=== PATIENT | female | born 1930 | race Caucasian/White ===

== ENCOUNTER → 2016-12-14 | Outpatient (CLI) | payer OTHER ==
[~2016-12-14] MED LIST: DMD20 PO; DONE1TAB11 PO; ESTCR PV; POTA-327 PO; SIMV20TA2 PO; TRIA37.5 PO
[2016-12-14 11:45] LABS: ALT/SGPT 16 U/L (12-78); BLOOD UREA NITROGEN 21 mg/dl (7-18); BUN/CREATININE RATIO 27.3 (10-20); CALCIUM 9.5 mg/dl (8.5-10.1); CARBON DIOXIDE 28 mmol/L (21-32); CHLORIDE 102 mmol/L (98-107); CHOLESTEROL 160 mg/dl (0-200); CREATININE 0.78 mg/dl (0.60-1.20); GLUCOSE 90 mg/dl (70-99); POTASSIUM 3.3 mmol/L (3.5-5.1); SODIUM 138 mmol/L (136-145); TRIGLYCERIDES 87 mg/dl (0-150); VERY LOW DENSITY LIPOPROT CALC 17 mg/dl
[2016-12-14 11:48] LABS: ALB/GLOB RATIO 0.8 (0.9-2); ALKALINE PHOSPHATASE 67 U/L (45-117); AST/SGOT 17 U/L (15-37); CHOLESTEROL/HDL RATIO 2.2; HDL CHOLESTEROL 74 mg/dl; LDL CHOLESTEROL CALCULATED 69 mg/dl
== END | disposition home or self-care (01) ==
LOC: C.LAB1850 09:04
PROVIDERS: ATTEND Nurse Practitioner Adult Health
DX: I10 Essential (primary) hypertension (principal); E78.00 Pure hypercholesterolemia, unspecified; R73.9 Hyperglycemia, unspecified

== ENCOUNTER 2021-02-05 19:32 | Inpatient (IN) ==
--- NOTE | 2021-02-05 20:53 | XRay Report ---
XR chest 1V portable CLINICAL HISTORY: ams TECHNIQUE: Single frontal radiograph of the chest was obtained. Comparison: Comparison is made to chest one view 01/14/2021 FINDINGS: No lines and tubes are seen. The aorta is tortuous. The remainder of the cardiomediastinal silhouette is unremarkable. The lungs are clear. No evidence of pleural effusion or pneumothorax. IMPRESSION: No acute chest disease. ACT 112: Negative or not required by law. Electronically signed by: Jourdan Germain M.D. 02/05/2021 8:52 PM
[2021-02-05 21:45] LABS: Alanine Aminotransferase 30 U/L (12-78); Albumin Level 3.4 gm/dl (3.4-5.0); Aspartate Aminotransferase 43 U/L (15-37); BUN Creatinine Ratio 28.4 (10-20); Blood Urea Nitrogen 46 mg/dl (7-18); Calcium 10.3 mg/dl (8.5-10.1); Carbon Dioxide 28 mmol/L (21-32); Chloride 106 mmol/L (98-107); Est GFR (African American) 32.3 ml/min; Est GFR (Non-African American) 27.9 ml/min; Glucose 115 mg/dl (70-99); Lipase 73 U/L (73-393); Magnesium 2.7 mg/dl (1.8-2.4); Potassium 4.4 mmol/L (3.5-5.1); Sodium 142 mmol/L (136-145)
[2021-02-05 21:56] LABS: Albumin Globulin Ratio 0.6 (0.9-2); Alkaline Phosphatase 107 U/L (45-117); Bilirubin,Total 0.5 mg/dl (0.2-1); Globulin 5.3 gm/dl (2.5-4.0); Thyroid Stimulating Hormone 0.647 uIu/ml (0.300-4.500); Total Protein 8.7 gm/dl (6.4-8.2)
[2021-02-05 22:26] LABS: Hematocrit (blood only) 32.2 % (37-47); Hemoglobin 9.2 g/dL (12.0-16.0); Mean Corpuscular Hemoglobin 19.3 pg (25-34); Mean Corpuscular Hgb Conc 28.6 g/dL (32-36); Mean Corpuscular Volume 67.6 fL (80-100); Mean Platelet Volume 8.4 fL (7.4-10.4); Platelet Count 327 K/uL (130-400); RDW Coefficient of Variation 20.8 % (11.5-14.5); RDW Standard Deviation 50.6 fL (36.4-46.3); Red Blood Count 4.76 M/uL (4.2-5.4); White Blood Count 9.91 K/uL (4.8-10.8)
[2021-02-05 22:28] LABS: Anisocytosis Present; Basophils # (auto) 0.01 K/uL (0-0.2); Basophils % (auto) 0.1 %; Eosinophils # (auto) 0.03 K/uL (0-0.5); Eosinophils % (auto) 0.3 %; Hypochromasia Present; Immature Granulocytes # (auto) 0.02 K/uL (0.00-0.02); Immature Granulocytes % (auto) 0.2 %; Lymphocytes # (auto) 1.78 K/uL (1.2-3.4); Microcytosis Present; Monocytes # (auto) 0.69 K/uL (0.11-0.59); Neutrophils # (auto) 7.38 K/uL (1.4-6.5); Neutrophils % (auto) 74.4 %; Polychromasia 1+
[2021-02-05] MEDS ORDERED: SODIUM CHLORIDE 0.9% 1000ML 1,000 ML IV SCH (22:45)
--- NOTE | 2021-02-05 22:55 | Emergency Department Note ---
History of Present Illness General Chief complaint: Illness Time Seen by Provider: 02/05/21 20:12 Source: family Mode of arrival: ambulatory Limitations: altered mental status History of Present Illness Provider complaint: confusion, aggressive behavior, hallucinations This is an 89-year-old female brought in by family due to concern for increased confusion, hallucinations, and aggressive behavior. They state patient does have a history of dementia and has worsened in recent months. Patient does live with family who cares for her full-time. Family states she has become more aggressive, pushing and shoving other family members and they are concerned for their safety. They deny any recent illness or change in her medications. Patient is not a wainwright [place] speaker, and communicates with family in her n ative language. She states she is refusing to drink the water because it is blue. Family also produces videos of her having conversations with people who are not present. They also have pictures of her attempting to turn over dining room chairs in order to use them as a toilet. Patient denies any current pain at this time. Patient is calm and cooperative during my evaluation. They are concerned that the patient may ultimately need senior living placement. Pt seen during a time of high acuity and national emergency pandemic while wearing PPE. Home Medications Medication Instructions Recorded Confirmed Type hydroxyzine HCl 10 mg tablet See Rx Instructions PO TID PRN 10/06/18 02/05/21 Rx #180 tab incontinence pad, liner, disp #60 ea 12/12/19 01/20/21 Rx (Underpad-Extra Large) diaper,brief,adult,disposable #160 ea 12/14/19 01/20/21 Rx (Briefs Medium) simvastatin 20 mg tablet 20 mg PO DAILY #90 tab 04/02/20 02/05/21 Rx donepezil 5 mg tablet 5 mg PO HS #30 tab 09/27/20 02/05/21 Rx potassium chloride 20 mEq 20 meq PO DAILY #30 tab 09/27/20 02/05/21 Rx tablet,extended release torsemide 10 mg tablet 10 mg PO DAILY #30 tab 09/27/20 02/05/21 Rx triamterene 37.5 1 cap PO DAILY #30 cap 09/27/20 02/05/21 Rx mg-hydrochlorothiazide 25 mg capsule trazodone 50 mg tablet 50 mg PO HS #30 tab 12/02/20 02/05/21 Rx estradiol 0.5 appful VAGINAL 2XWK #42.5 g 01/01/21 02/05/21 Rx Allergies Allergy/AdvReac Type Severity Reaction Status Date / Time No Known Allergies Allergy Verified 02/05/21 21:09 Past Med/Surg History Medical History Dementia Dyslipidemia H/O bone density study 01/31/2009 HTN (hypertension) Presence of pessary Skin cancer of face Venous stasis ulcer of left lower extremity Surgical History No pertinent past surgical history Family History Denies family history of Ovarian cancer Prostate cancer Myocardial infarction Breast cancer Colorectal cancer Social History Smoking Status: Unknown if ever smoked Preferred Language: Grenadian Communication Ability: Effective Communication Tools: IPad and Language Line Clarifier Operator Helper Visual Impairment: Partially Limited Hearing Ability: Normal Clarifier Operator Helper Required: Yes Beliefs That Will Affect Care: None marital status: / Current Living Situation: Family Current Living Situation Comment: unable to answer, language barrier, confusion current occupational status: retired How many Children do You have: 3 Feels Safe at Home: Declines to Answer Childhood Exposure to Second-Hand Smoke: No caffeine: Yes during the past year weight has: remained stable Dental Care, Regularly: No Physical Activity Frequency: Daily Seatbelt Use: always Sunscreen Use: No Assistive Devices: Walker Review of Systems A total of 10 systems reviewed and were otherwise negative All systems reviewed & are unremarkable except as noted in HPI & below Physical Exam Vital Signs Vital Signs - 24 hr 02/05/21 19:35 Temperature 36.5 C Temperature Source Oral Pulse Rate 73 Respiratory Rate 16 Respiratory Effort / Characteristics Non-Labored Respiratory Depth Normal Blood Pressure 126/73 Blood Pressure Mean 90 Blood Pressure Position Lying Pulse Oximetry 94 Sepsis Recent Fever Within 48 Hours No Sepsis New/Unexplained Change in Mental Status No Sepsis Action Taken by Nursing No Action Required GENERAL: alert, well appearing, well nourished, no distress, non-toxic EYE EXAM: normal conjunctiva, PERRL and EOM's grossly intact OROPHARYNX: no exudate, no erythema, lips, buccal mucosa, and tongue normal and mucous membranes are moist, poor dentition NECK: supple, no nuchal rigidity, no adenopathy, non-tender LUNGS: Clear to auscultation. Normal chest wall mechanics, no w/r/r HEART: no murmurs, S1 normal and S2 normal ABDOMEN: abdomen soft, non-tender, normo-active bowel sounds, no masses, no rebound or guarding. BACK: Back is symmetrical on inspection and there is no deformity, no midline tenderness, no CVA tenderness. SKIN: no rashes and no bruising UPPER EXTREMITIES: upper extremities are grossly normal. FROM, nml pulses b/l. Several areas of ecchymosis in various stages of healing noted along the left forearm. Granddaughter bedside states this is from her pinching herself. LOWER EXTREMITIES: No pitting edema. FROM, nml pulses b/l. NEURO EXAM: Normal sensorium, cranial nerves II-XII grossly intact, normal speech, no gross weakness of arms, no gross weakness of legs. Gross sensation intact. Course Course 2249: Discussed with Dr. Serrano. UA still pending. Patient cooperative here thus far. Administered Medications Donepezil HCl (Donepezil Hcl 5 Mg Tab) 5 mg PO HS ZOIE Stop: 03/08/21 20:59 Last Admin: 02/06/21 22:36 Dose: Not Given Documented by: [id number] Enoxaparin Sodium (Enoxaparin Inj 30 Mg/0.3 Ml Syr) 30 mg SQ Q24H ZOIE Stop: 03/08/21 05:59 Last Admin: 02/06/21 06:33 Dose: 30 mg Documented by: [id number] Ceftriaxone Sodium 1,000 mg/ (Dextrose) 60 mls @ 100 mls/hr IV DAILY ZOIE; Protocol Stop: 02/11/21 08:59 Last Infusion: 02/06/21 10:37 Dose: 0 mls/hr Documented by: [id number] Admin: 02/06/21 09:37 Dose: 100 mls/hr Documented by: [id number] Sodium Chloride (Nss 1000ml) 1,000 mls @ 80 mls/hr IV .[id number] ZOIE Stop: 03/08/21 08:29 Last Admin: 02/06/21 22:40 Dose: 80 mls/hr Documented by: [id number] Infusion: 02/06/21 20:28 Dose: 0 mls/hr Documented by: [id number] Admin: 02/06/21 09:37 Dose: 80 mls/hr Documented by: [id number] Potassium Chloride (Potassium Chloride Crtab 20 Meq Tabcr) 20 meq PO DAILY ZOIE Stop: 03/08/21 08:59 Last Admin: 02/06/21 08:44 Dose: 20 meq Documented by: [id number] Simvastatin (Simvastatin 20 Mg Tab) 20 mg PO DAILY ZOIE Stop: 03/08/21 08:59 Last Admin: 02/06/21 08:44 Dose: 20 mg Documented by: [id number] Torsemide (Torsemide 10 Mg Tab) 10 mg PO DAILY ZOIE Stop: 03/08/21 08:59 Last Admin: 02/06/21 08:44 Dose: 10 mg Documented by: [id number] Trazodone HCl (Trazodone Hcl 50 Mg Tab) 50 mg PO HS ZOIE Stop: 03/08/21 20:59 Last Admin: 02/06/21 22:36 Dose: Not Given Documented by: [id number] Triamterene/Hydrochlorothiazide (Triamterene/Hctz 37.5/25mg Cap) 1 cap PO DAILY ZOIE Stop: 03/08/21 08:59 Last Admin: 02/06/21 08:44 Dose: 1 cap Documented by: [id number] Discontinued Medications Sodium Chloride (Nss 1000ml) 1,000 mls @ 125 mls/hr IV .Q8H ZOIE Stop: 03/07/21 22:44 Last Infusion: 02/06/21 01:00 Dose: 0 mls/hr Documented by: [id number] Admin: 02/05/21 23:40 Dose: 125 mls/hr Documented by: [id number] Lactated Ringer's (Lr) 1,000 mls @ 100 mls/hr IV .Q10H ZOIE Stop: 02/06/21 11:29 Last Infusion: 02/06/21 08:49 Dose: 0 mls/hr Documented by: [id number] Admin: 02/06/21 01:42 Dose: 100 mls/hr Documented by: [id number] Iron Sucrose 300 mg/ Sodium (Chloride) 265 mls @ 176.667 mls/hr IV TODAY ONE Stop: 02/06/21 12:28 Last Infusion: 02/06/21 12:59 Dose: 0 mls/hr Documented by: [id number] Admin: 02/06/21 11:18 Dose: 176.7 mls/hr Documented by: [id number] Influenza Virus Vaccine (Influenza Vaccine High Dose Pf 65+ 0.7 Ml Syr) 0.7 ml IM .ONCE ONE Stop: 02/06/21 12:01 Last Admin: 02/06/21 15:55 Dose: 0.7 ml Documented by: [id number] Pneumococcal Polyvalent Vaccine (Pneumococcal Polysaccharides 25 Mcg/0.5 Ml Via l/Syr) 25 mcg IM .ONCE ONE Stop: 02/06/21 12:01 Last Admin: 02/06/21 15:56 Dose: 25 mcg Documented by: [id number] Medical Decision Making Differential Diagnosis Differential diagnoses includes but is not limited to toxic, metabolic, infectious, traumatic, cardiac, neurologic, hematologic, psychiatric and inflammatory etiologies. Medical Records Attestation: I reviewed the patient's medical records. Home Medications Current Medication List: was personally reviewed by me Laboratory Data Attestation: I reviewed the patient's lab results. Result diagrams: 02/06/21 08:26 02/06/21 08:26 Lab Results 02/05/21 02/05/21 02/05/21 Range/Units 21:03 21:03 21:10 WBC 9.91 (4.8-10.8) K/uL RBC 4.76 (4.2-5.4) M/uL Hgb 9.2 L (12.0-16.0) g/dL Hct 32.2 L (37-47) % MCV 67.6 L (80-100) fL MCH 19.3 L (25-34) pg MCHC 28.6 L (32-36) g/dL RDW Std Deviation 50.6 H (36.4-46.3) fL RDW Coeff of Tommie 20.8 H (11.5-14.5) % Plt Count 327 (130-400) K/uL MPV 8.4 (7.4-10.4) fL Immature Gran % (Auto) 0.2 % Neut % (Auto) 74.4 % Lymph % (Auto) 18.0 % [place] % (Auto) 7.0 % Eos % (Auto) 0.3 % Baso % (Auto) 0.1 % Neut # (Auto) 7.38 H (1.4-6.5) K/uL Lymph # (Auto) 1.78 (1.2-3.4) K/uL [place] # (Auto) 0.69 H (0.11-0.59) K/uL Eos # (Auto) 0.03 (0-0.5) K/uL Baso # (Auto) 0.01 (0-0.2) K/uL Immature Gran # (Auto) 0.02 (0.00-0.02) K/uL Polychromasia 1+ Hypochromasia Present Anisocytosis Present Microcytosis Present Sodium 142 (136-145) mmol/L Potassium 4.4 (3.5-5.1) mmol/L Chloride 106 (98-107) mmol/L Carbon Dioxide 28 (21-32) mmol/L Anion Gap 8.0 (3-11) BUN 46 H (7-18) mg/dl Creatinine 1.62 H (0.6-1.2) mg/dl Est Cr Clr Drug Dosing Not Reportable Est GFR ( Amer) 32.3 ml/min Est GFR (Non-Af Amer) 27.9 ml/min BUN/Creatinine Ratio 28.4 H (10-20) Glucose 115 H (70-99) mg/dl Calcium 10.3 H (8.5-10.1) mg/dl Magnesium 2.7 H (1.8-2.4) mg/dl Total Bilirubin 0.5 (0.2-1) mg/dl AST 43 H (15-37) U/L ALT 30 (12-78) U/L Alkaline Phosphatase 107 (45-117) U/L Troponin I 0.040 (0-0.045) ng/ml Total Protein 8.7 H (6.4-8.2) gm/dl Albumin 3.4 (3.4-5.0) gm/dl Globulin 5.3 H (2.5-4.0) gm/dl Albumin/Globulin Ratio 0.6 L (0.9-2) Lipase 73 (73-393) U/L TSH 0.647 (0.300-4.500) uIu/ml COVID-19 Eval Order Covid19 at [facility] SARS-CoV-2 (PCR) (Negative) 02/05/21 Range/Units 21:10 WBC (4.8-10.8) K/uL RBC (4.2-5.4) M/uL Hgb (12.0-16.0) g/dL Hct (37-47) % MCV (80-100) fL MCH (25-34) pg MCHC (32-36) g/dL RDW Std Deviation (36.4-46.3) fL RDW Coeff of Tommie (11.5-14.5) % Plt Count (130-400) K/uL MPV (7.4-10.4) fL Immature Gran % (Auto) % Neut % (Auto) % Lymph % (Auto) % [place] % (Auto) % Eos % (Auto) % Baso % (Auto) % Neut # (Auto) (1.4-6.5) K/uL Lymph # (Auto) (1.2-3.4) K/uL [place] # (Auto) (0.11-0.59) K/uL Eos # (Auto) (0-0.5) K/uL Baso # (Auto) (0-0.2) K/uL Immature Gran # (Auto) (0.00-0.02) K/uL Polychromasia Hypochromasia Anisocytosis Microcytosis Sodium (136-145) mmol/L Potassium (3.5-5.1) mmol/L Chloride (98-107) mmol/L Carbon Dioxide (21-32) mmol/L Anion Gap (3-11) BUN (7-18) mg/dl Creatinine (0.6-1.2) mg/dl Est Cr Clr Drug Dosing Est GFR ( Amer) ml/min Est GFR (Non-Af Amer) ml/min BUN/Creatinine Ratio (10-20) Glucose (70-99) mg/dl Calcium (8.5-10.1) mg/dl Magnesium (1.8-2.4) mg/dl Total Bilirubin (0.2-1) mg/dl AST (15-37) U/L ALT (12-78) U/L Alkaline Phosphatase (45-117) U/L Troponin I (0-0.045) ng/ml Total Protein (6.4-8.2) gm/dl Albumin (3.4-5.0) gm/dl Globulin (2.5-4.0) gm/dl Albumin/Globulin Ratio (0.9-2) Lipase (73-393) U/L TSH (0.300-4.500) uIu/ml COVID-19 Eval Order SARS-CoV-2 (PCR) NEGATIVE (Negative) Imaging Data Radiologist's Impression: Chest X-Ray 02/05/21 20:31 XR chest 1V portable CLINICAL HISTORY: ams TECHNIQUE: Single frontal radiograph of the chest was obtained. Comparison: Comparison is made to chest one view 01/14/2021 FINDINGS: No lines and tubes are seen. The aorta is tortuous. The remainder of the cardiomediastinal silhouette is unremarkable. The lungs are clear. No evidence of pleural effusion or pneumothorax. IMPRESSION: No acute chest disease. ACT 112: Negative or not required by law. Electronically signed by: Jourdan Germain M.D. 02/05/2021 8:52 PM ECG Data Attestation: I personally reviewed and interpreted this ECG as follows: Indication: + altered mental status Rate (beats per minute): 89 Rhythm: + normal sinus ECG Intervals/blocks: + Normal QRS and + Normal QT ECG [place]: + Left axis deviation ECG ST segments: + Nonspecific ST abnormalities Additional Comments: Significant baseline artifact aberrancy noted MDM Narrative This is an 89-year-old female with a history of dementia who lives with family who was becoming more confused, more agitated, and aggressive with family. Family is concerned for safety at this point time and feels she may ultimately need placement. No obvious recent trauma. Patient hemodynamically stable on arrival. Patient sent for CT imaging and labs sent in addition. These are reassuring. Discussed case with hospitalist additional evaluation and management and likely eventual placement with case management involvement. Patient's UA was pending at that time. Due to patient being single day of high volume and acuity, there was some delay in obtaining this as this required multiple staff members in order to obtain a cath specimen. A dose of Ativan was given in addition to help prevent patient becoming too combative or putting staff at risk of injury due to her recent aggressive behavior. Hospitalist was made aware of this. An order was placed for continuous cardiac monitoring. The monitor shows a rate of _70_ with _normal sinus_ rhythm. Impression & Plan Altered mental status, Aggressive behavior Discharge Plan Visit Data Chief Complaint: Illness ED Provider: Brie Galindo Discharge Problem: Altered mental status, Aggressive behavior Patient Disposition: Admitted As Inpatient Discharge Instructions Interventions: ED Discharge Assessment Last Done: 02/06/21 00:11 Discharge Problem: Altered mental status Qualifiers: Altered mental status type: unspecified Qualified Code(s): R41.82 - Altered mental status, unspecified
--- NOTE | 2021-02-05 23:27 | History & Physical Report ---
Date of Service February 05, 2021 Assessment & Plan (1) Agitation: Plan: 89yo female with history of dementia with progressive decline presenting with 2 weeks of worsening aggressive and agitated behavior in the home as well as possible hallucinations, failure to thrive. Patient presently lives with her daughter who is her primary body care manager. She has become more difficult to manage over the last two weeks. Patient has become more aggressive toward family members lately. She is afebrile, HD stable. Labs with mild hypercalcemia at 10.3, midly elevated BUN and Cr of 46 and 1.62, respectively. TSH WNL. No obvious source of infection although UA is pending. CT of the head is unremarkable. No new medications. Consideration of progressive dementia vs delirium. Possible UTI. Patient also seems dehydrated on labs as well as clinical appearance. -Admit to medical -1:1 observation as patient may try to climb from bed -Awaiting UA - patient with pessary in place, higher risk for infection -Delirium prevention strategies with frequent orientation, maintenance of sleep/wake cycles where able -Gentle IVF - LR at 100mL/hr x 1 liter -Check B12 and Folate -Continue Aricept 5mg po qHS -Continue Trazodone 50mg po qHS -Will hold Hydroxyzine for now as anticholinergic effects may worsen delirium (2) Hypercholesterolemia: Plan: Chronic. On Simvastatin -Continue Simvastatin 20mg po daily (3) Benign essential hypertension: Plan: Blood pressure well controlled. She is on three diuretics to include triamterene/HCTZ as well as torsemide -Continue home meds for now (4) Dementia: Plan: Chronic -Continue Aricept -PT/OT evaluation for placement needs Plan: F/E/N - Gentle IVF with LR, electrolytes WNL, repeat chemistry in AM, Regular diet as tolerated Ppx - Lovenox 30 Code - DNR/DNI Dispo - Admit to medical History of Present Illness Chief Complaint: Aggression Primary Care Provider: NO PCP Halley Soliz is an 89yo Iranian female with history of Dementia, HTN, HLP presenting with her granddaughter with report of aggression. Patient currently lives with her daughter who cares for her. At baseline she is incontinent, needs assistance with dressing and meals. She has also has difficulty with communication - she is Iranian speaking but has been having progressive inability to understand Iranian. Over the last 2 weeks patient has become increasingly aggressive at home. She has been hitting and pushing her daughter. She has also been defecating throughout the house. Also some question of hallucinations as she has been heard having conversations with people that aren't in the room. Patient's granddaughter visited today from [place]. Patient became very aggressive and was pushing her daughter, granddaughter and great-grandchildren around. She was also yelling and cursing. Granddaughter called EMS and patient was brought to the ER. Afebrile, HD stable while in the ER. Granddaughter states that patient has been looking around the room confused and having conversations with people that are n't here. Patient is Iranian speaking but is having difficulty understanding her granddaughter. She follows some commands. Of note, patient was seen in the ER on 01/14/21 after being found wandering around outside. She was ultimately discharged home to family. She was seen by her PCP on 01/20/21 for followup. Note mentions that patient has been more aggressive, not allowing for self-care. It was recommended that the family begin to consider placement options. ER Course: NSS x 1L Allergies Allergy/AdvReac Type Severity Reaction Status Date / Time No Known Allergies Allergy Verified 02/05/21 21:09 Home Medications Medication Instructions Recorded Confirmed Type hydroxyzine HCl 10 mg tablet See Rx Instructions PO TID PRN 10/06/18 02/05/21 Rx #180 tab incontinence pad, liner, disp #60 ea 12/12/19 01/20/21 Rx (Underpad-Extra Large) diaper,brief,adult,disposable #160 ea 12/14/19 01/20/21 Rx (Briefs Medium) simvastatin 20 mg tablet 20 mg PO DAILY #90 tab 04/02/20 02/05/21 Rx donepezil 5 mg tablet 5 mg PO HS #30 tab 09/27/20 02/05/21 Rx potassium chloride 20 mEq 20 meq PO DAILY #30 tab 09/27/20 02/05/21 Rx tablet,extended release torsemide 10 mg tablet 10 mg PO DAILY #30 tab 09/27/20 02/05/21 Rx triamterene 37.5 1 cap PO DAILY #30 cap 09/27/20 02/05/21 Rx mg-hydrochlorothiazide 25 mg capsule trazodone 50 mg tablet 50 mg PO HS #30 tab 12/02/20 02/05/21 Rx estradiol 0.5 appful VAGINAL 2XWK #42.5 g 01/01/21 02/05/21 Rx Past Med/Surg History Medical History Dementia Dyslipidemia H/O bone density study 01/31/2009 HTN (hypertension) Presence of pessary Skin cancer of face Venous stasis ulcer of left lower extremity Surgical History No pertinent past surgical history Family History Denies family history of Ovarian cancer Prostate cancer Myocardial infarction Breast cancer Colorectal cancer Social History Smoking Status: Unknown if ever smoked Second Hand Exposure: No; Hx Alcohol Use: No Hx Substance Use: No Preferred Language: Iranian Communication Tools: Other Visual Impairment: Partially Limited Hearing Ability: Normal 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 Beliefs That Will Affect Care: None marital status: / Current Living Situation: Alone current occupational status: retired How many Children do You have: 3 Feels Safe at Home: Yes Childhood Exposure to Second-Hand Smoke: No caffeine: Yes during the past year weight has: remained stable Dental Care, Regularly: No Physical Activity Frequency: Daily Seatbelt Use: always Sunscreen Use: No Assistive Devices: Cane, Denture - Upper, Denture - Lower, Glasses and Walker Review of Systems Review of Systems: Unobtainable due to cognitive status Physical Exam Physical Exam: General: frail, elderly female patient resting comfortably, NAD, does not answer questions, follows only some commands. Patient is Iranian speaking Skin: warm, dry, intact, scattered bruising on forearms, hands. Chronic venous stasis changes present on bilateral LE HEENT: NC/AT, PERRL, anicteric sclera, conjunctiva without injection, external ear normal to inspection and nontender, nares patent, dry mucus membranes, poor dentition, no oropharyngeal lesions, neck supple, trachea midline, no LAD, no thyromegaly, no JVD Heart: +S1/S2, regular with ectopy, no m/r/g Lungs: equal air entry bilaterally, no rales/rhonchi/wheezes Abd: +BS, soft, NT/ND, no masses/organomegaly/ascites Ext: warm, 2+ pulses in UE/LE bilaterally, no clubbing/cyanosis or edema Neuro: nonfocal, generalized weakness, patient moving all extremities with equal strength Results & Data Results & Data ([facility]) Vital Signs (Past 12 Hours) Vital Signs Temp Pulse Resp BP Pulse Ox 02/05/21 19:35 36.5 C 73 16 126/73 94 Laboratory Results Laboratory Results WBC 9.91 K/uL (4.8-10.8) 02/05/21 21:03 RBC 4.76 M/uL (4.2-5.4) 02/05/21 21:03 Hgb 9.2 g/dL (12.0-16.0) L 02/05/21 21:03 Hct 32.2 % (37-47) L 02/05/21 21:03 MCV 67.6 fL (80-100) L 02/05/21 21:03 MCH 19.3 pg (25-34) L 02/05/21 21:03 MCHC 28.6 g/dL (32-36) L 02/05/21 21:03 RDW Std Deviation 50.6 fL (36.4-46.3) H 02/05/21 21:03 RDW Coeff of Tommie 20.8 % (11.5-14.5) H 02/05/21 21:03 Plt Count 327 K/uL (130-400) 02/05/21 21:03 MPV 8.4 fL (7.4-10.4) 02/05/21 21:03 Immature Gran % (Auto) 0.2 % 02/05/21 21:03 Neut % (Auto) 74.4 % 02/05/21 21:03 Lymph % (Auto) 18.0 % 02/05/21 21:03 Posey % (Auto) 7.0 % 02/05/21 21:03 Eos % (Auto) 0.3 % 02/05/21 21:03 Baso % (Auto) 0.1 % 02/05/21 21:03 Neut # (Auto) 7.38 K/uL (1.4-6.5) H 02/05/21 21:03 Lymph # (Auto) 1.78 K/uL (1.2-3.4) 02/05/21 21:03 Posey # (Auto) 0.69 K/uL (0.11-0.59) H 02/05/21 21:03 Eos # (Auto) 0.03 K/uL (0-0.5) 02/05/21 21:03 Baso # (Auto) 0.01 K/uL (0-0.2) 02/05/21 21:03 Immature Gran # (Auto) 0.02 K/uL (0.00-0.02) 02/05/21 21:03 Polychromasia 1+ 02/05/21 21:03 Hypochromasia Present 02/05/21 21:03 Anisocytosis Present 02/05/21 21:03 Microcytosis Present 02/05/21 21:03 Sodium 142 mmol/L (136-145) 02/05/21 21:03 Potassium 4.4 mmol/L (3.5-5.1) 02/05/21 21:03 Chloride 106 mmol/L (98-107) 02/05/21 21:03 Carbon Dioxide 28 mmol/L (21-32) 02/05/21 21:03 Anion Gap 8.0 (3-11) 02/05/21 21:03 BUN 46 mg/dl (7-18) H 02/05/21 21:03 Creatinine 1.62 mg/dl (0.6-1.2) H 02/05/21 21:03 Est Cr Clr Drug Dosing Not Reportable 02/05/21 21:03 Est GFR ( Amer) 32.3 ml/min 02/05/21 21:03 Est GFR (Non-Af Amer) 27.9 ml/min 02/05/21 21:03 BUN/Creatinine Ratio 28.4 (10-20) H 02/05/21 21:03 Glucose 115 mg/dl (70-99) H 02/05/21 21:03 Calcium 10.3 mg/dl (8.5-10.1) H 02/05/21 21:03 Magnesium 2.7 mg/dl (1.8-2.4) H 02/05/21 21:03 Total Bilirubin 0.5 mg/dl (0.2-1) 02/05/21 21:03 AST 43 U/L (15-37) H 02/05/21 21:03 ALT 30 U/L (12-78) 02/05/21 21:03 Alkaline Phosphatase 107 U/L (45-117) 02/05/21 21:03 Troponin I 0.040 ng/ml (0-0.045) 02/05/21 21:03 Total Protein 8.7 gm/dl (6.4-8.2) H 02/05/21 21:03 Albumin 3.4 gm/dl (3.4-5.0) 02/05/21 21:03 Globulin 5.3 gm/dl (2.5-4.0) H 02/05/21 21:03 Albumin/Globulin Ratio 0.6 (0.9-2) L 02/05/21 21:03 Lipase 73 U/L (73-393) 02/05/21 21:03 TSH 0.647 uIu/ml (0.300-4.500) 02/05/21 21:03 COVID-19 Eval Order Covid19 at [facility] 02/05/21 21:10 SARS-CoV-2 (PCR) NEGATIVE (Negative) 02/05/21 21:10 Impressions Chest X-Ray 02/05/21 20:31 XR chest 1V portable CLINICAL HISTORY: ams TECHNIQUE: Single frontal radiograph of the chest was obtained. Comparison: Comparison is made to chest one view 01/14/2021 FINDINGS: No lines and tubes are seen. The aorta is tortuous. The remainder of the cardiomediastinal silhouette is unremarkable. The lungs are clear. No evidence of pleural effusion or pneumothorax. IMPRESSION: No acute chest disease. ACT 112: Negative or not required by law. Electronically signed by: Jourdan Germain M.D. 02/05/2021 8:[address] Head - Per STAT-rad: No ICH, mass effect or edema. No evidence of acute cortical stroke. Sinus retention cysts/polyps. ECG Additional Comments: EKG wtih SR at 89bpm, sinus arrhythmia with PACs, no acute ischemic changes Code Status & VTE Plan VTE Prophylaxis Plan VTE Prophylaxis will be ordered: Yes PG Care Time/CCT Total # of Minutes Spent Total Time Spent with Patient: Total time spent is greater than 50% in coordination of care (as documented) at patient's floor/unit and/or counseling patient: Coding Level of Care Code 96661 Initial Inpt Care Lvl 2 Diagnoses Hypercholesterolemia E78.00 Benign essential hypertension I10 Dementia F03.91 Dementia type: unspecified type Dementia behavioral disturbance: with behavioral disturbance Agitation R45.1 (1) Dementia Dementia type: unspecified type Dementia behavioral disturbance: with behavioral disturbance Qualified Code(s): F03.91 - Unspecified dementia with behavioral disturbance
[2021-02-05] MEDS ORDERED: LORazepam 0.5 MG/1 ML VIAL IV PRN (23:54)
[2021-02-06] MEDS ORDERED: ONDANSETRON INJ 2 MG/ML 2 ML VIAL IV PRN (00:58)
[2021-02-06] MEDS ORDERED: MAGNESIUM HYDROXIDE SUSP 30 ML UDC PO PRN (00:58)
[2021-02-06] MEDS ORDERED: LACTATED RINGER'S 1,000 ML IV SCH (01:30)
[2021-02-06 02:24] LABS: Appearance Urine Cloudy (Clear); Bacteria Urine Automated 2+ (Negative); Bilirubin Urine Negative (Negative); Blood Urine Trace (Negative); Color Urine Yellow; Glucose Urine UA Negative (Negative); Ketones Urine Negative (Negative); Leukocyte Esterase Urine 3+ (Negative); Nitrite Urine Positive (Negative); Protein Urine Negative (Negative); RBC Urine Automated 0-4 /hpf (0-4); Specific Gravity Urine 1.013 (1.000-1.030); Urobilinogen Urine Negative (Negative); WBC Urine Automated >30 /hpf (0-5)
[2021-02-06] MEDS: ENOXAPARIN INJ 30 MG/0.3 ML SYR SQ SCH (06:33)
--- NOTE | 2021-02-06 07:23 | CT Scan Report ---
HEAD CT NONCONTRAST CT DOSE: 614.27 mGy.cm HISTORY: Altered mental status. TECHNIQUE: Multiaxial CT images of the head were performed without the use of intravenous contrast. A utomated exposure control was utilized for this study. A dose lowering technique was utilized adheri ng to the principles of ALARA. Comparison: Head CT 01/14/2021. Findings: Small retention cyst within the maxillary sinuses. The mastoid air cells are clear. The shellie varium and skull base are intact. There is no mass, hematoma, midline shift, acute infarct. White mat ter hypodensity is nonspecific but suggestive of microvascular ischemic change. The ventricles and appiah lci demonstrate mild age-related involutional changes. Impression: No acute intracranial abnormality. ACT 112: Negative or not required by law. Electronically signed by: Iker Alcazar M.D. 02/06/2021 7:22 AM
--- NOTE | 2021-02-06 08:19 | Hospitalist Progress Note ---
Date of Service February 06, 2021 Assessment & Plan (1) Agitation: Plan: 89yo female with history of dementia with progressive decline presenting with 2 weeks of worsening aggressive and agitated behavior in the home as well as possible hallucinations, failure to thrive. Patient presently lives with her daughter who is her primary career resource technician and has become more difficult/aggressive with family to manage over the last two weeks. 1:1 placed -- has been much more calm since given dose of abx for possible UTI --> UA -- cloudy, +nitrite, 3+ leuk est, >30 WBC, 10-20 epi, 2+ bacteria (patient also w pessary) -- will start rocephin. Change IVF to NSS @ 80cc/hr to prevent interaction LR and Rocephin Hold torsemide, triameterene/hctz (did get dose this AM) while hydrating B12/folate/TSH wnl B1 pending Continue aricept 5mg, trazodone 50mg HS. Hold hydroxyzine (may need resumed for her "itching" "picking" but denied being itchy and would avoid w anticholinergic effects) MCV <80. Never had scope. No bleeding reported. Iron studies with iron deficiency anemia: Iron 34, TIBC 348, Transferrin 273, trans % sat 9, ferritin 12.9 PT/OT consulted -- CM following as family would like placement at d/c. Patient is unvaccinated but willing to receive per family Continue to monitor (2) UTI (urinary tract infection): Plan: UA appears infected Rocephin for now Monitor urine cx likely cause for worsening of #1 (3) Anemia: Plan: Prior labs w anemia, MCV <80 Iron studies : Iron 34, TIBC 348, Transferrin 273, trans % sat 9, ferritin 12.9 Venofer 300mg x1 on 02/06, will repeat in AM. B12/folate wnl CBC in AM (4) Hypercholesterolemia: Plan: Chronic. On Simvastatin Continue Simvastatin 20mg po daily (5) Benign essential hypertension: Plan: Blood pressure well controlled. She got her AM dose of torsemide, triamterene/HCTZ and was dehydrated on IVF Diuretics placed on hold Continue IVF BP 104/64 Continue to monitor (6) Dementia: Plan: Chronic Continue Aricept PT/OT evaluation for placement needs (7) Acute kidney injury superimposed on CKD: Plan: Cr 1.6 on admit (was 1.4 in ER on 01/14) but appears baseline closer to 1 in 2019. recent GFRs in 20s, indicating CKD IV Reported decreased PO intake/weakness -- see UTI as above renally dose medications when appropriate Cr improved to 1.35 On IVF, and will hold diuretics as above as she did get her dose this morning BMP in AM (8) Afib: Plan: afib vs ectopy ?if when dehydrated possibly went into afib rvr making confusion/weakness worse ? Will repeat EKG --> NSR however prior EKG December 2020 during ER visit indicated possible afib as well No prior hx of such HRs have been controlled No prior ECHO in system. No sob/lightheadedness/chest pain, but did report wea kness. TSH checked on admit and was wnl Will move to tele for continued monitoring/recurrence. not sure would be ideal candidate for ACT given severe dementia, however family did not report a history of falls (besides feeling weak recently from UTI/CHRISTINA/dehydration/anemia as above) Plan: Ppx - Lovenox 30 Code - DNR/DNI Continue Rocephin, monitor urine cx Additional Venofer for tomorrow Discussion with family at bedside -- will continue to monitor response to tx of UTI. CM following for possible placement. Patient is unvaccinated, but family willing to do so if needed. Discussed may not be able to occur on inpatient status but will look into this. Admission and Anticipated Discharge Date Admission Date: February 05, 2021 Supervising Physician Co-Signing Physician Notes PA Supervision Note: I did not personally see or examine the patient today, but I verified all dawkins points of JONA Gonzalez's assessment and plan with the following exceptions/additions: None Subjective patient evaluated this afternoon with daughter and granddaughter at bedside. brought metal patternmaker pad into room and granddaughter declined use but she will be traveling home and ok to use when just the daughter as limited vietnamese. they are looking into placement as grandmother has been too combative recently. they state patient had been complaining recently stating her legs were weak and wound give out on her and recently seeing/hitting things and with decreased oral intake and urine output. discussed possible uti and abx and patient is less agitated/aggressive this afternoon. still picking at things/her hair, but overall much more cooperative and calm. has been assisted to bathroom by CM and did well. discussed if improvement with tx of infection might be better to take patient home given her dementia and unfamiliar environment. they want to wait and see how she does. they endorse patient had been having she is not vaccinated but family wanting to know if she could start that while inpatient if possible for need for placement. CM in room to discuss options with patient. we also discussed low iron and supplementation. patient has never had c-scope but family and patient denied ever having dark/tarry stool or rosaura blood. too hard for daughter to get mother to appointments and given age they held off. no reported fever, chills, chest pain, shortness of breath, abdominal pain, nausea or vomiting. questions/concerns addressed at this time. Review of Systems Review of Systems: All systems reviewed & are unremarkable except as noted in HPI & below Physical Exam Physical Exam: General: frail, elderly female patient resting comfortably, NAD, does not answer questions, follows some commands. Patient is Sudanese speaking -- discussion with granddaughter at bedside for interpretation Skin: warm, dry, intact, scattered bruising on forearms, hands. Chronic venous stasis changes present on bilateral LE HEENT: NC/AT, PERRL, anicteric sclera, conjunctiva without injection, external ear normal to inspection and nontender, nares patent, dry mucus membranes, poor dentition, no oropharyngeal lesions, neck supple, trachea midline, no LAD, no thyromegaly, no JVD dentures slightly loose fitting Heart: irregularly irregular vs NSR with extra beat, +S1/S2, no m/r/g Lungs: equal air entry bilaterally, no rales/rhonchi/wheezes Abd: +BS, soft, NT/ND, no masses/organomegaly/ascites Ext: warm, 2+ pulses in UE/LE bilaterally, no clubbing/cyanosis or edema Neuro: nonfocal, generalized weakness, patient moving all extremities with equal strength Results & Data Results & Data ([facility]) Vital Signs (Past 12 Hours) Vital Signs Temp Pulse Resp BP BP Pulse Ox 02/06/21 07:14 36.7 C 77 20 104/65 91 02/06/21 01:00 37.1 C 16 108/67 92 Laboratory Results 02/06/21 02/05/21 02/05/21 Range/Units 02:00 21:10 21:10 WBC (4.8-10.8) K/uL RBC (4.2-5.4) M/uL Hgb (12.0-16.0) g/dL Hct (37-47) % MCV (80-100) fL MCH (25-34) pg MCHC (32-36) g/dL RDW Std Deviation (36.4-46.3) fL RDW Coeff of Tommie (11.5-14.5) % Plt Count (130-400) K/uL MPV (7.4-10.4) fL Immature Gran % (Auto) % Neut % (Auto) % Lymph % (Auto) % [place] % (Auto) % Eos % (Auto) % Baso % (Auto) % Neut # (Auto) (1.4-6.5) K/uL Lymph # (Auto) (1.2-3.4) K/uL [place] # (Auto) (0.11-0.59) K/uL Eos # (Auto) (0-0.5) K/uL Baso # (Auto) (0-0.2) K/uL Immature Gran # (Auto) (0.00-0.02) K/uL Polychromasia Hypochromasia Anisocytosis Microcytosis Sodium (136-145) mmol/L Potassium (3.5-5.1) mmol/L Chloride (98-107) mmol/L Carbon Dioxide (21-32) mmol/L Anion Gap (3-11) BUN (7-18) mg/dl Creatinine (0.6-1.2) mg/dl Est Cr Clr Drug Dosing Est GFR ( Amer) ml/min Est GFR (Non-Af Amer) ml/min BUN/Creatinine Ratio (10-20) Glucose (70-99) mg/dl Calcium (8.5-10.1) mg/dl Magnesium (1.8-2.4) mg/dl Total Bilirubin (0.2-1) mg/dl AST (15-37) U/L ALT (12-78) U/L Alkaline Phosphatase (45-117) U/L Troponin I (0-0.045) ng/ml Total Protein (6.4-8.2) gm/dl Albumin (3.4-5.0) gm/dl Globulin (2.5-4.0) gm/dl Albumin/Globulin Ratio (0.9-2) Lipase (73-393) U/L TSH (0.300-4.500) uIu/ml Urine Color Yellow Urine Appearance Cloudy A (Clear) Urine pH 5.0 (4.5-7.5) Ur Specific [place] 1.013 (1.000-1.030) Urine Protein Negative (Negative) Urine Glucose (UA) Negative (Negative) Urine Ketones Negative (Negative) Urine Blood Trace H (Negative) Urine Nitrite Positive A (Negative) Urine Bilirubin Negative (Negative) Urine Urobilinogen Negative (Negative) Ur Leukocyte Esterase 3+ H (Negative) Urine WBC (Auto) >30 H (0-5) /hpf Urine RBC (Auto) 0-4 (0-4) /hpf U Hyaline Cast (Auto) 1-5 (0-5) /lpf U Epithel Cells (Auto) 10-20 H (0-5) /lpf Urine Bacteria (Auto) 2+ H (Negative) COVID-19 Eval Order Covid19 at [facility] SARS-CoV-2 (PCR) NEGATIVE (Negative) 02/05/21 02/05/21 Range/Units 21:03 21:03 WBC 9.91 (4.8-10.8) K/uL RBC 4.76 (4.2-5.4) M/uL Hgb 9.2 L (12.0-16.0) g/dL Hct 32.2 L (37-47) % MCV 67.6 L (80-100) fL MCH 19.3 L (25-34) pg MCHC 28.6 L (32-36) g/dL RDW Std Deviation 50.6 H (36.4-46.3) fL RDW Coeff of Tommie 20.8 H (11.5-14.5) % Plt Count 327 (130-400) K/uL MPV 8.4 (7.4-10.4) fL Immature Gran % (Auto) 0.2 % Neut % (Auto) 74.4 % Lymph % (Auto) 18.0 % [place] % (Auto) 7.0 % Eos % (Auto) 0.3 % Baso % (Auto) 0.1 % Neut # (Auto) 7.38 H (1.4-6.5) K/uL Lymph # (Auto) 1.78 (1.2-3.4) K/uL [place] # (Auto) 0.69 H (0.11-0.59) K/uL Eos # (Auto) 0.03 (0-0.5) K/uL Baso # (Auto) 0.01 (0-0.2) K/uL Immature Gran # (Auto) 0.02 (0.00-0.02) K/uL Polychromasia 1+ Hypochromasia Present Anisocytosis Present Microcytosis Present Sodium 142 (136-145) mmol/L Potassium 4.4 (3.5-5.1) mmol/L Chloride 106 (98-107) mmol/L Carbon Dioxide 28 (21-32) mmol/L Anion Gap 8.0 (3-11) BUN 46 H (7-18) mg/dl Creatinine 1.62 H (0.6-1.2) mg/dl Est Cr Clr Drug Dosing Not Reportable Est GFR ( Amer) 32.3 ml/min Est GFR (Non-Af Amer) 27.9 ml/min BUN/Creatinine Ratio 28.4 H (10-20) Glucose 115 H (70-99) mg/dl Calcium 10.3 H (8.5-10.1) mg/dl Magnesium 2.7 H (1.8-2.4) mg/dl Total Bilirubin 0.5 (0.2-1) mg/dl AST 43 H (15-37) U/L ALT 30 (12-78) U/L Alkaline Phosphatase 107 (45-117) U/L Troponin I 0.040 (0-0.045) ng/ml Total Protein 8.7 H (6.4-8.2) gm/dl Albumin 3.4 (3.4-5.0) gm/dl Globulin 5.3 H (2.5-4.0) gm/dl Albumin/Globulin Ratio 0.6 L (0.9-2) Lipase 73 (73-393) U/L TSH 0.647 (0.300-4.500) uIu/ml Urine Color Urine Appearance (Clear) Urine pH (4.5-7.5) Ur Specific [place] (1.000-1.030) Urine Protein (Negative) Urine Glucose (UA) (Negative) Urine Ketones (Negative) Urine Blood (Negative) Urine Nitrite (Negative) Urine Bilirubin (Negative) Urine Urobilinogen (Negative) Ur Leukocyte Esterase (Negative) Urine WBC (Auto) (0-5) /hpf Urine RBC (Auto) (0-4) /hpf U Hyaline Cast (Auto) (0-5) /lpf U Epithel Cells (Auto) (0-5) /lpf Urine Bacteria (Auto) (Negative) COVID-19 Eval Order SARS-CoV-2 (PCR) (Negative) Diagnostic Findings Chest X-Ray 02/05/21 20:31 XR chest 1V portable CLINICAL HISTORY: ams TECHNIQUE: Single frontal radiograph of the chest was obtained. Comparison: Comparison is made to chest one view 01/14/2021 FINDINGS: No lines and tubes are seen. The aorta is tortuous. The remainder of the cardiomediastinal silhouette is unremarkable. The lungs are clear. No evidence of pleural effusion or pneumothorax. IMPRESSION: No acute chest disease. ACT 112: Negative or not required by law. Electronically signed by: Jourdan Germain M.D. 02/05/2021 8:[address] 02/05/21 20:[address] DOSE: 614.27 mGy.cm HISTORY: Altered mental status. TECHNIQUE: Multiaxial CT images of the head were performed without the use of intravenous contrast. Automated exposure control was utilized for this study. A dose lowering technique was utilized adhering to the principles of ALARA. Comparison: Head CT 01/14/2021. Findings: Small retention cyst within the maxillary sinuses. The mastoid air cells are clear. The calvarium and skull base are intact. There is no mass, hematoma, midline shift, acute infarct. White matter hypodensity is nonspecific but suggestive of microvascular ischemic change. The ventricles and sulci demonstrate mild age-related involutional changes. Impression: No acute intracranial abnormality. ACT 112: Negative or not required by law. Electronically signed by: Iker Alcazar M.D. 02/06/2021 7:22 AM PG Care Time/CCT Total # of Minutes Spent Total Time Spent with Patient: Total time spent is greater than 50% in coordination of care (as documented) at patient's floor/unit and/or counseling patient: Coding Level of Care Code 18193 Subseq Hosp Care Lvl 3 Diagnoses Agitation R45.1 Hypercholesterolemia E78.00 Benign essential hypertension I10 Dementia F03.91 Dementia behavioral disturbance: with behavioral disturbance Dementia type: unspecified type UTI (urinary tract infection) N39.0 Anemia D64.9 Acute kidney injury superimposed on CKD N17.9; N18.9 Afib I48.91 (1) Dementia Dementia behavioral disturbance: with behavioral disturbance Dementia type: unspecified type Qualified Code(s): F03.91 - Unspecified dementia with behavioral disturbance
[2021-02-06] MEDS: POTASSIUM CHLORIDE CRTAB 20 MEQ TABCR PO SCH (08:44)
[2021-02-06] MEDS: SIMVASTATIN 20 MG TAB PO SCH (08:44)
[2021-02-06] MEDS ORDERED: TORSEMIDE 10 MG TAB PO SCH (09:00)
[2021-02-06] MEDS ORDERED: TRIAMTERENE/HCTZ 37.5/25MG CAP PO SCH (09:00)
[2021-02-06 09:10] LABS: Basophils # (auto) 0.01 K/uL (0-0.2); Basophils % (auto) 0.1 %; Eosinophils # (auto) 0.11 K/uL (0-0.5); Eosinophils % (auto) 1.5 %; Hematocrit (blood only) 28.5 % (37-47); Hemoglobin 8.3 g/dL (12.0-16.0); Immature Granulocytes # (auto) 0.02 K/uL (0.00-0.02); Immature Granulocytes % (auto) 0.3 %; Lymphocytes # (auto) 2.16 K/uL (1.2-3.4); Lymphocytes % (auto) 28.6 %; Mean Corpuscular Hemoglobin 19.6 pg (25-34); Mean Corpuscular Hgb Conc 29.1 g/dL (32-36); Mean Corpuscular Volume 67.2 fL (80-100); Mean Platelet Volume 8.6 fL (7.4-10.4); Monocytes % (auto) 9.3 %; Neutrophils # (auto) 4.55 K/uL (1.4-6.5); Neutrophils % (auto) 60.2 %; Platelet Count 305 K/uL (130-400); RDW Coefficient of Variation 20.9 % (11.5-14.5); RDW Standard Deviation 50.4 fL (36.4-46.3); Red Blood Count 4.24 M/uL (4.2-5.4); White Blood Count 7.55 K/uL (4.8-10.8)
--- NOTE | 2021-02-06 09:24 | Electrocardiogram Report ---
Test Reason : Blood Pressure : / mmHG Vent. Rate : 089 BPM Atrial Rate : 089 BPM P-R Int : 168 ms QRS Dur : 092 ms QT Int : 366 ms P-R-T Axes : 000 -45 -07 degrees QTc Int : 445 ms Poor data quality, interpretation may be adversely affected Probable Atrial fibrillation Left anterior fascicular block Minimal voltage criteria for LVH, may be normal variant Abnormal ECG When compared with ECG of 14-JAN-2021 17:48, No significant change Confirmed by Yoav Lopez ([id number]) on 02/06/2021 9:23:44 AM Referred By: REFERRED SELF Confirmed By:Yoav Lopez
[2021-02-06 09:35] LABS: BUN Creatinine Ratio 29.3 (10-20); Calcium 9.5 mg/dl (8.5-10.1); Creatinine Clr Calc Pharmacy 21.6 ml/min; Est GFR (African American) 40.2 ml/min; Est GFR (Non-African American) 34.7 ml/min; Potassium 3.4 mmol/L (3.5-5.1)
[2021-02-06 09:37] LABS: Anisocytosis Present; Schistocytes 1+
[2021-02-06] MEDS: cefTRIAXone SODIUM 1,000 MG in DEXTROSE 5% 50 ML IV SCH (09:37)
[2021-02-06] MEDS: SODIUM CHLORIDE 0.9% 1000ML 1,000 ML IV SCH ×2 (09:37→22:40)
[2021-02-06 09:53] LABS: Ferritin 12.9 ng/ml (8-388)
[2021-02-06] MEDS ORDERED: IRON SUCROSE 300 MG in SODIUM CHLORIDE 0.9% 250 ML IV ONE (10:59)
[2021-02-06] MEDS ORDERED: PNEUMOCOCCAL POLYSACCHARIDES 25 MCG/0.5 ML VIAL/SYR IM ONE (12:00)
[2021-02-06] MEDS ORDERED: INFLUENZA VACCINE HIGH DOSE PF 65+ 0.7 ML SYR IM ONE (12:00)
[2021-02-06 12:30] LABS: Folate (Folic Acid) 18.2 ng/ml (>5.38)
[2021-02-06] MEDS: DONEPEZIL HCL 5 MG TAB PO SCH (22:36)
[2021-02-06] MEDS: traZODone HCL 50 MG TAB PO SCH (22:36)
[2021-02-07] MEDS: ENOXAPARIN INJ 30 MG/0.3 ML SYR SQ SCH (06:33)
--- NOTE | 2021-02-07 07:31 | Electrocardiogram Report ---
Test Reason : Blood Pressure : / mmHG Vent. Rate : 079 BPM Atrial Rate : 079 BPM P-R Int : 170 ms QRS Dur : 090 ms QT Int : 402 ms P-R-T Axes : 039 211 019 degrees QTc Int : 460 ms Sinus rhythm with Premature atrial complexes Right superior axis deviation Abnormal ECG When compared with ECG of 05-FEB-2021 21:01, No significant change (based on comparison with current p wave morphology, prior tracing probably sinus with PACs) Confirmed by Yoav Lopez ([id number]) on 02/07/2021 7:30:43 AM Referred By: REFERRED SELF Confirmed By:Yoav Lopez
[2021-02-07] MEDS ORDERED: IRON SUCROSE 300 MG in SODIUM CHLORIDE 0.9% 250 ML IV ONE (08:00)
--- NOTE | 2021-02-07 08:46 | Hospitalist Progress Note ---
Date of Service February 07, 2021 Assessment & Plan (1) Agitation: Plan: 89yo female with history of dementia with progressive decline presenting with 2 weeks of worsening aggressive and agitated behavior in the home as well as possible hallucinations, failure to thrive. Patient presently lives with her daughter who is her primary patient care and has become more difficult/aggressive with family to manage over the last two weeks. CT head negative suspect UTI in patient with dementia causing worsening agitation at home 1:1 placed -- has been much more calm since given dose of abx for possible UTI. Changed to Q15min checks Urine cx with gram negative bacilli --follow Remains on Rocephin for now IVF for now, decrease to 50cc/hr then d/c after current bag. Hold torsemide/traimeterene/hctz B12 562, TSH 0.647 B1 pending Continue Aricept 5mg, trazodone 50mg HS. Hold hydroxyzine (may need resumed for her "itching" "picking" but denied being itchy and would avoid w anticholinergic effects) PT/OT consulted -- CM following as family would like placement at d/c. Patient is unvaccinated but willing to receive per family if able to give while inpatient (2) UTI (urinary tract infection): Plan: UA appears infected Rocephin for now Monitor urine cx likely cause for worsening of #1 (3) Anemia: Plan: Prior labs w anemia, MCV <80. Never had scope. No bleeding reported. Iron studies with iron deficiency anemia: Iron studies : Iron 34, TIBC 348, Transferrin 273, trans % sat 9, ferritin 12.9 Venofer 300mg x1 on 02/06, 02/07 will repeat in AM for third dose B12/folate wnl CBC in AM (4) Hypercholesterolemia: Plan: Chronic. On Simvastatin Continue Simvastatin 20mg po daily (5) Benign essential hypertension: Plan: Blood pressure controlled, 120/53 Holding diuretics given UTI/dehydration (improving) while on IVF Continue to monitor Suspect doesn't need as much diuretic as oral intake has been slowly declining over past year (6) Dementia: Plan: Chronic Continue Aricept PT/OT evaluation for placement needs --> PT without need for acute PT indicated and recommended 24hr care of family or placement (7) Acute kidney injury superimposed on CKD: Plan: Cr 1.6 on admit (was 1.4 in ER on 01/14) but appears baseline closer to 1 in 2020. recent GFRs in 20s, indicating CKD IV Reported decreased PO intake/weakness -- see UTI as above renally dose medications when appropriate Cr improved to 1.09 On IVF, and will hold diuretics as above as she did get her dose morning 02/06 continue to monitor (8) Afib: Plan: afib vs ectopy ?if when dehydrated possibly went into afib rvr making confusion worse vs ectopy/extra beats Repeat EKG NSR howevr prior EKG 01/09 during ER visit with possible afib read at that time TSH wnl Moved to tele --> has been in sinus all along (9) Hypokalemia: Plan: K 2.8 -- ordered 40 extra meq in addition to usual 20meq diuretics were given 02/06 am and since held BMP in AM mag wnl Plan: Ppx - Lovenox 30 Code - DNR/DNI Continue Rocephin, monitor urine cx Additional Venofer for tomorrow for third dose Discussion with family at bedside -- will continue to monitor response to tx of UTI. CM following for possible placement Will need 24hr care vs placement-- DIL does not feel she is able to take home Patient is unvaccinated, but family willing to do so if needed. Discussed may not be able to occur on inpatient status but will look into this. Admission and Anticipated Discharge Date Admission Date: February 05, 2021 Supervising Physician Co-Signing Physician Notes PA Supervision Note: I did not personally see or examine the patient today, but I verified all dawkins points of JONA Gonzalez's assessment and plan with the following exceptions/additions: None Subjective patient evaluated this afternoon with head of design pad. three separate attempts were made without much success. third attempt with daughter in law in room. patient still not understanding and conversing much picking at things at times. did loose last tooth overnight. unsure if swallowed or lost. eating/drinking some and taking pills which she had refused to do overnight. apparently overnight an aide was able to get out of her that she was having lower abdominal discomfort and patient was straight cathed with improvement in discomfort documented afib per RN notes however telemetry does have p-waves and suspect frequent eat beats rather than afib. not able to provide much in the way of ROS however patient much more calm today. per DIL, does not feel she can take care of her any longer at home and would like to persue placement at this time regardless of whether she makes improvements back to how she was 1-2 months ago. EMELY follwoinsheyla. Review of Systems Review of Systems: Unobtainable due to mental health condition and Unobtainable due to cognitive status Physical Exam Physical Exam: General: frail, elderly female patient resting comfortably, NAD, does not answer questions, follows some commands. Patient is German speaking -- discussion with [id number] at bedside and use of Ipad airplane first officer Skin: warm, dry, intact, scattered bruising on forearms, hands. Chronic venous stasis changes present on bilateral LE HEENT: NC/AT, PERRL, anicteric sclera, poor dentition, edentulous, trachea midline with deviation CV: frequent ectopy, S1/S2, no m/r/g Resp: CTAB, no w/c, stable on room air GI: +BS, soft, non-tender : no jean baptiste Ext: warm, 2+ pulses, b/l venous stasis LE Neuro: no focal def, no facial droop, moving all extremities but does not follow commands due to dementia/confusion Results & Data Results & Data ([facility]) Vital Signs (Past 12 Hours) Vital Signs Temp Pulse Pulse Resp BP Pulse Ox 02/07/21 07:46 88 02/07/21 07:31 36.6 C 88 19 148/77 H 95 02/06/21 22:52 37.0 C 67 18 123/73 95 02/06/21 22:43 86 PG Care Time/CCT Total # of Minutes Spent Total Time Spent with Patient: Total time spent is greater than 50% in coordination of care (as documented) at patient's floor/unit and/or counseling patient: Prolonged Care Time Prolonged Care Time: Yes 45 minutes spent in addition to chart reviewing in attempts for Ipad for translation and again with DIL at bedside Coding Level of Care Code 24839 Subseq Hosp Care Lvl 2 (25 - SIGNIFICANT, SEPARATELY IDENTIFIABLE ) Diagnoses Agitation R45.1 UTI (urinary tract infection) N39.0 Anemia D64.9 Hypercholesterolemia E78.00 Benign essential hypertension I10 Dementia F03.91 Dementia behavioral disturbance: with behavioral disturbance Dementia type: unspecified type Acute kidney injury superimposed on CKD N17.9; N18.9 Afib I48.91 Hypokalemia E87.6 Additional Codes Prolonged Care Time - Prolonged Care Time: Yes ([id number]) (1) Dementia Dementia behavioral disturbance: with behavioral disturbance Dementia type: unspecified type Qualified Code(s): F03.91 - Unspecified dementia with behavioral disturbance
[2021-02-07] MEDS: cefTRIAXone SODIUM 1,000 MG in DEXTROSE 5% 50 ML IV SCH (09:22)
[2021-02-07 10:38] LABS: Hematocrit (blood only) 29.2 % (37-47); Hemoglobin 8.5 g/dL (12.0-16.0); Mean Corpuscular Hemoglobin 19.4 pg (25-34); Mean Corpuscular Hgb Conc 29.1 g/dL (32-36); Mean Corpuscular Volume 66.5 fL (80-100); Mean Platelet Volume 8.6 fL (7.4-10.4); Platelet Count 303 K/uL (130-400); RDW Coefficient of Variation 20.7 % (11.5-14.5); RDW Standard Deviation 49.4 fL (36.4-46.3); Red Blood Count 4.39 M/uL (4.2-5.4); White Blood Count 10.28 K/uL (4.8-10.8)
[2021-02-07] MEDS: POTASSIUM CHLORIDE CRTAB 20 MEQ TABCR PO SCH (10:47)
[2021-02-07] MEDS: SIMVASTATIN 20 MG TAB PO SCH (10:47)
[2021-02-07 11:19] LABS: BUN Creatinine Ratio 23.5 (10-20); Calcium 8.9 mg/dl (8.5-10.1); Creatinine Clr Calc Pharmacy 28.8 ml/min; Est GFR (African American) 52.1 ml/min; Potassium 2.8 mmol/L (3.5-5.1)
[2021-02-07] MEDS: SODIUM CHLORIDE 0.9% 1000ML 1,000 ML IV SCH (11:37)
[2021-02-07] MEDS ORDERED: POTASSIUM CHLORIDE CRTAB 20 MEQ TABCR PO STA (11:45)
--- NOTE | 2021-02-07 18:44 | Electrocardiogram Report ---
Test Reason : Blood Pressure : / mmHG Vent. Rate : 087 BPM Atrial Rate : 087 BPM P-R Int : 162 ms QRS Dur : 098 ms QT Int : 366 ms P-R-T Axes : 043 -52 083 degrees QTc Int : 440 ms Poor data quality, interpretation may be adversely affected Sinus rhythm with Premature atrial complexes Left ventricular hypertrophy with repolarization abnormality Abnormal ECG When compared with ECG of 06-FEB-2021 15:29, No significant change Confirmed by Yoav Lopez ([id number]) on 02/07/2021 6:43:39 PM Referred By: REFERRED SELF Confirmed By:Yoav Lopez
[2021-02-07] MEDS: ACETAMINOPHEN 325 MG TAB PO PRN (19:54)
[2021-02-07] MEDS: DONEPEZIL HCL 5 MG TAB PO SCH (19:54)
[2021-02-07] MEDS: traZODone HCL 50 MG TAB PO SCH (19:54)
[2021-02-08] MEDS: ENOXAPARIN INJ 30 MG/0.3 ML SYR SQ SCH (06:26)
[2021-02-08 06:38] LABS: Hemoglobin 7.9 g/dL (12.0-16.0); Mean Corpuscular Hemoglobin 19.8 pg (25-34); Mean Corpuscular Hgb Conc 29.3 g/dL (32-36); Mean Corpuscular Volume 67.5 fL (80-100); Mean Platelet Volume 8.4 fL (7.4-10.4); Platelet Count 284 K/uL (130-400); RDW Coefficient of Variation 21.2 % (11.5-14.5); RDW Standard Deviation 50.9 fL (36.4-46.3); White Blood Count 9.33 K/uL (4.8-10.8)
[2021-02-08 07:31] LABS: BUN Creatinine Ratio 21.1 (10-20); Calcium 9.8 mg/dl (8.5-10.1); Creatinine Clr Calc Pharmacy 32.6 ml/min; Est GFR (African American) 59.3 ml/min; Est GFR (Non-African American) 51.1 ml/min; Potassium 3.6 mmol/L (3.5-5.1)
--- NOTE | 2021-02-08 07:49 | Hospitalist Progress Note ---
Date of Service February 08, 2021 Assessment & Plan (1) Agitation: Plan: 89yo female with history of dementia with progressive decline presenting with 2 weeks of worsening aggressive and agitated behavior in the home as well as possible hallucinations, failure to thrive. Patient presently lives with her daughter who is her primary rehab care assistant and has become more difficult/aggressive with family to manage over the last two weeks. CT head negative suspect UTI in patient with dementia causing worsening agitation at home 1:1 placed -- has been much more calm since given dose of abx for possible UTI. Changed to Q15min checks Urine cx with gram negative bacilli--> ECOLI, pansensitive --> will de-escalate to keflex for tomorrow to complete course (got 3 days IV Rocephin) No further IVF --> hgb 7.9 however had remained on IVF through yesterday. Also getting IV venofer for iron deficiency. Continue to monitor CBC Q15m checks. PT/OT -- rec return home w 24hr care. Family not believing they are able to take home and would like to look into placement. CM following. --> However, if unable to find bed did discuss at length patient may be better suited at home Hold torsemide/triamterene/hctz as BP low and PO intake not great. Not overly dehydrated on exam and will hold off further IVF for now B12 562 TSH 0.647 B1 pending Continue Aricept 5mg, trazodone 50mg HS. Hold hydroxyzine (may need resumed for her "itching" "picking" but denied being itchy and would avoid w anticholinergic effects) PT/OT consulted -- CM following as family would like placement at d/c. Patient is unvaccinated but willing to receive per family if able to give while inpatient (2) UTI (urinary tract infection): Plan: UA appears infected -- cx w E.coli, likely worsening #1. Patient calm today but still with significant dementia Rocephin --> keflex as above (3) Anemia: Plan: Prior labs w anemia, MCV <80. Never had scope. No bleeding reported. Iron studies with iron deficiency anemia: Iron studies : Iron 34, TIBC 348, Transferrin 273, trans % sat 9, ferritin 12.9 Venofer 300mg x1 on 02/06, 02/07 will repeat in AM for third dose B12/folate wnl hgb 7.9 however had been on continuous IVF through last evening repeat CBC in AM to ensure stable no bleeding reported, no abd pain on exam or grimacing (4) Hypercholesterolemia: Plan: Chronic. On Simvastatin Continue Simvastatin 20mg po daily (5) Benign essential hypertension: Plan: Blood pressure controlled Holding diuretics -- has had poor PO intake today, likely based on dietary choices however hard w language barrier and dementia Suspect doesn't need as much diuretic as oral intake has been slowly declining over past year -- also started low dose BB for frequent ectopy BP 120/65 (6) Dementia: Plan: Chronic Continue Aricept PT/OT evaluation for placement needs --> PT without need for acute PT indicated and recommended 24hr care of family or placement (7) Acute kidney injury superimposed on CKD: Plan: Cr 1.6 on admit (was 1.4 in ER on 01/14) but appears baseline closer to 1 in 2019. recent GFRs in 20s, indicating CKD IV Reported decreased PO intake/weakness -- see UTI as above renally dose medications when appropriate Cr improved to 0.98 No further IVF BMP in AM (8) Afib: Plan: afib vs ectopy ?if when dehydrated possibly went into afib rvr making confusion worse vs ectopy/extra beats Repeat EKG NSR howevr prior EKG 01/09 during ER visit with possible afib read at that time TSH wnl Moved to tele --> has been in sinus all along. Initiated metoprolol 12.5mg daily --> decreased PACs and has continued to remain in sinus (9) Hypokalemia: Plan: K 2.8 -- ordered 40 extra meq in addition to usual 20meq diuretics were given 02/06 am and since held Repeat wnl and she did agree to take her usual 20meq mag wnl Plan: Ppx - Lovenox 30 Code - DNR/DNI Rocephin --> keflex for tomorrow for ecoli UTI PT/OT rec 24hr care or home w family. CM following. Looking for placement but if unable to find bed strongly encouraged family to take home with them. Has been ambulating halls with staff without issue. DIL paid caregiver does not think she is able to handle patient at home any longer Patient is unvaccinated, but family willing to do so if needed. Discussed may not be able to occur on inpatient status but will look into this. Admission and Anticipated Discharge Date Admission Date: February 05, 2021 Supervising Physician Co-Signing Physician Notes JONA Supervision Note: I did not personally see or examine the patient today, but I verified all dawkins points of JONA Gonzalez's assessment and plan with the following exceptions/additions: Okay to increase metoprolol tartrate to 12.5 mg p.o. twice daily Would not give IV Ativan but rather would trial low-dose Zyprexa 2.5 mg p.o. once daily as needed significant agitation Subjective eval this morning and stopped back this afternoon. patient taking medications without issues. ate yogurt but didn't want oatmeal or other items. drinking alright but still slightly dry mm. getting additional dose of venofer currently. not able to make sense or understand or converse in [place]. DIL not at bedside today but may be in later this afternoon. Per RN she was walking halls to see if could get out some of her energy. Did well. She made her own bed this morning. Currently laying in bed. Does keep trying to get out of bed -- discussed if nee ded ativan available but would try and hold off if possible. Remains on Q15min checks. Review of Systems Review of Systems: Unobtainable due to cognitive status and Other (unable to understand/communicate even with iPad interpretor) Physical Exam Physical Exam: General: frail, elderly female patient resting comfortably, NAD, does not answer questions, follows some commands at time but not particularly. Patient is [place] speaking. not able to communicate even with ipad Skin: warm, dry, intact, scattered bruising on forearms, hands. Chronic venous stasis changes present on bilateral LE HEENT: NC/AT, PERRL, anicteric sclera, poor dentition, edentulous, trachea midline with deviation CV: frequent ectopy, S1/S2, no m/r/g Resp: CTAB, no w/c, stable on room air GI: +BS, soft, non-tender : no jean baptiste Ext: warm, 2+ pulses, b/l venous stasis LE Neuro: no focal def, no facial droop, moving all extremities but does not follow commands due to dementia/confusion. walking the halls without much issues Results & Data Results & Data ([facility]) Vital Signs (Past 12 Hours) Vital Signs Temp Pulse Pulse Resp BP Pulse Ox 02/08/21 07:42 36.7 C 74 22 122/67 95 02/08/21 07:40 82 02/08/21 04:22 78 02/08/21 03:33 36.8 C 72 16 109/68 92 Laboratory Results 02/08/21 02/08/21 02/08/21 Range/Units 06:23 06:23 06:23 WBC 9.33 (4.8-10.8) K/uL RBC 4.00 L (4.2-5.4) M/uL Hgb 7.9 L (12.0-16.0) g/dL Hct 27.0 L (37-47) % MCV 67.5 L (80-100) fL MCH 19.8 L (25-34) pg MCHC 29.3 L (32-36) g/dL RDW Std Deviation 50.9 H (36.4-46.3) fL RDW Coeff of Tommie 21.2 H (11.5-14.5) % Plt Count 284 (130-400) K/uL MPV 8.4 (7.4-10.4) fL Sodium 143 (136-145) mmol/L Potassium 3.6 D (3.5-5.1) mmol/L Chloride 113 H (98-107) mmol/L Carbon Dioxide 25 (21-32) mmol/L Anion Gap 5.0 (3-11) BUN 21 H (7-18) mg/dl Creatinine 0.98 (0.6-1.2) mg/dl Est Cr Clr Drug Dosing 32.6 ml/min Est GFR ( Amer) 59.3 ml/min Est GFR (Non-Af Amer) 51.1 ml/min BUN/Creatinine Ratio 21.1 H (10-20) Glucose 109 H (70-99) mg/dl Calcium 9.8 (8.5-10.1) mg/dl Magnesium (1.8-2.4) mg/dl Cortisol AM Sample Pending 02/07/21 02/07/21 02/07/21 Range/Units 10:01 10:01 10:01 WBC 10.28 (4.8-10.8) K/uL RBC 4.39 (4.2-5.4) M/uL Hgb 8.5 L (12.0-16.0) g/dL Hct 29.2 L (37-47) % MCV 66.5 L (80-100) fL MCH 19.4 L (25-34) pg MCHC 29.1 L (32-36) g/dL RDW Std Deviation 49.4 H (36.4-46.3) fL RDW Coeff of Tommie 20.7 H (11.5-14.5) % Plt Count 303 (130-400) K/uL MPV 8.6 (7.4-10.4) fL Sodium 142 (136-145) mmol/L Potassium 2.8 L D (3.5-5.1) mmol/L Chloride 107 (98-107) mmol/L Carbon Dioxide 25 (21-32) mmol/L Anion Gap 10.0 (3-11) BUN 26 H (7-18) mg/dl Creatinine 1.09 (0.6-1.2) mg/dl Est Cr Clr Drug Dosing 28.8 ml/min Est GFR ( Amer) 52.1 ml/min Est GFR (Non-Af Amer) 45.0 ml/min BUN/Creatinine Ratio 23.5 H (10-20) Glucose 136 H (70-99) mg/dl Calcium 8.9 (8.5-10.1) mg/dl Magnesium 2.3 (1.8-2.4) mg/dl Cortisol AM Sample PG Care Time/CCT Total # of Minutes Spent Total Time Spent with Patient: Total time spent is greater than 50% in coordination of care (as documented) at patient's floor/unit and/or counseling patient: Coding Level of Care Code 13215 Subseq Hosp Care Lvl 2 Diagnoses Agitation R45.1 UTI (urinary tract infection) N39.0 Anemia D64.9 Hypercholesterolemia E78.00 Benign essential hypertension I10 Dementia F03.91 Dementia behavioral disturbance: with behavioral disturbance Dementia type: unspecified type Acute kidney injury superimposed on CKD N17.9; N18.9 Afib I48.91 Hypokalemia E87.6 (1) Dementia Dementia behavioral disturbance: with behavioral disturbance Dementia type: unspecified type Qualified Code(s): F03.91 - Unspecified dementia with behavioral disturbance
[2021-02-08] MEDS ORDERED: IRON SUCROSE 300 MG in SODIUM CHLORIDE 0.9% 250 ML IV ONE (08:00)
[2021-02-08] MEDS ORDERED: METOPROLOL TARTRATE 25 MG TAB PO SCH (09:00)
[2021-02-08] MEDS: SIMVASTATIN 20 MG TAB PO SCH (09:17)
[2021-02-08] MEDS: POTASSIUM CHLORIDE CRTAB 20 MEQ TABCR PO SCH (09:18)
[2021-02-08] MEDS: cefTRIAXone SODIUM 1,000 MG in DEXTROSE 5% 50 ML IV SCH (11:13)
[2021-02-08] MEDS: DOCUSATE SODIUM/SENNA 50/8.6MG TAB PO SCH (15:42)
[2021-02-08] MEDS ORDERED: cephALEXin 500 MG CAP PO SCH (17:00)
[2021-02-08] MEDS: METOPROLOL TARTRATE 25 MG TAB PO SCH (21:51)
[2021-02-08] MEDS: traZODone HCL 50 MG TAB PO SCH (21:51)
[2021-02-08] MEDS: DONEPEZIL HCL 5 MG TAB PO SCH (21:51)
[2021-02-09] MEDS: ENOXAPARIN INJ 30 MG/0.3 ML SYR SQ SCH (05:56)
--- NOTE | 2021-02-09 08:02 | Hospitalist Progress Note ---
Date of Service February 09, 2021 Assessment & Plan (1) Agitation: Plan: 89yo female with history of dementia with progressive decline presenting with 2 weeks of worsening aggressive and agitated behavior in the home as well as possible hallucinations, failure to thrive. Patient presently lives with her daughter who is her primary care program director and has become more difficult/aggressive with family to manage over the last two weeks. CT head negative suspect agitation/dementia worse in patient with underlying dementia Urine cx * --> ECOLI, pansensitive. * Got Rocephin x 2 days, switched to Keflex however patient refused meds this AM and switched back to IV (on day 3) No further IVF was ordered after last bag complete -- patient eating a little better this afternoon but wasn't taking much nights prior. --> will place on NS @ 50cc/hr to prevent worsening dehydration Would continue to hold diuretics to prevent dehydration as had CHRISTINA on admit as well (since resolved). BP stable 128/63 B12 562 TSH 0.647 B1 pending WBC elevated to 11k today, remains afebrile. Faint crackles in bases and suspect some atelectasis. Encouraged IS however difficult given language barrier. 1:1 placed -- > now on Q15 min checks Continue Aricept 5mg, trazodone 50mg HS --> REFUSED LAST NIGHT Add Seroquel 12.5mg HS prn tonight to see if helps with agitation overnight/ -- hold hydroxyzine (may need resumed for her "itching" "picking" but denied being itchy and would avoid w anticholinergic effects) R shoulder with pain with ROM today --> will check x-ray to ensure to fracture (CXR on admit did note degenerative changes of shoulders) PT/OT -- rec return home w 24hr care. Family not believing they are able to take home and would like to look into placement. CM following. Pt unvaccinated as well --> However, if unable to find bed did discuss at length patient may be better suited at home. DIL adamant unable to care for her (2) UTI (urinary tract infection): Plan: UA appears infected -- cx w E.coli, likely worsening #1. Patient calm today but still with significant dementia Rocephin --> keflex as above however had refused and will continue IV for now (3) Serum calcium elevated: Plan: on admit 10.5, felt 2nd to dehydration and diuretic use diuretics have been held since 02/06 IVF provided Ca 9.9 on am labs, corrected for albumin to 11 despite hydration and holding of diuretics (had been improving) IVF resumed, check Vit D/PTH in AM Would not resume diuretics in patient given poor PO intake. BB ordered for sinus w frequent PACs -- did take on 02/08, refused 02/09 likely also contributing to constipation -- mag citrate ordered. monitor for BM Monitor in AM (4) Anemia: Plan: Prior labs w anemia, MCV <80. Never had scope. No bleeding reported. Iron studies with iron deficiency anemia: Iron 34, TIBC 348, Transferrin 273, trans % sat 9, ferritin 12.9 Venofer 300mg x3 doses hgb stable at 8.7 despite being on continuous IVF for CHRISTINA on admit as above no bleeding reported, no abd pain on exam or grimacing B12/folate wnl Monitor CBC (5) Hypercholesterolemia: Plan: Chronic. On Simvastatin Continue Simvastatin 20mg po daily when agreeable to take --- refused day prior (6) Benign essential hypertension: Plan: Blood pressure controlled Holding diuretics -- intermittent appetite, improves in afternoon metoprolol 12.5mg BID added -- took last night but refused this morning Given CHRISTINA and BP stable at 128/63 will continue to hold diuretics (7) Dementia: Plan: Chronic Continue Aricept PT/OT evaluation for placement needs --> PT without need for acute PT indicated and recommended 24hr care of family or placement (8) Acute kidney injury superimposed on CKD: Plan: Cr 1.6 on admit (was 1.4 in ER on 01/14) but appears baseline closer to 1 in 2019. Cr 1.03 on AM labs IVF provided, since d/c HOld diuretics to prevent worsening dehydration/CHRISTINA BMP in AM renally dose meds when appropriate, avoid nephrotoxic agents Also iron replacement as above -- completed venofer x 3 doses (9) Afib: Plan: afib vs ectopy ?if when dehydrated possibly went into afib rvr making confusion worse vs ectopy/extra beats Repeat EKG NSR howevr prior EKG 01/09 during ER visit with possible afib read at that time TSH wnl Moved to tele --> has been in sinus all along. Initiated metoprolol 12.5mg daily (took dose 02/08, since refused) -- frequent PACs but still SR will d/c telemetry today (10) Hypokalemia: Plan: K 2.8 -- ordered 40 extra meq in addition to usual 20meq taking MASTER CHEF diuretics were given 02/06 am and since held -- has also refused supp today but K 3.4 continue PO as tolerate, may need IV mag wnl Plan: Ppx - Lovenox 30 Code - DNR/DNI Mag citrate given has not moved bowels since admit. dulcolax prn if needed. +BS on exam and has been walking in halls with staff Continue Rocephin for UTI as refusing PO (day 3) PT/OT rec 24hr care or home w family. CM following. Looking for placement but if unable to find bed strongly encouraged family to take home with them. Has been ambulating halls with staff without issue. DIL paid caregiver does not think she is able to handle patient at home any longer Patient is unvaccinated, but family willing to do so if needed. Discussed may not be able to occur on inpatient status but will look into this. Admission and Anticipated Discharge Date Admission Date: February 05, 2021 Supervising Physician Co-Signing Physician Notes PA Supervision Note: I did not personally see or examine the patient today, but I verified all dawkins points of JONA Gonzalez's assessment and plan with the following exceptions/additions: None Subjective patient refusing medications this morning combative and agitated overnight urinary incontinence still not making any sense she was like this yesterday morning and improved throughout the day will continue to monitor, and switch back ABX to IV for tx of UTI. Review of Systems Review of Systems: All systems reviewed & are unremarkable except as noted in HPI & below and Unobtainable due to cognitive status Physical Exam Physical Exam: General: frail, elderly female patient resting comfortably, NAD, does not answer questions, follows some commands at time but not particularly. [place] speaking, mumbling at times but incoherent. not able to communicate even with ipad Skin: warm, dry, intact, scattered bruising on forearms, hands. Chronic venous stasis changes present on bilateral LE HEENT: NC/AT, PERRL, anicteric sclera, poor dentition, edentulous, trachea midl ine with deviation CV: frequent ectopy, S1/S2, no m/r/g Resp: CTAB, no w/c, stable on room air GI: +BS, soft, non-tender : no jean baptiste Ext/MSK: warm, 2+ pulses, b/l venous stasis LE, pain with ROM R shoulder, no bony step off appreciated Neuro: no focal def, no facial droop, moving all extremities but does not follow commands due to dementia/confusion. walking the halls without much issues Results & Data Results & Data ([facility]) Vital Signs (Past 12 Hours) Vital Signs Temp Pulse Pulse Resp BP Pulse Ox 02/09/21 07:07 88 02/09/21 03:23 36.1 C L 59 L 18 111/61 94 02/09/21 02:19 85 02/08/21 22:40 36.7 C 74 18 119/64 94 Laboratory Results 02/09/21 02/09/21 Range/Units 10:02 10:02 WBC 11.08 H (4.8-10.8) K/uL RBC 4.37 (4.2-5.4) M/uL Hgb 8.7 L (12.0-16.0) g/dL Hct 30.3 L (37-47) % MCV 69.3 L (80-100) fL MCH 19.9 L (25-34) pg MCHC 28.7 L (32-36) g/dL RDW Std Deviation 52.9 H (36.4-46.3) fL RDW Coeff of Tommie 21.5 H (11.5-14.5) % Plt Count 330 (130-400) K/uL MPV 8.4 (7.4-10.4) fL Sodium 142 (136-145) mmol/L Potassium 3.5 (3.5-5.1) mmol/L Chloride 112 H (98-107) mmol/L Carbon Dioxide 24 (21-32) mmol/L Anion Gap 7.0 (3-11) BUN 21 H (7-18) mg/dl Creatinine 1.03 (0.6-1.2) mg/dl Est Cr Clr Drug Dosing 31.0 ml/min Est GFR ( Amer) 55.8 ml/min Est GFR (Non-Af Amer) 48.2 ml/min BUN/Creatinine Ratio 19.9 (10-20) Glucose 116 H (70-99) mg/dl Calcium 9.9 (8.5-10.1) mg/dl Total Bilirubin 0.3 (0.2-1) mg/dl AST 14 L (15-37) U/L ALT 19 (12-78) U/L Alkaline Phosphatase 83 (45-117) U/L Total Protein 7.5 (6.4-8.2) gm/dl Albumin 2.6 L (3.4-5.0) gm/dl Globulin 4.9 H (2.5-4.0) gm/dl Albumin/Globulin Ratio 0.5 L (0.9-2) PG Care Time/CCT Total # of Minutes Spent Total Time Spent with Patient: Total time spent is greater than 50% in coordination of care (as documented) at patient's floor/unit and/or counseling patient: Coding Level of Care Code 94449 Subseq Hosp Care Lvl 3 Diagnoses Agitation R45.1 UTI (urinary tract infection) N39.0 Anemia D64.9 Hypercholesterolemia E78.00 Benign essential hypertension I10 Dementia F03.91 Dementia behavioral disturbance: with behavioral disturbance Dementia type: unspecified type Acute kidney injury superimposed on CKD N17.9; N18.9 Afib I48.91 Hypokalemia E87.6 Serum calcium elevated E83.52 (1) Dementia Dementia behavioral disturbance: with behavioral disturbance Dementia type: unspecified type Qualified Code(s): F03.91 - Unspecified dementia with behavioral disturbance
[2021-02-09] MEDS ORDERED: MAGNESIUM CITRATE 296 ML/BTL PO ONE (08:30)
[2021-02-09] MEDS: ACETAMINOPHEN 325 MG TAB PO PRN (08:59)
[2021-02-09] MEDS: DOCUSATE SODIUM/SENNA 50/8.6MG TAB PO SCH ×2 (09:00→09:50)
[2021-02-09] MEDS: SIMVASTATIN 20 MG TAB PO SCH ×2 (09:00→09:51)
[2021-02-09] MEDS: METOPROLOL TARTRATE 25 MG TAB PO SCH ×4 (09:00→21:59)
[2021-02-09] MEDS: POLYETHYLENE (MIRALAX) 17 GM PACK PO SCH ×2 (09:01→09:50)
[2021-02-09] MEDS: POTASSIUM CHLORIDE CRTAB 20 MEQ TABCR PO SCH ×2 (09:02→09:51)
[2021-02-09 10:25] LABS: Hematocrit (blood only) 30.3 % (37-47); Hemoglobin 8.7 g/dL (12.0-16.0); Mean Corpuscular Hemoglobin 19.9 pg (25-34); Mean Corpuscular Hgb Conc 28.7 g/dL (32-36); Mean Corpuscular Volume 69.3 fL (80-100); Mean Platelet Volume 8.4 fL (7.4-10.4); Platelet Count 330 K/uL (130-400); RDW Coefficient of Variation 21.5 % (11.5-14.5); RDW Standard Deviation 52.9 fL (36.4-46.3); Red Blood Count 4.37 M/uL (4.2-5.4); White Blood Count 11.08 K/uL (4.8-10.8)
[2021-02-09 10:32] LABS: Albumin Level 2.6 gm/dl (3.4-5.0); BUN Creatinine Ratio 19.9 (10-20); Calcium 9.9 mg/dl (8.5-10.1); Est GFR (African American) 55.8 ml/min; Est GFR (Non-African American) 48.2 ml/min; Potassium 3.5 mmol/L (3.5-5.1)
[2021-02-09 10:35] LABS: Albumin Globulin Ratio 0.5 (0.9-2); Bilirubin,Total 0.3 mg/dl (0.2-1); Globulin 4.9 gm/dl (2.5-4.0); Total Protein 7.5 gm/dl (6.4-8.2)
[2021-02-09] MEDS: cefTRIAXone SODIUM 1,000 MG in DEXTROSE 5% 50 ML IV SCH (11:57)
[2021-02-09] MEDS ORDERED: bisacodyL 10 MG SUPP PR PRN (13:51)
[2021-02-09] MEDS ORDERED: bisacodyL 5 MG TABEC PO ONE (13:52)
[2021-02-09] MEDS ORDERED: SODIUM CHLORIDE 0.9% 500 ML IV SCH (14:00)
[2021-02-09 14:24] LABS: Basophils # (auto) 0.01 K/uL (0-0.2); Basophils % (auto) 0.1 %; Eosinophils # (auto) 0.05 K/uL (0-0.5); Eosinophils % (auto) 0.5 %; Immature Granulocytes # (auto) 0.04 K/uL (0.00-0.02); Immature Granulocytes % (auto) 0.4 %; Lymphocytes # (auto) 2.05 K/uL (1.2-3.4); Lymphocytes % (auto) 19.1 %; Monocytes # (auto) 0.79 K/uL (0.11-0.59); Monocytes % (auto) 7.4 %; Neutrophils # (auto) 7.79 K/uL (1.4-6.5); Neutrophils % (auto) 72.5 %
[2021-02-09 14:51] LABS: Anisocytosis Present; Microcytosis Present
--- NOTE | 2021-02-09 14:58 | XRay Report ---
XR shoulder RT min 2V routine HISTORY: 89 years-old Female pain with movement acute right shoulder pain COMPARISON: Chest radiograph 02/05/2021 TECHNIQUE: 3 views of the right shoulder FINDINGS: Moderate AC joint with severe glenohumeral osteoarthritis. No acute fracture, dislocation or opaque f oreign body. Demineralized appearance of the bones. The imaged lung sanon appear clear. Atherosclero sis of the aorta. IMPRESSION: Severe glenohumeral osteoarthritis without acute fracture or dislocation. ACT 112: Negative or not required by law. The above report was generated using voice recognition software. It may contain grammatical, syntax o r spelling errors. Electronically signed by: Jtet Jensen M.D. 02/09/2021 2:57 PM
[2021-02-09] MEDS: DONEPEZIL HCL 5 MG TAB PO SCH ×2 (21:45→22:00)
[2021-02-09] MEDS: traZODone HCL 50 MG TAB PO SCH (21:45)
[2021-02-10 06:14] LABS: Mean Corpuscular Hemoglobin 19.9 pg (25-34); Mean Corpuscular Hgb Conc 28.6 g/dL (32-36); Mean Corpuscular Volume 69.5 fL (80-100); Mean Platelet Volume 8.6 fL (7.4-10.4); Platelet Count 306 K/uL (130-400); RDW Coefficient of Variation 21.5 % (11.5-14.5); Red Blood Count 4.03 M/uL (4.2-5.4); White Blood Count 7.22 K/uL (4.8-10.8)
[2021-02-10 06:55] LABS: Albumin Level 2.4 gm/dl (3.4-5.0); BUN Creatinine Ratio 26.5 (10-20); Calcium 10.1 mg/dl (8.5-10.1); Creatinine Clr Calc Pharmacy 37.6 ml/min; Est GFR (African American) 70.4 ml/min; Est GFR (Non-African American) 60.7 ml/min; Potassium 4.1 mmol/L (3.5-5.1)
[2021-02-10] MEDS: ENOXAPARIN INJ 30 MG/0.3 ML SYR SQ SCH (07:01)
[2021-02-10 07:26] LABS: Anisocytosis Present; Basophils # (auto) 0.01 K/uL (0-0.2); Basophils % (auto) 0.1 %; Eosinophils # (auto) 0.07 K/uL (0-0.5); Hypochromasia Present; Immature Granulocytes # (auto) 0.02 K/uL (0.00-0.02); Immature Granulocytes % (auto) 0.3 %; Lymphocytes # (auto) 1.29 K/uL (1.2-3.4); Lymphocytes % (auto) 17.9 %; Microcytosis Present; Monocytes # (auto) 0.57 K/uL (0.11-0.59); Monocytes % (auto) 7.9 %; Neutrophils # (auto) 5.26 K/uL (1.4-6.5); Neutrophils % (auto) 72.8 %; Polychromasia 1+
[2021-02-10] MEDS: SIMVASTATIN 20 MG TAB PO SCH (10:09)
[2021-02-10] MEDS: DOCUSATE SODIUM/SENNA 50/8.6MG TAB PO SCH (10:09)
[2021-02-10] MEDS: POTASSIUM CHLORIDE CRTAB 20 MEQ TABCR PO SCH (10:09)
[2021-02-10] MEDS: METOPROLOL TARTRATE 25 MG TAB PO SCH ×2 (10:09→20:12)
[2021-02-10] MEDS: POLYETHYLENE (MIRALAX) 17 GM PACK PO SCH (10:09)
[2021-02-10] MEDS: cefTRIAXone SODIUM 1,000 MG in DEXTROSE 5% 50 ML IV SCH (11:44)
--- NOTE | 2021-02-10 18:30 | Hospitalist Progress Note ---
Date of Service February 10, 2021 Assessment & Plan (1) Agitation: Plan: 89yo female with history of dementia with progressive decline presenting with 2 weeks of worsening aggressive and agitated behavior in the home as well as possible hallucinations, failure to thrive. Patient presently lives with her daughter who is her primary sub acute care nurse and has become more difficult/aggressive with family to manage over the last two weeks. CT head negative Suspect 2/2 acute on chronic dementia with additional metabolic encephalopathy from urinary tract infection UC: Pansensitive E. coli Rocephin x48 hours, was narrowed to Keflex but patient refusing meds so continues on IV. Completed 5 days of antibiotics, total course 5-7 days Continued on NSS 50 cc/h for poor p.o. intake, BP normotensive B12 562, TSH 0.647, folate 02/10: no leukocytosis -Continue Aricept 5mg, trazodone 50mg HS --> REFUSED LAST NIGHT - Seroquel 12.5mg HS prn tonight to see if helps with agitation overnight/ -- hold hydroxyzine (may need resumed for her "itching" "picking" but denied being itchy and would avoid w anticholinergic effects) Patient with right shoulder pain. XR: Severe glenohumeral osteoarthritis without acute fracture or dislocation. PT/OT -- rec return home w 24hr care. Family not believing they are able to take home and would like to look into placement. CM following. Pt unvaccinated as well. (2) UTI (urinary tract infection): Plan: See above, patient treated with Rocephin (3) Serum calcium elevated: Plan: on admit 10.5, felt 2nd to dehydration and diuretic use diuretics have been held since 02/06 IVF provided Ca 9.9 on am labs, corrected for albumin to 11 despite hydration and holding of diuretics (had been improving) Vitamin D 34 (low normal), PTH within normal limits Diuretics deferred due to poor oral intake, patient continued on low NSS IVF M Continue beta-jagruti for PACs (4) Anemia: Plan: Prior labs w anemia, MCV <80. Never had scope. No bleeding reported. Iron studies with iron deficiency anemia: Iron 34, TIBC 348, Transferrin 273, trans % sat 9, ferritin 12.9 Venofer 300mg x3 doses hgb stable no bleeding reported, no abd pain on exam or grimacing B12/folate wnl Monitor CBC (5) Hypercholesterolemia: Plan: Chronic. On Simvastatin Continue Simvastatin 20mg po daily when agreeable to take --- refused day prior (6) Benign essential hypertension: Plan: Blood pressure controlled Holding diuretics -- intermittent appetite, improves in afternoon metoprolol 12.5mg BID added -- took last night but refused this morning Given CHRISTINA and BP stable at 128/63 will continue to hold diuretics (7) Dementia: Plan: Chronic Continue Aricept PT/OT evaluation for placement needs --> PT without need for acute PT indicated and recommended 24hr care of family or placement (8) Acute kidney injury superimposed on CKD: Plan: Cr 1.6 on admit (was 1.4 in ER on 01/14) but appears baseline closer to 1 in 2019. Creatinine down trended, normalized (9) Afib: Plan: afib vs ectopy ?if when dehydrated possibly went into afib rvr making confusion worse vs ectopy/extra beats Repeat EKG NSR howevr prior EKG 01/09 during ER visit with possible afib read at that time TSH wnl Moved to tele --> has remained in sinus rhythm Initiated metoprolol 12.5mg daily (took dose 02/08, since refused) -- frequent PACs but still SR Telemetry discontinued 02/09 (10) Hypokalemia: Plan: K 2.8 -- ordered 40 extra meq in addition to usual 20meq taking [employer]E [employer]IC diuretics were given 02/06 am and since held -- has also refused supp today but K 3.4 continue PO as tolerate Recheck 02/10 within normal limits and stable Plan: Ppx - Lovenox 30 Code - DNR/DNI Mag citrate given has not moved bowels since admit. dulcolax prn if needed. +BS on exam and has been walking in halls with staff Continue Rocephin for UTI as refusing PO (day 3) PT/OT rec 24hr care or home w family. CM following. Has been ambulating halls with staff without issue. DIL paid caregiver does not think she is able to handle patient at home any longer Patient is unvaccinated, but family willing to do so if needed. Discussed may not be able to occur on inpatient status but will look into this. Admission and Anticipated Discharge Date Admission Date: February 05, 2021 Subjective Subjective unable to be obtained due to severe dementia Review of Systems Review of Systems: Unobtainable due to cognitive status Physical Exam Physical Exam: General: Frail-appearing, follows some commands with encouragement but does not offer spontaneous speech. Nigerian-speaking, mumbles. No coherent speech either with iPad communication or with family facilitating. HEENT: Atraumatic, normocephalic. Visual acuity grossly intact. Pulm: CTAB A&P. -wheezes, -rales, -rhonchi. Symmetrical chest rise. No increase work of breathing. No respiratory distress. Cardiac: RRR, -mrg. Radial pulses intact and symmetrical. Abdominal: Nontender, nondistended, soft. BS present. Results & Data Results & Data ([facility]) Vital Signs (Past 12 Hours) Vital Signs Temp Pulse Pulse Resp BP Pulse Ox 02/10/21 15:22 74 02/10/21 11:05 36.5 C 74 18 125/65 96 02/10/21 07:58 36.3 C L 77 18 124/62 93 02/10/21 07:21 76 PG Care Time/CCT Total # of Minutes Spent Total Time Spent with Patient: Total time spent is greater than 50% in coordination of care (as documented) at patient's floor/unit and/or counseling patient: Coding Level of Care Code 08608 Subseq Hosp Care Lvl 2 Diagnoses Agitation R45.1 UTI (urinary tract infection) N39.0 Serum calcium elevated E83.52 Anemia D64.9 Hypercholesterolemia E78.00 Benign essential hypertension I10 Dementia F03.91 Dementia type: unspecified type Dementia behavioral disturbance: with behavioral disturbance Acute kidney injury superimposed on CKD N17.9; N18.9 Afib I48.91 Hypokalemia E87.6 (1) Dementia Dementia type: unspecified type Dementia behavioral disturbance: with behavioral disturbance Qualified Code(s): F03.91 - Unspecified dementia with behavioral disturbance
[2021-02-10] MEDS: DONEPEZIL HCL 5 MG TAB PO SCH (20:12)
[2021-02-10] MEDS: traZODone HCL 50 MG TAB PO SCH (20:12)
[2021-02-11] MEDS: ENOXAPARIN INJ 30 MG/0.3 ML SYR SQ SCH (05:45)
[2021-02-11 09:39] LABS: BUN Creatinine Ratio 21.9 (10-20); Calcium 9.9 mg/dl (8.5-10.1); Creatinine Clr Calc Pharmacy 40.5 ml/min; Est GFR (African American) 80.6 ml/min; Est GFR (Non-African American) 69.5 ml/min
[2021-02-11] MEDS: POLYETHYLENE (MIRALAX) 17 GM PACK PO SCH (10:24)
[2021-02-11] MEDS: SIMVASTATIN 20 MG TAB PO SCH (10:25)
[2021-02-11] MEDS: DOCUSATE SODIUM/SENNA 50/8.6MG TAB PO SCH (10:25)
[2021-02-11] MEDS: METOPROLOL TARTRATE 25 MG TAB PO SCH ×2 (10:25→20:17)
[2021-02-11] MEDS: POTASSIUM CHLORIDE CRTAB 20 MEQ TABCR PO SCH (10:26)
[2021-02-11 10:27] LABS: Hematocrit (blood only) 30.2 % (37-47); Hemoglobin 8.5 g/dL (12.0-16.0); Mean Corpuscular Hgb Conc 28.1 g/dL (32-36); Mean Corpuscular Volume 71.2 fL (80-100); Mean Platelet Volume 8.9 fL (7.4-10.4); Platelet Count 334 K/uL (130-400); RDW Coefficient of Variation 22.9 % (11.5-14.5); RDW Standard Deviation 53.6 fL (36.4-46.3); Red Blood Count 4.24 M/uL (4.2-5.4); White Blood Count 7.32 K/uL (4.8-10.8)
[2021-02-11 10:29] LABS: Anisocytosis Present; Basophils # (auto) 0.01 K/uL (0-0.2); Basophils % (auto) 0.1 %; Eosinophils # (auto) 0.05 K/uL (0-0.5); Eosinophils % (auto) 0.7 %; Hypochromasia Present; Immature Granulocytes # (auto) 0.02 K/uL (0.00-0.02); Immature Granulocytes % (auto) 0.3 %; Lymphocytes # (auto) 1.44 K/uL (1.2-3.4); Lymphocytes % (auto) 19.7 %; Monocytes % (auto) 6.8 %; Neutrophils % (auto) 72.4 %
[2021-02-11] MEDS ORDERED: SODIUM CHLORIDE 0.9% 1000ML 250 ML IV ONE (11:21)
[2021-02-11] MEDS: cefTRIAXone SODIUM 1,000 MG in DEXTROSE 5% 50 ML IV SCH (11:25)
--- NOTE | 2021-02-11 12:30 | Hospitalist Progress Note ---
Date of Service February 11, 2021 Assessment & Plan (1) Agitation: Plan: 89yo female with history of dementia with progressive decline presenting with 2 weeks of worsening aggressive and agitated behavior in the home as well as possible hallucinations, failure to thrive. Patient presently lives with her daughter who is her primary daytime caregiver and has become more difficult/aggressive with family to manage over the last two weeks. CT head negative Suspect 2/2 acute on chronic dementia with additional metabolic encephalopathy from urinary tract infection UC: Pansensitive E. coli Rocephin x48 hours, was narrowed to Keflex but patient refusing meds so continues on IV. Continued on NSS 50 cc/h for poor p.o. intake, BP normotensive B12 562, TSH 0.647, folate 02/10: no leukocytosis -Continue Aricept 5mg, trazodone 50mg nightly, patient intermittently refuses - Seroquel 12.5mg HS prn with improvement in agitation overnight/ -Held hydroxyzine (may need resumed for her "itching" "picking" but denied being itchy and would avoid w anticholinergic effects) Patient with right shoulder pain. XR: Severe glenohumeral osteoarthritis without acute fracture or dislocation. PT/OT -- rec return home w 24hr care. Family do not believe they are able to take home and would like to look into placement. CM following. Pt unvaccinated as well. Discussed with daughter, she reports that 24-hour care is not available at home, family number is a paid caregiver but is only able to be there for 10 hours at most and even those 10 hours have been more difficult with the patient's worsening dementia and her daughter and granddaughter do not believe they can continue to care for her safely at home even in the hours that the patient's daughter is present. Discussed with case management, his home environment is not safe/with 24-hour care patient will require SNF level of care/dementia care. (2) UTI (urinary tract infection): Plan: See above, patient treated with Rocephin (3) Serum calcium elevated: Plan: on admit 10.5, felt 2nd to dehydration and diuretic use diuretics have been held since 02/06 IVF provided Ca 9.9 on am labs, corrected for albumin to 11 despite hydration and holding of diuretics (had been improving) Vitamin D 34 (low normal), PTH within normal limits Diuretics deferred due to poor oral intake, patient continued on low NSS IVF M Continue beta-jagruti for PACs (4) Anemia: Plan: Prior labs w anemia, MCV <80. Never had scope. No bleeding reported. Iron studies with iron deficiency anemia: Iron 34, TIBC 348, Transferrin 273, trans % sat 9, ferritin 12.9 Venofer 300mg x3 doses hgb stable no bleeding reported, no abd pain on exam or grimacing B12/folate wnl Monitor CBC (5) Hypercholesterolemia: Plan: Chronic. On Simvastatin Continue Simvastatin 20mg po daily when agreeable to take --- refused day prior (6) Benign essential hypertension: Plan: Blood pressure controlled Holding diuretics -- intermittent appetite, improves in afternoon metoprolol 12.5mg BID added -- took last night but refused this morning Given CHRISTINA and BP stable and normotensive will continue to hold diuretics (7) Dementia: Plan: Chronic Continue Aricept PT/OT: See above (8) Acute kidney injury superimposed on CKD: Plan: Cr 1.6 on admit (was 1.4 in ER on 01/14) but appears baseline closer to 1 in 2019. 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 Cypriot-speaking, mumbles. No coherent speech either with iPad communication. HEENT: Atraumatic, normocephalic. Visual acuity grossly intact. Hearing grossly intact. Pulm: CTAB A&P. -wheezes, -rales, -rhonchi. Symmetrical chest rise. No increase work of breathing. No respiratory distress. Cardiac: RRR, -mrg. Radial pulses intact and symmetrical. Abdominal: Nontender, nondistended, soft. BS present. Results & Data Results & Data ([facility]) Vital Signs (Past 12 Hours) Vital Signs Temp Pulse Pulse Resp BP BP Pulse Ox 02/11/21 11:44 36.9 C 90 20 137/79 98 02/11/21 09:38 97/67 L 02/11/21 08:26 36.7 C 79 18 141/74 H 91 02/11/21 07:00 70 02/11/21 04:00 36.7 C 63 18 120/85 95 PG Care Time/CCT Total # of Minutes Spent Total Time Spent with Patient: Total time spent is greater than 50% in coordination of care (as documented) at patient's floor/unit and/or counseling patient: Coding Level of Care Code 02758 Subseq Hosp Care Lvl 2 Diagnoses Agitation R45.1 UTI (urinary tract infection) N39.0 Serum calcium elevated E83.52 Anemia D64.9 Hypercholesterolemia E78.00 Benign essential hypertension I10 Dementia F03.91 Dementia behavioral disturbance: with behavioral disturbance Dementia type: unspecified type Acute kidney injury superimposed on CKD N17.9; N18.9 Afib I48.91 Hypokalemia E87.6 (1) Dementia Dementia behavioral disturbance: with behavioral disturbance Dementia type: unspecified type Qualified Code(s): F03.91 - Unspecified dementia with behavioral disturbance
[2021-02-11] MEDS: traZODone HCL 50 MG TAB PO SCH (20:18)
[2021-02-11] MEDS: DONEPEZIL HCL 5 MG TAB PO SCH (20:18)
[2021-02-11] MEDS: QUEtiapine FUMARATE 25 MG TABLET PO PRN (22:44)
[2021-02-12] MEDS: ENOXAPARIN INJ 30 MG/0.3 ML SYR SQ SCH (05:07)
[2021-02-12 09:31] LABS: BUN Creatinine Ratio 23.4 (10-20); Calcium 9.6 mg/dl (8.5-10.1); Creatinine Clr Calc Pharmacy 42.8 ml/min; Est GFR (African American) 86.1 ml/min; Est GFR (Non-African American) 74.3 ml/min; Potassium 4.2 mmol/L (3.5-5.1)
[2021-02-12] MEDS: POLYETHYLENE (MIRALAX) 17 GM PACK PO SCH (09:41)
[2021-02-12] MEDS: DOCUSATE SODIUM/SENNA 50/8.6MG TAB PO SCH (09:41)
[2021-02-12] MEDS: SIMVASTATIN 20 MG TAB PO SCH (09:42)
[2021-02-12] MEDS: METOPROLOL TARTRATE 25 MG TAB PO SCH ×2 (09:42→19:43)
[2021-02-12] MEDS: POTASSIUM CHLORIDE CRTAB 20 MEQ TABCR PO SCH (09:43)
[2021-02-12] MEDS: cefTRIAXone SODIUM 1,000 MG in DEXTROSE 5% 50 ML IV SCH (11:45)
--- NOTE | 2021-02-12 12:50 | Hospitalist Progress Note ---
Date of Service February 12, 2021 Assessment & Plan (1) Agitation: Plan: 89yo female with history of dementia with progressive decline presenting with 2 weeks of worsening aggressive and agitated behavior in the home as well as possible hallucinations, failure to thrive. Patient presently lives with her daughter who is her primary nanny caregiver and has become more difficult/aggressive with family to manage over the last two weeks. CT head negative Suspect 2/2 acute on chronic dementia with additional metabolic encephalopathy from urinary tract infection UC: Pansensitive E. coli Rocephin x48 hours, was narrowed to Keflex but patient refusing meds so continues on IV. Hypernatremia with clinical volume depletion, elevated BUN ratio normal kidney function. Suspect hypovolemic hypernatremia, added half-normal saline 80 cc/h for supplementing. B12 562, TSH 0.647, folate 02/10: no leukocytosis -Continue Aricept 5mg, trazodone 50mg nightly, patient intermittently refuses - Seroquel 12.5mg HS prn with improvement in agitation overnight/ -Held hydroxyzine (may need resumed for her "itching" "picking" but denied being itchy and would avoid w anticholinergic effects) Patient with right shoulder pain. XR: Severe glenohumeral osteoarthritis without acute fracture or dislocation. PT/OT --initially rec return home w 24hr care. Family do not believe they are able to take home and would like to look into placement. CM following. Pt unvaccinated as well. Discussed with daughter, she reports that 24-hour care is not available at home, family number is a paid caregiver but is only able to be there for 10 hours at most and even those 10 hours have been more difficult with the patient's worsening dementia and her daughter and granddaughter do not believe they can continue to care for her safely at home even in the hours that the patient's daughter is present. Discussed with case management, if home environment is not safe/with 24-hour care patient will require SNF level of care/dementia care. Currently pending placement. See continuous pillowcase cutter notes for additional. Referral sent to [facility]. (2) UTI (urinary tract infection): Plan: See above, patient treated with Rocephin (3) Serum calcium elevated: Plan: on admit 10.5, felt 2nd to dehydration and diuretic use diuretics have been held since 02/06 IVF provided Ca 9.9 on am labs, corrected for albumin to 11 despite hydration and holding of diuretics (had been improving) Vitamin D 34 (low normal), PTH within normal limits Diuretics deferred due to poor oral intake, patient continued on low NSS IVF M Continue beta-jagruti for PACs (4) Anemia: Plan: Prior labs w anemia, MCV <80. Never had scope. No bleeding reported. Iron studies with iron deficiency anemia: Iron 34, TIBC 348, Transferrin 273, trans % sat 9, ferritin 12.9 Venofer 300mg x3 doses hgb stable no bleeding reported, no abd pain on exam or grimacing B12/folate wnl Monitor CBC (5) Hypercholesterolemia: Plan: Chronic. On Simvastatin Continue Simvastatin 20mg po daily when agreeable to take --- refused day prior (6) Benign essential hypertension: Plan: Blood pressure controlled Holding diuretics -- intermittent appetite, improves in afternoon metoprolol 12.5mg BID added -- took last night but refused this morning Given CHRISTINA and BP stable and normotensive will continue to hold diuretics (7) Dementia: Plan: Chronic Continue Aricept PT/OT: See above (8) Acute kidney injury superimposed on CKD: Plan: Cr 1.6 on admit (was 1.4 in ER on 01/14) but appears baseline closer to 1 in 2019. 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 Sleeping at time of assessment today, awakens easily and falls back asleep during exam. HEENT: Atraumatic, normocephalic. Visual acuity grossly intact. Hearing grossly intact. Pulm: CTAB A&P. -wheezes, -rales, -rhonchi. Symmetrical chest rise. No increase work of breathing. No respiratory distress. Cardiac: RRR, -mrg. Radial pulses intact and symmetrical. Abdominal: Nontender, nondistended, soft. BS present. Results & Data Results & Data ([facility]) Vital Signs (Past 12 Hours) Vital Signs Temp Pulse Pulse Resp BP Pulse Ox 02/12/21 11:46 36.7 C 87 16 135/67 90 02/12/21 07:36 36.8 C 83 18 101/66 93 02/12/21 07:00 71 02/12/21 04:00 37.0 C 75 18 131/72 93 PG Care Time/CCT Total # of Minutes Spent Total Time Spent with Patient: Total time spent is greater than 50% in coordination of care (as documented) at patient's floor/unit and/or counseling patient: Coding Level of Care Code 18841 Subseq Hosp Care Lvl 2 Diagnoses Agitation R45.1 UTI (urinary tract infection) N39.0 Serum calcium elevated E83.52 Anemia D64.9 Hypercholesterolemia E78.00 Benign essential hypertension I10 Dementia F03.91 Dementia type: unspecified type Dementia behavioral disturbance: with behavioral disturbance Acute kidney injury superimposed on CKD N17.9; N18.9 Afib I48.91 Hypokalemia E87.6 (1) Dementia Dementia type: unspecified type Dementia behavioral disturbance: with behavioral disturbance Qualified Code(s): F03.91 - Unspecified dementia with behavioral disturbance
[2021-02-12] MEDS: SODIUM CHLORIDE 0.45 % 1,000 ML IV SCH ×2 (13:14→22:21)
[2021-02-12] MEDS: traZODone HCL 50 MG TAB PO SCH (19:42)
[2021-02-12] MEDS: DONEPEZIL HCL 5 MG TAB PO SCH (19:43)
[2021-02-13] MEDS: ENOXAPARIN INJ 30 MG/0.3 ML SYR SQ SCH (05:35)
[2021-02-13] MEDS: POLYETHYLENE (MIRALAX) 17 GM PACK PO SCH (07:28)
[2021-02-13] MEDS: SIMVASTATIN 20 MG TAB PO SCH (07:28)
[2021-02-13] MEDS: DOCUSATE SODIUM/SENNA 50/8.6MG TAB PO SCH (07:28)
[2021-02-13] MEDS: METOPROLOL TARTRATE 25 MG TAB PO SCH ×2 (07:28→21:24)
[2021-02-13] MEDS: POTASSIUM CHLORIDE CRTAB 20 MEQ TABCR PO SCH (07:31)
[2021-02-13 07:46] LABS: BUN Creatinine Ratio 21.3 (10-20); Calcium 9.4 mg/dl (8.5-10.1); Creatinine Clr Calc Pharmacy 41.2 ml/min; Est GFR (African American) 78.1 ml/min; Est GFR (Non-African American) 67.4 ml/min; Potassium 3.6 mmol/L (3.5-5.1)
--- NOTE | 2021-02-13 12:48 | Hospitalist Progress Note ---
Date of Service February 13, 2021 Assessment & Plan (1) Agitation: Plan: 89yo female with history of dementia with progressive decline presenting with 2 weeks of worsening aggressive and agitated behavior in the home as well as possible hallucinations, failure to thrive. Patient presently lives with her daughter who is her primary manager wound care and has become more difficult/aggressive with family to manage over the last two weeks. CT head negative Suspect 2/2 acute on chronic dementia with additional metabolic encephalopathy from urinary tract infection UC: Pansensitive E. coli Rocephin x48 hours, was narrowed to Keflex but patient refusing meds so continues on IV. 7 days antibiotic course completed Hypernatremia with clinical volume depletion, elevated BUN ratio normal kidney function. Suspect hypovolemic hypernatremia, added half-normal saline 80 cc/h for supplementing. Completed after 2 L. B12 562, TSH 0.647, folate -Continue Aricept 5mg, trazodone 50mg nightly, patient intermittently refuses - Seroquel 12.5mg HS prn with improvement in agitation overnight/ -Held hydroxyzine (may need resumed for her "itching" "picking" but denied being itchy and would avoid w anticholinergic effects) Patient with right shoulder pain. XR: Severe glenohumeral osteoarthritis without acute fracture or dislocation. PT/OT --initially rec return home w 24hr care. Family do not believe they are able to take home and would like to look into placement. CM following. Pt unvaccinated as well. Discussed with daughter, she reports that 24-hour care is not available at home, family number is a paid caregiver but is only able to be there for 10 hours at most and even those 10 hours have been more difficult with the patient's worsening dementia and her daughter and granddaughter do not believe they can continue to care for her safely at home even in the hours that the patient's daughter is present. Discussed with case management, if home environment is not safe/with 24-hour care patient will require SNF level of care/dementia care. Currently pending placement. See case resource manager notes for additional. Referral sent, still pending placement options and availability (2) UTI (urinary tract infection): Plan: See above, patient treated with Rocephin (3) Serum calcium elevated: Plan: on admit 10.5, felt 2nd to dehydration and diuretic use diuretics have been held since 02/06 IVF provided Ca 9.9 on am labs, corrected for albumin to 11 despite hydration and holding of diuretics (had been improving) Vitamin D 34 (low normal), PTH within normal limits Diuretics deferred due to poor oral intake, patient continued on low NSS IVF M Continue beta-jagruti for PACs (4) Anemia: Plan: Prior labs w anemia, MCV <80. Never had scope. No bleeding reported. Iron studies with iron deficiency anemia: Iron 34, TIBC 348, Transferrin 273, trans % sat 9, ferritin 12.9 Venofer 300mg x3 doses hgb stable no bleeding reported, no abd pain on exam or grimacing B12/folate wnl Monitor CBC (5) Hypercholesterolemia: Plan: Chronic. On Simvastatin Continue Simvastatin 20mg po daily when agreeable to take --- refused day prior (6) Benign essential hypertension: Plan: Blood pressure controlled Holding diuretics -- intermittent appetite, improves in afternoon metoprolol 12.5mg BID added -- took last night but refused this morning Given CHRISTINA and BP stable and normotensive will continue to hold diuretics (7) Dementia: Plan: Chronic Continue Aricept PT/OT: See above (8) Acute kidney injury superimposed on CKD: Plan: Cr 1.6 on admit (was 1.4 in ER on 01/14) but appears baseline closer to 1 in 2019. Creatinine down trended, normalized (9) Afib: Plan: afib vs ectopy ?if when dehydrated possibly went into afib rvr making confusion worse vs ectopy/extra beats Repeat EKG NSR howevr prior EKG 01/09 during ER visit with possible afib read at that time TSH wnl Moved to tele --> has remained in sinus rhythm Initiated metoprolol 12.5mg daily (took dose 02/08, since refused) -- frequent PACs but still SR Remained with normal rate him, without arrhythmia to admission and electrolytes normalized while pending disposition. Downgraded from telemetry. 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 Sleeping at time of assessment today, awakens easily and falls back asleep during exam. HEENT: Atraumatic, normocephalic. Visual acuity grossly intact. Hearing grossly intact. Pulm: CTAB A&P. -wheezes, -rales, -rhonchi. Symmetrical chest rise. No increase work of breathing. No respiratory distress. Cardiac: RRR, -mrg. Radial pulses intact and symmetrical. Abdominal: Nontender, nondistended, soft. BS present. Results & Data Results & Data ([facility]) Vital Signs (Past 12 Hours) Vital Signs Temp Pulse Pulse Resp BP Pulse Ox 02/13/21 07:54 36.8 C 87 18 126/52 L 90 02/13/21 02:57 36.5 C 101 H 18 115/60 90 02/13/21 01:31 71 PG Care Time/CCT Total # of Minutes Spent Total Time Spent with Patient: Total time spent is greater than 50% in coordination of care (as documented) at patient's floor/unit and/or counseling patient: Coding Level of Care Code 16866 Subseq Hosp Care Lvl 2 Diagnoses Agitation R45.1 UTI (urinary tract infection) N39.0 Serum calcium elevated E83.52 Anemia D64.9 Hypercholesterolemia E78.00 Benign essential hypertension I10 Dementia F03.91 Dementia type: unspecified type Dementia behavioral disturbance: with behavioral disturbance Acute kidney injury superimposed on CKD N17.9; N18.9 Afib I48.91 Hypokalemia E87.6 (1) Dementia Dementia type: unspecified type Dementia behavioral disturbance: with behavioral disturbance Qualified Code(s): F03.91 - Unspecified dementia with behavioral disturbance
[2021-02-13] MEDS: cefTRIAXone SODIUM 1,000 MG in DEXTROSE 5% 50 ML IV SCH (13:21)
[2021-02-13] MEDS: DONEPEZIL HCL 5 MG TAB PO SCH (21:24)
[2021-02-13] MEDS: traZODone HCL 50 MG TAB PO SCH (21:26)
[2021-02-14] MEDS: ENOXAPARIN INJ 30 MG/0.3 ML SYR SQ SCH (06:04)
[2021-02-14 07:44] LABS: BUN Creatinine Ratio 19.5 (10-20); Calcium 9.1 mg/dl (8.5-10.1); Est GFR (African American) 84.6 ml/min; Potassium 4.3 mmol/L (3.5-5.1)
[2021-02-14] MEDS: POTASSIUM CHLORIDE CRTAB 20 MEQ TABCR PO SCH (12:32)
[2021-02-14] MEDS: METOPROLOL TARTRATE 25 MG TAB PO SCH ×2 (12:32→20:57)
[2021-02-14] MEDS: SIMVASTATIN 20 MG TAB PO SCH (12:32)
[2021-02-14] MEDS: POLYETHYLENE (MIRALAX) 17 GM PACK PO SCH (12:33)
[2021-02-14] MEDS: DOCUSATE SODIUM/SENNA 50/8.6MG TAB PO SCH (12:33)
--- NOTE | 2021-02-14 12:40 | Hospitalist Progress Note ---
Date of Service February 14, 2021 Assessment & Plan (1) Agitation: Plan: 89yo female with history of dementia with progressive decline presenting with 2 weeks of worsening aggressive and agitated behavior in the home as well as possible hallucinations, failure to thrive. Patient presently lives with her daughter who is her primary manager urgent care and has become more difficult/aggressive with family to manage over the last two weeks. CT head negative Suspect 2/2 acute on chronic dementia with additional metabolic encephalopathy from urinary tract infection UC: Pansensitive E. coli Rocephin x48 hours, was narrowed to Keflex but patient refusing meds so continues on IV. 7 days antibiotic course completed Hypernatremia with clinical volume depletion, elevated BUN ratio normal kidney function. Suspect hypovolemic hypernatremia, added half-normal saline 80 cc/h for supplementing. Completed after 2 L. Returned 02/14, 500 cc at 80 cc/hour x1. B12 562, TSH 0.647, folate -Continue Aricept 5mg, trazodone 50mg nightly, patient intermittently refuses - Seroquel 12.5mg HS prn with improvement in agitation overnight/ -Held hydroxyzine (may need resumed for her "itching" "picking" but denied being itchy and would avoid w anticholinergic effects) Patient with right shoulder pain. XR: Severe glenohumeral osteoarthritis without acute fracture or dislocation. PT/OT --initially rec return home w 24hr care. Family do not believe they are able to take home and would like to look into placement. CM following. Pt unvaccinated as well. Discussed with daughter, she reports that 24-hour care is not available at home, family number is a paid caregiver but is only able to be there for 10 hours at most and even those 10 hours have been more difficult with the patient's worsening dementia and her daughter and granddaughter do not believe they can continue to care for her safely at home even in the hours that the patient's daughter is present. Discussed with case management, if home environment is not safe/with 24-hour care patient will require SNF level of care/dementia care. Currently pending placement. See upper caser notes for additional. Referral sent, still pending placement options and availability (2) UTI (urinary tract infection): Plan: See above, patient treated with Rocephin (3) Serum calcium elevated: Plan: on admit 10.5, felt 2nd to dehydration and diuretic use diuretics have been held since 02/06 IVF provided Ca 9.9 on am labs, corrected for albumin to 11 despite hydration and holding of diuretics (had been improving) Vitamin D 34 (low normal), PTH within normal limits Diuretics deferred due to poor oral intake, patient continued on intermittent half-normal saline IVF M as needed. Oral intake waxes and wanes. Continue beta-jagruti for PACs (4) Anemia: Plan: Prior labs w anemia, MCV <80. Never had scope. No bleeding reported. Iron studies with iron deficiency anemia: Iron 34, TIBC 348, Transferrin 273, trans % sat 9, ferritin 12.9 Venofer 300mg x3 doses hgb stable no bleeding reported, no abd pain on exam or grimacing B12/folate wnl Monitor CBC (5) Hypercholesterolemia: Plan: Chronic. On Simvastatin Continue Simvastatin 20mg po daily (6) Benign essential hypertension: Plan: Blood pressure controlled Holding diuretics -- intermittent appetite, improves in afternoon metoprolol 12.5mg BID added -- took last night but refused this morning Given CHRISTINA and BP stable and normotensive will continue to hold diuretics (7) Dementia: Plan: Chronic Continue Aricept PT/OT: See above (8) Acute kidney injury superimposed on CKD: Plan: Cr 1.6 on admit (was 1.4 in ER on 01/14) but appears baseline closer to 1 in 2019. Creatinine down trended, normalized (9) Afib: Plan: afib vs ectopy ?if when dehydrated possibly went into afib rvr making confusion worse vs ectopy/extra beats Repeat EKG NSR howevr prior EKG 01/09 during ER visit with possible afib read at that time TSH wnl Moved to tele --> has remained in sinus rhythm Initiated metoprolol 12.5mg daily (took dose 02/08, since refused) -- frequent PACs but still SR Remained with normal rate him, without arrhythmia to admission and electrolytes normalized while pending disposition. Downgraded from telemetry. 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 Sleeping at time of assessment today, awakens easily and falls back asleep during exam. HEENT: Atraumatic, normocephalic. Visual acuity grossly intact. Hearing grossly intact. Pulm: CTAB A&P. -wheezes, -rales, -rhonchi. Symmetrical chest rise. No increase work of breathing. No respiratory distress. Cardiac: RRR, -mrg. Radial pulses intact and symmetrical. Abdominal: Nontender, nondistended, soft. BS present. Extremities: Thin, frail Results & Data Results & Data ([facility]) Vital Signs (Past 12 Hours) Vital Signs Pulse BP 02/14/21 12:32 91 H 116/66 PG Care Time/CCT Total # of Minutes Spent Total Time Spent with Patient: Total time spent is greater than 50% in coordination of care (as documented) at patient's floor/unit and/or counseling patient: Coding Level of Care Code 32671 Subseq Hosp Care Lvl 1 Diagnoses Agitation R45.1 UTI (urinary tract infection) N39.0 Serum calcium elevated E83.52 Anemia D64.9 Hypercholesterolemia E78.00 Benign essential hypertension I10 Dementia F03.91 Dementia type: unspecified type Dementia behavioral disturbance: with behavioral disturbance Acute kidney injury superimposed on CKD N17.9; N18.9 Afib I48.91 Hypokalemia E87.6 (1) Dementia Dementia type: unspecified type Dementia behavioral disturbance: with behavioral disturbance Qualified Code(s): F03.91 - Unspecified dementia with behavioral disturbance
[2021-02-14] MEDS ORDERED: SODIUM CHLORIDE 0.45 % 500 ML IV SCH (12:45)
[2021-02-14] MEDS: DONEPEZIL HCL 5 MG TAB PO SCH (20:57)
[2021-02-14] MEDS: traZODone HCL 50 MG TAB PO SCH (21:00)
[2021-02-15] MEDS: ENOXAPARIN INJ 30 MG/0.3 ML SYR SQ SCH (05:14)
[2021-02-15 07:16] LABS: BUN Creatinine Ratio 23.4 (10-20); Calcium 9.8 mg/dl (8.5-10.1); Creatinine Clr Calc Pharmacy 40.7 ml/min; Est GFR (African American) 76.9 ml/min; Est GFR (Non-African American) 66.4 ml/min; Potassium 3.9 mmol/L (3.5-5.1)
[2021-02-15] MEDS: SIMVASTATIN 20 MG TAB PO SCH (08:14)
[2021-02-15] MEDS: DOCUSATE SODIUM/SENNA 50/8.6MG TAB PO SCH (08:14)
[2021-02-15] MEDS: METOPROLOL TARTRATE 25 MG TAB PO SCH ×2 (08:14→20:58)
[2021-02-15] MEDS: POLYETHYLENE (MIRALAX) 17 GM PACK PO SCH (08:14)
[2021-02-15] MEDS: POTASSIUM CHLORIDE CRTAB 20 MEQ TABCR PO SCH (08:16)
[2021-02-15] MEDS: THIAMINE HCL 200 MG in SODIUM CHLORIDE 0.9% 50 ML IV SCH ×2 (10:41→22:12)
--- NOTE | 2021-02-15 19:38 | Hospitalist Progress Note ---
Date of Service February 15, 2021 Assessment & Plan (1) Dementia with behavioral disturbance: Plan: improved cont trazodone cont seroquel cont aricept (2) Thiamine deficiency: Plan: undetectable level could make #1 worse start thiamine 200mg IV BID treat for 30 days IV/PO recent b12 level wnl (3) Agitation: Plan: improved cont seroquel 2nd to #1 (4) UTI (urinary tract infection): Plan: completed full course of IV antibiotics (7 days) e.coli was pathogen (5) Serum calcium elevated: Plan: likely due to HCTZ use this has been stopped calcium normal today on BMP (6) Anemia: Plan: 2nd to Fe deficiency. Iron 34, TIBC 348, Transferrin 273, trans % sat 9, ferritin 12.9. Venofer 300mg x3 doses while here. B12/folate wnl Monitor CBC periodically for stability poor candidate for endoscopic eval given advanced age and advanced dementia would not pursue (7) Hypercholesterolemia: Plan: continue Simvastatin 20mg po daily (8) Benign essential hypertension: Plan: BPs low or low normal -- hold metoprolol. hold HCTZ. hold torsemide. (9) Acute kidney injury superimposed on CKD: Plan: Cr 1.6 on admit Cr now 0.79 CHRISTINA resolved (10) Afib: Plan: was caught on 1 EKG no a.fib on tele since then BPs too low for small dose of metoprolol poor candidate for anticoagulation - thus defer cont to monitor keep lytes stable (11) Hypokalemia: Plan: replaced/resolved Plan: needs 24-hour care - thus SNF post-discharge. placement pending. will update family tomorrow. routine labs am. DVT proph - lovenox. Admission and Anticipated Discharge Date Admission Date: February 05, 2021 Subjective during visit patient was holding a baby doll I showed her a board that had pictures of people with symptoms (sad, happy, angry, etc) she did not point to any of the pictures staff report that via [place] chick sexer her speech is nonsensical thus, no history or ROS could be obtained Review of Systems Review of Systems: Unobtainable due to cognitive status Physical Exam Physical Exam: gen - thin, NAD chest - barrel chest in appearance mouth - MMM neck - no JVD heart - heart tones distant, s1 s2, no obvious murmur lungs - CTA b/l abd - soft NT ext - no edema Results & Data Results & Data ([facility]) Vital Signs (Past 12 Hours) Vital Signs Temp Pulse Resp BP Pulse Ox 02/14/21 23:15 36.4 C L 62 16 121/88 96 Intake and Output 02/15/21 02/15/21 02/15/21 06:59 14:59 22:59 Intake Total 120 / 620 52 / 52 Output Total 400 / 600 Balance -280 / 20 52 52 Intake: IV 52 Thiamine HCl 200 mg In Sodium 52 52 Chloride 0.9% 50 ml @ 208 mls/ hr IV BID ZOIE Rx#:[id number] Oral 120 / 120 0 / 0 Output: Urine Amount (Catheter) 400 / 600 Funez/Indwelling 400 / 600 Other: # Unmeasured Voids 2 Laboratory Results Laboratory Results - last 24 hr 02/15/21 06:41 Sodium 142 Potassium 3.9 Chloride 113 H Carbon Dioxide 22 Anion Gap 7.0 BUN 19 H Creatinine 0.79 Est Cr Clr Drug Dosing 40.7 Est GFR ( Amer) 76.9 Est GFR (Non-Af Amer) 66.4 BUN/Creatinine Ratio 23.4 H Glucose 70 Calcium 9.8 PG Care Time/CCT Total # of Minutes Spent Total Time Spent with Patient: Total time spent is greater than 50% in coordination of care (as documented) at patient's floor/unit and/or counseling patient: Coding Level of Care Code 02803 Subseq Hosp Care Lvl 2 Diagnoses Agitation R45.1 UTI (urinary tract infection) N39.0 Serum calcium elevated E83.52 Anemia D64.9 Hypercholesterolemia E78.00 Benign essential hypertension I10 Acute kidney injury superimposed on CKD N17.9; N18.9 Afib I48.91 Hypokalemia E87.6 Thiamine deficiency E51.9 Dementia with behavioral disturbance F03.91
[2021-02-15] MEDS: traZODone HCL 50 MG TAB PO SCH (20:57)
[2021-02-15] MEDS: DONEPEZIL HCL 5 MG TAB PO SCH (21:00)
[2021-02-15] MEDS: QUEtiapine FUMARATE 25 MG TABLET PO PRN (21:05)
[2021-02-16] MEDS: ENOXAPARIN INJ 30 MG/0.3 ML SYR SQ SCH (05:23)
[2021-02-16] MEDS: SIMVASTATIN 20 MG TAB PO SCH (08:12)
[2021-02-16] MEDS: DOCUSATE SODIUM/SENNA 50/8.6MG TAB PO SCH (08:12)
[2021-02-16] MEDS: POLYETHYLENE (MIRALAX) 17 GM PACK PO SCH (08:12)
[2021-02-16] MEDS: THIAMINE HCL 200 MG in SODIUM CHLORIDE 0.9% 50 ML IV SCH ×2 (08:13→21:47)
[2021-02-16] MEDS: METOPROLOL TARTRATE 25 MG TAB PO SCH (08:13)
[2021-02-16] MEDS: POTASSIUM CHLORIDE CRTAB 20 MEQ TABCR PO SCH (08:15)
[2021-02-16 10:10] LABS: Hematocrit (blood only) 29.5 % (37-47); Hemoglobin 8.6 g/dL (12.0-16.0); Mean Corpuscular Hemoglobin 21.3 pg (25-34); Mean Corpuscular Hgb Conc 29.2 g/dL (32-36); Mean Corpuscular Volume 73.2 fL (80-100); Mean Platelet Volume 9.3 fL (7.4-10.4); Platelet Count 265 K/uL (130-400); RDW Coefficient of Variation 27.6 % (11.5-14.5); RDW Standard Deviation 56.2 fL (36.4-46.3); Red Blood Count 4.03 M/uL (4.2-5.4); White Blood Count 7.21 K/uL (4.8-10.8)
[2021-02-16 14:53] LABS: Base Excess VBG 0.9 mEq/L; HCO3 VBG 26 mmol/L; Oxygen Saturation VBG < 60.0 %; PCO2 VBG 41 mmHg (38-50); PO2 VBG 25 mmHg; pH VBG 7.41 (7.36-7.41)
[2021-02-16 15:15] LABS: BUN Creatinine Ratio 16.7 (10-20); Calcium 9.1 mg/dl (8.5-10.1); Creatinine Clr Calc Pharmacy 44.7 ml/min; Est GFR (African American) 87.5 ml/min; Est GFR (Non-African American) 75.5 ml/min; Magnesium 2.2 mg/dl (1.8-2.4); Potassium 4.6 mmol/L (3.5-5.1)
[2021-02-16] MEDS: D5W AND 1/2NSS 1,000 ML IV SCH (18:01)
[2021-02-16] MEDS ORDERED: risperiDONE ODT 0.5 MG SOLTAB PO PRN (20:06)
[2021-02-16] MEDS: traZODone HCL 50 MG TAB PO SCH (20:29)
[2021-02-16] MEDS: DONEPEZIL HCL 5 MG TAB PO SCH (20:29)
--- NOTE | 2021-02-16 23:49 | Hospitalist Progress Note ---
Date of Service February 16, 2021 Assessment & Plan (1) Dementia with behavioral disturbance: Plan: very sedated today did receive seroquel overnight STOP the seroquel - too sedating cont trazodone cont aricept if she needs any antipsychotic change to tiny dose of risperdal 0.25mg and use PRN only (rather than scheduled) (2) Thiamine deficiency: Plan: undetectable level could make #1 worse thiamine 200mg IV BID treat for 30 days IV/PO recent b12 level wnl (3) Agitation: Plan: improved - but now too sedated as above in #1 (4) UTI (urinary tract infection): Plan: completed full course of IV antibiotics (7 days) e.coli was pathogen (5) Serum calcium elevated: Plan: likely due to HCTZ use this has been stopped calcium normal today on BMP (6) Anemia: Plan: 2nd to Fe deficiency. Iron 34, TIBC 348, Transferrin 273, trans % sat 9, ferritin 12.9. Venofer 300mg x3 doses while here. B12/folate wnl despite recent venofer her H/H have not trended up poor candidate for endoscopic eval given advanced age and advanced dementia would not pursue (7) Hypercholesterolemia: Plan: continue Simvastatin 20mg po daily (8) Benign essential hypertension: Plan: BPs low or low normal -- hold metoprolol. hold HCTZ. hold torsemide. (9) Acute kidney injury superimposed on CKD: Plan: Cr 1.6 on admit Cr now 0.79 CHRISTINA resolved (10) Afib: Plan: was caught on 1 EKG no a.fib on tele since then BPs too low for small dose of metoprolol poor candidate for anticoagulation - thus defer cont to monitor keep lytes stable (11) Hypokalemia: Plan: replaced/resolved Plan: needs 24-hour care - thus SNF post-discharge. placement pending. updated pt's grand daughter by phone today DVT proph - lovenox. pt with limited eating/drinking today, and Na level starting to trend up resume fluids - D51/2NS at 60cc/hr repeat BMP am Admission and Anticipated Discharge Date Admission Date: February 05, 2021 Subjective patient very sleepy today I had the [place] doctor of dental medicine via doctor of dental medicine iPad during my visit the doctor of dental medicine called her name in [place] numerous times and she did not respond only briefly opened her eyes I spoke with pt's grand daughter by phone and she reported that during her last visit with Ms Soliz she was "not making any sense" Review of Systems Review of Systems: Unobtainable due to cognitive status Physical Exam Physical Exam: gen - thin, NAD, lethargic/sleepy chest - barrel chest in appearance mouth - MM dry neck - no JVD heart - heart tones distant, s1 s2, no obvious murmur lungs - CTA b/l abd - soft NT ext - no edema skin - turgor decreased Results & Data Results & Data ([facility]) Vital Signs (Past 12 Hours) Vital Signs Temp Pulse Resp BP Pulse Ox 02/16/21 22:57 37.1 C 69 18 140/72 94 02/16/21 19:15 37.1 C 72 18 113/69 94 02/16/21 15:31 36.7 C 71 16 132/65 97 Laboratory Results Laboratory Results - last 24 hr 02/16/21 02/16/21 02/16/21 09:29 14:25 14:33 WBC 7.21 RBC 4.03 L Hgb 8.6 L Hct 29.5 L MCV 73.2 L MCH 21.3 L MCHC 29.2 L RDW Std Deviation 56.2 H RDW Coeff of Tommie 27.6 H Plt Count 265 MPV 9.3 VBG pH VBG pCO2 VBG pO2 VBG HCO3 VBG O2 Saturation VBG Base Excess Barometric Pressure Sodium 145 Potassium 4.6 D Chloride 114 H Carbon Dioxide 22 Anion Gap 8.0 BUN 12 Creatinine 0.71 Est Cr Clr Drug Dosing 44.7 Est GFR ( Amer) 87.5 Est GFR (Non-Af Amer) 75.5 BUN/Creatinine Ratio 16.7 Glucose 76 POC Glucose 75 Calcium 9.1 Magnesium 2.2 C-Reactive Protein 4.00 H Folate 02/16/21 02/16/21 14:33 14:34 WBC RBC Hgb Hct MCV MCH MCHC RDW Std Deviation RDW Coeff of Tommie Plt Count MPV VBG pH 7.41 VBG pCO2 41 VBG pO2 25 VBG HCO3 26 VBG O2 Saturation < 60.0 VBG Base Excess 0.9 Barometric Pressure 726.1 Sodium Potassium Chloride Carbon Dioxide Anion Gap BUN Creatinine Est Cr Clr Drug Dosing Est GFR ( Amer) Est GFR (Non-Af Amer) BUN/Creatinine Ratio Glucose POC Glucose Calcium Magnesium C-Reactive Protein Folate 15.00 PG Care Time/CCT Total # of Minutes Spent Total Time Spent with Patient: Total time spent is greater than 50% in coordination of care (as documented) at patient's floor/unit and/or counseling patient: Coding Level of Care Code 83835 Subseq Hosp Care Lvl 2 Diagnoses Dementia with behavioral disturbance F03.91 Thiamine deficiency E51.9 Agitation R45.1 UTI (urinary tract infection) N39.0 Serum calcium elevated E83.52 Anemia D64.9 Hypercholesterolemia E78.00 Benign essential hypertension I10 Acute kidney injury superimposed on CKD N17.9; N18.9 Afib I48.91 Hypokalemia E87.6
[2021-02-17] MEDS: ENOXAPARIN INJ 30 MG/0.3 ML SYR SQ SCH (06:01)
[2021-02-17 09:11] LABS: BUN Creatinine Ratio 11.6 (10-20); Calcium 8.6 mg/dl (8.5-10.1); Creatinine Clr Calc Pharmacy 45.3 ml/min; Est GFR (Non-African American) 76.8 ml/min; Potassium 4.3 mmol/L (3.5-5.1)
[2021-02-17] MEDS: POLYETHYLENE (MIRALAX) 17 GM PACK PO SCH (09:26)
[2021-02-17] MEDS: DOCUSATE SODIUM/SENNA 50/8.6MG TAB PO SCH (09:26)
[2021-02-17] MEDS: POTASSIUM CHLORIDE CRTAB 20 MEQ TABCR PO SCH (09:27)
[2021-02-17] MEDS: SIMVASTATIN 20 MG TAB PO SCH (09:27)
[2021-02-17] MEDS: D5W AND 1/2NSS 1,000 ML IV SCH (09:34)
[2021-02-17] MEDS: THIAMINE HCL 200 MG in SODIUM CHLORIDE 0.9% 50 ML IV SCH ×2 (09:34→20:10)
--- NOTE | 2021-02-17 14:04 | Hospitalist Progress Note ---
Date of Service February 17, 2021 Assessment & Plan (1) Dementia with behavioral disturbance: Plan: no issues overnight rispderal PRN only cont trazodone cont aricept (2) Thiamine deficiency: Plan: undetectable level could make #1 worse thiamine 200mg IV BID treat for 30 days IV/PO recent b12 level wnl (3) Agitation: Plan: improved (4) UTI (urinary tract infection): Plan: completed full course of IV antibiotics (7 days) e.coli was pathogen (5) Serum calcium elevated: Plan: likely due to HCTZ use this has been stopped calcium normal today on BMP (6) Anemia: Plan: 2nd to Fe deficiency. Iron 34, TIBC 348, Transferrin 273, trans % sat 9, ferritin 12.9. Venofer 300mg x3 doses while here. B12/folate wnl despite recent venofer her H/H have not trended up poor candidate for endoscopic eval given advanced age and advanced dementia would not pursue repeat a ferritin level in 2 days - give additional venofer if needed (7) Hypercholesterolemia: Plan: continue Simvastatin 20mg po daily (8) Benign essential hypertension: Plan: BPs low or low normal -- hold metoprolol. hold HCTZ. hold torsemide. (9) Acute kidney injury superimposed on CKD: Plan: Cr 1.6 on admit Cr now 0.79 CHRISTINA resolved (10) Afib: Plan: was caught on 1 EKG no a.fib on tele since then BPs too low for small dose of metoprolol poor candidate for anticoagulation - thus defer cont to monitor keep lytes stable (11) Hypokalemia: Plan: replaced/resolved (12) Osteoarthritis of hand, right: Plan: no erosive changes on hand x-ray severe OA Plan: needs 24-hour care - thus SNF post-discharge. placement pending. updated pt's grand daughter by phone yesterday DVT proph - lovenox. pt with ongoing limited eating/drinking - Na 146 cont fluids - D51/2NS at 60cc/hr Admission and Anticipated Discharge Date Admission Date: February 05, 2021 Subjective patient awake/alert but does not follow commands cooperative during my visit Review of Systems Review of Systems: Unobtainable due to cognitive status Physical Exam 2 Physical Exam: gen - thin, NAD, more awake today mouth - MM dry neck - no JVD heart - heart tones distant, s1 s2, no obvious murmur lungs - CTA b/l abd - soft NT ext - no edema skin - turgor decreased psych - a/o x 0 musculo - multiple PIPs right hand with mild swelling; right shoulder with swelling Results & Data Results & Data ([facility]) Vital Signs (Past 12 Hours) Vital Signs Temp Pulse Resp BP Pulse Ox 02/17/21 07:00 36.6 C 64 16 126/68 97 Laboratory Results Laboratory Results - last 24 hr 02/16/21 02/16/21 02/16/21 14:25 14:33 14:33 VBG pH VBG pCO2 VBG pO2 VBG HCO3 VBG O2 Saturation VBG Base Excess Barometric Pressure Sodium 145 Potassium 4.6 D Chloride 114 H Carbon Dioxide 22 Anion Gap 8.0 BUN 12 Creatinine 0.71 Est Cr Clr Drug Dosing 44.7 Est GFR ( Amer) 87.5 Est GFR (Non-Af Amer) 75.5 BUN/Creatinine Ratio 16.7 Glucose 76 POC Glucose 75 Calcium 9.1 Magnesium 2.2 C-Reactive Protein 4.00 H Folate 15.00 02/16/21 02/17/21 14:34 08:23 VBG pH 7.41 VBG pCO2 41 VBG pO2 25 VBG HCO3 26 VBG O2 Saturation < 60.0 VBG Base Excess 0.9 Barometric Pressure 726.1 Sodium 146 H Potassium 4.3 Chloride 115 H Carbon Dioxide 24 Anion Gap 7.0 BUN 8 Creatinine 0.70 Est Cr Clr Drug Dosing 45.3 Est GFR ( Amer) 89.0 Est GFR (Non-Af Amer) 76.8 BUN/Creatinine Ratio 11.6 Glucose 95 POC Glucose Calcium 8.6 Magnesium C-Reactive Protein Folate PG Care Time/CCT Total # of Minutes Spent Total Time Spent with Patient: Total time spent is greater than 50% in coordination of care (as documented) at patient's floor/unit and/or counseling patient: Coding Level of Care Code 40096 Subseq Hosp Care Lvl 2 Diagnoses Dementia with behavioral disturbance F03.91 Thiamine deficiency E51.9 Agitation R45.1 UTI (urinary tract infection) N39.0 Serum calcium elevated E83.52 Anemia D64.9 Hypercholesterolemia E78.00 Benign essential hypertension I10 Acute kidney injury superimposed on CKD N17.9; N18.9 Afib I48.91 Hypokalemia E87.6 Osteoarthritis of hand, right M19.041
--- NOTE | 2021-02-17 15:04 | XRay Report ---
XR hand RT min 3V routine CLINICAL HISTORY: multiple PIPs with swelling; eval erosions, etc COMPARISON: None FINDINGS: Ulnar positive variance is noted. There is erosion of the ulnar styloid and adjacent dista l radioulnar joint. However, this has sclerotic margins and is therefore not acute. No acute fracture within the right hand is noted. Sclerosis of the right first metacarpal suggests old fracture. Note is made of moderate joint space narrowing and osteophytosis within multiple interphalangeal joints of the right hand. No additional erosive changes are identified. IMPRESSION: 1. No acute fracture or dislocation within the right hand. 2. 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 This finding is chronic and cou ld be due to ulnar positive variance. An inflammatory process such as rheumatoid arthritis cannot be completely excluded although is considered less likely. 3. Moderate osteophytosis within multiple interphalangeal joints of the right hand. ACT 112: Negative or not required by law. Electronically signed by: Nestor Mello M.D. 02/17/2021 3:02 PM
[2021-02-17] MEDS: traZODone HCL 50 MG TAB PO SCH (20:12)
[2021-02-17] MEDS: DONEPEZIL HCL 5 MG TAB PO SCH (20:12)
[2021-02-18] MEDS: D5W AND 1/2NSS 1,000 ML IV SCH ×2 (01:47→18:47)
[2021-02-18] MEDS: ENOXAPARIN INJ 30 MG/0.3 ML SYR SQ SCH (05:52)
[2021-02-18 07:09] LABS: Creatinine Clr Calc Pharmacy 39.7 ml/min; Est GFR (African American) 75.8 ml/min; Est GFR (Non-African American) 65.4 ml/min
[2021-02-18] MEDS: DOCUSATE SODIUM/SENNA 50/8.6MG TAB PO SCH (07:42)
[2021-02-18] MEDS: POLYETHYLENE (MIRALAX) 17 GM PACK PO SCH (07:42)
[2021-02-18] MEDS: SIMVASTATIN 20 MG TAB PO SCH (08:17)
[2021-02-18] MEDS: POTASSIUM CHLORIDE CRTAB 20 MEQ TABCR PO SCH (08:17)
[2021-02-18] MEDS: THIAMINE HCL 200 MG in SODIUM CHLORIDE 0.9% 50 ML IV SCH ×2 (08:17→21:44)
[2021-02-18] MEDS: traZODone HCL 50 MG TAB PO SCH (20:50)
[2021-02-18] MEDS: DONEPEZIL HCL 5 MG TAB PO SCH (20:50)
--- NOTE | 2021-02-19 00:25 | Hospitalist Progress Note ---
Date of Service February 18, 2021 Assessment & Plan (1) Dementia with behavioral disturbance: Plan: again no issues overnight rispderal PRN only cont trazodone cont aricept (2) Thiamine deficiency: Plan: undetectable level could make #1 worse cont thiamine 200mg IV BID treat for 30 days IV/PO recent b12 level wnl (3) Agitation: Plan: improved /resolved (4) UTI (urinary tract infection): Plan: completed full course of IV antibiotics (7 days) e.coli was pathogen (5) Serum calcium elevated: Plan: likely due to HCTZ use this has been stopped calcium normal (6) Anemia: Plan: 2nd to Fe deficiency. Iron 34, TIBC 348, Transferrin 273, trans % sat 9, ferritin 12.9. Venofer 300mg x3 doses while here. B12/folate wnl despite recent venofer her H/H have not trended up poor candidate for endoscopic eval given advanced age and advanced dementia would not pursue repeat a ferritin level in am (7) Hypercholesterolemia: Plan: continue Simvastatin 20mg po daily (8) Benign essential hypertension: Plan: BPs low or low normal -- hold metoprolol. hold HCTZ. hold torsemide. (9) Acute kidney injury superimposed on CKD: Plan: Cr 1.6 on admit Cr now 0.79 CHRISTINA resolved (10) Afib: Plan: was caught on 1 EKG no a.fib on tele since then BPs too low for small dose of metoprolol poor candidate for anticoagulation - thus defer cont to monitor keep lytes stable (11) Hypokalemia: Plan: replaced/resolved (12) Osteoarthritis of hand, right: Plan: no erosive changes on hand x-ray severe OA Plan: needs 24-hour care - thus SNF post-discharge. placement pending. updated pt's grand daughter by phone earlier this week DVT proph - lovenox. since PO intake is better will stop IV fluids Admission and Anticipated Discharge Date Admission Date: February 05, 2021 Subjective no events overnight eating better today - 25% of meals (yesterday was very little) confused, but calm with no behavioral issues as usual - unable to communicate with patient due to advanced dementia Review of Systems Review of Systems: Unobtainable due to cognitive status Physical Exam Physical Exam: gen - thin, NAD, much more awake in comparison to the weekend mouth - MM now more moist neck - no JVD heart - heart tones distant, s1 s2, no obvious murmur lungs - CTA b/l; barrel chest abd - soft NT ND BS+ ext - no edema skin - turgor improved psych - a/o x 0 Results & Data Results & Data ([facility]) Vital Signs (Past 12 Hours) Vital Signs Temp Pulse Resp BP BP Pulse Ox 02/18/21 22:48 37.1 C 88 18 119/74 91 02/18/21 15:04 37.2 C 81 18 126/66 95 PG Care Time/CCT Total # of Minutes Spent Total Time Spent with Patient: Total time spent is greater than 50% in coordination of care (as documented) at patient's floor/unit and/or counseling patient: Coding Level of Care Code 23305 Subseq Hosp Care Lvl 1 Diagnoses Dementia with behavioral disturbance F03.91 Thiamine deficiency E51.9 Agitation R45.1 UTI (urinary tract infection) N39.0 Serum calcium elevated E83.52 Anemia D64.9 Hypercholesterolemia E78.00 Benign essential hypertension I10 Acute kidney injury superimposed on CKD N17.9; N18.9 Afib I48.91 Hypokalemia E87.6 Osteoarthritis of hand, right M19.041
[2021-02-19] MEDS: ENOXAPARIN INJ 30 MG/0.3 ML SYR SQ SCH (05:58)
[2021-02-19 07:05] LABS: BUN Creatinine Ratio 10.7 (10-20); Calcium 9.3 mg/dl (8.5-10.1); Creatinine Clr Calc Pharmacy 44.7 ml/min; Est GFR (African American) 87.5 ml/min; Est GFR (Non-African American) 75.5 ml/min; Potassium 3.8 mmol/L (3.5-5.1)
[2021-02-19 07:06] LABS: Ferritin 323.8 ng/ml (8-388)
[2021-02-19] MEDS: POLYETHYLENE (MIRALAX) 17 GM PACK PO SCH (08:19)
[2021-02-19] MEDS: DOCUSATE SODIUM/SENNA 50/8.6MG TAB PO SCH (08:19)
[2021-02-19] MEDS: POTASSIUM CHLORIDE CRTAB 20 MEQ TABCR PO SCH (08:19)
[2021-02-19] MEDS: SIMVASTATIN 20 MG TAB PO SCH (08:19)
[2021-02-19] MEDS: THIAMINE HCL 200 MG in SODIUM CHLORIDE 0.9% 50 ML IV SCH ×2 (08:20→20:43)
[2021-02-19] MEDS: traZODone HCL 50 MG TAB PO SCH (20:43)
[2021-02-19] MEDS: DONEPEZIL HCL 5 MG TAB PO SCH (20:43)
--- NOTE | 2021-02-19 22:37 | Hospitalist Progress Note ---
Date of Service February 19, 2021 Assessment & Plan (1) Dementia with behavioral disturbance: Plan: again no issues overnight rispderal PRN only - has not required any cont trazodone cont aricept (2) Thiamine deficiency: Plan: undetectable level could make #1 worse cont thiamine 200mg IV BID - can likely go to PO tomorrow treat for 30 days IV/PO recent b12 level wnl (3) Agitation: Plan: resolved (4) UTI (urinary tract infection): Plan: completed full course of IV antibiotics (7 days) (5) Serum calcium elevated: Plan: likely due to HCTZ use this has been stopped calcium normal BPs have been normal w/o the HCTZ (6) Anemia: Plan: 2nd to Fe deficiency. Iron 34, TIBC 348, Transferrin 273, trans % sat 9, ferritin 12.9. Venofer 300mg x3 doses while here. B12/folate wnl despite recent venofer her H/H have not trended up poor candidate for endoscopic eval given advanced age and advanced dementia would not pursue repeat ferritin level 323 (had been 12) no further venofer for now (7) Hypercholesterolemia: Plan: continue Simvastatin 20mg po daily (8) Benign essential hypertension: Plan: BPs low or low normal -- hold metoprolol. hold HCTZ. hold torsemide. (9) Acute kidney injury superimposed on CKD: Plan: Cr 1.6 on admit Cr now 0.79 CHRISTINA resolved (10) Afib: Plan: was caught on 1 EKG no a.fib on tele since then BPs too low for small dose of metoprolol poor candidate for anticoagulation - thus defer cont to monitor keep lytes stable (11) Hypokalemia: Plan: replaced/resolved (12) Osteoarthritis of hand, right: Plan: no erosive changes on hand x-ray severe OA Plan: needs 24-hour care - thus SNF post-discharge. placement pending. updated pt's grand daughter by phone earlier this week DVT proph - lovenox. Admission and Anticipated Discharge Date Admission Date: February 05, 2021 Subjective no events overnight patient resting comfortably during the visit she was calm and cooperative did not appear to be in any pain unable to elicit history due to [place] tongue ([place]ian) and confusion attempts at using the [place]ian educational sign language interpreter on past occasions were not fruitful Review of Systems Review of Systems: Unobtainable due to cognitive status Physical Exam Physical Exam: gen - thin, NAD, awake/alert, calm/cooperative mouth - MMM neck - no JVD heart - heart tones distant, s1 s2, no obvious murmur lungs - CTA b/l; barrel chest abd - soft NT ND BS+ ext - no edema skin - no rash psych - alert, oriented to person (does look up when her name TAMI is called) Results & Data Results & Data ([facility]) Vital Signs (Past 12 Hours) Vital Signs Temp Pulse Resp BP Pulse Ox 02/19/21 16:29 37.1 C 74 18 116/65 90 Laboratory Results Laboratory Results - last 24 hr 02/19/21 05:22 Sodium 140 Potassium 3.8 Chloride 112 H Carbon Dioxide 25 Anion Gap 3.0 BUN 8 Creatinine 0.71 Est Cr Clr Drug Dosing 44.7 Est GFR ( Amer) 87.5 Est GFR (Non-Af Amer) 75.5 BUN/Creatinine Ratio 10.7 Glucose 87 Calcium 9.3 Ferritin 323.8 PG Care Time/CCT Total # of Minutes Spent Total Time Spent with Patient: Total time spent is greater than 50% in coordination of care (as documented) at patient's floor/unit and/or counseling patient: Coding Level of Care Code 25454 Subseq Hosp Care Lvl 1 Diagnoses Dementia with behavioral disturbance F03.91 Thiamine deficiency E51.9 Agitation R45.1 UTI (urinary tract infection) N39.0 Serum calcium elevated E83.52 Anemia D64.9 Hypercholesterolemia E78.00 Benign essential hypertension I10 Acute kidney injury superimposed on CKD N17.9; N18.9 Afib I48.91 Hypokalemia E87.6 Osteoarthritis of hand, right M19.041
[2021-02-20] MEDS: ENOXAPARIN INJ 30 MG/0.3 ML SYR SQ SCH (05:04)
[2021-02-20] MEDS: THIAMINE HCL 200 MG in SODIUM CHLORIDE 0.9% 50 ML IV SCH ×2 (08:46→20:33)
[2021-02-20] MEDS: DOCUSATE SODIUM/SENNA 50/8.6MG TAB PO SCH (09:32)
[2021-02-20] MEDS: SIMVASTATIN 20 MG TAB PO SCH (09:33)
[2021-02-20] MEDS: POLYETHYLENE (MIRALAX) 17 GM PACK PO SCH (09:33)
[2021-02-20] MEDS: POTASSIUM CHLORIDE CRTAB 20 MEQ TABCR PO SCH (09:33)
[2021-02-20] MEDS ORDERED: THIAMINE HCL 100 MG TAB PO STA (19:35)
[2021-02-20] MEDS: traZODone HCL 50 MG TAB PO SCH (20:49)
[2021-02-20] MEDS: DONEPEZIL HCL 5 MG TAB PO SCH (20:50)
--- NOTE | 2021-02-20 20:55 | Hospitalist Progress Note ---
Date of Service February 20, 2021 Assessment & Plan (1) Dementia with behavioral disturbance: Plan: rispderal PRN only - has not required any this week cont trazodone cont aricept (2) Thiamine deficiency: Plan: undetectable level could make #1 worse cont thiamine 200mg IV BID - can likely go to PO tomorrow treat for 30 days IV/PO recent b12 level wnl (3) Agitation: Plan: resolved (4) UTI (urinary tract infection): Plan: completed full course of IV antibiotics (7 days) (5) Serum calcium elevated: Plan: likely due to HCTZ use HCTZ discontinued calcium normal BPs have been normal w/o the HCTZ (6) Anemia: Plan: 2nd to Fe deficiency. Iron 34, TIBC 348, Transferrin 273, trans % sat 9, ferritin 12.9. Venofer 300mg x3 doses while here. B12/folate wnl despite recent venofer her H/H have not trended up poor candidate for endoscopic eval given advanced age and advanced dementia would not pursue repeat ferritin level 323 (had been 12) no further venofer for now repeat CBC am (7) Hypercholesterolemia: Plan: continue Simvastatin 20mg po daily (8) Benign essential hypertension: Plan: BPs low or low normal hold metoprolol. hold HCTZ. hold torsemide. (9) Acute kidney injury superimposed on CKD: Plan: Cr 1.6 on admit Cr now 0.7 CHRISTINA resolved (10) Afib: Plan: was caught on 1 EKG no a.fib on tele since then BPs too low for small dose of metoprolol thus holding very poor candidate for anticoagulation - thus defer (11) Hypokalemia: Plan: replaced/resolved BMP am (12) Osteoarthritis of hand, right: Plan: no erosive changes on hand x-ray severe OA Plan: needs 24-hour care - thus SNF post-discharge. placement pending. updated pt's grand daughter by phone earlier this week DVT proph - lovenox. Admission and Anticipated Discharge Date Admission Date: February 05, 2021 Subjective no events overnight during the visit the patient was holding a plastic baby doll she was singing to the baby doll and had a smile on her face she was speaking in Micronesian the entire time I was unable to examine the patient today due to the above Review of Systems 2 Review of Systems: Unobtainable due to cognitive status Physical Exam Physical Exam: gen - thin, NAD, awake/alert, calm/cooperative, happy today skin - turgor fair neuro - moves all 4 limbs; no facial droop Results & Data Results & Data ([facility]) Vital Signs (Past 12 Hours) Vital Signs Temp Pulse Resp BP BP Pulse Ox 02/20/21 15:45 36.8 C 84 20 136/65 90 02/20/21 09:32 81 20 119/72 92 PG Care Time/CCT Total # of Minutes Spent Total Time Spent with Patient: Total time spent is greater than 50% in coordination of care (as documented) at patient's floor/unit and/or counseling patient: Coding Level of Care Code 72349 Subseq Hosp Care Lvl 1 Diagnoses Dementia with behavioral disturbance F03.91 Thiamine deficiency E51.9 Agitation R45.1 UTI (urinary tract infection) N39.0 Serum calcium elevated E83.52 Anemia D64.9 Hypercholesterolemia E78.00 Benign essential hypertension I10 Acute kidney injury superimposed on CKD N17.9; N18.9 Afib I48.91 Hypokalemia E87.6 Osteoarthritis of hand, right M19.041
[2021-02-21] MEDS: ENOXAPARIN INJ 30 MG/0.3 ML SYR SQ SCH (05:35)
[2021-02-21 06:09] LABS: Hematocrit (blood only) 32.6 % (37-47); Hemoglobin 9.5 g/dL (12.0-16.0); Mean Corpuscular Hemoglobin 22.4 pg (25-34); Mean Corpuscular Hgb Conc 29.1 g/dL (32-36); Mean Corpuscular Volume 76.7 fL (80-100); Mean Platelet Volume 8.9 fL (7.4-10.4); Platelet Count 340 K/uL (130-400); RDW Coefficient of Variation 31.2 % (11.5-14.5); RDW Standard Deviation 84.2 fL (36.4-46.3); Red Blood Count 4.25 M/uL (4.2-5.4); White Blood Count 8.67 K/uL (4.8-10.8)
[2021-02-21 06:35] LABS: BUN Creatinine Ratio 13.8 (10-20); Calcium 9.5 mg/dl (8.5-10.1); Creatinine Clr Calc Pharmacy 43.1 ml/min; Est GFR (African American) 84.6 ml/min; Potassium 3.4 mmol/L (3.5-5.1)
[2021-02-21] MEDS: SIMVASTATIN 20 MG TAB PO SCH (08:22)
[2021-02-21] MEDS: POTASSIUM CHLORIDE CRTAB 20 MEQ TABCR PO SCH (08:22)
[2021-02-21] MEDS: POLYETHYLENE (MIRALAX) 17 GM PACK PO SCH (08:32)
[2021-02-21] MEDS: DOCUSATE SODIUM/SENNA 50/8.6MG TAB PO SCH (08:32)
[2021-02-21] MEDS: THIAMINE HCL 200 MG in SODIUM CHLORIDE 0.9% 50 ML IV SCH ×2 (09:36→21:39)
[2021-02-21] MEDS: traZODone HCL 50 MG TAB PO SCH (21:39)
[2021-02-21] MEDS: DONEPEZIL HCL 5 MG TAB PO SCH (21:39)
--- NOTE | 2021-02-21 23:44 | Hospitalist Progress Note ---
Date of Service February 21, 2021 Assessment & Plan (1) Dementia with behavioral disturbance: Plan: rispderal PRN only - has not required any this week cont trazodone cont aricept (2) Thiamine deficiency: Plan: undetectable level could make #1 worse cont thiamine -- IV access no longer available change to 200mg PO BID x 30 days then stop recent b12 level wnl (3) Agitation: Plan: intermittent agitation but largely controlled (4) UTI (urinary tract infection): Plan: completed full course of IV antibiotics (7 days) (5) Serum calcium elevated: Plan: likely due to HCTZ use HCTZ discontinued calcium normal BPs have been normal w/o the HCTZ (6) Anemia: Plan: 2nd to Fe deficiency. Iron 34, TIBC 348, Transferrin 273, trans % sat 9, ferritin 12.9. Venofer 300mg x3 doses while here. B12/folate wnl despite recent venofer her H/H have not trended up poor candidate for endoscopic eval given advanced age and advanced dementia would not pursue repeat ferritin level 323 (had been 12) no further venofer for now repeat CBC today with improving H/H (7) Hypercholesterolemia: Plan: continue Simvastatin 20mg po daily (8) Benign essential hypertension: Plan: BPs low or low normal THUS - hold metoprolol. hold HCTZ. hold torsemide. (9) Acute kidney injury superimposed on CKD: Plan: Cr 1.6 on admit Cr now 0.7 CHRISTINA resolved (10) Afib: Plan: was caught on 1 EKG no a.fib on tele since then BPs too low for small dose of metoprolol thus holding very poor candidate for anticoagulation - thus defer (11) Hypokalemia: Plan: K 3.4 cont replacement (if she will take her K supplement) BMP am (12) Osteoarthritis of hand, right: Plan: no erosive changes on hand x-ray severe OA (13) Bunion of great toe of left foot: Plan: bunion at minimum could be early podagra but wasn't seemingly tender on exam follow carefully (14) Iron deficiency anemia: Plan: see "anemia" above s/p venofer x 3 doses while here H/H stable and improved today (15) Chronic renal failure, stage 3b: Plan: baseline CrCl 30-40 CrCl today stable (16) DVT prophylaxis: Plan: lovenox 30mg daily Plan: needs 24-hour care - thus SNF post-discharge. placement pending. Social work has spoken to family and Ms Cynthia Gonzalez also spoke with family. updated pt's grand daughter by phone earlier this week patient needs covid vaccine to gain entry to most SNFs J and J vaccine now available will need to obtain consent from family for such Admission and Anticipated Discharge Date Admission Date: February 05, 2021 Subjective unable to communicate with Ms Soliz because of advanced dementia during the visit her meal tray was present I tried to offer her several spoonfuls of food - only took 1 offering, grimaced with the rest of the attempts pulled jean baptiste out and IV out since jean baptiste being self-removed she has not had any retention or blood clots or hematuria Review of Systems Review of Systems: Unobtainable due to cognitive status Physical Exam Physical Exam: gen - NAD, talking in Singaporean, refusing food via spoon mouth - MMM today heart - irregular (extra beats), regular rate, s1 s2 lungs - cta b/l abd - soft NT; I cannot palpate the bladder ext - no edema, pulses 2+ b/l musculo - b/l bunion deformities; there is erythema over the L first MTP joint but NONTENDER to palpation Results & Data Results & Data ([facility]) Vital Signs (Past 12 Hours) Vital Signs Temp Pulse Resp BP Pulse Ox 02/21/21 23:28 36.5 C 65 18 128/70 94 02/21/21 16:11 36.8 C 88 16 143/84 H Laboratory Results Laboratory Results - last 24 hr 02/21/21 02/21/21 05:40 05:40 WBC 8.67 RBC 4.25 Hgb 9.5 L Hct 32.6 L MCV 76.7 L MCH 22.4 L MCHC 29.1 L RDW Std Deviation 84.2 H RDW Coeff of Tommie 31.2 H Plt Count 340 MPV 8.9 Sodium 139 Potassium 3.4 L Chloride 109 H Carbon Dioxide 26 Anion Gap 4.0 BUN 10 Creatinine 0.73 Est Cr Clr Drug Dosing 43.1 Est GFR ( Amer) 84.6 Est GFR (Non-Af Amer) 73.0 BUN/Creatinine Ratio 13.8 Glucose 100 H Calcium 9.5 PG Care Time/CCT Total # of Minutes Spent Total Time Spent with Patient: Total time spent is greater than 50% in coordination of care (as documented) at patient's floor/unit and/or counseling patient: Coding Level of Care Code 00173 Subseq Hosp Care Lvl 2 Diagnoses Dementia with behavioral disturbance F03.91 Thiamine deficiency E51.9 Agitation R45.1 UTI (urinary tract infection) N39.0 Serum calcium elevated E83.52 Anemia D64.9 Hypercholesterolemia E78.00 Benign essential hypertension I10 Acute kidney injury superimposed on CKD N17.9; N18.9 Afib I48.91 Hypokalemia E87.6 Osteoarthritis of hand, right M19.041 Bunion of great toe of left foot M21.612 Iron deficiency anemia D50.9 DVT prophylaxis Z29.9 Chronic renal failure, stage 3b N18.32
[2021-02-22] MEDS: ENOXAPARIN INJ 30 MG/0.3 ML SYR SQ SCH (05:48)
[2021-02-22] MEDS: DOCUSATE SODIUM/SENNA 50/8.6MG TAB PO SCH (10:12)
[2021-02-22] MEDS: POLYETHYLENE (MIRALAX) 17 GM PACK PO SCH (10:12)
[2021-02-22] MEDS: SIMVASTATIN 20 MG TAB PO SCH (10:12)
[2021-02-22] MEDS: THIAMINE HCL 100 MG TAB PO SCH ×3 (10:12→23:10)
[2021-02-22] MEDS: POTASSIUM CHLORIDE CRTAB 20 MEQ TABCR PO SCH (10:12)
--- NOTE | 2021-02-22 14:55 | Hospitalist Progress Note ---
Date of Service February 22, 2021 Assessment & Plan (1) Dementia with behavioral disturbance: Plan: Continue trazodone Continue Aricept Risperdal as needed as needed (2) Thiamine deficiency: Plan: Thiamine previously undetectable Continue thiamine 200 mg p.o. twice daily x30 days B12 normal (3) Agitation: Plan: intermittent agitation but largely controlled (4) UTI (urinary tract infection): Plan: completed full course of IV antibiotics (7 days) (5) Serum calcium elevated: Plan: likely due to HCTZ use HCTZ discontinued calcium normal BPs have been normal w/o the HCTZ (6) Anemia: Plan: 2nd to Fe deficiency. Iron 34, TIBC 348, Transferrin 273, trans % sat 9, ferritin 12.9. Venofer 300mg x3 doses while here. B12/folate wnl despite recent venofer her H/H have not trended up poor candidate for endoscopic eval given advanced age and advanced dementia would not pursue repeat ferritin level 323 (had been 12) no further venofer for now repeat CBC improved H/H (7) Hypercholesterolemia: Plan: continue Simvastatin 20mg po daily (8) Benign essential hypertension: Plan: BPs low or low normal hold metoprolol. hold HCTZ. hold torsemide. (9) Acute kidney injury superimposed on CKD: Plan: Cr 1.6 on admit Cr now 0.7 CHRISTINA resolved (10) Afib: Plan: was caught on 1 EKG no a.fib on tele since then BPs too low for small dose of metoprolol thus holding very poor candidate for anticoagulation, defer (11) Hypokalemia: Plan: cont replacement (if she will take her K supplement) BMP am (12) Osteoarthritis of hand, right: Plan: no erosive changes on hand x-ray severe OA (13) Bunion of great toe of left foot: Plan: bunion at minimum could be early podagra Nontender on exam follow carefully (14) Iron deficiency anemia: Plan: see "anemia" above s/p venofer x 3 doses while here H/H stable and improved today (15) Chronic renal failure, stage 3b: Plan: baseline CrCl 30-40 CrCl stable during admission (16) DVT prophylaxis: Plan: lovenox 30mg daily Plan: needs 24-hour care - thus SNF post-discharge. placement pending. Social work has spoken to family and Ms Cynthia Gonzalez also spoke with family. updated pt's grand daughter by phone earlier this week patient needs covid vaccine to gain entry to most SNFs J and J vaccine now available will need to obtain consent from family for such 02/22: Attempted to call family x2, no answer and voicemail not set up. Will continue to reattempt as patient is unable to give consent for vaccination due to dementia. Admission and Anticipated Discharge Date Admission Date: February 05, 2021 Subjective Patient is unable to give meaningful history due to cognitive status. Discussed with prior provider. Patient's family is working on finding placement options. Will likely require covid vaccination. Patient is unable to consent with this. Attempted to call family x2, unreachable by phone with no voicemail set up. Review of Systems Review of Systems: All systems reviewed & are unremarkable except as noted in Subjective Physical Exam Physical Exam: General: Frail-appearing.awakens easily and falls back asleep during exam. HEENT: Atraumatic, normocephalic. Visual acuity grossly intact. Hearing grossly intact. Pulm: CTAB A&P. -wheezes, -rales, -rhonchi. Symmetrical chest rise. No increase work of breathing. No respiratory distress. Cardiac: RRR, -mrg. Radial pulses intact and symmetrical. Abdominal: Nontender, nondistended, soft. BS present. Extremities: Thin, frail Results & Data Results & Data ([facility]) Vital Signs (Past 12 Hours) Vital Signs Temp Pulse Resp BP Pulse Ox 02/22/21 07:34 36.8 C 77 18 108/53 L 93 PG Care Time/CCT Total # of Minutes Spent Total Time Spent with Patient: Total time spent is greater than 50% in coordination of care (as documented) at patient's floor/unit and/or counseling patient: Coding Level of Care Code 25525 Subseq Hosp Care Lvl 1 Diagnoses Dementia with behavioral disturbance F03.91 Thiamine deficiency E51.9 Agitation R45.1 UTI (urinary tract infection) N39.0 Serum calcium elevated E83.52 Anemia D64.9 Hypercholesterolemia E78.00 Benign essential hypertension I10 Acute kidney injury superimposed on CKD N17.9; N18.9 Afib I48.91 Hypokalemia E87.6 Osteoarthritis of hand, right M19.041 Bunion of great toe of left foot M21.612 Iron deficiency anemia D50.9 Chronic renal failure, stage 3b N18.32 DVT prophylaxis Z29.9
[2021-02-22] MEDS: DONEPEZIL HCL 5 MG TAB PO SCH ×2 (22:52→23:11)
[2021-02-22] MEDS: traZODone HCL 50 MG TAB PO SCH ×2 (22:56→23:11)
[2021-02-23] MEDS: ENOXAPARIN INJ 30 MG/0.3 ML SYR SQ SCH (05:52)
[2021-02-23] MEDS: THIAMINE HCL 100 MG TAB PO SCH ×2 (08:44→21:55)
[2021-02-23] MEDS: SIMVASTATIN 20 MG TAB PO SCH (08:45)
[2021-02-23] MEDS: POTASSIUM CHLORIDE CRTAB 20 MEQ TABCR PO SCH (08:45)
[2021-02-23] MEDS: POLYETHYLENE (MIRALAX) 17 GM PACK PO SCH (08:50)
[2021-02-23] MEDS: DOCUSATE SODIUM/SENNA 50/8.6MG TAB PO SCH (08:50)
--- NOTE | 2021-02-23 17:12 | Hospitalist Progress Note ---
Date of Service February 23, 2021 Assessment & Plan (1) Dementia with behavioral disturbance: Plan: Disposition: needs 24-hour care, thus SNF post-discharge. placement pending. Social work has spoken to family and Ms Cynthia Gonzalez also spoke with family. Patient needs covid vaccine to gain entry to most SNFs. J and J vaccine now available, will need to obtain consent from family 02/22: Attempted to call family x2, no answer and voicemail not set up. Will continue to reattempt as patient is unable to give consent for vaccination due to dementia. 02/23: Family call straight to VM/unavailable without box set up Dementia Continue trazodone Continue Aricept Risperdal as needed as needed (2) Thiamine deficiency: Plan: Thiamine previously undetectable Continue thiamine 200 mg p.o. twice daily x30 days B12 normal (3) Agitation: Plan: intermittent agitation but largely controlled (4) UTI (urinary tract infection): Plan: completed full course of IV antibiotics (7 days) (5) Serum calcium elevated: Plan: likely due to HCTZ use HCTZ discontinued calcium normal BPs have been normal w/o the HCTZ (6) Anemia: Plan: - 2nd to Fe deficiency. - Iron 34, TIBC 348, Transferrin 273, trans % sat 9, ferritin 12.9. - Venofer 300mg x3 doses while here. - B12/folate wnl -poor candidate for endoscopic eval given advanced age and advanced dementia - would not pursue - repeat ferritin level 323 (had been 12) - no further venofer for now -repeat CBC improved H/H. ?element of ACD (7) Hypercholesterolemia: Plan: continue Simvastatin 20mg po daily (8) Benign essential hypertension: Plan: BPs low or low normal hold metoprolol. hold HCTZ. hold torsemide. (9) Acute kidney injury superimposed on CKD: Plan: Cr 1.6 on admit Cr normalized, CHRISTINA resolved Period spot checks, clinically stable defer daily checks unless clinical change (10) Afib: Plan: -noted on 1 EKG - no a.fib on tele since then - BPs too low for small dose of metoprolol thus holding - very poor candidate for anticoagulation, defer (11) Hypokalemia: Plan: cont replacement (if she will take her K supplement) BMP am (12) Osteoarthritis of hand, right: Plan: no erosive changes on hand x-ray severe OA (13) Bunion of great toe of left foot: Plan: bunion at minimum could be early podagra Nontender on exam follow carefully (14) Iron deficiency anemia: Plan: see "anemia" above s/p venofer x 3 doses while here H/H stable and improved today (15) Chronic renal failure, stage 3b: Plan: baseline CrCl 30-40 CrCl stable during admission (16) DVT prophylaxis: Plan: lovenox 30mg daily Admission and Anticipated Discharge Date Admission Date: February 05, 2021 Subjective Sleeping comfortably, arouses easily. Subjective limited by dementia. Review of Systems Review of Systems: Unobtainable due to cognitive status Physical Exam Physical Exam: General: Frail-appearing. wakens easily and falls back asleep HEENT: Atraumatic, normocephalic. Pulm: Symmetrical chest rise. No increase work of breathing. No respiratory distress. Cardiac: Radial pulses intact and symmetrical. Abdominal: Nontender, nondistended, soft. BS present. Extremities: Thin, frail Results & Data Results & Data ([facility]) Vital Signs (Past 12 Hours) Vital Signs Temp Pulse Resp BP Pulse Ox 02/23/21 15:50 36.4 C L 63 20 136/81 92 02/23/21 07:51 36.8 C 75 16 129/67 92 PG Care Time/CCT Total # of Minutes Spent Total Time Spent with Patient: Total time spent is greater than 50% in coordination of care (as documented) at patient's floor/unit and/or counseling patient: Coding Level of Care Code 72912 Subseq Hosp Care Lvl 1 Diagnoses Dementia with behavioral disturbance F03.91 Thiamine deficiency E51.9 Agitation R45.1 UTI (urinary tract infection) N39.0 Serum calcium elevated E83.52 Anemia D64.9 Hypercholesterolemia E78.00 Benign essential hypertension I10 Acute kidney injury superimposed on CKD N17.9; N18.9 Afib I48.91 Hypokalemia E87.6 Osteoarthritis of hand, right M19.041 Bunion of great toe of left foot M21.612 Iron deficiency anemia D50.9 Chronic renal failure, stage 3b N18.32 DVT prophylaxis Z29.9
[2021-02-23] MEDS: DONEPEZIL HCL 5 MG TAB PO SCH (21:55)
[2021-02-23] MEDS: traZODone HCL 50 MG TAB PO SCH (21:55)
[2021-02-24] MEDS: ENOXAPARIN INJ 30 MG/0.3 ML SYR SQ SCH (06:25)
[2021-02-24 07:05] LABS: Hematocrit (blood only) 31.5 % (37-47); Hemoglobin 9.1 g/dL (12.0-16.0); Mean Corpuscular Hemoglobin 22.8 pg (25-34); Mean Corpuscular Hgb Conc 28.9 g/dL (32-36); Mean Corpuscular Volume 78.9 fL (80-100); Mean Platelet Volume 8.9 fL (7.4-10.4); Platelet Count 303 K/uL (130-400); Red Blood Count 3.99 M/uL (4.2-5.4); White Blood Count 5.47 K/uL (4.8-10.8)
[2021-02-24 07:27] LABS: BUN Creatinine Ratio 24.5 (10-20); Calcium 9.4 mg/dl (8.5-10.1); Creatinine Clr Calc Pharmacy 51.6 ml/min; Est GFR (African American) 93.2 ml/min; Est GFR (Non-African American) 80.4 ml/min; Potassium 3.8 mmol/L (3.5-5.1)
[2021-02-24 07:49] LABS: Anisocytosis Present; Basophils # (auto) 0.01 K/uL (0-0.2); Basophils % (auto) 0.2 %; Eosinophils # (auto) 0.05 K/uL (0-0.5); Eosinophils % (auto) 0.9 %; Lymphocytes # (auto) 1.38 K/uL (1.2-3.4); Lymphocytes % (auto) 25.2 %; Monocytes # (auto) 0.34 K/uL (0.11-0.59); Monocytes % (auto) 6.2 %; Neutrophils # (auto) 3.69 K/uL (1.4-6.5); Neutrophils % (auto) 67.5 %; Spherocytes 1+
[2021-02-24] MEDS: SIMVASTATIN 20 MG TAB PO SCH (09:41)
[2021-02-24] MEDS: POLYETHYLENE (MIRALAX) 17 GM PACK PO SCH (09:41)
[2021-02-24] MEDS: DOCUSATE SODIUM/SENNA 50/8.6MG TAB PO SCH (09:41)
[2021-02-24] MEDS: POTASSIUM CHLORIDE CRTAB 20 MEQ TABCR PO SCH (09:41)
[2021-02-24] MEDS: THIAMINE HCL 100 MG TAB PO SCH ×2 (09:42→20:03)
[2021-02-24] MEDS ORDERED: DEXTROSE 5% 500 ML IV SCH (17:15)
--- NOTE | 2021-02-24 17:16 | Hospitalist Progress Note ---
Date of Service February 24, 2021 Assessment & Plan (1) Dementia with behavioral disturbance: Plan: Disposition: needs 24-hour care, thus SNF post-discharge. placement pending. Social work has spoken to family and Ms Cynthia Gonzalez also spoke with family. Patient needs covid vaccine to gain entry to most SNFs. J and J vaccine now available, will need to obtain consent from family 02/22: Attempted to call family x2, no answer and voicemail not set up. Will continue to reattempt as patient is unable to give consent for vaccination due to dementia. 02/23: Family call straight to VM/unavailable without box set up 02/24: Again unable to reach by phone. Discussed with case management, placement needs and multiple referrals in place. Continuing to attempt to obtain consent for Covid vaccination, discussed with case management will also reach out by ph one and attempt to obtain consent for vaccination. Dementia Continue trazodone Continue Aricept Risperdal as needed as needed (2) Hypernatremia: Plan: Intermittent, resolves with improved oral intake. Suspect 2/2 volume contraction Encourage p.o. as tolerated, may use intermittent half-normal saline as needed BMP every other day, creatinine normal (3) Thiamine deficiency: Plan: Thiamine previously undetectable Continue thiamine 200 mg p.o. twice daily x30 days B12 normal (4) Agitation: Plan: intermittent agitation but largely controlled (5) UTI (urinary tract infection): Plan: completed full course of IV antibiotics (7 days) (6) Serum calcium elevated: Plan: likely due to HCTZ use HCTZ discontinued calcium normal BPs have been normal w/o the HCTZ (7) Anemia: Plan: - 2nd to Fe deficiency. - Iron 34, TIBC 348, Transferrin 273, trans % sat 9, ferritin 12.9. - Venofer 300mg x3 doses while here. - B12/folate wnl -poor candidate for endoscopic eval given advanced age and advanced dementia - would not pursue - repeat ferritin level 323 (had been 12) - no further venofer for now -repeat CBC improved H/H. ?element of ACD (8) Hypercholesterolemia: Plan: continue Simvastatin 20mg po daily (9) Benign essential hypertension: Plan: BPs low or low normal hold metoprolol. hold HCTZ. hold torsemide. (10) Acute kidney injury superimposed on CKD: Plan: Cr 1.6 on admit Cr normalized, CHRISTINA resolved Period spot checks, clinically stable defer daily checks unless clinical change (11) Afib: Plan: -noted on 1 EKG - no a.fib on tele since then - BPs too low for small dose of metoprolol thus holding - very poor candidate for anticoagulation, defer (12) Hypokalemia: Plan: cont replacement (if she will take her K supplement) BMP am (13) Osteoarthritis of hand, right: Plan: no erosive changes on hand x-ray severe OA (14) Bunion of great toe of left foot: Plan: bunion at minimum could be early podagra Nontender on exam follow carefully (15) Iron deficiency anemia: Plan: see "anemia" above s/p venofer x 3 doses while here H/H stable and improved today (16) Chronic renal failure, stage 3b: Plan: baseline CrCl 30-40 CrCl stable during admission (17) DVT prophylaxis: Plan: lovenox 30mg daily Admission and Anticipated Discharge Date Admission Date: February 05, 2021 Subjective Unavailable due to severe dementia Review of Systems Review of Systems: Unobtainable due to severe dementia Physical Exam Physical Exam: General: Frail-appearing. Sleeping comfortably HEENT: Atraumatic, normocephalic. Pulm: Symmetrical chest rise. No increase work of breathing. No respiratory distress. Cardiac: Radial pulses intact and symmetrical. Abdominal: Nontender, nondistended, soft. BS present. Extremities: Thin, frail Results & Data Results & Data ([facility]) Vital Signs (Past 12 Hours) Vital Signs Temp Pulse Resp BP BP Pulse Ox 02/24/21 15:38 36.8 C 95 H 20 139/82 93 02/24/21 07:07 36.9 C 70 20 157/81 H 98 PG Care Time/CCT Total # of Minutes Spent Total Time Spent with Patient: Total time spent is greater than 50% in coordination of care (as documented) at patient's floor/unit and/or counseling patient: Coding Level of Care Code 28330 Subseq Hosp Care Lvl 2 Diagnoses Dementia with behavioral disturbance F03.91 Thiamine deficiency E51.9 Agitation R45.1 UTI (urinary tract infection) N39.0 Serum calcium elevated E83.52 Anemia D64.9 Hypercholesterolemia E78.00 Benign essential hypertension I10 Acute kidney injury superimposed on CKD N17.9; N18.9 Afib I48.91 Hypokalemia E87.6 Osteoarthritis of hand, right M19.041 Bunion of great toe of left foot M21.612 Iron deficiency anemia D50.9 Chronic renal failure, stage 3b N18.32 DVT prophylaxis Z29.9 Hypernatremia E87.0
[2021-02-24] MEDS: DONEPEZIL HCL 5 MG TAB PO SCH (20:03)
[2021-02-24] MEDS: traZODone HCL 50 MG TAB PO SCH (20:05)
[2021-02-25] MEDS: ENOXAPARIN INJ 30 MG/0.3 ML SYR SQ SCH (05:33)
[2021-02-25] MEDS: POTASSIUM CHLORIDE CRTAB 20 MEQ TABCR PO SCH (09:22)
[2021-02-25] MEDS: SIMVASTATIN 20 MG TAB PO SCH (09:22)
[2021-02-25] MEDS: THIAMINE HCL 100 MG TAB PO SCH ×2 (09:23→21:37)
[2021-02-25] MEDS: DOCUSATE SODIUM/SENNA 50/8.6MG TAB PO SCH (09:23)
[2021-02-25] MEDS: POLYETHYLENE (MIRALAX) 17 GM PACK PO SCH (09:41)
--- NOTE | 2021-02-25 12:28 | Hospitalist Progress Note ---
Date of Service February 25, 2021 Assessment & Plan (1) Dementia with behavioral disturbance: Plan: Disposition: needs 24-hour care, thus SNF post-discharge. placement pending. Social work has spoken to family and Ms Cynthia Gonzalez also spoke with family. Patient needs covid vaccine to gain entry to most SNFs. J and J vaccine now available, will need to obtain consent from family 02/22: Attempted to call family x2, no answer and voicemail not set up. Will continue to reattempt as patient is unable to give consent for vaccination due to dementia. 02/23: Family call straight to VM/unavailable without box set up 02/24: Again unable to reach by phone. Discussed with case management, placement needs and multiple referrals in place. Continuing to attempt to obtain consent for Covid vaccination, discussed with case management will also reach out by ph one and attempt to obtain consent for vaccination. 02/25: Referral placed [facility], no clinical change. Continues to pend dispo. Reviewed with case management. Dementia Continue trazodone Continue Aricept Risperdal as needed as needed (2) Hypernatremia: Plan: Intermittent, resolves with improved oral intake. Suspect 2/2 volume contraction Encourage p.o. as tolerated, may use intermittent half-normal saline as needed BMP every other day, creatinine normal (3) Thiamine deficiency: Plan: Thiamine previously undetectable Continue thiamine 200 mg p.o. twice daily x30 days B12 normal (4) Agitation: Plan: intermittent agitation but largely controlled (5) UTI (urinary tract infection): Plan: completed full course of IV antibiotics (7 days) (6) Serum calcium elevated: Plan: likely due to HCTZ use HCTZ discontinued calcium normal BPs have been normal w/o the HCTZ (7) Anemia: Plan: - 2nd to Fe deficiency. - Iron 34, TIBC 348, Transferrin 273, trans % sat 9, ferritin 12.9. - Venofer 300mg x3 doses while here. - B12/folate wnl -poor candidate for endoscopic eval given advanced age and advanced dementia - would not pursue - repeat ferritin level 323 (had been 12) - no further venofer for now -repeat CBC improved H/H. ?element of ACD (8) Hypercholesterolemia: Plan: continue Simvastatin 20mg po daily (9) Benign essential hypertension: Plan: BPs low or low normal hold metoprolol. hold HCTZ. hold torsemide. Remains normotensive (10) Acute kidney injury superimposed on CKD: Plan: Cr 1.6 on admit Cr normalized, CHRISTINA resolved Period spot checks, clinically stable defer daily checks unless clinical change (11) Afib: Plan: -noted on 1 EKG - no a.fib on tele since then - BPs too low for small dose of metoprolol thus holding - very poor candidate for anticoagulation, defer (12) Hypokalemia: Plan: cont replacement (if she will take her K supplement) BMP am (13) Osteoarthritis of hand, right: Plan: no erosive changes on hand x-ray severe OA (14) Bunion of great toe of left foot: Plan: bunion at minimum could be early podagra Nontender on exam follow carefully (15) Iron deficiency anemia: Plan: see "anemia" above s/p venofer x 3 doses while here H/H stable and improved today (16) Chronic renal failure, stage 3b: Plan: baseline CrCl 30-40 CrCl stable during admission (17) DVT prophylaxis: Plan: lovenox 30mg daily Admission and Anticipated Discharge Date Admission Date: February 05, 2021 Subjective Unavailable due to severe dementia Review of Systems Review of Systems: Unobtainable due to severe dementia Physical Exam Physical Exam: General: Frail-appearing. Sleeping comfortably HEENT: Atraumatic, normocephalic. Pulm: Symmetrical chest rise. No increase work of breathing. No respiratory distress. Abdominal: Nontender, nondistended, soft. BS present. Extremities: Thin, frail Results & Data Results & Data ([facility]) Vital Signs (Past 12 Hours) Vital Signs Temp Pulse Resp BP Pulse Ox 02/25/21 07:13 37.0 C 84 17 131/65 98 PG Care Time/CCT Total # of Minutes Spent Total Time Spent with Patient: Total time spent is greater than 50% in coordination of care (as documented) at patient's floor/unit and/or counseling patient: Coding Level of Care Code 21532 Subseq Hosp Care Lvl 1 Diagnoses Dementia with behavioral disturbance F03.91 Hypernatremia E87.0 Thiamine deficiency E51.9 Agitation R45.1 UTI (urinary tract infection) N39.0 Serum calcium elevated E83.52 Anemia D64.9 Hypercholesterolemia E78.00 Benign essential hypertension I10 Acute kidney injury superimposed on CKD N17.9; N18.9 Afib I48.91 Hypokalemia E87.6 Osteoarthritis of hand, right M19.041 Bunion of great toe of left foot M21.612 Iron deficiency anemia D50.9 Chronic renal failure, stage 3b N18.32 DVT prophylaxis Z29.9
[2021-02-25] MEDS: DONEPEZIL HCL 5 MG TAB PO SCH (21:37)
[2021-02-25] MEDS: traZODone HCL 50 MG TAB PO SCH (21:37)
[2021-02-26] MEDS: ENOXAPARIN INJ 30 MG/0.3 ML SYR SQ SCH (05:51)
[2021-02-26] MEDS: POTASSIUM CHLORIDE CRTAB 20 MEQ TABCR PO SCH (08:58)
[2021-02-26] MEDS: SIMVASTATIN 20 MG TAB PO SCH (08:58)
[2021-02-26] MEDS: THIAMINE HCL 100 MG TAB PO SCH ×2 (08:58→22:21)
[2021-02-26] MEDS: DOCUSATE SODIUM/SENNA 50/8.6MG TAB PO SCH (09:02)
[2021-02-26] MEDS: POLYETHYLENE (MIRALAX) 17 GM PACK PO SCH (09:03)
--- NOTE | 2021-02-26 12:59 | Hospitalist Progress Note ---
Date of Service February 26, 2021 Assessment & Plan (1) Dementia with behavioral disturbance: Plan: Disposition: needs 24-hour care, thus SNF post-discharge. placement pending. Social work has spoken to family and Ms Cynthia Gonzalez also spoke with family. 02/22: Attempted to call family x2, no answer and voicemail not set up. Will continue to reattempt as patient is unable to give consent for vaccination due to dementia. 02/23: Family call straight to /unavailable without box set up 02/24: Again unable to reach by phone. Discussed with case management, placement needs and multiple referrals in place. Continuing to attempt to obtain consent for Covid vaccination, discussed with case management will also reach out by phone and attempt to obtain consent for vaccination. 02/25: Referral placed [facility], no clinical change. Continues to pend dispo. Reviewed with case management. 02/26: Discussed with case management. Referral to a [place] speaking facility [facility] has been placed. Consent obtained from family for Covid vaccination, as documented. Covid vaccination J&J ordered. Dementia Continue trazodone Continue Aricept Risperdal as needed as needed (2) Hypernatremia: Plan: Intermittent, resolves with improved oral intake. Suspect 2/2 volume contraction Encourage p.o. as tolerated, may use intermittent half-normal saline as needed BMP every other day, creatinine normal (3) Thiamine deficiency: Plan: Thiamine previously undetectable Continue thiamine 200 mg p.o. twice daily x30 days B12 normal (4) Agitation: Plan: intermittent agitation but largely controlled (5) UTI (urinary tract infection): Plan: completed full course of IV antibiotics (7 days) (6) Serum calcium elevated: Plan: likely due to HCTZ use HCTZ discontinued calcium normal BPs have been normal w/o the HCTZ (7) Anemia: Plan: - 2nd to Fe deficiency. - Iron 34, TIBC 348, Transferrin 273, trans % sat 9, ferritin 12.9. - Venofer 300mg x3 doses while here. - B12/folate wnl -poor candidate for endoscopic eval given advanced age and advanced dementia - would not pursue - repeat ferritin level 323 (had been 12) - no further venofer for now -repeat CBC improved H/H. ?element of ACD (8) Hypercholesterolemia: Plan: continue Simvastatin 20mg po daily (9) Benign essential hypertension: Plan: BPs normal-slightly elevated. Metoprolol resumed. hold HCTZ. hold torsemide. (10) Acute kidney injury superimposed on CKD: Plan: Cr 1.6 on admit Cr normalized, CHRISTINA resolved Period spot checks, clinically stable defer daily checks unless clinical change (11) Afib: Plan: -noted on 1 EKG - no a.fib on tele since then - MTP resumed as above - very poor candidate for anticoagulation, defer (12) Hypokalemia: Plan: cont replacement (if she will take her K supplement) BMP am (13) Osteoarthritis of hand, right: Plan: no erosive changes on hand x-ray severe OA (14) Bunion of great toe of left foot: Plan: bunion at minimum could be early podagra Nontender on exam follow carefully (15) Iron deficiency anemia: Plan: see "anemia" above s/p venofer x 3 doses while here H/H stable and improved today (16) Chronic renal failure, stage 3b: Plan: baseline CrCl 30-40 CrCl stable during admission (17) DVT prophylaxis: Plan: lovenox 30mg daily Admission and Anticipated Discharge Date Admission Date: February 05, 2021 Subjective Unavailable due to severe dementia Review of Systems Review of Systems: Unobtainable due to severe dementia Physical Exam Physical Exam: General: Frail-appearing. Sleeping comfortably HEENT: Atraumatic, normocephalic. Pulm: Symmetrical chest rise. No increase work of breathing. No respiratory distress. Abdominal: Nontender, nondistended, soft. BS present. Extremities: Thin, frail PG Care Time/CCT Total # of Minutes Spent Total Time Spent with Patient: Total time spent is greater than 50% in coordination of care (as documented) at patient's floor/unit and/or counseling patient: Coding Level of Care Code 45643 Subseq Hosp Care Lvl 1 Diagnoses Dementia with behavioral disturbance F03.91 Hypernatremia E87.0 Thiamine deficiency E51.9 Agitation R45.1 UTI (urinary tract infection) N39.0 Serum calcium elevated E83.52 Anemia D64.9 Hypercholesterolemia E78.00 Benign essential hypertension I10 Acute kidney injury superimposed on CKD N17.9; N18.9 Afib I48.91 Hypokalemia E87.6 Osteoarthritis of hand, right M19.041 Bunion of great toe of left foot M21.612 Iron deficiency anemia D50.9 Chronic renal failure, stage 3b N18.32 DVT prophylaxis Z29.9
[2021-02-26] MEDS ORDERED: COVID-19 VAC,AD26(JANSSEN)/PF 0.5 ML SYR IM ONE (14:00)
[2021-02-26] MEDS ORDERED: SODIUM CHLORIDE 0.45 % 1,000 ML IV SCH (15:45)
[2021-02-26] MEDS: DONEPEZIL HCL 5 MG TAB PO SCH (22:21)
[2021-02-26] MEDS: traZODone HCL 50 MG TAB PO SCH (22:21)
[2021-02-27] MEDS: ENOXAPARIN INJ 30 MG/0.3 ML SYR SQ SCH (06:49)
[2021-02-27] MEDS: POTASSIUM CHLORIDE CRTAB 20 MEQ TABCR PO SCH (07:49)
[2021-02-27] MEDS: DOCUSATE SODIUM/SENNA 50/8.6MG TAB PO SCH (07:50)
[2021-02-27] MEDS: POLYETHYLENE (MIRALAX) 17 GM PACK PO SCH (07:50)
[2021-02-27] MEDS: THIAMINE HCL 100 MG TAB PO SCH ×2 (07:50→20:25)
[2021-02-27] MEDS: SIMVASTATIN 20 MG TAB PO SCH (07:50)
[2021-02-27 08:21] LABS: BUN Creatinine Ratio 18.5 (10-20); Calcium 9.2 mg/dl (8.5-10.1); Est GFR (Non-African American) 76.8 ml/min; Potassium 3.6 mmol/L (3.5-5.1)
[2021-02-27] MEDS ORDERED: DEXTROSE 5% 250 ML IV SCH (11:15)
--- NOTE | 2021-02-27 18:49 | Hospitalist Progress Note ---
Date of Service February 27, 2021 Assessment & Plan (1) Dementia with behavioral disturbance: Plan: Disposition: needs 24-hour care, thus SNF post-discharge. placement pending. Social work has spoken to family and Ms Cynthia Gonzalez also spoke with family. 02/27: Discussed with case management. Referral to a [place] speaking facility [facility] has been placed. Consent obtained from family for Covid vaccination, as documented. Covid vaccination J&J given Dementia Continue trazodone Continue Aricept Risperdal as needed as needed (2) Hypernatremia: Plan: Intermittent, resolves with improved oral intake. Suspect 2/2 volume contraction Encourage p.o. as tolerated, may use intermittent IVF as needed. BMP every other day, creatinine normal (3) Thiamine deficiency: Plan: Thiamine previously undetectable Continue thiamine 200 mg p.o. twice daily x30 days B12 normal (4) Agitation: Plan: intermittent agitation but largely controlled (5) UTI (urinary tract infection): Plan: completed full course of IV antibiotics (7 days) (6) Serum calcium elevated: Plan: likely due to HCTZ use HCTZ discontinued calcium normal BPs have been normal w/o the HCTZ (7) Anemia: Plan: - 2nd to Fe deficiency. - Iron 34, TIBC 348, Transferrin 273, trans % sat 9, ferritin 12.9. - Venofer 300mg x3 doses while here. - B12/folate wnl -poor candidate for endoscopic eval given advanced age and advanced dementia - would not pursue - repeat ferritin level 323 (had been 12) - no further venofer for now -repeat CBC improved H/H. ?element of ACD (8) Hypercholesterolemia: Plan: continue Simvastatin 20mg po daily (9) Benign essential hypertension: Plan: BPs normal-slightly elevated. Metoprolol resumed. hold HCTZ. hold torsemide. (10) Acute kidney injury superimposed on CKD: Plan: Cr 1.6 on admit Cr normalized, CHRISTINA resolved Period spot checks, clinically stable defer daily checks unless clinical change (11) Afib: Plan: -noted on 1 EKG - no a.fib on tele since then - MTP resumed as above - very poor candidate for anticoagulation, defer (12) Hypokalemia: Plan: cont replacement (if she will take her K supplement) BMP am (13) Osteoarthritis of hand, right: Plan: no erosive changes on hand x-ray severe OA (14) Bunion of great toe of left foot: Plan: bunion at minimum could be early podagra Nontender on exam follow carefully (15) Iron deficiency anemia: Plan: see "anemia" above s/p venofer x 3 doses while here H/H stable and improved today (16) Chronic renal failure, stage 3b: Plan: baseline CrCl 30-40 CrCl stable during admission (17) DVT prophylaxis: Plan: lovenox 30mg daily Admission and Anticipated Discharge Date Admission Date: February 05, 2021 Subjective Unavailable due to severe dementia Review of Systems Review of Systems: Unobtainable due to severe dementia Physical Exam Physical Exam: General: Frail-appearing. Sleeping comfortably HEENT: Atraumatic, normocephalic. Pulm: Symmetrical chest rise. No increase work of breathing. No respiratory distress. Abdominal: Nontender, nondistended, soft. BS present. Extremities: Thin, frail Results & Data Results & Data ([facility]) Vital Signs (Past 12 Hours) Vital Signs Temp Pulse Resp BP Pulse Ox 02/27/21 15:10 37.1 C 75 18 138/78 95 02/27/21 06:55 36.9 C 72 20 139/78 93 PG Care Time/CCT Total # of Minutes Spent Total Time Spent with Patient: Total time spent is greater than 50% in coordination of care (as documented) at patient's floor/unit and/or counseling patient: Coding Level of Care Code 67936 Subseq Hosp Care Lvl 1 Diagnoses Dementia with behavioral disturbance F03.91 Hypernatremia E87.0 Thiamine deficiency E51.9 Agitation R45.1 UTI (urinary tract infection) N39.0 Serum calcium elevated E83.52 Anemia D64.9 Hypercholesterolemia E78.00 Benign essential hypertension I10 Acute kidney injury superimposed on CKD N17.9; N18.9 Afib I48.91 Hypokalemia E87.6 Osteoarthritis of hand, right M19.041 Bunion of great toe of left foot M21.612 Iron deficiency anemia D50.9 Chronic renal failure, stage 3b N18.32 DVT prophylaxis Z29.9
[2021-02-27] MEDS: traZODone HCL 50 MG TAB PO SCH (20:24)
[2021-02-27] MEDS: DONEPEZIL HCL 5 MG TAB PO SCH (20:24)
[2021-02-28] MEDS: ENOXAPARIN INJ 30 MG/0.3 ML SYR SQ SCH (05:38)
[2021-02-28] MEDS: POTASSIUM CHLORIDE CRTAB 20 MEQ TABCR PO SCH (08:15)
[2021-02-28] MEDS: THIAMINE HCL 100 MG TAB PO SCH ×2 (08:16→20:57)
[2021-02-28] MEDS: DOCUSATE SODIUM/SENNA 50/8.6MG TAB PO SCH (08:17)
[2021-02-28] MEDS: POLYETHYLENE (MIRALAX) 17 GM PACK PO SCH (08:17)
[2021-02-28] MEDS: SIMVASTATIN 20 MG TAB PO SCH (08:17)
[2021-02-28 09:12] LABS: BUN Creatinine Ratio 17.9 (10-20); Calcium 9.3 mg/dl (8.5-10.1); Creatinine Clr Calc Pharmacy 46.3 ml/min; Est GFR (African American) 89.9 ml/min; Est GFR (Non-African American) 77.6 ml/min
--- NOTE | 2021-02-28 17:28 | Hospitalist Progress Note ---
Date of Service February 28, 2021 Assessment & Plan (1) Dementia with behavioral disturbance: Plan: Disposition: needs 24-hour care, thus SNF post-discharge. placement pending. Social work has spoken to family and Cynthia Gonzalez also spoke with family. Consent obtained from family for Covid vaccination, as documented. Covid vaccination J&J given 02/28: Case being reviewed by [facility] and [facility]. Case has been discussed with office of aging by case management. Theresa with no beds on [place] speaking unit at this time; will continue to follow. Dementia Continue trazodone Continue Aricept Risperdal as needed as needed (2) Hypernatremia: Plan: Intermittent, resolves with improved oral intake. Suspect 2/2 volume contraction Encourage p.o. as tolerated, may use intermittent IVF as needed. BMP every other day, creatinine normal (3) Thiamine deficiency: Plan: Thiamine previously undetectable Continue thiamine 200 mg p.o. twice daily x30 days B12 normal (4) Agitation: Plan: intermittent agitation but largely controlled (5) UTI (urinary tract infection): Plan: completed full course of IV antibiotics (7 days) (6) Serum calcium elevated: Plan: likely due to HCTZ use HCTZ discontinued calcium normal BPs have been normal w/o the HCTZ (7) Anemia: Plan: - 2nd to Fe deficiency. - Iron 34, TIBC 348, Transferrin 273, trans % sat 9, ferritin 12.9. - Venofer 300mg x3 doses while here. - B12/folate wnl -poor candidate for endoscopic eval given advanced age and advanced dementia - would not pursue - repeat ferritin level 323 (had been 12) - no further venofer for now -repeat CBC improved H/H. ?element of ACD (8) Hypercholesterolemia: Plan: continue Simvastatin 20mg po daily (9) Benign essential hypertension: Plan: BPs normal-slightly elevated. Metoprolol resumed. hold HCTZ. hold torsemide. (10) Acute kidney injury superimposed on CKD: Plan: Cr 1.6 on admit Cr normalized, CHRISTINA resolved Period spot checks, clinically stable defer daily checks unless clinical change (11) Afib: Plan: -noted on 1 EKG - no a.fib on tele since then - MTP resumed as above - very poor candidate for anticoagulation, defer (12) Hypokalemia: Plan: cont replacement (if she will take her K supplement) BMP am (13) Osteoarthritis of hand, right: Plan: no erosive changes on hand x-ray severe OA (14) Bunion of great toe of left foot: Plan: bunion at minimum could be early podagra Nontender on exam follow carefully (15) Iron deficiency anemia: Plan: see "anemia" above s/p venofer x 3 doses while here H/H stable and improved today (16) Chronic renal failure, stage 3b: Plan: baseline CrCl 30-40 CrCl stable during admission (17) DVT prophylaxis: Plan: lovenox 30mg daily Admission and Anticipated Discharge Date Admission Date: February 05, 2021 Subjective Limited by dementia Review of Systems Review of Systems: Unobtainable due to cognitive status Physical Exam Physical Exam: General: Frail-appearing. Sleeping comfortably, arouses easily and falls back asleep after exam. HEENT: Atraumatic, normocephalic. Pulm: Symmetrical chest rise. No increase work of breathing. No respiratory distress. Abdominal: Nontender, nondistended, soft. BS present. Extremities: Thin, frail Results & Data Results & Data ([facility]) Vital Signs (Past 12 Hours) Vital Signs Temp Pulse Resp BP Pulse Ox 02/28/21 16:00 36.5 C 89 16 125/94 96 02/28/21 07:34 36.6 C 72 16 148/73 H 91 PG Care Time/CCT Total # of Minutes Spent Total Time Spent with Patient: Total time spent is greater than 50% in coordination of care (as documented) at patient's floor/unit and/or counseling patient: Coding Level of Care Code 45841 Subseq Hosp Care Lvl 1 Diagnoses Dementia with behavioral disturbance F03.91 Hypernatremia E87.0 Thiamine deficiency E51.9 Agitation R45.1 UTI (urinary tract infection) N39.0 Serum calcium elevated E83.52 Anemia D64.9 Hypercholesterolemia E78.00 Benign essential hypertension I10 Acute kidney injury superimposed on CKD N17.9; N18.9 Afib I48.91 Hypokalemia E87.6 Osteoarthritis of hand, right M19.041 Bunion of great toe of left foot M21.612 Iron deficiency anemia D50.9 Chronic renal failure, stage 3b N18.32 DVT prophylaxis Z29.9
[2021-02-28] MEDS: traZODone HCL 50 MG TAB PO SCH (20:57)
[2021-02-28] MEDS: DONEPEZIL HCL 5 MG TAB PO SCH (20:58)
[2021-03-01] MEDS: ENOXAPARIN INJ 30 MG/0.3 ML SYR SQ SCH (06:01)
[2021-03-01] MEDS: SIMVASTATIN 20 MG TAB PO SCH (09:09)
[2021-03-01] MEDS: POTASSIUM CHLORIDE CRTAB 20 MEQ TABCR PO SCH (09:09)
[2021-03-01] MEDS: THIAMINE HCL 100 MG TAB PO SCH ×2 (09:09→21:48)
--- NOTE | 2021-03-01 09:44 | Hospitalist Progress Note ---
Date of Service March 01, 2021 Assessment & Plan (1) Dementia with behavioral disturbance: Plan: Disposition: needs 24-hour care, thus SNF post-discharge. placement pending. Social work has spoken to family and Cynthia Gonzalez also spoke with family. Consent obtained from family for Covid vaccination, as documented. Covid vaccination J&J given 02/28: Case being reviewed by [facility]. Case has been discussed with office of aging by case management. Theresa with no beds on [place] speaking unit at this time; Patient seems stable no new changes in hospital care at this time Dementia Continue trazodone Continue Aricept Risperdal as needed as needed (2) Hypernatremia: Plan: Intermittent, resolves with improved oral intake. Suspect 2/2 volume contraction Encourage p.o. as tolerated, may use intermittent IVF as needed. BMP every other day, creatinine normal (3) Thiamine deficiency: Plan: Thiamine previously undetectable Continue thiamine 200 mg p.o. twice daily x30 days B12 normal (4) Agitation: Plan: intermittent agitation but largely controlled (5) UTI (urinary tract infection): Plan: completed full course of IV antibiotics (7 days) (6) Serum calcium elevated: Plan: likely due to HCTZ use HCTZ discontinued calcium normal BPs have been normal w/o the HCTZ (7) Anemia: Plan: - 2nd to Fe deficiency. - Iron 34, TIBC 348, Transferrin 273, trans % sat 9, ferritin 12.9. - Venofer 300mg x3 doses while here. - B12/folate wnl -poor candidate for endoscopic eval given advanced age and advanced dementia - would not pursue - repeat ferritin level 323 (had been 12) - no further venofer for now -repeat CBC improved H/H. ?element of ACD (8) Hypercholesterolemia: Plan: continue Simvastatin 20mg po daily (9) Benign essential hypertension: Plan: BPs normal-slightly elevated. Metoprolol resumed. hold HCTZ. hold torsemide. (10) Acute kidney injury superimposed on CKD: Plan: Cr 1.6 on admit Cr normalized, CHRISTINA resolved Period spot checks, clinically stable defer daily checks unless clinical change (11) Afib: Plan: -noted on 1 EKG - no a.fib on tele since then - MTP resumed as above - very poor candidate for anticoagulation, defer (12) Hypokalemia: Plan: cont replacement (if she will take her K supplement) BMP am (13) Osteoarthritis of hand, right: Plan: no erosive changes on hand x-ray severe OA (14) Bunion of great toe of left foot: Plan: bunion at minimum could be early podagra Nontender on exam follow carefully (15) Iron deficiency anemia: Plan: see "anemia" above s/p venofer x 3 doses while here H/H stable and improved today (16) Chronic renal failure, stage 3b: Plan: baseline CrCl 30-40 CrCl stable during admission (17) DVT prophylaxis: Plan: lovenox 30mg daily Admission and Anticipated Discharge Date Admission Date: February 05, 2021 Subjective Patient only offered mumbling interaction even with attempted wireless sales representative did not go well. Patient appeared to be in no significant distress Review of Systems Review of Systems: Unobtainable due to cognitive status Physical Exam Physical Exam: The patient appeared fatigued Vital signs as documented. Lungs are clear to auscultation and appear unlabored Cardiac exam, Rhythm is regular.. No murmurs, rubs or gallops. Abdominal exam reveals normal bowel sounds, soft non tender, no masses Extremities are nonedematous and both pedal pulses are normal. Neurologic exam is alert and attempts to respond to commands cannot assess orientation Skin is without bruises or rashes Psychologically is with concerns for dementia Results & Data Results & Data ([facility]) Vital Signs (Past 12 Hours) Vital Signs Temp Pulse Resp BP BP Pulse Ox 03/01/21 07:37 97.3 F L 59 L 16 132/73 92 02/28/21 23:27 98.2 F 82 16 155/78 H 91 PG Care Time/CCT Total # of Minutes Spent Total Time Spent with Patient: Total time spent is greater than 50% in coordination of care (as documented) at patient's floor/unit and/or counseling patient: Coding Level of Care Code 28390 Subseq Hosp Care Lvl 2 Diagnoses Dementia with behavioral disturbance F03.91 Hypernatremia E87.0 Thiamine deficiency E51.9 Agitation R45.1 UTI (urinary tract infection) N39.0 Serum calcium elevated E83.52 Anemia D64.9 Hypercholesterolemia E78.00 Benign essential hypertension I10 Acute kidney injury superimposed on CKD N17.9; N18.9 Afib I48.91 Hypokalemia E87.6 Osteoarthritis of hand, right M19.041 Bunion of great toe of left foot M21.612 Iron deficiency anemia D50.9 Chronic renal failure, stage 3b N18.32 DVT prophylaxis Z29.9
[2021-03-01] MEDS: POLYETHYLENE (MIRALAX) 17 GM PACK PO SCH (13:08)
[2021-03-01] MEDS: DOCUSATE SODIUM/SENNA 50/8.6MG TAB PO SCH (13:08)
[2021-03-01] MEDS ORDERED: SODIUM CHLORIDE 0.45 % 1,000 ML IV SCH (20:00)
[2021-03-01] MEDS: traZODone HCL 50 MG TAB PO SCH (21:46)
[2021-03-01] MEDS: DONEPEZIL HCL 5 MG TAB PO SCH (21:48)
[2021-03-02] MEDS: ENOXAPARIN INJ 30 MG/0.3 ML SYR SQ SCH (05:22)
[2021-03-02 07:48] LABS: Calcium 9.4 mg/dl (8.5-10.1); Creatinine Clr Calc Pharmacy 46.3 ml/min; Est GFR (African American) 89.9 ml/min; Est GFR (Non-African American) 77.6 ml/min; Potassium 3.3 mmol/L (3.5-5.1)
[2021-03-02] MEDS: POTASSIUM CHLORIDE CRTAB 20 MEQ TABCR PO SCH (13:58)
[2021-03-02] MEDS: SIMVASTATIN 20 MG TAB PO SCH (13:58)
[2021-03-02] MEDS: THIAMINE HCL 100 MG TAB PO SCH ×2 (13:58→20:46)
[2021-03-02] MEDS: POLYETHYLENE (MIRALAX) 17 GM PACK PO SCH (14:02)
[2021-03-02] MEDS: DOCUSATE SODIUM/SENNA 50/8.6MG TAB PO SCH (14:02)
--- NOTE | 2021-03-02 15:39 | Hospitalist Progress Note ---
Date of Service March 02, 2021 Assessment & Plan (1) Dementia with behavioral disturbance: Plan: Disposition: needs 24-hour care, thus SNF post-discharge. placement pending. Social work has spoken to family and Cynthia Gonzalez also spoke with family. Consent obtained from family for Covid vaccination, as documented. Covid vaccination J&J given 02/28: Case being reviewed by [facility] and [facility]. Case has been discussed with office of aging by case management. Theresa with no beds on [place] speaking unit at this time; due to slightly increasing lethargy will recheck a Urine culture. Did have Ecoli earlier in the stay Dementia Continue trazodone Continue Aricept Risperdal as needed as needed (2) Hypernatremia: Plan: Intermittent, resolves with improved oral intake. Suspect 2/2 volume contraction Encourage p.o. as tolerated, may use intermittent IVF as needed. slight hypokalemia 03/02/21 augmented po (3) Thiamine deficiency: Plan: Thiamine previously undetectable Continue thiamine 200 mg p.o. twice daily x30 days B12 normal (4) Agitation: Plan: intermittent agitation but largely controlled (5) UTI (urinary tract infection): Plan: completed full course of IV antibiotics (7 days) (6) Serum calcium elevated: Plan: likely due to HCTZ use HCTZ discontinued calcium normal BPs have been normal w/o the HCTZ (7) Anemia: Plan: - 2nd to Fe deficiency. - Iron 34, TIBC 348, Transferrin 273, trans % sat 9, ferritin 12.9. - Venofer 300mg x3 doses while here. - B12/folate wnl -poor candidate for endoscopic eval given advanced age and advanced dementia - would not pursue - repeat ferritin level 323 (had been 12) - no further venofer for now -repeat CBC improved H/H. ?element of ACD (8) Hypercholesterolemia: Plan: continue Simvastatin 20mg po daily (9) Benign essential hypertension: Plan: BPs normal-slightly elevated. Metoprolol resumed. hold HCTZ. hold torsemide. (10) Acute kidney injury superimposed on CKD: Plan: Cr 1.6 on admit Cr normalized, CHRISTINA resolved Period spot checks, clinically stable defer daily checks unless clinical change (11) Afib: Plan: -noted on 1 EKG - no a.fib on tele since then - MTP resumed as above - very poor candidate for anticoagulation, defer (12) Hypokalemia: Plan: cont replacement (if she will take her K supplement) BMP am (13) Osteoarthritis of hand, right: Plan: no erosive changes on hand x-ray severe OA (14) Bunion of great toe of left foot: Plan: bunion at minimum could be early podagra Nontender on exam follow carefully (15) Iron deficiency anemia: Plan: see "anemia" above s/p venofer x 3 doses while here H/H stable and improved today (16) Chronic renal failure, stage 3b: Plan: baseline CrCl 30-40 CrCl stable during admission (17) DVT prophylaxis: Plan: lovenox 30mg daily Admission and Anticipated Discharge Date Admission Date: February 05, 2021 Subjective Patient only offered mumbling interaction even with attempted vp ancillary did not go well again today. will recheck for uti, and augmenting potassium Review of Systems Review of Systems: Unobtainable due to severe dementia Physical Exam Physical Exam: The patient appeared fatigued Vital signs as documented. Lungs are clear to auscultation and appear unlabored Cardiac exam, Rhythm is regular.. No murmurs, rubs or gallops. Abdominal exam reveals normal bowel sounds, soft non tender, no masses Extremities are nonedematous and both pedal pulses are normal. Neurologic exam is alert and attempts to respond to commands cannot assess orientation Skin is without bruises or rashes Psychologically is with concerns for dementia Results & Data Results & Data ([facility]) Vital Signs (Past 12 Hours) Vital Signs Temp Pulse Resp BP BP Pulse Ox 03/02/21 14:57 98.1 F 82 16 110/69 92 03/02/21 07:41 97.3 F L 59 L 16 130/92 92 PG Care Time/CCT Total # of Minutes Spent Total Time Spent with Patient: Total time spent is greater than 50% in coordination of care (as documented) at patient's floor/unit and/or counseling patient: Coding Level of Care Code 23038 Subseq Hosp Care Lvl 2 Diagnoses Dementia with behavioral disturbance F03.91 Hypernatremia E87.0 Thiamine deficiency E51.9 Agitation R45.1 UTI (urinary tract infection) N39.0 Serum calcium elevated E83.52 Anemia D64.9 Hypercholesterolemia E78.00 Benign essential hypertension I10 Acute kidney injury superimposed on CKD N17.9; N18.9 Afib I48.91 Hypokalemia E87.6 Osteoarthritis of hand, right M19.041 Bunion of great toe of left foot M21.612 Iron deficiency anemia D50.9 Chronic renal failure, stage 3b N18.32 DVT prophylaxis Z29.9
[2021-03-02] MEDS ORDERED: MAGNESIUM SULFATE / D5W 1 GM/100 ML BAG IV ONE (16:00)
[2021-03-02] MEDS: POTASSIUM CHLORIDE CRTAB 20 MEQ TABCR PO STA ×2 (17:02→18:06)
[2021-03-02] MEDS: DONEPEZIL HCL 5 MG TAB PO SCH (20:45)
[2021-03-02] MEDS: traZODone HCL 50 MG TAB PO SCH (20:46)
[2021-03-03] MEDS: ENOXAPARIN INJ 30 MG/0.3 ML SYR SQ SCH (05:05)
[2021-03-03 08:36] LABS: BUN Creatinine Ratio 16.9 (10-20); Calcium 9.4 mg/dl (8.5-10.1); Est GFR (African American) 92.2 ml/min; Est GFR (Non-African American) 79.5 ml/min
[2021-03-03 08:38] LABS: Potassium 3.7 mmol/L (3.5-5.1)
[2021-03-03] MEDS: SIMVASTATIN 20 MG TAB PO SCH (08:48)
[2021-03-03] MEDS: POTASSIUM CHLORIDE CRTAB 20 MEQ TABCR PO SCH (08:48)
[2021-03-03] MEDS: THIAMINE HCL 100 MG TAB PO SCH ×2 (08:48→20:40)
[2021-03-03] MEDS: POLYETHYLENE (MIRALAX) 17 GM PACK PO SCH (08:51)
[2021-03-03] MEDS: DOCUSATE SODIUM/SENNA 50/8.6MG TAB PO SCH (08:51)
[2021-03-03] MEDS: DONEPEZIL HCL 5 MG TAB PO SCH (20:40)
[2021-03-03] MEDS: traZODone HCL 50 MG TAB PO SCH (20:40)
--- NOTE | 2021-03-03 21:07 | Hospitalist Progress Note ---
Date of Service March 03, 2021 Assessment & Plan (1) Dementia with behavioral disturbance: Plan: Disposition: needs 24-hour care, thus SNF post-discharge. placement pending. Social work has spoken to family and Cynthia Gonzalez also spoke with family. Consent obtained from family for Covid vaccination, as documented. Covid vaccination J&J given 02/28: Case being reviewed by [facility] and [facility]. Case has been discussed with office of aging by case management. Theresa with no beds on [place] speaking unit at this time; due to slightly increasing lethargy will recheck a Urine culture. Did have Ecoli earlier in the stay Dementia Continue trazodone Continue Aricept Risperdal as needed as needed (2) Hypernatremia: Plan: Intermittent, resolves with improved oral intake. Suspect 2/2 volume contraction Encourage p.o. as tolerated, may use intermittent IVF as needed. slight hypokalemia 03/02/21 augmented po (3) Thiamine deficiency: Plan: Thiamine previously undetectable Continue thiamine 200 mg p.o. twice daily x30 days B12 normal (4) Agitation: Plan: intermittent agitation but largely controlled (5) UTI (urinary tract infection): Plan: completed full course of IV antibiotics (7 days) Patient with decline in alertness concern for recurrent urinary infection started on Rocephin urine cultures pending likely metabolic encephalopathy. This is 03/03/2021 (6) Serum calcium elevated: Plan: likely due to HCTZ use HCTZ discontinued calcium normal BPs have been normal w/o the HCTZ (7) Anemia: Plan: - 2nd to Fe deficiency. - Iron 34, TIBC 348, Transferrin 273, trans % sat 9, ferritin 12.9. - Venofer 300mg x3 doses while here. - B12/folate wnl -poor candidate for endoscopic eval given advanced age and advanced dementia - would not pursue - repeat ferritin level 323 (had been 12) - no further venofer for now -repeat CBC improved H/H. ?element of ACD (8) Hypercholesterolemia: Plan: continue Simvastatin 20mg po daily (9) Benign essential hypertension: Plan: BPs normal-slightly elevated. Metoprolol resumed. hold HCTZ. hold torsemide. (10) Acute kidney injury superimposed on CKD: Plan: Cr 1.6 on admit Cr normalized, CHRISTINA resolved Period spot checks, clinically stable defer daily checks unless clinical change (11) Afib: Plan: -noted on 1 EKG - no a.fib on tele since then - MTP resumed as above - very poor candidate for anticoagulation, defer (12) Hypokalemia: Plan: cont replacement (if she will take her K supplement) BMP am (13) Osteoarthritis of hand, right: Plan: no erosive changes on hand x-ray severe OA (14) Bunion of great toe of left foot: Plan: bunion at minimum could be early podagra Nontender on exam follow carefully (15) Iron deficiency anemia: Plan: see "anemia" above s/p venofer x 3 doses while here H/H stable and improved today (16) Chronic renal failure, stage 3b: Plan: baseline CrCl 30-40 CrCl stable during admission (17) DVT prophylaxis: Plan: lovenox 30mg daily Admission and Anticipated Discharge Date Admission Date: February 05, 2021 Subjective Patient much more awake and alert on 03/03/2021. Urinary culture is pinpoint growth, incubating continue antibiotics as she seems to have clinical improvem ent likely from metabolic encephalopathy from urinary tract infection. Review of Systems Review of Systems: Unobtainable due to severe dementia Physical Exam Physical Exam: The patient appeared fatigued Vital signs as documented. Lungs are clear to auscultation and appear unlabored Cardiac exam, Rhythm is regular.. No murmurs, rubs or gallops. Abdominal exam reveals normal bowel sounds, soft non tender, no masses Extremities are nonedematous and both pedal pulses are normal. Neurologic exam is alert and attempts to respond to commands cannot assess orientation Skin is without bruises or rashes Psychologically is with concerns for dementia Results & Data Results & Data ([facility]) Vital Signs (Past 12 Hours) Vital Signs Temp Pulse Resp BP Pulse Ox 03/03/21 15:19 98.1 F 64 18 129/73 96 PG Care Time/CCT Total # of Minutes Spent Total Time Spent with Patient: Total time spent is greater than 50% in coordination of care (as documented) at patient's floor/unit and/or counseling patient: Coding Level of Care Code 79613 Subseq Hosp Care Lvl 1 Diagnoses Dementia with behavioral disturbance F03.91 Hypernatremia E87.0 Thiamine deficiency E51.9 Agitation R45.1 UTI (urinary tract infection) N39.0 Serum calcium elevated E83.52 Anemia D64.9 Hypercholesterolemia E78.00 Benign essential hypertension I10 Acute kidney injury superimposed on CKD N17.9; N18.9 Afib I48.91 Hypokalemia E87.6 Osteoarthritis of hand, right M19.041 Bunion of great toe of left foot M21.612 Iron deficiency anemia D50.9 Chronic renal failure, stage 3b N18.32 DVT prophylaxis Z29.9
[2021-03-04] MEDS: ENOXAPARIN INJ 30 MG/0.3 ML SYR SQ SCH (06:00)
[2021-03-04] MEDS: POTASSIUM CHLORIDE CRTAB 20 MEQ TABCR PO SCH (08:44)
[2021-03-04] MEDS: THIAMINE HCL 100 MG TAB PO SCH ×2 (08:44→22:24)
[2021-03-04] MEDS: SIMVASTATIN 20 MG TAB PO SCH (08:44)
[2021-03-04] MEDS: DOCUSATE SODIUM/SENNA 50/8.6MG TAB PO SCH (08:59)
[2021-03-04 09:23] LABS: BUN Creatinine Ratio 15.4 (10-20); Calcium 9.1 mg/dl (8.5-10.1); Est GFR (Non-African American) 76.8 ml/min; Potassium 3.7 mmol/L (3.5-5.1)
[2021-03-04] MEDS: POLYETHYLENE (MIRALAX) 17 GM PACK PO SCH (10:08)
--- NOTE | 2021-03-04 19:35 | Hospitalist Progress Note ---
Date of Service March 04, 2021 Assessment & Plan (1) Dementia with behavioral disturbance: Plan: Disposition: needs 24-hour care, thus SNF post-discharge. placement pending. Social work has spoken to family and Cynthia Gonzalez also spoke with family. Consent obtained from family for Covid vaccination, as documented. Covid vaccination J&J given 02/28: Case being reviewed by [facility] and [facility]. Case has been discussed with office of aging by case management. [place] with no beds on [place] speaking unit at this time; due to slightly increasing lethargy will recheck a Urine culture. seems to be a contaminated specimen, will complete 5 day course. Did have Ecoli earlier in the stay Dementia Continue trazodone Continue Aricept Risperdal as needed as needed (2) Hypernatremia: Plan: Intermittent, resolves with improved oral intake. Suspect 2/2 volume contraction Encourage p.o. as tolerated, may use intermittent IVF as needed. slight hypokalemia 03/02/21 augmented po (3) Thiamine deficiency: Plan: Thiamine previously undetectable Continue thiamine 200 mg p.o. twice daily x30 days B12 normal (4) Agitation: Plan: intermittent agitation but largely controlled (5) UTI (urinary tract infection): Plan: completed full course of IV antibiotics (7 days) Patient with decline in alertness concern for recurrent urinary infection started on Rocephin urine cultures pending likely metabolic encephalopathy. This is 03/03/2021 (6) Serum calcium elevated: Plan: likely due to HCTZ use HCTZ discontinued calcium normal BPs have been normal w/o the HCTZ (7) Anemia: Plan: - 2nd to Fe deficiency. - Iron 34, TIBC 348, Transferrin 273, trans % sat 9, ferritin 12.9. - Venofer 300mg x3 doses while here. - B12/folate wnl -poor candidate for endoscopic eval given advanced age and advanced dementia - would not pursue - repeat ferritin level 323 (had been 12) - no further venofer for now -repeat CBC improved H/H. ?element of ACD (8) Hypercholesterolemia: Plan: continue Simvastatin 20mg po daily (9) Benign essential hypertension: Plan: BPs normal-slightly elevated. Metoprolol resumed. hold HCTZ. hold torsemide. (10) Acute kidney injury superimposed on CKD: Plan: Cr 1.6 on admit Cr normalized, CHRISTINA resolved Period spot checks, clinically stable defer daily checks unless clinical change (11) Afib: Plan: -noted on 1 EKG - no a.fib on tele since then - MTP resumed as above - very poor candidate for anticoagulation, defer (12) Hypokalemia: Plan: cont replacement (if she will take her K supplement) BMP am (13) Osteoarthritis of hand, right: Plan: no erosive changes on hand x-ray severe OA (14) Bunion of great toe of left foot: Plan: bunion at minimum could be early podagra Nontender on exam follow carefully (15) Iron deficiency anemia: Plan: see "anemia" above s/p venofer x 3 doses while here H/H stable and improved today (16) Chronic renal failure, stage 3b: Plan: baseline CrCl 30-40 CrCl stable during admission (17) DVT prophylaxis: Plan: lovenox 30mg daily Admission and Anticipated Discharge Date Admission Date: February 05, 2021 Subjective Patient much more awake and alert on 03/04/2021. Urinary culture is pinpoint growth, incubating continue antibiotics as she seems to have clinical improvement likely from metabolic encephalopathy from urinary tract infection. Review of Systems Review of Systems: Unobtainable due to severe dementia Physical Exam Physical Exam: The patient appeared fatigued Vital signs as documented. Lungs are clear to auscultation and appear unlabored Cardiac exam, Rhythm is regular.. No murmurs, rubs or gallops. Abdominal exam reveals normal bowel sounds, soft non tender, no masses Extremities are nonedematous and both pedal pulses are normal. Neurologic exam is alert and attempts to respond to commands cannot assess orientation Skin is without bruises or rashes Psychologically is with concerns for dementia Results & Data Results & [facility] ([facility]) Vital Signs (Past 12 Hours) Vital Signs Temp Pulse Resp BP Pulse Ox 03/04/21 15:12 98.8 F 82 18 118/66 93 PG Care Time/CCT Total # of Minutes Spent Total Time Spent with Patient: Total time spent is greater than 50% in coordination of care (as documented) at patient's floor/unit and/or counseling patient: Coding Level of Care Code 31494 Subseq Hosp Care Lvl 2 Diagnoses Dementia with behavioral disturbance F03.91 Hypernatremia E87.0 Thiamine deficiency E51.9 Agitation R45.1 UTI (urinary tract infection) N39.0 Serum calcium elevated E83.52 Anemia D64.9 Hypercholesterolemia E78.00 Benign essential hypertension I10 Acute kidney injury superimposed on CKD N17.9; N18.9 Afib I48.91 Hypokalemia E87.6 Osteoarthritis of hand, right M19.041 Bunion of great toe of left foot M21.612 Iron deficiency anemia D50.9 Chronic renal failure, stage 3b N18.32 DVT prophylaxis Z29.9
[2021-03-04] MEDS: traZODone HCL 50 MG TAB PO SCH (22:24)
[2021-03-04] MEDS: DONEPEZIL HCL 5 MG TAB PO SCH (22:25)
[2021-03-05] MEDS: ENOXAPARIN INJ 30 MG/0.3 ML SYR SQ SCH (06:03)
[2021-03-05] MEDS: POTASSIUM CHLORIDE CRTAB 20 MEQ TABCR PO SCH (08:05)
[2021-03-05] MEDS: THIAMINE HCL 100 MG TAB PO SCH ×2 (08:05→20:46)
[2021-03-05] MEDS: SIMVASTATIN 20 MG TAB PO SCH (08:05)
[2021-03-05] MEDS: DOCUSATE SODIUM/SENNA 50/8.6MG TAB PO SCH (08:18)
[2021-03-05] MEDS: POLYETHYLENE (MIRALAX) 17 GM PACK PO SCH (08:18)
--- NOTE | 2021-03-05 19:43 | Hospitalist Progress Note ---
Date of Service March 05, 2021 Assessment & Plan (1) Dementia with behavioral disturbance: Plan: Disposition: needs 24-hour care, thus SNF post-discharge. placement pending. Social work has spoken to family and Cynthia Gonzalez also spoke with family. Consent obtained from family for Covid vaccination, as documented. Covid vaccination J&J given 02/28: Case being reviewed by [facility] and [facility]. Case has been discussed with office of aging by case management. [place] with no beds on [place] speaking unit at this time; due to slightly increasing lethargy did recheck a Urine culture. seems to be a contaminated specimen, complete 5 day course. Did have Ecoli earlier in the stay Dementia Continue trazodone Continue Aricept Risperdal as needed as needed (2) Hypernatremia: Plan: Intermittent, resolves with improved oral intake. Suspect 2/2 volume contraction Encourage p.o. as tolerated, may use intermittent IVF as needed. slight hypokalemia 03/02/21 augmented po (3) Thiamine deficiency: Plan: Thiamine previously undetectable Continue thiamine 200 mg p.o. twice daily x30 days B12 normal (4) Agitation: Plan: intermittent agitation but largely controlled (5) UTI (urinary tract infection): Plan: completed antibiotics (6) Serum calcium elevated: Plan: likely due to HCTZ use HCTZ discontinued calcium normal BPs have been normal w/o the HCTZ (7) Anemia: Plan: - 2nd to Fe deficiency. - Iron 34, TIBC 348, Transferrin 273, trans % sat 9, ferritin 12.9. - Venofer 300mg x3 doses while here. - B12/folate wnl -poor candidate for endoscopic eval given advanced age and advanced dementia - would not pursue - repeat ferritin level 323 (had been 12) - no further venofer for now -repeat CBC improved H/H. ?element of ACD (8) Hypercholesterolemia: Plan: continue Simvastatin 20mg po daily (9) Benign essential hypertension: Plan: BPs normal-slightly elevated. Metoprolol resumed. hold HCTZ. hold torsemide. (10) Acute kidney injury superimposed on CKD: Plan: Cr 1.6 on admit Cr normalized, CHRISTINA resolved Period spot checks, clinically stable defer daily checks unless clinical change (11) Afib: Plan: -noted on 1 EKG - no a.fib on tele since then - Metoprolol resumed - very poor candidate for anticoagulation, defer (12) Hypokalemia: Plan: replete (13) Osteoarthritis of hand, right: Plan: no erosive changes on hand x-ray severe OA (14) Bunion of great toe of left foot: Plan: bunion at minimum could be early podagra Nontender on exam follow carefully (15) Iron deficiency anemia: Plan: see "anemia" above s/p venofer x 3 doses while here H/H stable (16) Chronic renal failure, stage 3b: Plan: baseline CrCl 30-40 CrCl stable during admission (17) DVT prophylaxis: Plan: lovenox 30mg daily Admission and Anticipated Discharge Date Admission Date: February 05, 2021 Subjective Patient much more awake and alert on 03/04/2021. Urinary culture is pinpoint growth, incubating continue antibiotics as she seems to have clinical improvement likely from metabolic encephalopathy from urinary tract infection. will stop antibiotics 03/05/21 Review of Systems Review of Systems: Unobtainable due to severe dementia Physical Exam Physical Exam: The patient appeared fatigued Vital signs as documented. Lungs are clear to auscultation and appear unlabored Cardiac exam, Rhythm is regular.. No murmurs, rubs or gallops. Abdominal exam reveals normal bowel sounds, soft non tender, no masses Extremities are nonedematous and both pedal pulses are normal. Neurologic exam is alert and attempts to respond to commands cannot assess orientation Skin is without bruises or rashes Psychologically is with concerns for dementia Results & Data Results & Data ([facility]) Vital Signs (Past 12 Hours) Vital Signs Temp Pulse Resp BP BP Pulse Ox 03/05/21 15:24 97.7 F 77 16 122/59 L 92 03/05/21 07:52 97.2 F L 68 16 124/74 94 PG Care Time/CCT Total # of Minutes Spent Total Time Spent with Patient: Total time spent is greater than 50% in coordination of care (as documented) at patient's floor/unit and/or counseling patient: Coding Level of Care Code 44941 Subseq Hosp Care Lvl 1 Diagnoses Dementia with behavioral disturbance F03.91 Hypernatremia E87.0 Thiamine deficiency E51.9 Agitation R45.1 UTI (urinary tract infection) N39.0 Serum calcium elevated E83.52 Anemia D64.9 Hypercholesterolemia E78.00 Benign essential hypertension I10 Acute kidney injury superimposed on CKD N17.9; N18.9 Afib I48.91 Hypokalemia E87.6 Osteoarthritis of hand, right M19.041 Bunion of great toe of left foot M21.612 Iron deficiency anemia D50.9 Chronic renal failure, stage 3b N18.32 DVT prophylaxis Z29.9
[2021-03-05] MEDS: traZODone HCL 50 MG TAB PO SCH (20:46)
[2021-03-05] MEDS: DONEPEZIL HCL 5 MG TAB PO SCH (20:46)
[2021-03-06] MEDS: ENOXAPARIN INJ 30 MG/0.3 ML SYR SQ SCH (05:38)
[2021-03-06 06:55] LABS: Creatinine Clr Calc Pharmacy 45.6 ml/min; Est GFR (African American) 89.5 ml/min; Est GFR (Non-African American) 77.2 ml/min; Potassium 3.8 mmol/L (3.5-5.1)
[2021-03-06] MEDS: POTASSIUM CHLORIDE CRTAB 20 MEQ TABCR PO SCH (08:12)
[2021-03-06] MEDS: SIMVASTATIN 20 MG TAB PO SCH (08:12)
[2021-03-06] MEDS: POLYETHYLENE (MIRALAX) 17 GM PACK PO SCH (08:21)
[2021-03-06] MEDS: DOCUSATE SODIUM/SENNA 50/8.6MG TAB PO SCH (09:36)
[2021-03-06] MEDS: THIAMINE HCL 100 MG TAB PO SCH ×2 (09:36→21:24)
--- NOTE | 2021-03-06 17:59 | Hospitalist Progress Note ---
Date of Service March 06, 2021 Assessment & Plan (1) Dementia with behavioral disturbance: Plan: Disposition: needs 24-hour care, thus SNF post-discharge. placement pending. Social work has spoken to family and Cynthia Gonzalez also spoke with family. Consent obtained from family for Covid vaccination, as documented. Covid vaccination J&J given 02/28: Case being reviewed by [facility] and [facility]. Case has been discussed with office of aging by case management. [place] with no beds on [place] speaking unit at this time; due to slightly increasing lethargy did recheck a Urine culture. seems to be a contaminated specimen, complete 5 day course. Did have Ecoli earlier in the stay Dementia Continue trazodone Continue Aricept Risperdal as needed as needed (2) Hypernatremia: Plan: Intermittent, resolves with improved oral intake. Suspect 2/2 volume contraction Encourage p.o. as tolerated, may use intermittent IVF as needed. slight hypokalemia 03/02/21 augmented po (3) Thiamine deficiency: Plan: Thiamine previously undetectable Continue thiamine 200 mg p.o. twice daily x30 days B12 normal (4) Agitation: Plan: intermittent agitation but largely controlled (5) UTI (urinary tract infection): Plan: completed antibiotics (6) Serum calcium elevated: Plan: likely due to HCTZ use HCTZ discontinued calcium normal BPs have been normal w/o the HCTZ (7) Anemia: Plan: - 2nd to Fe deficiency. - Iron 34, TIBC 348, Transferrin 273, trans % sat 9, ferritin 12.9. - Venofer 300mg x3 doses while here. - B12/folate wnl -poor candidate for endoscopic eval given advanced age and advanced dementia - would not pursue - repeat ferritin level 323 (had been 12) - no further venofer for now -repeat CBC improved H/H. ?element of ACD (8) Hypercholesterolemia: Plan: continue Simvastatin 20mg po daily (9) Benign essential hypertension: Plan: BPs normal-slightly elevated. Metoprolol resumed. hold HCTZ. hold torsemide. (10) Acute kidney injury superimposed on CKD: Plan: Cr 1.6 on admit Cr normalized, CHRISTINA resolved Period spot checks, clinically stable defer daily checks unless clinical change (11) Afib: Plan: -noted on 1 EKG - no a.fib on tele since then - Metoprolol resumed - very poor candidate for anticoagulation, defer (12) Hypokalemia: Plan: replete (13) Osteoarthritis of hand, right: Plan: no erosive changes on hand x-ray severe OA (14) Bunion of great toe of left foot: Plan: bunion at minimum could be early podagra Nontender on exam follow carefully (15) Iron deficiency anemia: Plan: see "anemia" above s/p venofer x 3 doses while here H/H stable (16) Chronic renal failure, stage 3b: Plan: baseline CrCl 30-40 CrCl stable during admission (17) DVT prophylaxis: Plan: lovenox 30mg daily Admission and Anticipated Discharge Date Admission Date: February 05, 2021 Subjective Patient much more awake and alert on 03/04/2021. Urinary culture is pinpoint growth, incubating continue antibiotics as she seems to have clinical improvement likely from metabolic encephalopathy from urinary tract infection. will stop antibiotics 03/05/21 Review of Systems Review of Systems: Unobtainable due to severe dementia Physical Exam Physical Exam: The patient appeared fatigued Vital signs as documented. Lungs are clear to auscultation and appear unlabored Cardiac exam, Rhythm is regular.. No murmurs, rubs or gallops. Abdominal exam reveals normal bowel sounds, soft non tender, no masses Extremities are nonedematous and both pedal pulses are normal. Neurologic exam is alert and attempts to respond to commands cannot assess orientation Skin is without bruises or rashes Psychologically is with concerns for dementia Results & Data Results & Data ([facility]) Vital Signs (Past 12 Hours) Vital Signs Temp Pulse Resp BP Pulse Ox 03/06/21 15:37 98.2 F 72 18 115/76 94 03/06/21 07:18 97.7 F 68 18 99/59 L 91 03/06/21 06:14 97.3 F L 59 L 14 99/45 L 96 PG Care Time/CCT Total # of Minutes Spent Total Time Spent with Patient: Total time spent is greater than 50% in coordination of care (as documented) at patient's floor/unit and/or counseling patient: Coding Level of Care Code 45834 Subseq Hosp Care Lvl 1 Diagnoses Dementia with behavioral disturbance F03.91 Hypernatremia E87.0 Thiamine deficiency E51.9 Agitation R45.1 UTI (urinary tract infection) N39.0 Serum calcium elevated E83.52 Anemia D64.9 Hypercholesterolemia E78.00 Benign essential hypertension I10 Acute kidney injury superimposed on CKD N17.9; N18.9 Afib I48.91 Hypokalemia E87.6 Osteoarthritis of hand, right M19.041 Bunion of great toe of left foot M21.612 Iron deficiency anemia D50.9 Chronic renal failure, stage 3b N18.32 DVT prophylaxis Z29.9
[2021-03-06] MEDS: DONEPEZIL HCL 5 MG TAB PO SCH (21:24)
[2021-03-06] MEDS: traZODone HCL 50 MG TAB PO SCH (21:24)
[2021-03-07] MEDS: ENOXAPARIN INJ 30 MG/0.3 ML SYR SQ SCH (06:26)
[2021-03-07] MEDS: THIAMINE HCL 100 MG TAB PO SCH ×2 (08:30→21:38)
[2021-03-07] MEDS: POTASSIUM CHLORIDE CRTAB 20 MEQ TABCR PO SCH ×2 (08:31→09:15)
[2021-03-07] MEDS: SIMVASTATIN 20 MG TAB PO SCH ×2 (08:31→09:15)
[2021-03-07] MEDS: POLYETHYLENE (MIRALAX) 17 GM PACK PO SCH ×2 (08:38→09:15)
[2021-03-07] MEDS: DOCUSATE SODIUM/SENNA 50/8.6MG TAB PO SCH (08:41)
--- NOTE | 2021-03-07 13:47 | Hospitalist Progress Note ---
Date of Service March 07, 2021 Assessment & Plan (1) Dementia with behavioral disturbance: Plan: Disposition: needs 24-hour care, thus SNF post-discharge. placement pending. Social work has spoken to family and Cynthia Gonzalez also spoke with family. Consent obtained from family for Covid vaccination, as documented. Covid vaccination J&J given 02/28: Case being reviewed by [facility] and [facility]. Case has been discussed with office of aging by case management. [place] with no beds on [place] speaking unit at this time; Dementia Continue trazodone Continue Aricept Risperdal as needed as needed (2) Hypernatremia: Plan: Intermittent, resolves with improved oral intake. Suspect 2/2 volume contraction Encourage p.o. as tolerated, may use intermittent IVF as needed. slight hypokalemia 03/02/21 augmented po (3) Thiamine deficiency: Plan: Thiamine previously undetectable Continue thiamine 200 mg p.o. twice daily x30 days B12 normal (4) Agitation: Plan: intermittent agitation but largely controlled (5) UTI (urinary tract infection): Plan: completed antibiotics (6) Serum calcium elevated: Plan: likely due to HCTZ use HCTZ discontinued calcium normal BPs have been normal w/o the HCTZ (7) Anemia: Plan: - 2nd to Fe deficiency. - Iron 34, TIBC 348, Transferrin 273, trans % sat 9, ferritin 12.9. - Venofer 300mg x3 doses while here. - B12/folate wnl -poor candidate for endoscopic eval given advanced age and advanced dementia - would not pursue - repeat ferritin level 323 (had been 12) - no further venofer for now -repeat CBC improved H/H. ?element of ACD (8) Hypercholesterolemia: Plan: continue Simvastatin 20mg po daily (9) Benign essential hypertension: Plan: BPs normal-slightly elevated. Metoprolol resumed. hold HCTZ. hold torsemide. (10) Acute kidney injury superimposed on CKD: Plan: Cr 1.6 on admit Cr normalized, CHRISTINA resolved Period spot checks, clinically stable defer daily checks unless clinical change (11) Afib: Plan: -noted on 1 EKG - no a.fib on tele since then - Metoprolol resumed - very poor candidate for anticoagulation, defer (12) Hypokalemia: Plan: replete (13) Osteoarthritis of hand, right: Plan: no erosive changes on hand x-ray severe OA (14) Bunion of great toe of left foot: Plan: bunion at minimum could be early podagra Nontender on exam follow carefully (15) Iron deficiency anemia: Plan: see "anemia" above s/p venofer x 3 doses while here H/H stable (16) Chronic renal failure, stage 3b: Plan: baseline CrCl 30-40 CrCl stable during admission (17) DVT prophylaxis: Plan: lovenox 30mg daily Admission and Anticipated Discharge Date Admission Date: February 05, 2021 Subjective Patient much more awake and alert maybe a bit agitated 03/07/21. Urinary culture contaminated but gotten from [facility], antibiotics as she seems to have clinical improvement likely from metabolic encephalopathy from urinary tract infection. did l stop antibiotics 03/05/21 Review of Systems Review of Systems: Unobtainable due to severe dementia Physical Exam Physical Exam: The patient appeared fatigued Vital signs as documented. Lungs are clear to auscultation and appear unlabored Cardiac exam, Rhythm is regular.. No murmurs, rubs or gallops. Abdominal exam reveals normal bowel sounds, soft non tender, no masses Extremities are nonedematous and both pedal pulses are normal. Neurologic exam is alert and attempts to respond to commands cannot assess orientation Skin is without bruises or rashes Psychologically is with concerns for dementia Results & Data [facility] Vital Signs (Past 12 Hours) Vital Signs Temp Pulse Resp BP Pulse Ox 03/07/21 07:00 97.9 F 66 12 106/73 92 PG Care Time/CCT Total # of Minutes Spent Total Time Spent with Patient: Total time spent is greater than 50% in coordination of care (as documented) at patient's floor/unit and/or counseling patient: Coding Level of Care Code 34855 Subseq Hosp Care Lvl 1 Diagnoses Dementia with behavioral disturbance F03.91 Hypernatremia E87.0 Thiamine deficiency E51.9 Agitation R45.1 UTI (urinary tract infection) N39.0 Serum calcium elevated E83.52 Anemia D64.9 Hypercholesterolemia E78.00 Benign essential hypertension I10 Acute kidney injury superimposed on CKD N17.9; N18.9 Afib I48.91 Hypokalemia E87.6 Osteoarthritis of hand, right M19.041 Bunion of great toe of left foot M21.612 Iron deficiency anemia D50.9 Chronic renal failure, stage 3b N18.32 DVT prophylaxis Z29.9
[2021-03-07] MEDS: traZODone HCL 50 MG TAB PO SCH (21:38)
[2021-03-07] MEDS: DONEPEZIL HCL 5 MG TAB PO SCH (21:38)
[2021-03-08 06:29] LABS: Hematocrit (blood only) 32.9 % (37-47); Hemoglobin 9.9 g/dL (12.0-16.0); Mean Corpuscular Hemoglobin 24.6 pg (25-34); Mean Corpuscular Hgb Conc 30.1 g/dL (32-36); Mean Corpuscular Volume 81.6 fL (80-100); Mean Platelet Volume 9.4 fL (7.4-10.4); Platelet Count 221 K/uL (130-400); Red Blood Count 4.03 M/uL (4.2-5.4); White Blood Count 5.19 K/uL (4.8-10.8)
[2021-03-08 07:07] LABS: BUN Creatinine Ratio 14.4 (10-20); Calcium 9.5 mg/dl (8.5-10.1); Creatinine Clr Calc Pharmacy 44.4 ml/min; Est GFR (African American) 87.5 ml/min; Est GFR (Non-African American) 75.5 ml/min; Potassium 3.6 mmol/L (3.5-5.1)
[2021-03-08] MEDS: THIAMINE HCL 100 MG TAB PO SCH ×2 (10:16→20:21)
[2021-03-08] MEDS: POLYETHYLENE (MIRALAX) 17 GM PACK PO SCH (10:20)
[2021-03-08] MEDS: DOCUSATE SODIUM/SENNA 50/8.6MG TAB PO SCH (10:20)
--- NOTE | 2021-03-08 14:20 | Hospitalist Progress Note ---
Date of Service March 08, 2021 Assessment & Plan (1) Dementia with behavioral disturbance: Plan: Disposition: needs 24-hour care, thus SNF post-discharge. placement pending. Social work has spoken to family and Cynthia Gonzalez also spoke with family. Consent obtained from family for Covid vaccination, as documented. Covid vaccination J&J given 02/28: Case being reviewed by [facility] and [facility]. Case has been discussed with office of aging by case management. [place] with no beds on [place] speaking unit at this time; Dementia Continue trazodone Continue Aricept Risperdal as needed as needed (2) Hypernatremia: Plan: Intermittent, resolves with improved oral intake. Suspect 2/2 volume contraction Encourage p.o. as tolerated, may use intermittent IVF as needed. slight hypokalemia 03/02/21 augmented po (3) Thiamine deficiency: Plan: Thiamine previously undetectable Continue thiamine 200 mg p.o. twice daily x30 days B12 normal (4) Agitation: Plan: intermittent agitation but largely controlled (5) UTI (urinary tract infection): Plan: completed antibiotics (6) Serum calcium elevated: Plan: likely due to HCTZ use HCTZ discontinued calcium normal BPs have been normal w/o the HCTZ (7) Anemia: Plan: - 2nd to Fe deficiency. - Iron 34, TIBC 348, Transferrin 273, trans % sat 9, ferritin 12.9. - Venofer 300mg x3 doses while here. - B12/folate wnl -poor candidate for endoscopic eval given advanced age and advanced dementia - would not pursue - repeat ferritin level 323 (had been 12) - no further venofer for now -repeat CBC improved H/H. ?element of ACD (8) Hypercholesterolemia: Plan: continue Simvastatin 20mg po daily (9) Benign essential hypertension: Plan: BPs normal-slightly elevated. Metoprolol resumed. hold HCTZ. hold torsemide. (10) Acute kidney injury superimposed on CKD: Plan: Cr 1.6 on admit Cr normalized, CHRISTINA resolved Period spot checks, clinically stable defer daily checks unless clinical change (11) Afib: Plan: -noted on 1 EKG - no a.fib on tele since then - Metoprolol resumed - very poor candidate for anticoagulation, defer (12) Hypokalemia: Plan: replete (13) Osteoarthritis of hand, right: Plan: no erosive changes on hand x-ray severe OA (14) Bunion of great toe of left foot: Plan: bunion at minimum could be early podagra Nontender on exam follow carefully (15) Iron deficiency anemia: Plan: see "anemia" above s/p venofer x 3 doses while here H/H stable (16) Chronic renal failure, stage 3b: Plan: baseline CrCl 30-40 CrCl stable during admission (17) DVT prophylaxis: Plan: lovenox 30mg daily Admission and Anticipated Discharge Date Admission Date: February 05, 2021 Subjective Patient is calm and had her medications today. Sheis a poor historian and does not communicate well. Review of Systems Review of Systems: Unobtainable due to cognitive status Physical Exam Physical Exam: The patient appears comfortable. Vital signs as documented. Lungs are clear to auscultation and appear unlabored Cardiac exam, Rhythm is regular.. No murmurs, rubs or gallops. Abdominal exam reveals normal bowel sounds, soft non tender, no masses Extremities are nonedematous and both pedal pulses are normal. Neurologic exam is alert and attempts to respond to commands cannot assess orientation Skin is without bruises or rashes Psychologically is with concerns for dementia Results & Data Results & Data ([facility]) Vital Signs (Past 12 Hours) Vital Signs Temp Pulse Resp BP Pulse Ox 03/08/21 07:48 36.9 C 77 16 135/77 93 PG Care Time/CCT Total # of Minutes Spent Total Time Spent with Patient: Total time spent is greater than 50% in coordination of care (as documented) at patient's floor/unit and/or counseling patient: Coding Level of Care Code 31849 Subseq Hosp Care Lvl 1 Diagnoses Dementia with behavioral disturbance F03.91 Hypernatremia E87.0 Thiamine deficiency E51.9 Agitation R45.1 UTI (urinary tract infection) N39.0 Serum calcium elevated E83.52 Anemia D64.9 Hypercholesterolemia E78.00 Benign essential hypertension I10 Acute kidney injury superimposed on CKD N17.9; N18.9 Afib I48.91 Hypokalemia E87.6 Osteoarthritis of hand, right M19.041 Bunion of great toe of left foot M21.612 Iron deficiency anemia D50.9 Chronic renal failure, stage 3b N18.32 DVT prophylaxis Z29.9
[2021-03-09] MEDS: DOCUSATE SODIUM/SENNA 50/8.6MG TAB PO SCH (10:36)
[2021-03-09] MEDS: THIAMINE HCL 100 MG TAB PO SCH ×2 (10:36→22:09)
[2021-03-09] MEDS: POLYETHYLENE (MIRALAX) 17 GM PACK PO SCH (10:36)
--- NOTE | 2021-03-09 13:15 | Hospitalist Progress Note ---
Date of Service March 09, 2021 Assessment & Plan (1) Dementia with behavioral disturbance: Plan: Disposition: needs 24-hour care, thus SNF post-discharge. placement pending. Social work has spoken to family and Cynthia Gonzalez also spoke with family. Consent obtained from family for Covid vaccination, as documented. Covid vaccination J&J given 03/09: assessment coordinator and CM working on placement. Referral to [facility] sent. No accepting facilities at this time, pending SNF placement Dementia Continue trazodone Continue Aricept Risperdal as needed as needed (2) Hypernatremia: Plan: Intermittent, resolves with improved oral intake. Suspect 2/2 volume contraction Encourage p.o. as tolerated, may use intermittent IVF as needed. slight hypokalemia 03/02/21 augmented po (3) Thiamine deficiency: Plan: Thiamine previously undetectable Continue thiamine 200 mg p.o. twice daily x30 days B12 normal (4) Agitation: Plan: intermittent agitation but largely controlled (5) UTI (urinary tract infection): Plan: completed antibiotics (6) Serum calcium elevated: Plan: likely due to HCTZ use HCTZ discontinued calcium normal BPs have been normal w/o the HCTZ (7) Anemia: Plan: - 2nd to Fe deficiency. - Iron 34, TIBC 348, Transferrin 273, trans % sat 9, ferritin 12.9. - Venofer 300mg x3 doses while here. - B12/folate wnl -poor candidate for endoscopic eval given advanced age and advanced dementia - would not pursue - repeat ferritin level 323 (had been 12) - no further venofer for now -repeat CBC improved H/H. ?element of ACD (8) Hypercholesterolemia: Plan: continue Simvastatin 20mg po daily (9) Benign essential hypertension: Plan: BPs adequate. Metoprolol resumed. hold HCTZ. hold torsemide. (10) Acute kidney injury superimposed on CKD: Plan: Cr 1.6 on admit Cr normalized, CHRISTINA resolved Period spot checks, clinically stable defer daily checks unless clinical change (11) Afib: Plan: -noted on 1 EKG - no a.fib on tele since then - Metoprolol resumed - very poor candidate for anticoagulation, defer (12) Hypokalemia: Plan: replete (13) Osteoarthritis of hand, right: Plan: no erosive changes on hand x-ray severe OA (14) Bunion of great toe of left foot: Plan: bunion at minimum could be early podagra Nontender on exam follow carefully (15) Iron deficiency anemia: Plan: see "anemia" above s/p venofer x 3 doses while here H/H stable (16) Chronic renal failure, stage 3b: Plan: baseline CrCl 30-40 CrCl stable during admission (17) DVT prophylaxis: Plan: lovenox 30mg daily Admission and Anticipated Discharge Date Admission Date: February 05, 2021 Subjective Unavailable due to cognitive status Review of Systems Review of Systems: Unavailable due to cognitive status Physical Exam Physical Exam: General: Frail-appearing. Sleeping comfortably, arouses easily and falls back asleep HEENT: Atraumatic, normocephalic. Pulm: Symmetrical chest rise. No increase work of breathing. No respiratory distress. Abdominal: Nontender, nondistended, soft. BS present. Extremities: Thin, frail Results & Data Results & Data ([facility]) Vital Signs (Past 12 Hours) Vital Signs Temp Pulse Resp BP Pulse Ox 03/09/21 07:36 36.6 C 67 16 137/58 L 94 PG Care Time/CCT Total # of Minutes Spent Total Time Spent with Patient: Total time spent is greater than 50% in coordination of care (as documented) at patient's floor/unit and/or counseling patient: Coding Level of Care Code 70539 Subseq Hosp Care Lvl 1 Diagnoses Dementia with behavioral disturbance F03.91 Hypernatremia E87.0 Thiamine deficiency E51.9 Agitation R45.1 UTI (urinary tract infection) N39.0 Serum calcium elevated E83.52 Anemia D64.9 Hypercholesterolemia E78.00 Benign essential hypertension I10 Acute kidney injury superimposed on CKD N17.9; N18.9 Afib I48.91 Hypokalemia E87.6 Osteoarthritis of hand, right M19.041 Bunion of great toe of left foot M21.612 Iron deficiency anemia D50.9 Chronic renal failure, stage 3b N18.32 DVT prophylaxis Z29.9
[2021-03-10] MEDS: THIAMINE HCL 100 MG TAB PO SCH ×2 (09:19→20:39)
[2021-03-10] MEDS: DOCUSATE SODIUM/SENNA 50/8.6MG TAB PO SCH (10:48)
[2021-03-10] MEDS: POLYETHYLENE (MIRALAX) 17 GM PACK PO SCH (10:48)
--- NOTE | 2021-03-10 13:28 | Hospitalist Progress Note ---
Date of Service March 10, 2021 Assessment & Plan (1) Dementia with behavioral disturbance: Plan: Disposition: needs 24-hour care, thus SNF post-discharge. placement pending. Social work has spoken to family and Cynthia Gonzalez also spoke with family. Consent obtained from family for Covid vaccination, as documented. Covid vaccination J&J given 03/09: recruiter coordinator and CM working on placement. Referral to [facility] sent. No accepting facilities at this time, pending SNF placement (looking into [place] speaking facility) Dementia Continue trazodone Continue Aricept Risperdal as needed as needed Was having increased behaviors prior to this hospitalization but no increased behaviors noted per staff (2) Hypernatremia: Plan: Intermittent, resolves with improved oral intake. Suspect 2/2 volume contraction Encourage p.o. as tolerated Add boost supplement (3) Thiamine deficiency: Plan: Thiamine previously undetectable Continue thiamine 200 mg p.o. twice daily x30 days (started 02/22) B12 normal (4) Agitation: Plan: intermittent agitation but largely controlled (5) UTI (urinary tract infection): Plan: completed antibiotics for uncomplicated/pansensitive (e.coli) UTI. Likely not playing a role (6) Serum calcium elevated: Plan: likely due to HCTZ use HCTZ discontinued calcium normal BPs have been normal w/o the HCTZ (7) Anemia: Plan: - 2nd to Fe deficiency. - Iron 34, TIBC 348, Transferrin 273, trans % sat 9, ferritin 12.9. - Venofer 300mg x3 doses while here. - B12/folate wnl -poor candidate for endoscopic eval given advanced age and advanced dementia - would not pursue - repeat ferritin level 323 (had been 12) - no further venofer for now -repeat CBC improved H/H. ?element of ACD (8) Hypercholesterolemia: Plan: continue Simvastatin 20mg po daily (9) Benign essential hypertension: Plan: BPs adequate. Metoprolol resumed. holding HCTZ and torsemide--> BP 107/75 (10) Acute kidney injury superimposed on CKD: Plan: Cr 1.6 on admit Cr normalized with IVF -- CHRISTINA resolved (likely to reoccur with decreased oral intake on account of advanced dementia) start nutritional supplement Period spot checks, clinically stable defer daily checks unless clinical change (11) Afib: Plan: -noted on 1 EKG - no a.fib on tele since then - Metoprolol resumed - very poor candidate for anticoagulation (given fall and bleeding risk) (12) Hypokalemia: Plan: replaced and resolved (13) DVT prophylaxis: Plan: lovenox 30mg daily Admission and Anticipated Discharge Date Admission Date: February 05, 2021 Subjective Patient seem on daily rounds today. Mumbles only in Lithuanian. Staff vocalizes no c/c. Review of Systems Review of Systems: unobtainable Physical Exam Physical Exam: limited exam Genl: sleeping when initially seen. Upon Arousal, patient awakens and mumbles in Lithuanian. Baby doll laying beside her. She picks this up and starts rocking it. Heart:RRR Lungs: CTA without W/R/R abd: normoative x4, soft and NT Neuro: awake. Does not appear oriented (as mumbling but only in Lithuanian) Ext: no c/c/e Results & Data Results & Data ([facility]) Vital Signs (Past 12 Hours) Vital Signs Temp Pulse Resp BP Pulse Ox 03/10/21 07:33 36.6 C 66 16 102/75 95 Laboratory Results 03/08/21 06:13 03/08/21 06:13 PG Care Time/CCT Total # of Minutes Spent Total Time Spent with Patient: Total time spent is greater than 50% in coordination of care (as documented) at patient's floor/unit and/or counseling patient: Coding Level of Care Code 83556 Subseq Hosp Care Lvl 1 Diagnoses Dementia with behavioral disturbance F03.91 Hypernatremia E87.0 Thiamine deficiency E51.9 Agitation R45.1 UTI (urinary tract infection) N39.0 Serum calcium elevated E83.52 Anemia D64.9 Hypercholesterolemia E78.00 Benign essential hypertension I10 Acute kidney injury superimposed on CKD N17.9; N18.9 Afib I48.91 Hypokalemia E87.6 DVT prophylaxis Z29.9
[2021-03-11] MEDS: THIAMINE HCL 100 MG TAB PO SCH ×2 (08:01→21:41)
--- NOTE | 2021-03-11 15:04 | Hospitalist Progress Note ---
Date of Service March 11, 2021 Assessment & Plan (1) Dementia with behavioral disturbance: Plan: Disposition: needs 24-hour care, thus SNF post-discharge. placement pending. Social work has spoken to family and Cynthia Gonzalez also spoke with family. Consent obtained from family for Covid vaccination, as documented. Covid vaccination J&J given 03/09: quality improvement coordinator (rn) and CM working on placement.Was looking into [place] facility near [place]; however, however not needed as speech can not be deciphered even by harness tier (must be nonsensical in foreign language) Dementia Continue trazodone Continue Aricept Risperdal as needed as needed Was having increased behaviors prior to this hospitalization but no increased behaviors noted per staff --jean baptiste catheter noted to be inserted (was placed in the ED). Will D/C this. Staff encouraged to watch for issues with retention (2) Hypernatremia: Plan: Intermittent, resolves with improved oral intake. Suspect 2/2 volume contraction Encourage p.o. as tolerated Add boost supplement - will trend labs weekly while in house (3) Thiamine deficiency: Plan: Thiamine previously undetectable Continue thiamine 200 mg p.o. twice daily x30 days (started 02/22) B12 normal (4) Agitation: Plan: intermittent agitation but largely controlled (5) UTI (urinary tract infection): Plan: completed antibiotics for uncomplicated/pansensitive (e.coli) UTI. Likely not playing a role (6) Serum calcium elevated: Plan: likely due to HCTZ use HCTZ discontinued calcium normal BPs have been normal w/o the HCTZ (7) Anemia: Plan: - 2nd to Fe deficiency. - Iron 34, TIBC 348, Transferrin 273, trans % sat 9, ferritin 12.9. - Venofer 300mg x3 doses while here. - B12/folate wnl -poor candidate for endoscopic eval given advanced age and advanced dementia - would not pursue - repeat ferritin level 323 (had been 12) - no further venofer for now -repeat CBC improved H/H. ?element of ACD (8) Hypercholesterolemia: Plan: continue Simvastatin 20mg po daily (9) Benign essential hypertension: Plan: BPs adequate. Metoprolol resumed. holding HCTZ and torsemide--> BP 107/75 (10) Acute kidney injury superimposed on CKD: Plan: Cr 1.6 on admit Cr normalized with IVF -- CHRISTINA resolved (likely to reoccur with decreased oral intake on account of advanced dementia) start nutritional supplement Period spot checks, clinically stable defer daily checks unless clinical change (11) Afib: Plan: -noted on 1 EKG - no a.fib on tele since then - Metoprolol resumed - very poor candidate for anticoagulation (given fall and bleeding risk) (12) Hypokalemia: Plan: replaced and resolved (13) DVT prophylaxis: Plan: lovenox 30mg daily Plan: - awaiting placement. CM working on this. Medically stable x days Admission and Anticipated Discharge Date Admission Date: February 05, 2021 Subjective Patient seen on daily rounds today. Nursing voices no complaints or concerns. Patient has not had any agitation or combative behavior Review of Systems Review of Systems: Unobtainable Physical Exam Physical Exam: Limited exam General: Resting comfortably in her hospital bed. Does not appear ill or toxic. In no acute distress HEENT: Head is AT/NC buccal mucosa is moist and pink Neck: No JVD. Negative hepatojugular reflex Cardiac: RRR with 1/6 to 2/6 LINDA Lungs: CTA without W/R/R Abdomen: Normoactive X4. Soft and nontender in all quadrants. Extremities: No peripheral clubbing cyanosis or edema Neuro:mumbling in foreign language. Skin: No obvious skin lesions or rashes Psych:limited cooperation Results & Data Results & [facility] ([facility]) Vital Signs (Past 12 Hours) Vital Signs Temp Pulse Resp BP BP Pulse Ox 03/11/21 14:52 36.5 C 73 16 108/67 95 03/11/21 07:17 36.6 C 66 16 138/63 94 PG Care Time/CCT Total # of Minutes Spent Total Time Spent with Patient: Total time spent is greater than 50% in coordination of care (as documented) at patient's floor/unit and/or counseling patient: Coding Level of Care Code 18049 Subseq Hosp Care Lvl 1 Diagnoses Dementia with behavioral disturbance F03.91 Hypernatremia E87.0 Thiamine deficiency E51.9 Agitation R45.1 UTI (urinary tract infection) N39.0 Serum calcium elevated E83.52 Anemia D64.9 Hypercholesterolemia E78.00 Benign essential hypertension I10 Acute kidney injury superimposed on CKD N17.9; N18.9 Afib I48.91 Hypokalemia E87.6 DVT prophylaxis Z29.9
[2021-03-12] MEDS: THIAMINE HCL 100 MG TAB PO SCH ×2 (09:03→20:42)
--- NOTE | 2021-03-12 16:31 | Hospitalist Progress Note ---
Date of Service March 12, 2021 Assessment & Plan (1) Dementia with behavioral disturbance: Plan: Disposition: needs 24-hour care, thus SNF post-discharge. placement pending. Social work has spoken to family and Cynthia Gonzalez also spoke with family. Consent obtained from family for Covid vaccination, as documented. Covid vaccination J&J given 03/09: business services coordinator and CM working on placement.Was looking into [place] [facility] facility near [place]; however, however not needed as speech can not be deciphered even by patient access representative (must be nonsensical in foreign language) Dementia Continue trazodone Continue Aricept Risperdal as needed as needed Was having increased behaviors prior to this hospitalization but no increased behaviors noted per staff (2) Hypernatremia: Plan: Intermittent, resolves with improved oral intake. Suspect 2/2 volume contraction Encourage p.o. as tolerated Add boost supplement - will trend labs weekly while in house (3) Thiamine deficiency: Plan: Thiamine previously undetectable Continue thiamine 200 mg p.o. twice daily x30 days (started 02/22) B12 normal (4) Agitation: Plan: intermittent agitation but largely controlled (5) UTI (urinary tract infection): Plan: completed antibiotics for uncomplicated/pansensitive (e.coli) UTI. Likely not playing a role (6) Serum calcium elevated: Plan: likely due to HCTZ use HCTZ discontinued calcium normal BPs have been normal w/o the HCTZ (7) Anemia: Plan: - 2nd to Fe deficiency. - Iron 34, TIBC 348, Transferrin 273, trans % sat 9, ferritin 12.9. - Venofer 300mg x3 doses while here. - B12/folate wnl - poor candidate for endoscopic eval given advanced age and advanced dementia - would not pursue - repeat ferritin level 323 (had been 12) - no further venofer for now -repeat CBC improved H/H. ?element of ACD (8) Hypercholesterolemia: Plan: continue Simvastatin 20mg po daily (9) Benign essential hypertension: Plan: BPs adequate. Metoprolol resumed. holding HCTZ and torsemide--> BP 107/75 (10) Acute kidney injury superimposed on CKD: Plan: Cr 1.6 on admit Cr normalized with IVF -- CHRISTINA resolved (likely to reoccur with decreased oral intake on account of advanced dementia) start nutritional supplement Period spot checks, clinically stable defer daily checks unless clinical change (11) Afib: Plan: -noted on 1 EKG - no a.fib on tele since then - Metoprolol resumed - very poor candidate for anticoagulation (given fall and bleeding risk) (12) Hypokalemia: Plan: replaced and resolved (13) DVT prophylaxis: Plan: lovenox 30mg daily Plan: - awaiting placement. CM working on this. Medically stable x days Admission and Anticipated Discharge Date Admission Date: February 05, 2021 Subjective Patient seen on daily rounds today. Nursing voices no complaints or concerns. Patient has not had any agitation or combative behavior Physical Exam Physical Exam: Limited exam General: Resting comfortably in her hospital bed. Does not appear ill or toxic. In no acute distress HEENT: Head is AT/NC buccal mucosa is moist and pink Neck: No JVD. Negative hepatojugular reflex Cardiac: RRR with 1/6 to 2/6 LINDA Lungs: CTA without W/R/R Abdomen: Normoactive X4. Soft and nontender in all quadrants. Extremities: No peripheral clubbing cyanosis or edema Neuro:mumbling in foreign language. Skin: No obvious skin lesions or rashes Psych:limited cooperation Results & Data Results & Data ([facility]) Vital Signs (Past 12 Hours) Vital Signs Temp Pulse Resp BP BP Pulse Ox 03/12/21 15:34 36.6 C 78 20 114/72 94 03/12/21 08:05 36.4 C L 60 18 130/85 94 Diagnostic Findings No lab data PG Care Time/CCT Total # of Minutes Spent Total Time Spent with Patient: Total time spent is greater than 50% in coordination of care (as documented) at patient's floor/unit and/or counseling patient: Coding Level of Care Code 02288 Subseq Hosp Care Lvl 1 Diagnoses Dementia with behavioral disturbance F03.91 Hypernatremia E87.0 Thiamine deficiency E51.9 Agitation R45.1 UTI (urinary tract infection) N39.0 Serum calcium elevated E83.52 Anemia D64.9 Hypercholesterolemia E78.00 Benign essential hypertension I10 Acute kidney injury superimposed on CKD N17.9; N18.9 Afib I48.91 Hypokalemia E87.6 DVT prophylaxis Z29.9
[2021-03-12] MEDS ORDERED: SODIUM CHLORIDE 0.9% 1000ML 500 ML IV ONE (22:32)
[2021-03-13] MEDS: THIAMINE HCL 100 MG TAB PO SCH ×2 (08:33→21:20)
--- NOTE | 2021-03-13 18:49 | Hospitalist Progress Note ---
Date of Service March 13, 2021 Assessment & Plan (1) Failure to thrive: Plan: Patient has remained in house X 36 days awaiting placement Her oral intake has been slowly declining Since removal of Funez catheter, her urinary output is also decreasing We will hold off on IV fluids as well pretty much just put a Band-Aid on a problem that we cannot fix meaning we can correct her dehydration with IV fluids; however, once IV hydration stopped she will just become more dehydrated given the lack of oral intake We will start boost supplementation Patient would be appropriate for hospice for end-stage dementia. Her failure to thrive is likely a result of her end-stage and progressive dementia I did attempt to call her daughter Keisha to discuss potential hospice referral but she did not answer (2) Dementia with behavioral disturbance: Plan: Disposition: needs 24-hour care, thus SNF post-discharge. placement pending. Social work has spoken to family and Cynthia Gonzalez also spoke with family. Consent obtained from family for Covid vaccination, as documented. Covid vaccination J&J given 03/09: asset coordinator and CM working on placement.Was looking into [place] [facility] facility near [place]; however, however not needed as speech can not be deciphered even by data assistant (must be nonsensical in foreign language) Dementia Continue trazodone Continue Aricept Risperdal as needed as needed Was having increased behaviors prior to this hospitalization but no increased behaviors noted per staff (3) Hypernatremia: Plan: Intermittent, resolves with improved oral intake. Suspect 2/2 volume contraction Encourage p.o. as tolerated Added boost supplement - will trend labs weekly while in house (4) Thiamine deficiency: Plan: Thiamine previously undetectable Continue thiamine 200 mg p.o. twice daily x30 days (started 02/22) B12 normal (5) Agitation: Plan: intermittent agitation but largely controlled (6) UTI (urinary tract infection): Plan: completed antibiotics for uncomplicated/pansensitive (e.coli) UTI. Likely not playing a role (7) Serum calcium elevated: Plan: likely due to HCTZ use HCTZ discontinued calcium normal BPs have been normal w/o the HCTZ would avoid given lack of oral intake and risk for further dehydration (8) Anemia: Plan: - 2nd to Fe deficiency. - Iron 34, TIBC 348, Transferrin 273, trans % sat 9, ferritin 12.9. - Venofer 300mg x3 doses while here. - B12/folate wnl - poor candidate for endoscopic eval given advanced age and advanced dementia - would not pursue - repeat ferritin level 323 (had been 12) - no further venofer for now - fu CBC improved H/H. ?element of ACD (9) Hypercholesterolemia: Plan: continued upfront but with progressing dementia and associated failure to thrive along with advanced age-- unlikely to provide any benefit--> will stop this (10) Benign essential hypertension: Plan: BPs adequate. Metoprolol resumed. holding HCTZ and torsemide--> BP 107/75 (11) Acute kidney injury superimposed on CKD: Plan: Cr 1.6 on admit Cr normalized with IVF -- CHRISTINA resolved (likely to reoccur with decreased oral intake on account of advanced dementia) started on nutritional supplement ? spot checks but again, progressive decline while in house. Would be appropriate for hospice. Attempted to call the daughter to have this discussion but she did not answer. (12) Afib: Plan: -noted on 1 EKG - no a.fib on tele since then - Metoprolol resumed - very poor candidate for anticoagulation (given fall and bleeding risk) (13) Hypokalemia: Plan: replaced and resolved. No need for chronic supplementation given di scontinuation of HCTZ/triamterene and triamterene (14) DVT prophylaxis: Plan: lovenox 30mg daily Plan: - awaiting placement. CM working on this. Medically stable x days -03/13: Meds fell off EMAR given length of stay. Called pharmacy who will addre ss Admission and Anticipated Discharge Date Admission Date: February 05, 2021 Subjective Patient seen on daily rounds today. Mostly nonverbal. Does occasionally speak in foreign language but apparently nonsensical per data assistant. Nurse concerned because patient has not had any incontinence or urinary output. Her oral intake is minimal at best. Bladder scan was done showing 150 cc residual. Review of Systems Review of Systems: unobtainable Physical Exam Physical Exam: limited General: Resting comfortably in her hospital bed. Does not appear ill or toxic. In no acute distress. sleeping when occasionally opens eyes HEENT: Head is AT/NC buccal mucosa dry Neck: No JVD. Negative hepatojugular reflex Cardiac: RRR with 1/6 to 2/6 LINDA Lungs: CTA without W/R/R Abdomen: Normoactive X4. Soft and nontender in all quadrants. Extremities: No peripheral clubbing cyanosis or edema Neuro:mumbling in foreign language. Skin: No obvious skin lesions or rashes Psych:limited cooperation Results & Data Results & Data ([facility]) Vital Signs (Past 12 Hours) Vital Signs Temp Pulse Resp BP Pulse Ox 03/13/21 16:23 36.7 C 70 16 116/75 95 03/13/21 07:34 36.3 C L 69 16 123/64 93 Laboratory Results 03/08/21 06:13 03/08/21 06:13 PG Care Time/CCT Total # of Minutes Spent Total Time Spent with Patient: Total time spent is greater than 50% in coordination of care (as documented) at patient's floor/unit and/or counseling patient: Coding Level of Care Code 69788 Subseq Hosp Care Lvl 1 Diagnoses Dementia with behavioral disturbance F03.91 Hypernatremia E87.0 Thiamine deficiency E51.9 Agitation R45.1 UTI (urinary tract infection) N39.0 Serum calcium elevated E83.52 Anemia D64.9 Hypercholesterolemia E78.00 Benign essential hypertension I10 Acute kidney injury superimposed on CKD N17.9; N18.9 Afib I48.91 Hypokalemia E87.6 DVT prophylaxis Z29.9 Failure to thrive
[2021-03-13] MEDS: DOCUSATE SODIUM/SENNA 50/8.6MG TAB PO SCH ×2 (19:24→19:28)
[2021-03-13] MEDS: ENOXAPARIN INJ 30 MG/0.3 ML SYR SQ SCH ×4 (19:24→19:31)
[2021-03-13] MEDS: DONEPEZIL HCL 5 MG TAB PO SCH ×5 (19:24→21:20)
[2021-03-13] MEDS: POLYETHYLENE (MIRALAX) 17 GM PACK PO SCH ×2 (19:25→19:28)
[2021-03-13] MEDS: traZODone HCL 50 MG TAB PO SCH ×5 (19:25→21:20)
[2021-03-13] MEDS: METOPROLOL TARTRATE 25 MG TAB PO SCH (21:20)
[2021-03-14] MEDS: POLYETHYLENE (MIRALAX) 17 GM PACK PO SCH (10:01)
[2021-03-14] MEDS: METOPROLOL TARTRATE 25 MG TAB PO SCH ×2 (10:01→20:34)
[2021-03-14] MEDS: DOCUSATE SODIUM/SENNA 50/8.6MG TAB PO SCH (10:01)
[2021-03-14] MEDS: THIAMINE HCL 100 MG TAB PO SCH ×2 (10:02→20:34)
[2021-03-14] MEDS: ENOXAPARIN INJ 30 MG/0.3 ML SYR SQ SCH (10:02)
--- NOTE | 2021-03-14 11:07 | Hospitalist Progress Note ---
Date of Service March 14, 2021 Assessment & Plan (1) Failure to thrive: Plan: Patient has remained in house X 36 days awaiting placement Her oral intake has been slowly declining Since removal of Funez catheter, her urinary output is also decreasing We will hold off on IV fluids at this time as this would only be a temporary fix We will start boost supplementation Patient would be appropriate for hospice for end-stage dementia. Her failure to thrive is likely a result of her end-stage and progressive dementia I did attempt to call her daughter Keisha to discuss potential hospice referral but she did not answer; contacted granddaughter, Patricia, she will communicate with her parents concerning her grandmother's decline (2) Dementia with behavioral disturbance: Plan: Disposition: needs 24-hour care, thus SNF post-discharge. placement pending. Social work has spoken to family and Cynthia Gonzalez also spoke with family. Consent obtained from family for Covid vaccination, as documented. Covid vaccination J&J given 03/09: distribution coordinator and CM working on placement.Was looking into [place] [facility] facility near [place]; however, however not needed as speech can not be deciphered even by food beverage attendant (must be nonsensical in foreign language) Dementia Continue trazodone Continue Aricept Risperdal as needed as needed Was having increased behaviors prior to this hospitalization but no increased behaviors noted per staff (3) Hypernatremia: Plan: Intermittent, resolves with improved oral intake. Suspect 2/2 volume contraction Encourage p.o. as tolerated Added boost supplement - will trend labs weekly while in house (4) Thiamine deficiency: Plan: Thiamine previously undetectable Continue thiamine 200 mg p.o. twice daily x30 days (started 02/22) B12 normal (5) Agitation: Plan: -intermittent agitation but largely controlled (6) UTI (urinary tract infection): Plan: -completed antibiotics for uncomplicated/pansensitive (e.coli) UTI. Likely not playing a role (7) Serum calcium elevated: Plan: -likely due to HCTZ use -HCTZ discontinued -calcium normal -BPs have been normal w/o the HCTZ -would avoid given lack of oral intake and risk for further dehydration (8) Anemia: Plan: - 2nd to Fe deficiency. - Iron 34, TIBC 348, Transferrin 273, trans % sat 9, ferritin 12.9. - Venofer 300mg x3 doses while here. - B12/folate wnl - poor candidate for endoscopic eval given advanced age and advanced dementia - would not pursue - repeat ferritin level 323 (had been 12) - no further venofer for now - fu CBC improved H/H. ?element of ACD (9) Hypercholesterolemia: Plan: -continued upfront but with progressing dementia and associated failure to thrive along with advanced age-- unlikely to provide any benefit--> will stop this (10) Benign essential hypertension: Plan: -BPs adequate. Metoprolol resumed. -holding HCTZ and torsemide--> BP 107/75 (11) Acute kidney injury superimposed on CKD: Plan: Cr 1.6 on admit Cr normalized with IVF -- CHRISTINA resolved (likely to reoccur with decreased oral intake on account of advanced dementia) started on nutritional supplement ? spot checks but again, progressive decline while in house. Would be appropriate for hospice. Attempted to call the daughter to have this discussion but she did not answer. (12) Afib: Plan: -noted on 1 EKG - no a.fib on tele since then - Metoprolol resumed - very poor candidate for anticoagulation (given fall and bleeding risk) (13) Hypokalemia: Plan: replaced and resolved. No need for chronic supplementation given discontinuation of HCTZ/triamterene and triamterene (14) DVT prophylaxis: Plan: lovenox 30mg daily Plan: - awaiting placement. CM working on this. Medically stable x days. Contacted family to discuss possible home with hospice. will await return phone call. -03/13: Meds fell off EMAR given length of stay. Called pharmacy who will address Admission and Anticipated Discharge Date Admission Date: February 05, 2021 Subjective Patient seen on daily rounds today. Completely nonverbal/sleeping during my visit. Does appear that she took her medications this morning for nursing staff. Per provider documentation from 03/13: Nurse concerned because patient has not had any incontinence or urinary output. Her oral intake is minimal at best. Bladder scan was done showing 150 cc residual. Review of Systems Review of Systems: unobtainable Physical Exam Physical Exam: GENERAL: 89 elderly frail WF, NAD. LUNGS: Clear to auscultation bilaterally. No accessory muscle use. No W/R/R. CARDIOVASCULAR: Regular rate and rhythm. No M/G/R. No JVD. ABDOMEN: Soft, non-tender and non-distended. No palpable masses. Bowel sounds normoactive x 4 quad. EXTREMITIES: No edema. Non-tender. Peripheral pulses +2/4. NEUROLOGIC: sleeping, did not awaken or open eyes during my visit. SKIN: No rashes or lesions. Results & Data Results & Data ([facility]) Vital Signs (Past 12 Hours) Vital Signs Temp Pulse Resp BP Pulse Ox 03/14/21 07:33 36.6 C 62 16 118/73 93 PG Care Time/CCT Total # of Minutes Spent Total Time Spent with Patient: Total time spent is greater than 50% in coordination of care (as documented) at patient's floor/unit and/or counseling patient: Coding Level of Care Code 11664 Subseq Hosp Care Lvl 2 Diagnoses Failure to thrive Dementia with behavioral disturbance F03.91 Hypernatremia E87.0 Thiamine deficiency E51.9 Agitation R45.1 UTI (urinary tract infection) N39.0 Serum calcium elevated E83.52 Anemia D64.9 Hypercholesterolemia E78.00 Benign essential hypertension I10 Acute kidney injury superimposed on CKD N17.9; N18.9 Afib I48.91 Hypokalemia E87.6 DVT prophylaxis Z29.9
--- NOTE | 2021-03-14 14:26 | Communication Note ---
Date of Service: March 14, 2021 Per RN, pt still has not voided yet today. Requested that she be bladder scanned, RN informed pt had 742 mL present in bladder. I ordered for a jean baptiste to be placed, ordered UA with culture if UA + as well as AM labs. Will change billing for today's visit from a 1 to level 2 subsequent visit.
[2021-03-14 15:23] LABS: Appearance Urine Turbid (Clear); Bacteria Urine Automated 4+ (Negative); Bilirubin Urine Negative (Negative); Blood Urine 2+ (Negative); Color Urine Dark Yellow; Epithelial Cell Urine Auto >30 /lpf (0-5); Glucose Urine UA Negative (Negative); Ketones Urine Negative (Negative); Leukocyte Esterase Urine 3+ (Negative); Nitrite Urine Positive (Negative); Protein Urine 1+ (Negative); Specific Gravity Urine 1.016 (1.000-1.030); Urobilinogen Urine Negative (Negative); WBC Urine Automated >30 /hpf (0-5); pH Urine 5.5 (4.5-7.5)
[2021-03-14 15:47] LABS: Cast Urine Automated 0 /lpf (0-5)
[2021-03-14] MEDS: cefTRIAXone SODIUM 1,000 MG in DEXTROSE 5% 50 ML IV SCH (18:11)
[2021-03-14] MEDS: DONEPEZIL HCL 5 MG TAB PO SCH (20:34)
[2021-03-14] MEDS: traZODone HCL 50 MG TAB PO SCH (20:34)
[2021-03-15 05:57] LABS: Basophils # (auto) 0.01 K/uL (0-0.2); Basophils % (auto) 0.2 %; Eosinophils # (auto) 0.08 K/uL (0-0.5); Eosinophils % (auto) 1.4 %; Hematocrit (blood only) 36.8 % (37-47); Immature Granulocytes # (auto) 0.01 K/uL (0.00-0.02); Immature Granulocytes % (auto) 0.2 %; Lymphocytes % (auto) 38.9 %; Mean Corpuscular Hemoglobin 24.8 pg (25-34); Mean Corpuscular Hgb Conc 29.9 g/dL (32-36); Mean Corpuscular Volume 82.9 fL (80-100); Mean Platelet Volume 9.2 fL (7.4-10.4); Monocytes # (auto) 0.58 K/uL (0.11-0.59); Monocytes % (auto) 9.8 %; Neutrophils # (auto) 2.94 K/uL (1.4-6.5); Neutrophils % (auto) 49.5 %; Platelet Count 223 K/uL (130-400); Red Blood Count 4.44 M/uL (4.2-5.4); White Blood Count 5.92 K/uL (4.8-10.8)
[2021-03-15 06:15] LABS: BUN Creatinine Ratio 20.3 (10-20); Creatinine Clr Calc Pharmacy 44.4 ml/min; Est GFR (African American) 87.5 ml/min; Est GFR (Non-African American) 75.5 ml/min; Potassium 4.2 mmol/L (3.5-5.1)
[2021-03-15 06:32] LABS: Echinocytes 1+
[2021-03-15] MEDS: METOPROLOL TARTRATE 25 MG TAB PO SCH ×2 (09:17→20:26)
[2021-03-15] MEDS: cefTRIAXone SODIUM 1,000 MG in DEXTROSE 5% 50 ML IV SCH (09:17)
[2021-03-15] MEDS: THIAMINE HCL 100 MG TAB PO SCH ×2 (09:18→20:26)
[2021-03-15] MEDS: DOCUSATE SODIUM/SENNA 50/8.6MG TAB PO SCH (09:18)
[2021-03-15] MEDS: ENOXAPARIN INJ 30 MG/0.3 ML SYR SQ SCH (09:18)
[2021-03-15] MEDS: POLYETHYLENE (MIRALAX) 17 GM PACK PO SCH (10:52)
--- NOTE | 2021-03-15 17:47 | Hospitalist Progress Note ---
Date of Service March 15, 2021 Assessment & Plan (1) Failure to thrive: Plan: Patient has remained in house X 38 days and is awaiting placement Her oral intake has been slowly declining Since removal of Funez catheter, her urinary output is also decreasing We will hold off on IV fluids at this time as this would only be a temporary fix We will start boost supplementation Patient would be appropriate for hospice for end-stage dementia. Her failure to thrive is likely a result of her end-stage and progressive dementia JONA Calderon attempt to call her daughter Keisha to discuss potential hospice referral but she did not answer; contacted granddaughter, Patricia, she will communicate with her parents concerning her grandmother's decline (2) Dementia with behavioral disturbance: Plan: Disposition: needs 24-hour care, thus SNF post-discharge. placement pending. Social work has spoken to family and Cynthia Gonzalez also spoke with family. Consent obtained from family for Covid vaccination, as documented. Covid vaccination J&J given 03/09: record center coordinator and CM working on placement.Was looking into [place] [facility] facility near [place]; however, however not needed as speech can not be deciphered even by asl interpreter (must be nonsensical in foreign language) Dementia Continue trazodone Continue Aricept Risperdal as needed as needed Was having increased behaviors prior to this hospitalization but no increased behaviors noted per staff (3) Hypernatremia: Plan: Intermittent, resolves with improved oral intake. Suspect 2/2 volume contraction Encourage p.o. as tolerated Added boost supplement - will trend labs weekly while in house (4) Thiamine deficiency: Plan: Thiamine previously undetectable Continue thiamine 200 mg p.o. twice daily x30 days (started 02/22) B12 normal (5) Agitation: Plan: -intermittent agitation but largely controlled No evidence of agitation today. (6) UTI (urinary tract infection): Plan: -completed antibiotics for uncomplicated/pansensitive (e.coli) UTI. Likely not playing a role (7) Serum calcium elevated: Plan: -likely due to HCTZ use -HCTZ discontinued -calcium normal -BPs have been normal w/o the HCTZ -would avoid given lack of oral intake and risk for further dehydration (8) Anemia: Plan: - 2nd to Fe deficiency. - Iron 34, TIBC 348, Transferrin 273, trans % sat 9, ferritin 12.9. - Venofer 300mg x3 doses while here. - B12/folate wnl - poor candidate for endoscopic eval given advanced age and advanced dementia - would not pursue - repeat ferritin level 323 (had been 12) - no further venofer for now - fu CBC improved H/H. ?element of ACD (9) Hypercholesterolemia: Plan: -continued upfront but with progressing dementia and associated failure to thrive along with advanced age-- unlikely to provide any benefit--> will stop this (10) Benign essential hypertension: Plan: -BPs adequate. Metoprolol resumed. -holding HCTZ and torsemide--> BP 107/75 (11) Acute kidney injury superimposed on CKD: Plan: Cr 1.6 on admit Cr normalized with IVF -- CHRISTINA resolved (likely to reoccur with decreased oral intake on account of advanced dementia) started on nutritional supplement ? spot checks but again, progressive decline while in house. Would be appropriate for hospice. Attempted to call the daughter to have this discussion but she did not answer. (12) Afib: Plan: -noted on 1 EKG - no a.fib on tele since then - Metoprolol resumed - very poor candidate for anticoagulation (given fall and bleeding risk) (13) Hypokalemia: Plan: replaced and resolved. No need for chronic supplementation given discontinuation of HCTZ/triamterene and triamterene (14) DVT prophylaxis: Plan: lovenox 30mg daily Plan: - awaiting placement. CM working on this. Medically stable x days. Contacted azul aramis to discuss possible home with hospice. will await return phone call. -03/13: Meds fell off EMAR given length of stay. Called pharmacy who will address Admission and Anticipated Discharge Date Admission Date: February 05, 2021 Subjective Attending: Dr. Banuelos Patient seen and examined in room 387. She is nonverbal. She does speak Green[place]ic as her primary language is sounds like. She was not responding but would make eye contact. She tracks with her eyes. Review of chart shows that this is similar to previous presentations. Last CT scan of the head was 02/05/2021 for similar symptoms with no acute intracranial abnormality. She is moving all 4 limbs. She has no facial droop. She has no asymmetry of her pupils. I do not think that this is a stroke or other acute etiology. On the contrary, I think that this is probably her baseline per review of other notes. Electrolytes are balanced. Other labs are stable. Review of Systems Review of Systems: Unobtainable due to cognitive status Physical Exam Physical Exam: GENERAL : No acute distress. Patient nonresponsive. EYES: No icterus, gaze conjugate. Pupils equal round and reactive to light. Patient tracks with pupils. NOSE: No evidence of epistaxis MOUTH: No lesions or candidiasis. No facial droop NECK: Supple LUNGS: CTA B/L, no wheezes, rales or rhonchi HEART: Regular, rate controlled ABDOMEN: Soft, NT, ND, BS Present EXTREMITIES: No LE edema, pedal pulses intact. Patient moves all 4 extremities. NEURO: Awake and alert. Nonverbal. Moves all 4 limbs. Does not follow commands. Does respond to verbal stimuli as well as painful stimuli. Results & Data Results & Data ([facility]) Vital Signs (Past 12 Hours) Vital Signs Temp Pulse Resp BP Pulse Ox 03/15/21 15:43 36.4 C L 63 18 99/46 L 95 Laboratory Results 03/15/21 05:36 03/15/21 05:36 PG Care Time/CCT Total # of Minutes Spent Total Time Spent with Patient: Total time spent is greater than 50% in coordination of care (as documented) at patient's floor/unit and/or counseling patient: 15 minutes Coding Level of Care Code 39397 Subseq Hosp Care Lvl 1 Diagnoses Failure to thrive Dementia with behavioral disturbance F03.91 Hypernatremia E87.0 Thiamine deficiency E51.9 Agitation R45.1 UTI (urinary tract infection) N39.0 Serum calcium elevated E83.52 Anemia D64.9 Hypercholesterolemia E78.00 Benign essential hypertension I10 Acute kidney injury superimposed on CKD N17.9; N18.9 Afib I48.91 Hypokalemia E87.6 DVT prophylaxis Z29.9 Time Spent (min) 15
[2021-03-15] MEDS: DONEPEZIL HCL 5 MG TAB PO SCH (20:25)
[2021-03-15] MEDS: traZODone HCL 50 MG TAB PO SCH (20:26)
[2021-03-16] MEDS: cefTRIAXone SODIUM 1,000 MG in DEXTROSE 5% 50 ML IV SCH (09:24)
[2021-03-16] MEDS: POLYETHYLENE (MIRALAX) 17 GM PACK PO SCH (09:25)
[2021-03-16] MEDS: DOCUSATE SODIUM/SENNA 50/8.6MG TAB PO SCH (09:25)
[2021-03-16] MEDS: THIAMINE HCL 100 MG TAB PO SCH ×2 (09:25→20:08)
[2021-03-16] MEDS: ENOXAPARIN INJ 30 MG/0.3 ML SYR SQ SCH ×2 (09:26→09:42)
[2021-03-16] MEDS: METOPROLOL TARTRATE 25 MG TAB PO SCH ×2 (09:57→20:14)
--- NOTE | 2021-03-16 11:36 | Hospitalist Progress Note ---
Date of Service March 16, 2021 Assessment & Plan (1) UTI (urinary tract infection): Plan: UA grossly positive for infection on 03/14 Empirically started on Rocephin 1g IV daily Urine cx as above, continue treating with Rocephin for minimum of 7 days (complicated) (2) Urinary retention: Plan: Jean Baptiste re-inserted on 03/14 Add Flomax (3) Failure to thrive: Plan: Patient has remained in house >30 days and is awaiting placement Her oral intake has been slowly declining Since removal of Jean Baptiste catheter, her urinary output is also decreasing We will hold off on IV fluids at this time as this would only be a temporary fix We will start boost supplementation Patient would be appropriate for hospice for end-stage dementia. Her failure to thrive is likely a result of her end-stage and progressive dementia I contacted granddaughter, Patricia on 03/14 re: pt's decline, she is to communicate with her parents ?home w/ hospice v SNF (4) Dementia with behavioral disturbance: Plan: Disposition: needs 24-hour care, thus SNF post-discharge. placement pending. Social work has spoken to family and Cynthia Gonzalez also spoke with family. Consent obtained from family for Covid vaccination, as documented. Covid vaccination J&J given 03/09: career development coordinator/teacher and CM working on placement.Was looking into [facility] facility near [place]; however, however not needed as speech can not be deciphered even by brake adjuster (must be nonsensical in foreign language) Dementia Continue trazodone Continue Aricept Risperdal as needed as needed Was having increased behaviors prior to this hospitalization but no increased b ehaviors noted per staff (5) Hypernatremia: Plan: Intermittent, resolves with improved oral intake. Suspect 2/2 volume contraction Encourage p.o. as tolerated Added boost supplement Labs on 03/15 reviewed, Na WNL (6) Thiamine deficiency: Plan: Thiamine previously undetectable Continue thiamine 200 mg p.o. twice daily x30 days (started 02/22) B12 normal (7) Agitation: Plan: intermittent agitation but largely controlled (8) Serum calcium elevated: Plan: likely due to HCTZ use HCTZ discontinued calcium normal BPs have been normal w/o the HCTZ would avoid given lack of oral intake and risk for further dehydration (9) Anemia: Plan: 2nd to Fe deficiency. Iron 34, TIBC 348, Transferrin 273, trans % sat 9, ferritin 12.9. Venofer 300mg x3 doses while here. B12/folate wnl poor candidate for endoscopic eval given advanced age and advanced dementia would not pursue repeat ferritin level 323 (had been 12) no further venofer for now fu CBC improved H/H. ?element of ACD (10) Hypercholesterolemia: Plan: continued upfront but with progressing dementia and associated failure to thrive along with advanced age-- unlikely to provide any benefit--> subsequently discontinued (11) Benign essential hypertension: Plan: BPs adequate. Metoprolol resumed. Stopped HCTZ and torsemide (12) Acute kidney injury superimposed on CKD: Plan: Cr 1.6 on admit Cr normalized with IVF -- CHRISTINA resolved (likely to reoccur with decreased oral intake on account of advanced dementia) started on nutritional supplement spot checks but again, progressive decline while in house. Would be appropriate for hospice. Attempted to call the daughter to have this discussion but she did not answer. (13) Afib: Plan: noted on 1 EKG no a.fib on tele since then Metoprolol resumed very poor candidate for anticoagulation (given fall and bleeding risk) (14) Hypokalemia: Plan: replaced and resolved. No need for chronic supplementation given discontinuation of HCTZ/triamterene and triamterene (15) DVT prophylaxis: Plan: lovenox 30mg daily Plan: - awaiting placement. CM working on this. Medically stable x days. Contacted family to discuss possible home with hospice. will await return phone call. -03/13: Meds fell off EMAR given length of stay. Called pharmacy who will address Admission and Anticipated Discharge Date Admission Date: February 05, 2021 Subjective Pt seen on rounds this morning. She's awake and mumbling nonsensically. Given her advanced dementia effective communication is not feasible and is further limited by her language barrier. Pt seen on 03/14, had not voided in several hours, bladder scanned for >700 cc of residual in bladder, jean baptiste placed and urine sent for testing. UA grossly infected, pt started on Rocephin 1g daily. Review of Systems 2 Review of Systems: unobtainable due to cognitive impairment Physical Exam Physical Exam: GENERAL: 89 elderly frail WF, NAD. LUNGS: Clear to auscultation bilaterally. No accessory muscle use. No W/R/R. CARDIOVASCULAR: Regular rate and rhythm. No M/G/R. No JVD. ABDOMEN: Soft, non-tender and non-distended. No palpable masses. Bowel sounds normoactive x 4 quad. EXTREMITIES: No edema. Non-tender. Peripheral pulses +2/4. NEUROLOGIC: Opens eyes but nonsensical speech and does not follow commands. SKIN: No rashes or lesions. Results & Data Results & Data ([facility]) Vital Signs (Past 12 Hours) Vital Signs Temp Pulse Resp BP Pulse Ox 03/16/21 09:57 58 L 99/59 L 93 03/16/21 07:21 36.7 C 93 H 16 106/58 L 91 Laboratory Results Spec: [id number] Collected: 03/14/21 Received: 03/14/[address]: Sandra Calderon, PASophiaC Copy To: Nguyen Serrano D.OAmandeep Source: Urine,Straight Cath OV Order: Ordered: Urine Culture Procedure Result Verified Site Urine Culture Final 03/16/21 Organism 1 Proteus mirabilis [place] Count >100,000 CFU/ml Sens Sensitivities to Follow +Mix Urine Plus Low Counts of Other Mixed Marta P mirabili RX M.I.C. --- --------- Amox/Clav S <=8/4 Ampicillin R >16 Amp/Sul I 16/8 Cefazolin S 16 Cefepime S <=2 Ceftriaxone S <=1 Ciprofloxacin S <=0.25 Ertapenem S <=0.5 Gentamicin R >8 Levofloxacin S <=0.5 Meropenem S <=1 Tobramycin I 8 Trimeth/Sulfa R >2/38 Pip/Tazo S <=16 S = SENSITIVE I = INTERMEDIATE R = RESISTANT PG Care Time/CCT Total # of Minutes Spent Total Time Spent with Patient: Total time spent is greater than 50% in coordination of care (as documented) at patient's floor/unit and/or counseling patient: Coding Level of Care Code 27555 Subseq Hosp Care Lvl 2 Diagnoses Failure to thrive Dementia with behavioral disturbance F03.91 Hypernatremia E87.0 Thiamine deficiency E51.9 Agitation R45.1 UTI (urinary tract infection) N39.0 Serum calcium elevated E83.52 Anemia D64.9 Hypercholesterolemia E78.00 Benign essential hypertension I10 Acute kidney injury superimposed on CKD N17.9; N18.9 Afib I48.91 Hypokalemia E87.6 DVT prophylaxis Z29.9 Urinary retention R33.9
[2021-03-16] MEDS: DONEPEZIL HCL 5 MG TAB PO SCH (20:08)
[2021-03-16] MEDS: traZODone HCL 50 MG TAB PO SCH (20:08)
[2021-03-17] MEDS ORDERED: MELATONIN 3 MG TAB PO ONE (00:18)
[2021-03-17] MEDS: MELATONIN 3 MG TAB PO PRN (00:21)
--- NOTE | 2021-03-17 08:19 | Hospitalist Progress Note ---
Date of Service March 17, 2021 Assessment & Plan (1) UTI (urinary tract infection): Plan: UA grossly positive for infection on 03/14 Empirically started on Rocephin 1g IV daily Urine cx as above, continue treating with Rocephin for minimum of 7 days (complicated) (2) Urinary retention: Plan: Funez re-inserted on 03/14 Add Flomax (3) Failure to thrive: Plan: Patient has remained in house >30 days and is awaiting placement Her oral intake has been slowly declining Decreased urine output We will hold off on IV fluids at this time as this would only be a temporary fix We will start boost supplementation Patient would be appropriate for hospice for end-stage dementia. Her failure to thrive is likely a result of her end-stage and progressive dementia I contacted granddaughter, Patricia on 03/14 re: pt's decline, she is to communicate with her parents ?home w/ hospice v SNF Called Patricia again 03/17 AM 2x w/ no answer. CM got ahold of her and she stated she was working and it would be better to contact after 3pm. (4) Dementia with behavioral disturbance: Plan: Disposition: needs 24-hour care, thus SNF post-discharge. placement pending. Social work has spoken to family and Cynthia Hahn also spoke with family. Consent obtained from family for Covid vaccination, as documented. Covid vaccination J&J given 03/09: study abroad coordinator and CM working on placement.Was looking into [place] [facility] facility near [place]; however, however not needed as speech can not be deciphered even by cigarette vendor (must be nonsensical in foreign language) Dementia Continue trazodone Continue Aricept Risperdal as needed as needed Was having increased behaviors prior to this hospitalization but no increased behaviors noted per staff (5) Hypernatremia: Plan: Intermittent, resolves with improved oral intake. Suspect 2/2 volume contraction Encourage p.o. as tolerated Added boost supplement Labs on 03/15 reviewed, Na WNL (6) Thiamine deficiency: Plan: Thiamine previously undetectable Continue thiamine 200 mg p.o. twice daily x30 days (started 02/22) B12 normal (7) Agitation: Plan: intermittent agitation but largely controlled (8) Serum calcium elevated: Plan: likely due to HCTZ use HCTZ discontinued calcium normal BPs have been normal w/o the HCTZ would avoid given lack of oral intake and risk for further dehydration (9) Anemia: Plan: 2nd to Fe deficiency. Iron 34, TIBC 348, Transferrin 273, trans % sat 9, ferritin 12.9. Venofer 300mg x3 doses while here. B12/folate wnl poor candidate for endoscopic eval given advanced age and advanced dementia would not pursue repeat ferritin level 323 (had been 12) no further venofer for now fu CBC improved H/H. ?element of ACD (10) Hypercholesterolemia: Plan: continued upfront but with progressing dementia and associated failure to thrive along with advanced age-- unlikely to provide any benefit--> subsequently discontinued (11) Benign essential hypertension: Plan: BPs adequate. Metoprolol resumed. Stopped HCTZ and torsemide (12) Acute kidney injury superimposed on CKD: Plan: Cr 1.6 on admit Cr normalized with IVF -- CHRISTINA resolved (likely to reoccur with decreased oral intake on account of advanced dementia) started on nutritional supplement spot checks but again, progressive decline while in house. Would be appropriate for hospice. Attempted to call the daughter to have this discussion but she did not answer. (13) Afib: Plan: noted on 1 EKG no a.fib on tele since then Metoprolol resumed very poor candidate for anticoagulation (given fall and bleeding risk) (14) Hypokalemia: Plan: replaced and resolved. No need for chronic supplementation given discontinuation of HCTZ/triamterene and triamterene (15) DVT prophylaxis: Plan: lovenox 30mg daily Plan: awaiting placement. CM working on this. Medically stable x several days. Contacted family to discuss possible home with hospice. will call back this afternoon to discuss again about de-escalating care v home w/ hospice. Admission and Anticipated Discharge Date Admission Date: February 05, 2021 Subjective Pt seen on rounds this morning. She's awake and mumbling nonsensically. Given her advanced dementia effective communication is not feasible and is further limited by her language barrier. She is currently being treated with Rocephin for an acute UTI. Review of Systems Review of Systems: unobtainable due to cognitive impairment Physical Exam Physical Exam: GENERAL: 89 elderly frail WF, NAD. LUNGS: Clear to auscultation bilaterally. No accessory muscle use. No W/R/R. CARDIOVASCULAR: Regular rate and rhythm. No M/G/R. No JVD. ABDOMEN: Soft, non-tender and non-distended. No palpable masses. BS normal x 4 quad. EXTREMITIES: No edema. Non-tender. Peripheral pulses +2/4. NEUROLOGIC: Opens eyes but nonsensical speech and does not follow commands. SKIN: No rashes or lesions. Results & Data Results & Data ([facility]) Vital Signs (Past 12 Hours) Vital Signs Temp Pulse Resp BP BP Pulse Ox 03/17/21 07:10 36.7 C 62 15 108/59 L 92 03/16/21 22:42 36.8 C 70 17 117/61 94 PG Care Time/CCT Total # of Minutes Spent Total Time Spent with Patient: Total time spent is greater than 50% in coordination of care (as documented) at patient's floor/unit and/or counseling patient: Coding Level of Care Code 15442 Subseq Hosp Care Lvl 1 Diagnoses UTI (urinary tract infection) N39.0 Urinary retention R33.9 Failure to thrive Dementia with behavioral disturbance F03.91 Hypernatremia E87.0 Thiamine deficiency E51.9 Agitation R45.1 Serum calcium elevated E83.52 Anemia D64.9 Hypercholesterolemia E78.00 Benign essential hypertension I10 Acute kidney injury superimposed on CKD N17.9; N18.9 Afib I48.91 Hypokalemia E87.6 DVT prophylaxis Z29.9
[2021-03-17] MEDS: METOPROLOL TARTRATE 25 MG TAB PO SCH ×2 (08:55→21:27)
[2021-03-17] MEDS: ENOXAPARIN INJ 30 MG/0.3 ML SYR SQ SCH (08:55)
[2021-03-17] MEDS: DOCUSATE SODIUM/SENNA 50/8.6MG TAB PO SCH (08:55)
[2021-03-17] MEDS: THIAMINE HCL 100 MG TAB PO SCH ×2 (08:57→21:26)
[2021-03-17] MEDS: POLYETHYLENE (MIRALAX) 17 GM PACK PO SCH (08:57)
[2021-03-17] MEDS: cefTRIAXone SODIUM 1,000 MG in DEXTROSE 5% 50 ML IV SCH (09:30)
[2021-03-17] MEDS: TAMSULOSIN HCL 0.4 MG CAP PO SCH (21:26)
[2021-03-17] MEDS: DONEPEZIL HCL 5 MG TAB PO SCH (21:26)
[2021-03-17] MEDS: traZODone HCL 50 MG TAB PO SCH (21:27)
[2021-03-18] MEDS: cefTRIAXone SODIUM 1,000 MG in DEXTROSE 5% 50 ML IV SCH (07:46)
[2021-03-18] MEDS: ENOXAPARIN INJ 30 MG/0.3 ML SYR SQ SCH (07:46)
[2021-03-18] MEDS: DOCUSATE SODIUM/SENNA 50/8.6MG TAB PO SCH (07:47)
[2021-03-18] MEDS: POLYETHYLENE (MIRALAX) 17 GM PACK PO SCH (07:47)
[2021-03-18] MEDS: METOPROLOL TARTRATE 25 MG TAB PO SCH ×2 (07:47→20:40)
[2021-03-18] MEDS: THIAMINE HCL 100 MG TAB PO SCH ×2 (07:48→20:39)
--- NOTE | 2021-03-18 12:43 | Hospitalist Progress Note ---
Date of Service March 18, 2021 Assessment & Plan (1) UTI (urinary tract infection): Plan: UA grossly positive for infection on 03/14 Empirically started on Rocephin 1g IV daily and will treat for total of 7 days (2) Urinary retention: Plan: Funez re-inserted on 03/14 Added Flomax (3) Failure to thrive: Plan: Patient has remained in house >30 days and is awaiting placement Her oral intake has been slowly declining Decreased urine output We will hold off on IV fluids at this time as this would only be a temporary fi x We will start boost supplementation Patient would be appropriate for hospice for end-stage dementia. Her failure to thrive is likely a result of her end-stage and progressive dementia I contacted granddaughter, Patricia on 03/14 re: pt's decline, she is to communicate with her parents ?home w/ hospice v SNF Called Patricia again 12 AM 2x w/ no answer. CM got ahold of her and she stated she was working and it would be better to contact after 3pm. (4) Dementia with behavioral disturbance: Plan: Disposition: needs 24-hour care, thus SNF post-discharge. placement pending. Social work has spoken to family and Cynthia Gonzalez also spoke with family. Consent obtained from family for Covid vaccination, as documented. Covid vaccination J&J given 03/09: asset management coordinator and CM working on placement.Was looking into [place] [facility] facility near [place]; however, however not needed as speech can not be deciphered even by autocad operator (must be nonsensical in foreign language) Dementia Continue trazodone Continue Aricept Risperdal as needed as needed Was having increased behaviors prior to this hospitalization but no increased behaviors noted per staff (5) Hypernatremia: Plan: Intermittent, resolves with improved oral intake. Suspect 2/2 volume contraction Encourage p.o. as tolerated Added boost supplement Labs on 03/15 reviewed, Na WNL (6) Thiamine deficiency: Plan: Thiamine previously undetectable Continue thiamine 200 mg p.o. twice daily x30 days (started 02/22) B12 normal (7) Agitation: Plan: intermittent agitation but largely controlled (8) Serum calcium elevated: Plan: likely due to HCTZ use HCTZ discontinued calcium normal BPs have been normal w/o the HCTZ would avoid given lack of oral intake and risk for further dehydration (9) Anemia: Plan: 2nd to Fe deficiency. Iron 34, TIBC 348, Transferrin 273, trans % sat 9, ferritin 12.9. Venofer 300mg x3 doses while here. B12/folate wnl poor candidate for endoscopic eval given advanced age and advanced dementia would not pursue repeat ferritin level 323 (had been 12) no further venofer for now fu CBC improved H/H. ?element of ACD (10) Hypercholesterolemia: Plan: continued upfront but with progressing dementia and associated failure to thrive along with advanced age-- unlikely to provide any benefit--> subsequently discontinued (11) Benign essential hypertension: Plan: BPs adequate. Metoprolol resumed. Stopped HCTZ and torsemide (12) Acute kidney injury superimposed on CKD: Plan: Cr 1.6 on admit Cr normalized with IVF -- CHRISTINA resolved (likely to reoccur with decreased oral intake on account of advanced dementia) started on nutritional supplement spot checks but again, progressive decline while in house. Would be appropria te for hospice. (13) Afib: Plan: noted on 1 EKG no a.fib on tele since then Metoprolol resumed very poor candidate for anticoagulation (given fall and bleeding risk) (14) Hypokalemia: Plan: replaced and resolved. No need for chronic supplementation given discontinuation of HCTZ/triamterene and triamterene (15) DVT prophylaxis: Plan: lovenox 30mg daily Plan: awaiting placement. CM working on this. Medically stable x several days. Contacted family to discuss possible home with hospice, spoke with granddaughter Patricia. She is going to communicate with her parents. I will follow back up with her this afternoon to discuss plan moving forward to de-escalate care. She claims that her parents cannot take her home with hospice as her mother is going to be having surgery and her father travels frequently for work. Admission and Anticipated Discharge Date Admission Date: February 05, 2021 Subjective Pt seen on rounds this morning. She's awake and mumbling nonsensically. Given her advanced dementia effective communication is not feasible and is further limited by her language barrier. She is currently being treated with Rocephin for an acute UTI. No issues communicated by RN. Review of Systems Review of Systems: unobtainable due to cognitive impairment Physical Exam Physical Exam: GENERAL: 89 elderly frail WF, NAD. LUNGS: Clear to auscultation bilaterally. No accessory muscle use. No W/R/R. CARDIOVASCULAR: Regular rate and rhythm. No M/G/R. No JVD. ABDOMEN: Soft, non-tender and non-distended. No palpable masses. BS normal x 4 quad. EXTREMITIES: No edema. Non-tender. Peripheral pulses +2/4. NEUROLOGIC: Opens eyes but nonsensical speech and does not follow commands. SKIN: No rashes or lesions. Results & Data Results & Data ([facility]) Vital Signs (Past 12 Hours) Vital Signs Temp Pulse Resp BP Pulse Ox 03/18/21 07:18 36.5 C 59 L 15 106/63 92 PG Care Time/CCT Total # of Minutes Spent Total Time Spent with Patient: Total time spent is greater than 50% in coordination of care (as documented) at patient's floor/unit and/or counseling patient: Coding Level of Care Code 77506 Subseq Hosp Care Lvl 1 Diagnoses UTI (urinary tract infection) N39.0 Urinary retention R33.9 Failure to thrive Dementia with behavioral disturbance F03.91 Hypernatremia E87.0 Thiamine deficiency E51.9 Agitation R45.1 Serum calcium elevated E83.52 Anemia D64.9 Hypercholesterolemia E78.00 Benign essential hypertension I10 Acute kidney injury superimposed on CKD N17.9; N18.9 Afib I48.91 Hypokalemia E87.6 DVT prophylaxis Z29.9
[2021-03-18] MEDS: traZODone HCL 50 MG TAB PO SCH (20:39)
[2021-03-18] MEDS: MELATONIN 3 MG TAB PO PRN (20:39)
[2021-03-18] MEDS: TAMSULOSIN HCL 0.4 MG CAP PO SCH (20:40)
[2021-03-18] MEDS: DONEPEZIL HCL 5 MG TAB PO SCH (20:40)
[2021-03-19] MEDS: DOCUSATE SODIUM/SENNA 50/8.6MG TAB PO SCH (08:35)
[2021-03-19] MEDS: cefTRIAXone SODIUM 1,000 MG in DEXTROSE 5% 50 ML IV SCH (08:35)
[2021-03-19] MEDS: THIAMINE HCL 100 MG TAB PO SCH ×2 (08:36→20:25)
[2021-03-19] MEDS: METOPROLOL TARTRATE 25 MG TAB PO SCH ×2 (08:37→20:25)
[2021-03-19] MEDS: ENOXAPARIN INJ 30 MG/0.3 ML SYR SQ SCH (08:37)
[2021-03-19] MEDS: POLYETHYLENE (MIRALAX) 17 GM PACK PO SCH (08:38)
--- NOTE | 2021-03-19 10:57 | Hospitalist Progress Note ---
Date of Service March 19, 2021 Assessment & Plan (1) UTI (urinary tract infection): Plan: UA grossly positive for infection on 03/14 Empirically started on Rocephin 1g IV daily and will treat for total of 7 days (will complete therapy on 03/20) (2) Urinary retention: Plan: Jean Baptiste re-inserted on 03/14 Added Flomax (3) Failure to thrive: Plan: Patient has remained in house >30 days and is awaiting placement Her oral intake has been slowly declining Decreased urine output We will hold off on IV fluids at this time as this would only be a temporary fix We will start boost supplementation Patient would be appropriate for hospice for end-stage dementia. Her failure to thrive is likely a result of her end-stage and progressive dementia I contacted granddaughter, Patricia on 03/14 re: pt's decline, she is to communicate with her parents ?home w/ hospice v SNF Called Patricia again 03/17 AM 2x w/ no answer. CM got ahold of her and she stated she was working and it would be better to contact after 3pm. (4) Dementia with behavioral disturbance: Plan: Disposition: needs 24-hour care, thus SNF post-discharge. placement pending. Social work has spoken to family and Cynthia Gonzalez also spoke with family. Consent obtained from family for Covid vaccination, as documented. Covid vaccination J&J given 03/09: sales marketing coordinator and CM working on placement.Was looking into [place] Speaking facility near [place]; however, however not needed as speech can not be deciphered even by bond trader (must be nonsensical in foreign language) Dementia Continue trazodone Continue Aricept Risperdal as needed as needed Was having increased behaviors prior to this hospitalization but no increased behaviors noted per staff (5) Hypernatremia: Plan: Intermittent, resolves with improved oral intake. Suspect 2/2 volume contraction Encourage p.o. as tolerated Added boost supplement Labs on 03/15 reviewed, Na WNL (6) Thiamine deficiency: Plan: Thiamine previously undetectable Continue thiamine 200 mg p.o. twice daily x30 days (started 02/22) B12 normal (7) Agitation: Plan: intermittent agitation but largely controlled (8) Serum calcium elevated: Plan: likely due to HCTZ use HCTZ discontinued calcium normal BPs have been normal w/o the HCTZ would avoid given lack of oral intake and risk for further dehydration (9) Anemia: Plan: 2nd to Fe deficiency. Iron 34, TIBC 348, Transferrin 273, trans % sat 9, ferritin 12.9. Venofer 300mg x3 doses while here. B12/folate wnl poor candidate for endoscopic eval given advanced age and advanced dementia would not pursue repeat ferritin level 323 (had been 12) no further venofer for now fu CBC improved H/H. ?element of ACD (10) Hypercholesterolemia: Plan: continued upfront but with progressing dementia and associated failure to thrive along with advanced age-- unlikely to provide any benefit--> subsequently discontinued (11) Benign essential hypertension: Plan: BPs adequate. Metoprolol resumed. Stopped HCTZ and torsemide (12) Acute kidney injury superimposed on CKD: Plan: Cr 1.6 on admit Cr normalized with IVF -- CHRISTINA resolved (likely to reoccur with decreased oral intake on account of advanced dementia) started on nutritional supplement spot checks but again, progressive decline while in house. Would be appropriate for hospice. (13) Afib: Plan: noted on 1 EKG no a.fib on tele since then Metoprolol resumed very poor candidate for anticoagulation (given fall and bleeding risk) (14) Hypokalemia: Plan: replaced and resolved. No need for chronic supplementation given discontinuation of HCTZ/triamterene and triamterene (15) DVT prophylaxis: Plan: lovenox 30mg daily Plan: awaiting placement. CM working on this. Medically stable x several days. Contacted family to discuss possible home with hospice, spoke with granddaughter Patricia. She is going to communicate with her parents. I will follow back up with her this afternoon to discuss plan moving forward to de-escalate care. She claims that her parents cannot take her home with hospice as her mother is going to be having surgery and her father travels frequently for work. 03/19: I attempted to call Patricia after 3pm on 03/18 as she requested and she did not answer. Will attempt to call again today. Admission and Anticipated Discharge Date Admission Date: February 05, 2021 Subjective Pt seen on rounds this morning. She's awake and mumbling nonsensically. Given her advanced dementia effective communication is not feasible and is further limited by her language barrier. She is currently being treated with Rocephin for an acute UTI. No issues communicated by RN. Review of Systems Review of Systems: unobtainable due to cognitive impairment Physical Exam Physical Exam: GENERAL: 89 elderly frail WF, NAD. LUNGS: Clear to auscultation bilaterally. No accessory muscle use. No W/R/R. CARDIOVASCULAR: Regular rate and rhythm. No M/G/R. No JVD. ABDOMEN: Soft, non-tender and non-distended. No palpable masses. BS normal x 4 quad. : jean baptiste EXTREMITIES: No edema. Non-tender. Peripheral pulses +2/4. NEUROLOGIC: awake, pleasantly confused. SKIN: No rashes or lesions. Results & Data Results & Data ([facility]) Vital Signs (Past 12 Hours) Vital Signs Temp Pulse Resp BP Pulse Ox 03/19/21 07:25 36.1 C L 57 L 15 122/71 95 PG Care Time/CCT Total # of Minutes Spent Total Time Spent with Patient: Total time spent is greater than 50% in coordination of care (as documented) at patient's floor/unit and/or counseling patient: Coding Level of Care Code 68140 Subseq Hosp Care Lvl 1 Diagnoses UTI (urinary tract infection) N39.0 Urinary retention R33.9 Failure to thrive Dementia with behavioral disturbance F03.91 Hypernatremia E87.0 Thiamine deficiency E51.9 Agitation R45.1 Serum calcium elevated E83.52 Anemia D64.9 Hypercholesterolemia E78.00 Benign essential hypertension I10 Acute kidney injury superimposed on CKD N17.9; N18.9 Afib I48.91 Hypokalemia E87.6 DVT prophylaxis Z29.9
[2021-03-19] MEDS: MELATONIN 3 MG TAB PO PRN (20:24)
[2021-03-19] MEDS: DONEPEZIL HCL 5 MG TAB PO SCH (20:24)
[2021-03-19] MEDS: TAMSULOSIN HCL 0.4 MG CAP PO SCH (20:24)
[2021-03-19] MEDS: traZODone HCL 50 MG TAB PO SCH (20:27)
[2021-03-20] MEDS: ENOXAPARIN INJ 30 MG/0.3 ML SYR SQ SCH (07:48)
[2021-03-20] MEDS: cefTRIAXone SODIUM 1,000 MG in DEXTROSE 5% 50 ML IV SCH (07:48)
[2021-03-20] MEDS: DOCUSATE SODIUM/SENNA 50/8.6MG TAB PO SCH (07:49)
[2021-03-20] MEDS: THIAMINE HCL 100 MG TAB PO SCH ×2 (07:49→20:31)
[2021-03-20] MEDS: POLYETHYLENE (MIRALAX) 17 GM PACK PO SCH (07:49)
[2021-03-20] MEDS: METOPROLOL TARTRATE 25 MG TAB PO SCH ×2 (07:49→20:31)
--- NOTE | 2021-03-20 11:12 | Hospitalist Progress Note ---
Date of Service March 20, 2021 Assessment & Plan (1) UTI (urinary tract infection): Plan: UA grossly positive for infection on 03/14 On Rocephin 1g IV daily for proteus UTI (pansensitive) x 7 days Completes therapy today (03/20/21) (2) Urinary retention: Plan: Jean Baptiste re-inserted on 03/14 Added Flomax (3) Failure to thrive: Plan: Patient has remained in house >30 days and is awaiting placement Her oral intake has been slowly declining Decreased urine output We will hold off on IV fluids at this time as this would only be a temporary fix We will start boost supplementation Patient would be appropriate for hospice for end-stage dementia. Her failure to thrive is likely a result of her end-stage and progressive dementia I contacted granddaughter, Patricia on 03/14 re: pt's decline, she is to communicate with her parents ?home w/ hospice v SNF I have been calling Patricia for the past 3 days w/o answer. (4) Dementia with behavioral disturbance: Plan: Disposition: needs 24-hour care, thus SNF post-discharge. placement pending. Social work has spoken to family and Cynthia Gonzalez also spoke with family. Consent obtained from family for Covid vaccination, as documented. Covid vaccination J&J given 03/09: material coordinator and CM working on placement.Was looking into [place] [facility] facility near [place]; however, however not needed as speech can not be deciphered even by staff interpreter (must be nonsensical in foreign language) Dementia Continue trazodone Continue Aricept Risperdal as needed as needed Was having increased behaviors prior to this hospitalization but no increased behaviors noted per staff (5) Hypernatremia: Plan: Intermittent, resolves with improved oral intake. Suspect 2/2 volume contraction Encourage p.o. as tolerated Added boost supplement Labs on 03/15 reviewed, Na WNL (6) Thiamine deficiency: Plan: Thiamine previously undetectable Continue thiamine 200 mg p.o. twice daily x30 days (started 02/22) B12 normal (7) Agitation: Plan: intermittent agitation but largely controlled (8) Serum calcium elevated: Plan: likely due to HCTZ use HCTZ discontinued calcium normal BPs have been normal w/o the HCTZ would avoid given lack of oral intake and risk for further dehydration (9) Anemia: Plan: 2nd to Fe deficiency. Iron 34, TIBC 348, Transferrin 273, trans % sat 9, ferritin 12.9. Venofer 300mg x3 doses while here. B12/folate wnl poor candidate for endoscopic eval given advanced age and advanced dementia would not pursue repeat ferritin level 323 (had been 12) no further venofer for now fu CBC improved H/H. ?element of ACD (10) Hypercholesterolemia: Plan: continued upfront but with progressing dementia and associated failure to thrive along with advanced age-- unlikely to provide any benefit--> subsequently discontinued (11) Benign essential hypertension: Plan: BPs adequate. Metoprolol resumed. Stopped HCTZ and torsemide (12) Acute kidney injury superimposed on CKD: Plan: Cr 1.6 on admit Cr normalized with IVF -- CHRISTINA resolved (likely to reoccur with decreased oral intake on account of advanced dementia) started on nutritional supplement spot checks but again, progressive decline while in house. Would be appropriate for hospice. (13) Afib: Plan: noted on 1 EKG no a.fib on tele since then Metoprolol resumed very poor candidate for anticoagulation (given fall and bleeding risk) (14) Hypokalemia: Plan: replaced and resolved. No need for chronic supplementation given discontinuation of HCTZ/triamterene (15) DVT prophylaxis: Plan: lovenox 30mg daily Plan: awaiting placement. CM working on this. Medically stable x several days. Contacted family to discuss possible home with hospice, spoke with granddaughter Patricia. She is going to communicate with her parents. I will follow back up with her this afternoon to discuss plan moving forward to de-escalate care. She claims that her parents cannot take her home with hospice as her mother is going to be having surgery and her father travels frequently for work. 03/19: I attempted to call Patricia after 3pm on 03/18 as she requested and she did not answer. Also attempted to contact 03/19, no answer. Will try again today. Admission and Anticipated Discharge Date Admission Date: February 05, 2021 Subjective Pt seen on rounds this morning. She's currently asleep. Per RN, ate breakfast and then went back to sleep. No issues verbalized. Remains on rx for UTI with Rocephin, today is last dose. Review of Systems Review of Systems: unobtainable due to cognitive impairment Physical Exam Physical Exam: GENERAL: 89 elderly frail WF, NAD. LUNGS: Clear to auscultation bilaterally. No accessory muscle use. No W/R/R. CARDIOVASCULAR: Regular rate and rhythm. No M/G/R. No JVD. ABDOMEN: Soft, non-tender and non-distended. No palpable masses. BS normal x 4 quad. : jean baptiste EXTREMITIES: No edema. Non-tender. Peripheral pulses +2/4. NEUROLOGIC: awake, pleasantly confused. SKIN: No rashes or lesions. Results & Data Results & Data ([facility]) Vital Signs (Past 12 Hours) Vital Signs Temp Pulse Resp BP Pulse Ox 03/20/21 07:00 36.4 C L 71 16 104/63 94 PG Care Time/CCT Total # of Minutes Spent Total Time Spent with Patient: Total time spent is greater than 50% in coordination of care (as documented) at patient's floor/unit and/or counseling patient: Coding Level of Care Code 93349 Subseq Hosp Care Lvl 1 Diagnoses UTI (urinary tract infection) N39.0 Urinary retention R33.9 Failure to thrive Dementia with behavioral disturbance F03.91 Hypernatremia E87.0 Thiamine deficiency E51.9 Agitation R45.1 Serum calcium elevated E83.52 Anemia D64.9 Hypercholesterolemia E78.00 Benign essential hypertension I10 Acute kidney injury superimposed on CKD N17.9; N18.9 Afib I48.91 Hypokalemia E87.6 DVT prophylaxis Z29.9
[2021-03-20] MEDS: DONEPEZIL HCL 5 MG TAB PO SCH (20:31)
[2021-03-20] MEDS: traZODone HCL 50 MG TAB PO SCH (20:31)
[2021-03-20] MEDS: TAMSULOSIN HCL 0.4 MG CAP PO SCH (20:31)
[2021-03-21] MEDS: THIAMINE HCL 100 MG TAB PO SCH ×2 (08:46→21:34)
[2021-03-21] MEDS: METOPROLOL TARTRATE 25 MG TAB PO SCH ×3 (08:46→21:34)
[2021-03-21] MEDS: ENOXAPARIN INJ 30 MG/0.3 ML SYR SQ SCH (08:47)
[2021-03-21] MEDS: POLYETHYLENE (MIRALAX) 17 GM PACK PO SCH (08:47)
[2021-03-21] MEDS: DOCUSATE SODIUM/SENNA 50/8.6MG TAB PO SCH (08:47)
--- NOTE | 2021-03-21 17:41 | Hospitalist Progress Note ---
Date of Service March 21, 2021 Assessment & Plan (1) UTI (urinary tract infection): Plan: UA grossly positive for infection on 03/14 On Rocephin 1g IV daily for proteus UTI (pansensitive) x 7 days and completed on 03/20 (2) Urinary retention: Plan: Funez re-inserted on 03/14 - can consider TOV now that infection is completed but will make sure adequately moving bowels as constipation could contribute to retention Added Flomax (3) Failure to thrive: Plan: Patient has remained in house >30 days and is awaiting placement Her oral intake has been slowly declining; decreased urine output - suspect some could be related to dementia and unfamiliar people/environment We will hold off on IV fluids at this time as this would only be a temporary fix and assist with feeds Can continue boost supplementation Patient would be appropriate for hospice for end-stage dementia. Her failure to thrive is likely a result of her end-stage and progressive dementia Previous provider contacted granddaughter, Patricia on 03/14 re: pt's decline, she is to communicate with her parents about consideration for hospice but has not been able to reach her in past couple days and daughter of patient is Micronesian speaking with minimal Belgian -- However, patient was noted to wander and even on hospice this would not provide around the clock care so inpatient setting may still be warranted (4) Dementia with behavioral disturbance: Plan: Continue trazodone Continue Aricept Was having increased behaviors prior to this hospitalization but no increased behaviors noted per staff -- Did trial Seroquel but caused heavy sedation; had Risperdal PRN but wasn't needed could consider low dose should behavior worsen (5) Hypernatremia: Plan: Intermittent, resolves with improved oral intake. Suspect 2/2 volume contraction Encourage p.o. as tolerated Added boost supplement Labs on 03/15 reviewed, Na WNL - can check labs periodically (6) Thiamine deficiency: Plan: Thiamine previously undetectable Continue thiamine 200 mg p.o. twice daily x30 days (started 02/22) B12 normal (7) Serum calcium elevated: Plan: likely due to HCTZ use HCTZ discontinued calcium normal BPs have been normal w/o the HCTZ would avoid given lack of oral intake and risk for further dehydration (8) Anemia: Plan: 2nd to Fe deficiency. Iron 34, TIBC 348, Transferrin 273, trans % sat 9, ferritin 12.9. Venofer 300mg x3 doses while here. B12/folate wnl poor candidate for endoscopic eval given advanced age and advanced dementia; would not pursue repeat ferritin level 323 (had been 12) no further venofer for now fu CBC improved H/H. ?element of ACD (9) Hypercholesterolemia: Plan: continued upfront but with progressing dementia and associated failure to thrive along with advanced age-- unlikely to provide any benefit--> subsequently discontinued (10) Benign essential hypertension: Plan: BPs adequate. Metoprolol resumed. Stopped HCTZ and torsemide (11) Acute kidney injury superimposed on CKD: Plan: Cr 1.6 on admit Cr normalized with IVF -- CHRISTINA resolved (likely to reoccur with decreased oral intake on account of advanced dementia) started on nutritional supplement spot checks but again, progressive decline while in house. Would be appropriate for hospice. (12) Afib: Plan: noted on 1 EKG no a.fib on tele since then Metoprolol resumed very poor candidate for anticoagulation (given fall and bleeding risk) (13) Hypokalemia: Plan: replaced and resolved. No need for chronic supplementation given discontinuation of HCTZ/triamterene (14) DVT prophylaxis: Plan: lovenox 30mg daily Plan: needs 24-hour care, thus SNF post-discharge. placement pending. Social work has spoken to family and Cynthia Gonzalez also spoke with family. Consent obtained from family for Covid vaccination, as documented. Covid vaccination J&J given 03/09: rehabilitation program coordinator and CM working on placement.Was looking into [place] facility near [place]; however, not needed as speech can not be deciphered even by recovery rn (must be nonsensical in foreign language) Previous provider contacted family to discuss possible home with hospice, spoke with granddaughter Patricia. She is going to communicate with her parents.She claims that her parents cannot take her home with hospice as her mother is going to be having surgery and her father travels frequently for work. As well, patient is noted to wander and was evaluated in ED previously due to this and without 24/7 monitoring she could likely do that again Admission and Anticipated Discharge Date Admission Date: February 05, 2021 Subjective Patient mostly sleeping when stopping in room. Unable to communicate with her as her Micronesian has become incoherent and recovery rn services unable to translate. She looks comfortable in bed. No agitation when I was present Review of Systems Review of Systems: Unobtainable due to cognitive status Physical Exam Physical Exam: PHYSICAL EXAM General Appearance: WDWN in NAD who is mostly sleeping Results & Data Results & Data ([facility]) Vital Signs (Past 12 Hours) Vital Signs Temp Pulse Resp BP Pulse Ox 03/21/21 15:28 36.6 C 80 24 101/52 L 93 03/21/21 07:08 36.8 C 75 24 119/73 95 PG Care Time/CCT Total # of Minutes Spent Total Time Spent with Patient: Total time spent is greater than 50% in coordination of care (as documented) at patient's floor/unit and/or counseling patient: Coding Level of Care Code 80987 Subseq Hosp Care Lvl 1 Diagnoses UTI (urinary tract infection) N39.0 Urinary retention R33.9 Failure to thrive Dementia with behavioral disturbance F03.91 Hypernatremia E87.0 Thiamine deficiency E51.9 Serum calcium elevated E83.52 Anemia D64.9 Hypercholesterolemia E78.00 Benign essential hypertension I10 Acute kidney injury superimposed on CKD N17.9; N18.9 Afib I48.91 Hypokalemia E87.6 DVT prophylaxis Z29.9
[2021-03-21] MEDS: traZODone HCL 50 MG TAB PO SCH (21:34)
[2021-03-21] MEDS: DONEPEZIL HCL 5 MG TAB PO SCH (21:34)
[2021-03-21] MEDS: TAMSULOSIN HCL 0.4 MG CAP PO SCH (21:34)
[2021-03-22] MEDS: DOCUSATE SODIUM/SENNA 50/8.6MG TAB PO SCH (08:20)
[2021-03-22] MEDS: THIAMINE HCL 100 MG TAB PO SCH ×2 (08:20→20:45)
[2021-03-22] MEDS: POLYETHYLENE (MIRALAX) 17 GM PACK PO SCH (08:20)
[2021-03-22] MEDS: METOPROLOL TARTRATE 25 MG TAB PO SCH ×3 (08:20→21:56)
[2021-03-22] MEDS: ENOXAPARIN INJ 30 MG/0.3 ML SYR SQ SCH (08:20)
--- NOTE | 2021-03-22 11:04 | Hospitalist Progress Note ---
Date of Service March 22, 2021 Assessment & Plan (1) UTI (urinary tract infection): Plan: UA grossly positive for infection on 03/14 On Rocephin 1g IV daily for proteus UTI (pansensitive) x 7 days and completed on 03/20 (2) Urinary retention: Plan: Jean Baptiste re-inserted on 03/14 however she self removed on 03/21 with balloon intact - she has since urinated however overall minimal urine output likely due to poor oral intake - Can leave jean baptiste out for now and monitor - no acute abdomen or distress to suggest any perforation with self-removal of cath; Can consider bag of fluid to make sure full urine output however may be at risk for pulling IV as well Added Flomax (3) Failure to thrive: Plan: Patient has remained in house >30 days and is awaiting placement Her oral intake has been slowly declining; decreased urine output - suspect some could be related to dementia and unfamiliar people/environment We will hold off on IV fluids at this time as this would only be a temporary fix and assist with feeds Can continue boost supplementation Patient would be appropriate for hospice for end-stage dementia. Her failure to thrive is likely a result of her end-stage and progressive dementia Previous provider contacted granddaughter, Patricia on 03/14 re: pt's decline, she is to communicate with her parents about consideration for hospice but has not been able to reach her in past couple days and daughter of patient is Romanian speaking with minimal Somali -- However, patient was noted to wander and even on hospice this would not provide around the clock care so inpatient setting may still be warranted (4) Dementia with behavioral disturbance: Plan: Continue trazodone Continue Aricept Was having increased behaviors prior to this hospitalization but no increased behaviors noted per staff -- Did trial Seroquel earlier on but caused heavy sedation; had Risperdal PRN but wasn't needed could consider low dose should behavior worsen (5) Hypernatremia: Plan: Intermittent, resolves with improved oral intake. Suspect 2/2 volume contraction Encourage p.o. as tolerated Added boost supplement Labs on 03/15 reviewed, Amalia WNL - can check labs periodically (6) Thiamine deficiency: Plan: Thiamine previously undetectable Continue thiamine 200 mg p.o. twice daily x30 days (started 02/22) B12 normal (7) Serum calcium elevated: Plan: likely due to HCTZ use HCTZ discontinued calcium normal BPs have been normal w/o the HCTZ would avoid given lack of oral intake and risk for further dehydration (8) Anemia: Plan: 2nd to Fe deficiency. Iron 34, TIBC 348, Transferrin 273, trans % sat 9, ferritin 12.9. Venofer 300mg x3 doses while here. B12/folate wnl poor candidate for endoscopic eval given advanced age and advanced dementia; would not pursue repeat ferritin level 323 (had been 12) no further venofer for now fu CBC improved H/H. ?element of ACD (9) Hypercholesterolemia: Plan: continued upfront but with progressing dementia and associated failure to thrive along with advanced age-- unlikely to provide any benefit--> subsequently discontinued (10) Benign essential hypertension: Plan: BPs adequate. Metoprolol resumed. Stopped HCTZ and torsemide (11) Acute kidney injury superimposed on CKD: Plan: Cr 1.6 on admit Cr normalized with IVF -- CHRISTINA resolved (likely to reoccur with decreased oral intake on account of advanced dementia) started on nutritional supplement spot checks but again, progressive decline while in house. Would be appropriate for hospice. (12) Afib: Plan: noted on 1 EKG no a.fib on tele since then Metoprolol resumed very poor candidate for anticoagulation (given fall and bleeding risk) (13) Hypokalemia: Plan: replaced and resolved. No need for chronic supplementation given discontinuation of HCTZ/triamterene (14) DVT prophylaxis: Plan: lovenox 30mg daily Plan: needs 24-hour care, thus SNF post-discharge. placement pending. Social work has spoken to family and Cynthia Gonzalez also spoke with family. Consent obtained from family for Covid vaccination, as documented. Covid vaccination J&J given 03/09: fieldwork coordinator and CM working on placement.Was looking into [place] Speaking facility near [place]; however, not needed as speech can not be deciphered even by paraprofessional interpreter (must be nonsensical in foreign language) Previous provider contacted family to discuss possible home with hospice, spoke with granddaughter Patricia. She is going to communicate with her parents.She claims that her parents cannot take her home with hospice as her mother is going to be having surgery and her father travels frequently for work. As well, patient is noted to wander and was evaluated in ED previously due to this and without 24/7 monitoring she could likely do that again Will try to discuss with granddaughter Admission and Anticipated Discharge Date Admission Date: February 05, 2021 Subjective Overnight patient removed Jean Baptiste with balloon intact. She has voided since however has had reduced urine output due to poor oral intake. She will intermittently eat/drink for staff. She is singing and kissing her doll baby during my visit. She mumbles words but as previously documented unable to interpret with ipad. Does not appear in distress. No pain when palpating her abdomen. Review of Systems Review of Systems: Unobtainable due to cognitive status Physical Exam Physical Exam: PHYSICAL EXAM General Appearance: frail thin elderly female in NAD who is alert and unable to determine orientation HEENT: Head is normocephalic/atraumatic; Mucous membranes dry Neck: Supple; Trachea midline; Neg JVD Heart: unable to assess as she pushed the stethoscope away Lungs: unable to assess as she pushed the stethoscope away Abdomen: soft; no grimacing or discomfort with palp Neurological: Speech mumbled and uninterpretable; singing to her baby doll Psychiatric: Calm Skin: Normal Color; Warm/Dry Results & Data Results & [facility] ([facility]) Vital Signs (Past 12 Hours) Vital Signs Temp Pulse Resp BP Pulse Ox 03/22/21 07:27 36.7 C 86 16 144/85 H 93 PG Care Time/CCT Total # of Minutes Spent Total Time Spent with Patient: Total time spent is greater than 50% in coordination of care (as documented) at patient's floor/unit and/or counseling patient: Coding Level of Care Code 71061 Subseq Hosp Care Lvl 2 Diagnoses UTI (urinary tract infection) N39.0 Urinary retention R33.9 Failure to thrive Dementia with behavioral disturbance F03.91 Hypernatremia E87.0 Thiamine deficiency E51.9 Serum calcium elevated E83.52 Anemia D64.9 Hypercholesterolemia E78.00 Benign essential hypertension I10 Acute kidney injury superimposed on CKD N17.9; N18.9 Afib I48.91 Hypokalemia E87.6 DVT prophylaxis Z29.9
[2021-03-22] MEDS: DONEPEZIL HCL 5 MG TAB PO SCH ×2 (20:45→21:55)
[2021-03-22] MEDS: TAMSULOSIN HCL 0.4 MG CAP PO SCH (20:45)
[2021-03-22] MEDS: traZODone HCL 50 MG TAB PO SCH ×2 (20:45→21:57)
[2021-03-23] MEDS: THIAMINE HCL 100 MG TAB PO SCH ×2 (08:28→20:25)
[2021-03-23] MEDS: ENOXAPARIN INJ 30 MG/0.3 ML SYR SQ SCH (08:28)
[2021-03-23] MEDS: METOPROLOL TARTRATE 25 MG TAB PO SCH ×2 (08:28→20:25)
[2021-03-23] MEDS: POLYETHYLENE (MIRALAX) 17 GM PACK PO SCH (08:28)
[2021-03-23] MEDS: DOCUSATE SODIUM/SENNA 50/8.6MG TAB PO SCH (08:28)
--- NOTE | 2021-03-23 12:06 | Hospitalist Progress Note ---
Date of Service March 23, 2021 Assessment & Plan (1) UTI (urinary tract infection): Plan: UA grossly positive for infection on 03/14 On Rocephin 1g IV daily for proteus UTI (pansensitive) x 7 days and completed on 03/20 (2) Urinary retention: Plan: Jean Baptiste re-inserted on 03/14 however she self removed on 03/21 with balloon intact - she has since urinated however overall minimal urine output likely due to poor oral intake - Can leave jean baptiste out for now and monitor - no acute abdomen or distress to suggest any perforation with self-removal of cath; Can consider bag of fluid to make sure full urine output however may be at risk for pulling IV as well Added Flomax (3) Failure to thrive: Plan: Patient has remained in house >30 days and is awaiting placement Her oral intake has been slowly declining; decreased urine output - suspect some could be related to dementia and unfamiliar people/environment We will hold off on IV fluids at this time as this would only be a temporary fix and assist with feeds Can continue boost supplementation Patient would be appropriate for hospice for end-stage dementia. Her failure to thrive is likely a result of her end-stage and progressive dementia Previous provider contacted granddaughter, Patricia on 03/14 re: pt's decline, she is to communicate with her parents about consideration for hospice but has not been able to reach her in past couple days and daughter of patient is Nigerien speaking with minimal Sudanese -- However, patient was noted to wander and even on hospice this would not provide around the clock care so inpatient setting may still be warranted (4) Dementia with behavioral disturbance: Plan: Continue trazodone Continue Aricept Was having increased behaviors prior to this hospitalization but no increased behaviors noted per staff -- Did trial Seroquel earlier on but caused heavy sedation; had Risperdal PRN but wasn't needed could consider low dose should behavior worsen (5) Hypernatremia: Plan: Intermittent, resolves with improved oral intake. Suspect 2/2 volume contraction Encourage p.o. as tolerated Added boost supplement Labs on 03/15 reviewed, Amalia WNL - can check labs periodically (6) Thiamine deficiency: Plan: Thiamine previously undetectable Continue thiamine 200 mg p.o. twice daily x30 days (started 02/22) B12 normal (7) Serum calcium elevated: Plan: likely due to HCTZ use HCTZ discontinued calcium normal BPs have been normal w/o the HCTZ would avoid given lack of oral intake and risk for further dehydration (8) Anemia: Plan: 2nd to Fe deficiency. Iron 34, TIBC 348, Transferrin 273, trans % sat 9, ferritin 12.9. Venofer 300mg x3 doses while here. B12/folate wnl poor candidate for endoscopic eval given advanced age and advanced dementia; would not pursue repeat ferritin level 323 (had been 12) no further venofer for now fu CBC improved H/H. ?element of ACD (9) Hypercholesterolemia: Plan: continued upfront but with progressing dementia and associated failure to thrive along with advanced age-- unlikely to provide any benefit--> subsequently discontinued (10) Benign essential hypertension: Plan: BPs adequate. Metoprolol resumed. Stopped HCTZ and torsemide (11) Acute kidney injury superimposed on CKD: Plan: Cr 1.6 on admit Cr normalized with IVF -- CHRISTINA resolved (likely to reoccur with decreased oral intake on account of advanced dementia) started on nutritional supplement spot checks but again, progressive decline while in house. Would be appropriate for hospice. (12) Afib: Plan: noted on 1 EKG no a.fib on tele since then Metoprolol resumed very poor candidate for anticoagulation (given fall and bleeding risk) (13) Hypokalemia: Plan: replaced and resolved. No need for chronic supplementation given discontinuation of HCTZ/triamterene (14) DVT prophylaxis: Plan: lovenox 30mg daily Plan: needs 24-hour care, thus SNF post-discharge. placement pending. Social work has spoken to family and Cynthia Gonzalez also spoke with family. Consent obtained from family for Covid vaccination, as documented. Covid vaccination J&J given 03/09: web content coordinator and CM working on placement.Was looking into [place] Speaking facility near [place]; however, not needed as speech can not be deciphered even by investigations chief (must be nonsensical in foreign language) Previous provider contacted family to discuss possible home with hospice, spoke with granddaughter Patricia. She is going to communicate with her parents.She claims that her parents cannot take her home with hospice as her mother is going to be having surgery and her father travels frequently for work. As well, patient is noted to wander and was evaluated in ED previously due to this and without 24/7 monitoring she could likely do that again Tried to call Patricia on 03/22 but number stated no voicemail set up. Will continue to try Admission and Anticipated Discharge Date Admission Date: February 05, 2021 Subjective No acute events overnight. She was seen into the early evening yesterday as it looked like she was sucking on something in her mouth. Unfortunately due to not being able to communicate with her and her not being able to follow commands we could not get her to open her mouth. Tried to look as she would talk and it is possible it was just her one tooth on the bottom gum but could not see anything directly in the mouth. She would intermittently point into the hallway but do not know what she wanted. She has been refusing her medications. She has been sleeping today on multiple attempts to see her and will try this afternoon. She has voided and has been incontinent. Review of Systems Review of Systems: Unobtainable due to cognitive status Physical Exam Physical Exam: PHYSICAL EXAM General Appearance: frail thin elderly female in NAD who is sleeping HEENT: Head is normocephalic/atraumatic; Mucous membranes dry Neck: Supple; Trachea midline; Neg JVD Results & Data Results & Data ([facility]) Vital Signs (Past 12 Hours) Vital Signs Temp Pulse Resp BP Pulse Ox 03/23/21 07:44 36.1 C L 66 16 136/63 95 PG Care Time/CCT Total # of Minutes Spent Total Time Spent with Patient: Total time spent is greater than 50% in coordination of care (as documented) at patient's floor/unit and/or counseling patient: Coding Level of Care Code 67178 Subseq Hosp Care Lvl 1 Diagnoses UTI (urinary tract infection) N39.0 Urinary retention R33.9 Failure to thrive Dementia with behavioral disturbance F03.91 Hypernatremia E87.0 Thiamine deficiency E51.9 Serum calcium elevated E83.52 Anemia D64.9 Hypercholesterolemia E78.00 Benign essential hypertension I10 Acute kidney injury superimposed on CKD N17.9; N18.9 Afib I48.91 Hypokalemia E87.6 DVT prophylaxis Z29.9
[2021-03-23] MEDS: DONEPEZIL HCL 5 MG TAB PO SCH (20:25)
[2021-03-23] MEDS: traZODone HCL 50 MG TAB PO SCH (20:25)
[2021-03-23] MEDS: TAMSULOSIN HCL 0.4 MG CAP PO SCH (20:25)
[2021-03-24] MEDS: ENOXAPARIN INJ 30 MG/0.3 ML SYR SQ SCH ×2 (08:06→08:09)
[2021-03-24] MEDS: POLYETHYLENE (MIRALAX) 17 GM PACK PO SCH ×3 (08:06→12:34)
[2021-03-24] MEDS: DOCUSATE SODIUM/SENNA 50/8.6MG TAB PO SCH (08:07)
[2021-03-24] MEDS: METOPROLOL TARTRATE 25 MG TAB PO SCH ×2 (08:07→21:24)
--- NOTE | 2021-03-24 10:31 | Hospitalist Progress Note ---
Date of Service March 24, 2021 Assessment & Plan (1) UTI (urinary tract infection): Plan: UA grossly positive for infection on 03/14 On Rocephin 1g IV daily for proteus UTI (pansensitive) x 7 days and completed on 03/20 (2) Urinary retention: Plan: Jean Baptiste re-inserted on 03/14 however she self removed on 03/21 with balloon intact - she has since urinated however overall minimal urine output likely due to poor oral intake but is having some retention. Was straight cathed on 03/23 and may need to re-insert Jean Baptiste however would be at risk for self-removal again - Continue to bladder scan - Can leave jean baptiste out for now and monitor - no acute abdomen or distress to suggest any perforation with self-removal of cath Added Flomax (3) Failure to thrive: Plan: Patient has remained in house >30 days and is awaiting placement Her oral intake has been slowly declining; decreased urine output - suspect some could be related to dementia and unfamiliar people/environment We will hold off on IV fluids at this time as this would only be a temporary fix and assist with feeds Can continue boost supplementation Patient would be appropriate for hospice for end-stage dementia. Her failure to thrive is likely a result of her end-stage and progressive dementia Previous provider contacted granddaughter, Patricia on 03/14 re: pt's decline, she is to communicate with her parents about consideration for hospice but has not been able to reach her in past couple days and daughter of patient is [place] speaking with minimal Setswana -- However, patient was noted to wander and even on hospice this would not provide around the clock care so inpatient setting may still be warranted (4) Dementia with behavioral disturbance: Plan: Continue trazodone Continue Aricept Was having increased behaviors prior to this hospitalization but no increased behaviors noted per staff -- Did trial Seroquel earlier on but caused heavy sedation; had Risperdal PRN but wasn't needed could consider low dose should behavior worsen (5) Hypernatremia: Plan: Intermittent, resolves with improved oral intake. Suspect 2/2 volume contraction Encourage p.o. as tolerated Added boost supplement Labs on 03/15 reviewed, Na WNL - can check labs periodically (6) Thiamine deficiency: Plan: Thiamine previously undetectable Continue thiamine 200 mg p.o. twice daily x30 days (started 02/22) B12 normal (7) Serum calcium elevated: Plan: likely due to HCTZ use HCTZ discontinued calcium normal BPs have been normal w/o the HCTZ would avoid given lack of oral intake and risk for further dehydration (8) Anemia: Plan: 2nd to Fe deficiency. Iron 34, TIBC 348, Transferrin 273, trans % sat 9, ferritin 12.9. Venofer 300mg x3 doses while here. B12/folate wnl poor candidate for endoscopic eval given advanced age and advanced dementia; would not pursue repeat ferritin level 323 (had been 12) no further venofer for now fu CBC improved H/H. ?element of ACD (9) Hypercholesterolemia: Plan: continued upfront but with progressing dementia and associated failure to thrive along with advanced age-- unlikely to provide any benefit--> subsequently discontinued (10) Benign essential hypertension: Plan: BPs adequate. Metoprolol resumed. Stopped HCTZ and torsemide (11) Acute kidney injury superimposed on CKD: Plan: Cr 1.6 on admit Cr normalized with IVF -- CHRISTINA resolved (likely to reoccur with decreased oral intake on account of advanced dementia) started on nutritional supplement spot checks but again, progressive decline while in house. Would be appropriate for hospice. (12) Afib: Plan: noted on 1 EKG no a.fib on tele since then Metoprolol resumed very poor candidate for anticoagulation (given fall and bleeding risk) (13) Hypokalemia: Plan: replaced and resolved. No need for chronic supplementation given discontinuation of HCTZ/triamterene (14) DVT prophylaxis: Plan: lovenox 30mg daily Plan: needs 24-hour care, thus SNF post-discharge. placement pending. Social work has spoken to family and Cynthia Gonzalez also spoke with family. Consent obtained from family for Covid vaccination, as documented. Covid vaccination J&J given Previous provider contacted family to discuss possible home with hospice, spoke with granddaughter Patricia. She is going to communicate with her parents.She claims that her parents cannot take her home with hospice as her mother is going to be having surgery and her father travels frequently for work. As well, patient is noted to wander and was evaluated in ED previously due to this and without 24/7 monitoring she could likely do that again Tried to call Patricia on 03/22 but number stated no voicemail set up. Will continue to try or an alternative familiy member Admission and Anticipated Discharge Date Admission Date: February 05, 2021 Subjective Continues to intermittently retain urine and was straight cath overnight. She did have some breakfast but does not drink much through the day. Will continue to stop in throughout the day to try and perform more of an assessment when she wakes up Review of Systems Review of Systems: Unobtainable due to cognitive status Physical Exam Physical Exam: PHYSICAL EXAM General Appearance: frail thin elderly female in NAD who is sleeping HEENT: Head is normocephalic/atraumatic; Mucous membranes dry Neck: Supple; Trachea midline; Neg JVD Results & Data Results & Data ([facility]) Vital Signs (Past 12 Hours) Vital Signs Pulse Resp BP Pulse Ox 03/24/21 07:47 73 16 103/63 95 PG Care Time/CCT Total # of Minutes Spent Total Time Spent with Patient: Total time spent is greater than 50% in coordination of care (as documented) at patient's floor/unit and/or counseling patient: Coding Level of Care Code 56492 Subseq Hosp Care Lvl 1 Diagnoses UTI (urinary tract infection) N39.0 Urinary retention R33.9 Failure to thrive Dementia with behavioral disturbance F03.91 Hypernatremia E87.0 Thiamine deficiency E51.9 Serum calcium elevated E83.52 Anemia D64.9 Hypercholesterolemia E78.00 Benign essential hypertension I10 Acute kidney injury superimposed on CKD N17.9; N18.9 Afib I48.91 Hypokalemia E87.6 DVT prophylaxis Z29.9
[2021-03-24] MEDS: DONEPEZIL HCL 5 MG TAB PO SCH (21:23)
[2021-03-24] MEDS: traZODone HCL 50 MG TAB PO SCH (21:23)
[2021-03-24] MEDS: TAMSULOSIN HCL 0.4 MG CAP PO SCH (21:27)
[2021-03-25] MEDS: DOCUSATE SODIUM/SENNA 50/8.6MG TAB PO SCH (08:25)
[2021-03-25] MEDS: POLYETHYLENE (MIRALAX) 17 GM PACK PO SCH (08:25)
[2021-03-25] MEDS: METOPROLOL TARTRATE 25 MG TAB PO SCH ×2 (08:25→19:46)
[2021-03-25] MEDS: ENOXAPARIN INJ 30 MG/0.3 ML SYR SQ SCH (08:25)
--- NOTE | 2021-03-25 09:09 | Hospitalist Progress Note ---
Date of Service March 25, 2021 Reviewed case with Melvi Grijalva PA-C Assessment & Plan (1) UTI (urinary tract infection): Plan: UA grossly positive for infection on 03/14 Rocephin 1g IV daily for proteus UTI (pansensitive) x 7 days and completed on 03/20 (2) Urinary retention: Plan: Jean Baptiste re-inserted on 03/14 however she self removed on 03/21 with balloon intact - she has since urinated however overall minimal urine output likely due to poor oral intake but is having some retention. Had a void on 03/23 but needed straight cath on 03/24. Bladder scan for today with max at 300 right now and will monitor. Did have a moderate bowel movement today but didn't urinate but hopefully that will assist. May need to re-insert Jean Baptiste however would be at risk for self-removal again - Continue to bladder scan - Can leave jean baptiste out for now and monitor - no acute abdomen or distress to suggest any perforation with self-removal of cath Added Flomax (3) Failure to thrive: Plan: Patient has remained in house >40 days and is awaiting placement Her oral intake has been slowly declining (does have good/bad days); decreased urine output - suspect some could be related to dementia and unfamiliar people/environment (drank well on 03/24 for daughter) We will hold off on IV fluids at this time as this would only be a temporary fix and assist with feeds Can continue boost supplementation Patient would be appropriate for hospice for end-stage dementia. Her failure to thrive is likely a result of her end-stage and progressive dementia Previous provider contacted granddaughter, Patricia on 03/14 re: pt's decline -- However, patient was noted to wander and even on hospice this would not provide around the clock care so inpatient setting still warranted (4) Dementia with behavioral disturbance: Plan: Continue trazodone Continue Aricept Was having increased behaviors prior to this hospitalization but no increased behaviors noted per staff -- Did trial Seroquel earlier on but caused heavy sedation; had Risperdal PRN but wasn't needed could consider low dose should behavior worsen (not on MAR currently) (5) Hypernatremia: Plan: Intermittent, resolves with improved oral intake. Suspect 2/2 volume contraction Encourage p.o. as tolerated Added boost supplement Labs on 12/25 reviewed, Na WNL - can check labs periodically (6) Thiamine deficiency: Plan: Thiamine previously undetectable Continue thiamine 200 mg p.o. twice daily x30 days (started 02/22) B12 normal (7) Serum calcium elevated: Plan: likely due to HCTZ use HCTZ discontinued calcium normal BPs have been normal w/o the HCTZ would avoid given lack of oral intake and risk for further dehydration (8) Anemia: Plan: 2nd to Fe deficiency. Iron 34, TIBC 348, Transferrin 273, trans % sat 9, ferritin 12.9. Venofer 300mg x3 doses while here. B12/folate wnl poor candidate for endoscopic eval given advanced age and advanced dementia; would not pursue repeat ferritin level 323 (had been 12) no further venofer for now fu CBC improved H/H. ?element of ACD (9) Hypercholesterolemia: Plan: continued upfront but with progressing dementia and associated failure to thrive along with advanced age-- unlikely to provide any benefit--> subsequently discontinued (10) Benign essential hypertension: Plan: BPs adequate. Metoprolol resumed. Stopped HCTZ and torsemide (11) Acute kidney injury superimposed on CKD: Plan: Cr 1.6 on admit Cr normalized with IVF -- CHRISTINA resolved (likely to reoccur with decreased oral intake on account of advanced dementia) started on nutritional supplement spot checks but again, progressive decline while in house. Would be appropriate for hospice. (12) Afib: Plan: noted on 1 EKG no a.fib on tele since then Metoprolol resumed very poor candidate for anticoagulation (given fall and bleeding risk) (13) Hypokalemia: Plan: replaced and resolved. No need for chronic supplementation given discontinuation of HCTZ/triamterene (14) DVT prophylaxis: Plan: lovenox 30mg daily Plan: needs 24-hour care, thus SNF post-discharge. placement pending. Social work has spoken to family and Cynthia Gonzalez also spoke with family. Consent obtained from family for Covid vaccination, as documented. Covid vaccination J&J given Previous provider contacted family to discuss possible home with hospice, spoke with granddaughter Patricia. She is going to communicate with her parents.She claims that her parents cannot take her home with hospice as her mother is going to be having surgery and her father travels frequently for work. As well, patient is noted to wander and was evaluated in ED previously due to this and without 24/7 monitoring she could likely do that again Met with Es at bedside who called Patricia to help interpret on 03/24. Patient was drinking at eating better with familiar faces near her and explained that to the family. Explained the general decline with food and drink and how she has good/bad days. They re-iterated they cannot supply the 24/7 coverage needed. Patricia has been trying to find a place in [place] but states this has been a challenge not only due to beds but because of increasing COVID numbers. Expressed trying to bring in snacks that may be more cultural or familiar to her to help her eating. Also explained that as her eating/drinking continues to decline she would ultimately pass away however medically is stable at this time. Admission and Anticipated Discharge Date Admission Date: February 05, 2021 Subjective No acute events overnight. Still not voiding today. Continuing to bladder scan and no discomfort noted. She is resting in bed and has been pleasant. Review of Systems Review of Systems: Unobtainable due to cognitive status Physical Exam Physical Exam: PHYSICAL EXAM General Appearance: frail thin elderly female in [facility] who is sleeping HEENT: Head is normocephalic/atraumatic; Mucous membranes dry Neck: Supple; Trachea midline; Neg JVD GI: No grimacing or signs of distress when palpating abdomen Results & Data Results & Data ([facility]) Vital Signs (Past 12 Hours) Vital Signs Temp Pulse Pulse Resp BP Pulse Ox 03/25/21 08:07 71 16 122/69 93 03/24/21 22:43 36.8 C 74 18 126/82 94 PG Care Time/CCT Total # of Minutes Spent Total Time Spent with Patient: Total time spent is greater than 50% in coordination of care (as documented) at patient's floor/unit and/or counseling patient: Coding Level of Care Code 35739 Subseq Hosp Care Lvl 1 Diagnoses UTI (urinary tract infection) N39.0 Urinary retention R33.9 Failure to thrive Dementia with behavioral disturbance F03.91 Hypernatremia E87.0 Thiamine deficiency E51.9 Serum calcium elevated E83.52 Anemia D64.9 Hypercholesterolemia E78.00 Benign essential hypertension I10 Acute kidney injury superimposed on CKD N17.9; N18.9 Afib I48.91 Hypokalemia E87.6 DVT prophylaxis Z29.9
[2021-03-25] MEDS: traZODone HCL 50 MG TAB PO SCH (19:45)
[2021-03-25] MEDS: TAMSULOSIN HCL 0.4 MG CAP PO SCH (19:46)
[2021-03-25] MEDS: DONEPEZIL HCL 5 MG TAB PO SCH (19:46)
[2021-03-26] MEDS: METOPROLOL TARTRATE 25 MG TAB PO SCH ×2 (09:17→20:21)
[2021-03-26] MEDS: POLYETHYLENE (MIRALAX) 17 GM PACK PO SCH (09:18)
[2021-03-26] MEDS: DOCUSATE SODIUM/SENNA 50/8.6MG TAB PO SCH (09:18)
[2021-03-26] MEDS: ENOXAPARIN INJ 30 MG/0.3 ML SYR SQ SCH (09:18)
[2021-03-26 11:09] LABS: Hematocrit (blood only) 33.7 % (37-47); Hemoglobin 10.2 g/dL (12.0-16.0); Mean Corpuscular Hemoglobin 25.9 pg (25-34); Mean Corpuscular Hgb Conc 30.3 g/dL (32-36); Mean Corpuscular Volume 85.5 fL (80-100); Mean Platelet Volume 8.9 fL (7.4-10.4); Platelet Count 179 K/uL (130-400); Red Blood Count 3.94 M/uL (4.2-5.4); White Blood Count 5.29 K/uL (4.8-10.8)
[2021-03-26 11:35] LABS: BUN Creatinine Ratio 19.7 (10-20); Calcium 9.5 mg/dl (8.5-10.1); Creatinine Clr Calc Pharmacy 41.4 ml/min; Est GFR (African American) 80.6 ml/min; Est GFR (Non-African American) 69.5 ml/min; Potassium 4.1 mmol/L (3.5-5.1)
--- NOTE | 2021-03-26 16:34 | Hospitalist Progress Note ---
Date of Service March 26, 2021 Assessment & Plan (1) UTI (urinary tract infection): Plan: UA grossly positive for infection on 03/14 Rocephin 1g IV daily for proteus UTI (pansensitive) x 7 days and completed on 03/20 (2) Urinary retention: Plan: Jean Baptiste re-inserted on 03/14 however she self removed on 03/21 with balloon intact - she has since urinated however overall minimal urine output likely due to poor oral intake but is having some retention. Had a void on 03/23 but needed straight cath on 03/24. Bladder scan for today with max at 300 right now and will monitor. Did have a moderate bowel movement today but didn't urinate but hopefully that will assist. May need to re-insert Jean Baptiste however would be at risk for self-removal again - Continue to bladder scan - Can leave jean baptiste out for now and monitor - no acute abdomen or distress to suggest any perforation with self-removal of cath Added Flomax (3) Failure to thrive: Plan: Patient has remained in house >40 days and is awaiting placement Her oral intake has been slowly declining (does have good/bad days); decreased urine output - suspect some could be related to dementia and unfamiliar people/environment (drank well on 03/24 for daughter) We will hold off on IV fluids at this time as this would only be a temporary fix and assist with feeds Can continue boost supplementation Patient would be appropriate for hospice for end-stage dementia. Her failure to thrive is likely a result of her end-stage and progressive dementia Previous provider contacted granddaughter, Patricia on 03/14 re: pt's decline -- However, patient was noted to wander and even on hospice this would not provide around the clock care so inpatient setting still warranted (4) Dementia with behavioral disturbance: Plan: Continue trazodone Continue Aricept Was having increased behaviors prior to this hospitalization but no increased behaviors noted per staff -- Did trial Seroquel earlier on but caused heavy sedation; had Risperdal PRN but wasn't needed could consider low dose should behavior worsen (not on MAR currently) (5) Hypernatremia: Plan: Intermittent, resolves with improved oral intake. Suspect 2/2 volume contraction Encourage p.o. as tolerated Added boost supplement Labs on 03/15 reviewed, Na WNL - can check labs periodically (6) Thiamine deficiency: Plan: Thiamine previously undetectable Continue thiamine 200 mg p.o. twice daily x30 days (started 02/22) B12 normal (7) Serum calcium elevated: Plan: likely due to HCTZ use HCTZ discontinued calcium normal BPs have been normal w/o the HCTZ would avoid given lack of oral intake and risk for further dehydration (8) Anemia: Plan: 2nd to Fe deficiency. Iron 34, TIBC 348, Transferrin 273, trans % sat 9, ferritin 12.9. Venofer 300mg x3 doses while here. B12/folate wnl poor candidate for endoscopic eval given advanced age and advanced dementia; would not pursue repeat ferritin level 323 (had been 12) no further venofer for now fu CBC improved H/H. ?element of ACD (9) Hypercholesterolemia: Plan: continued upfront but with progressing dementia and associated failure to t hrive along with advanced age-- unlikely to provide any benefit--> subsequently discontinued (10) Benign essential hypertension: Plan: BPs adequate. Metoprolol resumed. Stopped HCTZ and torsemide (11) Acute kidney injury superimposed on CKD: Plan: Cr 1.6 on admit Cr normalized with IVF -- CHRISTINA resolved (likely to reoccur with decreased oral intake on account of advanced dementia) started on nutritional supplement spot checks but again, progressive decline while in house. Would be appropriate for hospice. (12) Afib: Plan: noted on 1 EKG no a.fib on tele since then Metoprolol resumed very poor candidate for anticoagulation (given fall and bleeding risk) (13) Hypokalemia: Plan: replaced and resolved. No need for chronic supplementation given discontinuation of HCTZ/triamterene (14) DVT prophylaxis: Plan: lovenox 30mg daily Plan: needs 24-hour care, thus SNF post-discharge. placement pending. Social work has spoken to family and Cynthia Gonzalez also spoke with family. Consent obtained from family for Covid vaccination, as documented. Covid vaccination J&J given Previous provider contacted family to discuss possible home with hospice, spoke with granddaughter Patricia. She is going to communicate with her parents.She claims that her parents cannot take her home with hospice as her mother is going to be having surgery and her father travels frequently for work. As well, patient is noted to wander and was evaluated in ED previously due to this and without 24/7 monitoring she could likely do that again Met with Es at bedside who called Patricia to help interpret on 03/24. Patient was drinking at eating better with familiar faces near her and explained that to the family. Explained the general decline with food and drink and how she has good/bad days. They re-iterated they cannot supply the 12/10 coverage needed. Patricia has been trying to find a place in [place] but states this has been a challenge not only due to beds but because of increasing COVID numbers. Expressed trying to bring in snacks that may be more cultural or familiar to her to help her eating. Also explained that as her eating/drinking continues to decline she would ultimately pass away however medically is stable at this time. Possibly to [facility] in coming days Admission and Anticipated Discharge Date Admission Date: February 05, 2021 Subjective Patient voided on her own overnight. Was more sleepy this morning and did not eat breakfast. Obtained labs and unremarkable. However was more alert around lunch and was able to eat some lunch and was singing to her baby. No signs of distress but unable to communicate with her. Review of Systems Review of Systems: Unobtainable due to cognitive status Physical Exam Physical Exam: PHYSICAL EXAM General Appearance: frail thin elderly female in NAD who is sleeping HEENT: Head is normocephalic/atraumatic; Mucous membranes dry Neck: Supple; Trachea midline; Neg JVD Heart: RRR Lungs: Appear clear but was humming/singing when trying to listen and is unable to follow commands GI: No grimacing or signs of distress when palpating abdomen Results & Data Results & Data ([facility]) Vital Signs (Past 12 Hours) Vital Signs Temp Pulse Pulse Resp BP BP Pulse Ox 03/26/21 15:50 36.7 C 76 18 108/66 92 03/26/21 07:23 36.3 C L 53 L 16 92/54 L 93 PG Care Time/CCT Total # of Minutes Spent Total Time Spent with Patient: Total time spent is greater than 50% in coordination of care (as documented) at patient's floor/unit and/or counseling patient: Coding Level of Care Code 84399 Subseq Hosp Care Lvl 1 Diagnoses UTI (urinary tract infection) N39.0 Urinary retention R33.9 Failure to thrive Dementia with behavioral disturbance F03.91 Hypernatremia E87.0 Thiamine deficiency E51.9 Serum calcium elevated E83.52 Anemia D64.9 Hypercholesterolemia E78.00 Benign essential hypertension I10 Acute kidney injury superimposed on CKD N17.9; N18.9 Afib I48.91 Hypokalemia E87.6 DVT prophylaxis Z29.9
[2021-03-26] MEDS: TAMSULOSIN HCL 0.4 MG CAP PO SCH (20:17)
[2021-03-26] MEDS: DONEPEZIL HCL 5 MG TAB PO SCH (20:18)
[2021-03-26] MEDS: traZODone HCL 50 MG TAB PO SCH (20:18)
[2021-03-27] MEDS: METOPROLOL TARTRATE 25 MG TAB PO SCH ×3 (09:05→20:34)
[2021-03-27] MEDS: DOCUSATE SODIUM/SENNA 50/8.6MG TAB PO SCH (09:05)
[2021-03-27] MEDS: ENOXAPARIN INJ 30 MG/0.3 ML SYR SQ SCH (09:06)
[2021-03-27] MEDS: POLYETHYLENE (MIRALAX) 17 GM PACK PO SCH (09:08)
--- NOTE | 2021-03-27 18:05 | Hospitalist Progress Note ---
Date of Service March 27, 2021 Assessment & Plan (1) UTI (urinary tract infection): Plan: UA grossly positive for infection on 03/14 Rocephin 1g IV daily for proteus UTI (pansensitive) x 7 days and completed on 03/20 (2) Urinary retention: Plan: Jean Baptiste re-inserted on 03/14 however she self removed on 03/21 with balloon intact - she has since urinated however overall minimal urine output likely due to poor oral intake but is having some retention. Had a void on 03/23 but needed straight cath on 03/24. Bladder scan for today with max at 300 right now and will monitor. Did have a moderate bowel movement today but didn't urinate but hopefully that will assist. May need to re-insert Jean Baptiste however would be at risk for self-removal again - Continue to bladder scan - seems to be voiding more spontaneously but still with limited oral intake; advise to place Jean Baptiste should she get > 500 mL on bladder scan and without voiding - Can leave jean baptiste out for now and monitor - no acute abdomen or distress to suggest any perforation with self-removal of cath Added Flomax (3) Failure to thrive: Plan: Patient has remained in house >50 days and is awaiting placement Her oral intake has been slowly declining (does have good/bad days); decreased urine output - suspect some could be related to dementia and unfamiliar people/environment (drank well on 03/24 for daughter) We will hold off on IV fluids at this time as this would only be a temporary fix and assist with feeds Can continue boost supplementation Patient would be appropriate for hospice for end-stage dementia. Her failure to thrive is likely a result of her end-stage and progressive dementia Previous provider contacted granddaughterPatricia on 03/14 re: pt's decline -- However, patient was noted to wander and even on hospice this would not provide around the clock care so inpatient setting still warranted (4) Dementia with behavioral disturbance: Plan: Continue trazodone Continue Aricept Was having increased behaviors prior to this hospitalization but no increased behaviors noted per staff -- Did trial Seroquel earlier on but caused heavy sedation; had Risperdal PRN but wasn't needed could consider low dose should behavior worsen (not on MAR currently) (5) Hypernatremia: Plan: Intermittent, resolves with improved oral intake. Suspect 2/2 volume contraction Encourage p.o. as tolerated Added boost supplement Labs on 03/15 reviewed, Na WNL - can check labs periodically (6) Thiamine deficiency: Plan: Thiamine previously undetectable Continue thiamine 200 mg p.o. twice daily x30 days (started 02/22) B12 normal (7) Serum calcium elevated: Plan: likely due to HCTZ use HCTZ discontinued calcium normal BPs have been normal w/o the HCTZ would avoid given lack of oral intake and risk for further dehydration (8) Anemia: Plan: 2nd to Fe deficiency. Iron 34, TIBC 348, Transferrin 273, trans % sat 9, ferritin 12.9. Venofer 300mg x3 doses while here. B12/folate wnl poor candidate for endoscopic eval given advanced age and advanced dementia; would not pursue repeat ferritin level 323 (had been 12) no further venofer for now fu CBC improved H/H. ?element of ACD (9) Hypercholesterolemia: Plan: continued upfront but with progressing dementia and associated failure to thrive along with advanced age-- unlikely to provide any benefit--> subsequently discontinued (10) Benign essential hypertension: Plan: BPs adequate. Metoprolol resumed. Stopped HCTZ and torsemide (11) Acute kidney injury superimposed on CKD: Plan: Cr 1.6 on admit Cr normalized with IVF -- CHRISTINA resolved (likely to reoccur with decreased oral intake on account of advanced dementia) started on nutritional supplement spot checks but again, progressive decline while in house. Would be appropriate for hospice. (12) Afib: Plan: noted on 1 EKG no a.fib on tele since then Metoprolol resumed very poor candidate for anticoagulation (given fall and bleeding risk) (13) Hypokalemia: Plan: replaced and resolved. No need for chronic supplementation given discontinuation of HCTZ/triamterene (14) DVT prophylaxis: Plan: lovenox 30mg daily Plan: needs 24-hour care, thus SNF post-discharge. placement pending. Social work has spoken to family and Cynthia Gonzalez also spoke with family. Consent obtained from family for Covid vaccination, as documented. Covid vaccination J&J given Previous provider contacted family to discuss possible home with hospice, spoke with granddaughter Patricia. She is going to communicate with her parents.She claims that her parents cannot take her home with hospice as her mother is going to be having surgery and her father travels frequently for work. As well, patient is noted to wander and was evaluated in ED previously due to this and without 24/7 monitoring she could likely do that again Met with Es at bedside who called Patricia to help interpret on 03/24. Patient was drinking at eating better with familiar faces near her and explained that to the family. Explained the general decline with food and drink and how she has good/bad days. They re-iterated they cannot supply the 24/7 coverage needed. Patricia has been trying to find a place in [place] but states this has been a challenge not only due to beds but because of increasing COVID numbers. Expressed trying to bring in snacks that may be more cultural or familiar to her to help her eating. Also explained that as her eating/drinking continues to decline she would ultimately pass away however medically is stable at this time. Possibly to [facility] and being reviewed. Admission and Anticipated Discharge Date Admission Date: February 05, 2021 Supervising Physician Co-Signing Physician Notes Attending Attestation - Chart reviewed, care plan d/w JONA Grijalva. I agree w/ the dawkins components of her documentation. 89yo female - advanced dementia, failure to thrive, prolonged hospital stay due to difficulties with dispo. Cont bed search for SNF. Strongly consider hospice upon discharge. Prior attending d/w familly this option. Parag Franklin MD Subjective No acute events overnight. Patient was await and interactive this afternoon. Unfortunately not able to understand. Looks comfortable and was evening smiling at me today. She continues to take care of her baby doll which seems to bring her great asad. Review of Systems Review of Systems: All systems reviewed & are unremarkable except as noted in Subjective Physical Exam Physical Exam: PHYSICAL EXAM General Appearance: frail thin elderly female in NAD who is alert and interactiv e but unable to effectively communicate HEENT: Head is normocephalic/atraumatic; Mucous membranes dry Neck: Supple; Trachea midline; Neg JVD Heart: RRR Lungs: Appear clear but was mumbling when trying to listen and is unable to follow commands GI: No grimacing or signs of distress when palpating abdomen Results & Data Results & Data ([facility]) Vital Signs (Past 12 Hours) Vital Signs Temp Pulse Pulse Resp BP BP Pulse Ox 03/27/21 10:33 66 109/71 03/27/21 07:08 36.7 C 65 18 104/58 L 93 PG Care Time/CCT Total # of Minutes Spent Total Time Spent with Patient: Total time spent is greater than 50% in coordination of care (as documented) at patient's floor/unit and/or counseling patient: Coding Level of Care Code 40446 Subseq Hosp Care Lvl 1 Diagnoses UTI (urinary tract infection) N39.0 Urinary retention R33.9 Failure to thrive Dementia with behavioral disturbance F03.91 Hypernatremia E87.0 Thiamine deficiency E51.9 Serum calcium elevated E83.52 Anemia D64.9 Hypercholesterolemia E78.00 Benign essential hypertension I10 Acute kidney injury superimposed on CKD N17.9; N18.9 Afib I48.91 Hypokalemia E87.6 DVT prophylaxis Z29.9
[2021-03-27] MEDS: traZODone HCL 50 MG TAB PO SCH (20:30)
[2021-03-27] MEDS: DONEPEZIL HCL 5 MG TAB PO SCH (20:30)
[2021-03-27] MEDS: TAMSULOSIN HCL 0.4 MG CAP PO SCH (20:30)
[2021-03-28] MEDS: DOCUSATE SODIUM/SENNA 50/8.6MG TAB PO SCH (07:43)
[2021-03-28] MEDS: ENOXAPARIN INJ 30 MG/0.3 ML SYR SQ SCH (07:43)
[2021-03-28] MEDS: METOPROLOL TARTRATE 25 MG TAB PO SCH ×2 (07:44→20:20)
[2021-03-28] MEDS: POLYETHYLENE (MIRALAX) 17 GM PACK PO SCH (07:44)
--- NOTE | 2021-03-28 17:39 | Hospitalist Progress Note ---
Date of Service March 28, 2021 Assessment & Plan (1) UTI (urinary tract infection): Plan: UA grossly positive for infection on 03/14 Rocephin 1g IV daily for proteus UTI (pansensitive) x 7 days and completed on 03/20 (2) Urinary retention: Plan: Jean Baptiste inserted on 03/14 however she self removed on 03/21 with balloon intact - she has since urinated however overall minimal urine output likely due to poor oral intake but is having some retention. Was requiring straight cath on 03/24 and having some retention however over the past few days has been spontaneously voiding and oral intact has improved some. May need to consider re-inserting Jean Baptiste however would be at risk for self-removal again - Continue to bladder scan - seems to be voiding more spontaneously and intake is improving some; advise to place Jean Baptiste should she get > 500 mL on bladder scan and without voiding - Can leave jean baptiste out for now and monitor - no acute abdomen or distress to suggest any perforation with self-removal of cath Added Flomax (3) Failure to thrive: Plan: Patient has remained in house >50 days and is awaiting placement Her oral intake has been slowly declining (does have good/bad days); decreased urine output - suspect some could be related to dementia and unfamiliar people/environment We will hold off on IV fluids at this time as this would only be a temporary fix and assist with feeds Can continue boost supplementation Patient would be appropriate for hospice for end-stage dementia. Her failure to thrive is likely a result of her end-stage and progressive dementia Previous provider contacted granddaughter, Patricia on 03/14 re: pt's decline -- However, patient was noted to wander and even on hospice this would not provide around the clock care so inpatient setting still warranted (4) Dementia with behavioral disturbance: Plan: Continue trazodone Continue Aricept Was having increased behaviors prior to this hospitalization but no increased behaviors noted per staff -- Did trial Seroquel earlier on but caused heavy sedation; had Risperdal PRN but wasn't needed could consider low dose should behavior worsen (not on MAR currently) (5) Hypernatremia: Plan: Intermittent, resolves with improved oral intake. Suspect 2/2 volume contraction Encourage p.o. as tolerated Added boost supplement Doesnt easily cooperate with labs but last draw WNL (6) Thiamine deficiency: Plan: Thiamine previously undetectable Continue thiamine 200 mg p.o. twice daily x30 days (started 02/22 - now complete) B12 normal (7) Serum calcium elevated: Plan: likely due to HCTZ use HCTZ discontinued calcium normal BPs have been normal w/o the HCTZ would avoid given lack of oral intake and risk for further dehydration (8) Anemia: Plan: 2nd to Fe deficiency. Iron 34, TIBC 348, Transferrin 273, trans % sat 9, ferritin 12.9. Venofer 300mg x3 doses while here. B12/folate wnl poor candidate for endoscopic eval given advanced age and advanced dementia; would not pursue repeat ferritin level 323 (had been 12) no further venofer for now fu CBC improved H/H. ?element of ACD (9) Hypercholesterolemia: Plan: continued upfront but with progressing dementia and associated failure to thrive along with advanced age-- unlikely to provide any benefit--> subsequently discontinued (10) Benign essential hypertension: Plan: BPs adequate. Metoprolol resumed. Stopped HCTZ and torsemide (11) Acute kidney injury superimposed on CKD: Plan: Cr 1.6 on admit Cr normalized with IVF -- CHRISTINA resolved (likely to reoccur with decreased oral intake on account of advanced dementia) started on nutritional supplement spot checks but again, progressive decline while in house. Would be appropriate for hospice. (12) Afib: Plan: noted on 1 EKG Metoprolol resumed very poor candidate for anticoagulation (given fall and bleeding risk) (13) Hypokalemia: Plan: replaced and resolved. No need for chronic supplementation given discontinuation of HCTZ/triamterene (14) DVT prophylaxis: Plan: lovenox 30mg daily Plan: needs 24-hour care, thus SNF post-discharge. placement pending. Social work has spoken to family and Cynthia Gonzalez also spoke with family. Consent obtained from family for Covid vaccination, as documented. Covid vaccination J&J given Previous provider contacted family to discuss possible home with hospice, spoke with granddaughter Patricia. She is going to communicate with her parents.She claims that her parents cannot take her home with hospice as her mother is going to be having surgery and her father travels frequently for work. As well, patient is noted to wander and was evaluated in ED previously due to this and without 24/7 monitoring she could likely do that again Met with Es at bedside who called Patricia to help interpret on 03/24. Patient was drinking at eating better with familiar faces near her and explained that to the family. Explained the general decline with food and drink and how she has good/bad days. They re-iterated they cannot supply the 12/10 coverage needed. Patricia has been trying to find a place in [place] but states this has been a challenge not only due to beds but because of increasing COVID numbers. Expressed trying to bring in snacks that may be more cultural or familiar to her to help her eating. Also explained that as her eating/drinking continues to decline she would ultimately pass away however medically is stable at this time. Possibly to [facility] and being reviewed. this coming week Patient very attached to the baby doll. The current doll is for her and to be taken with her upon discharge Admission and Anticipated Discharge Date Admission Date: February 05, 2021 Subjective No acute events overnight. Eating better today and was able to void and move bowels on the bedside toilet. She has been able to more spontaneously void compared to previous days. She has remained calm and cooperative even without being able to communicate needs. Review of Systems Review of Systems: Unobtainable due to cognitive status Physical Exam Physical Exam: PHYSICAL EXAM General Appearance: frail thin elderly female in NAD who is alert and interactive but unable to effectively communicate HEENT: Head is normocephalic/atraumatic Neck: Supple; Trachea midline; Neg JVD Heart: RRR Lungs: Appear clear but was mumbling when trying to listen and is unable to follow commands GI: No grimacing or signs of distress when palpating abdomen Results & Data Results & Data ([facility]) Vital Signs (Past 12 Hours) Vital Signs Temp Pulse Pulse Resp BP Pulse Ox 03/28/21 15:47 36.9 C 69 16 129/72 94 03/28/21 07:41 36.9 C 74 16 134/80 PG Care Time/CCT Total # of Minutes Spent Total Time Spent with Patient: Total time spent is greater than 50% in coordination of care (as documented) at patient's floor/unit and/or counseling patient: Coding Level of Care Code 68050 Subseq Hosp Care Lvl 1 Diagnoses UTI (urinary tract infection) N39.0 Urinary retention R33.9 Failure to thrive Dementia with behavioral disturbance F03.91 Hypernatremia E87.0 Thiamine deficiency E51.9 Serum calcium elevated E83.52 Anemia D64.9 Hypercholesterolemia E78.00 Benign essential hypertension I10 Acute kidney injury superimposed on CKD N17.9; N18.9 Afib I48.91 Hypokalemia E87.6 DVT prophylaxis Z29.9
[2021-03-28] MEDS: traZODone HCL 50 MG TAB PO SCH (20:20)
[2021-03-28] MEDS: TAMSULOSIN HCL 0.4 MG CAP PO SCH (20:20)
[2021-03-28] MEDS: DONEPEZIL HCL 5 MG TAB PO SCH (20:20)
[2021-03-29] MEDS: METOPROLOL TARTRATE 25 MG TAB PO SCH ×2 (08:31→21:30)
[2021-03-29] MEDS: POLYETHYLENE (MIRALAX) 17 GM PACK PO SCH (08:52)
[2021-03-29] MEDS: ENOXAPARIN INJ 30 MG/0.3 ML SYR SQ SCH (08:52)
[2021-03-29] MEDS: DOCUSATE SODIUM/SENNA 50/8.6MG TAB PO SCH (08:53)
--- NOTE | 2021-03-29 15:37 | Hospitalist Progress Note ---
Date of Service March 29, 2021 Assessment & Plan (1) UTI (urinary tract infection): Plan: RESOLVED UA grossly positive for infection on 03/14 Rocephin 1g IV daily for proteus UTI (pansensitive) x 7 days and completed on 03/20 (2) Urinary retention: Plan: IMPROVED Jean Baptiste inserted on 03/14 however she self removed on 03/21 with balloon intact - she has since urinated however overall minimal urine output likely due to poor oral intake but is having some retention. Was requiring straight cath on 03/24 and having some retention however over the past few days has been spontaneously voiding and oral intact has improved some. May need to consider re-inserting Jean Baptiste, however would be at risk for self-removal again. - Continue to bladder scan - advise to place Jean Baptiste should she get > 500 mL on b ladder scan and without voiding - Can leave jean baptiste out for now and monitor - no acute abdomen or distress to suggest any perforation with self-removal of cath Added Flomax - Largely incontinent (3) Failure to thrive: Plan: Patient has remained in house >50 days and is awaiting placement Her oral intake has been slowly declining (does have good/bad days) We will hold off on IV fluids at this time as this would only be a temporary fix and assist with feeds Can continue Boost supplementation Patient would be appropriate for hospice for end-stage dementia. Her failure to thrive is likely a result of her end-stage and progressive dementia -- However, patient was noted to wander and even on hospice this would not provide around the clock care so inpatient setting still warranted (4) Dementia with behavioral disturbance: Plan: Continue trazodone Continue Aricept Was having increased behaviors prior to this hospitalization but no increased behaviors noted per staff -- Did trial Seroquel earlier on but caused heavy sedation; had Risperdal PRN but wasn't needed could consider low dose should behavior worsen (not on MAR currently) (5) Hypernatremia: Plan: Intermittent, resolves with improved oral intake. Suspect 2/2 volume contraction Encourage p.o. as tolerated Added Boost supplement Doesn't easily cooperate with labs but last draw WNL (6) Thiamine deficiency: Plan: Thiamine previously undetectable thiamine 200 mg p.o. twice daily x30 days (started 02/22 - now complete) B12 normal (7) Serum calcium elevated: Plan: likely due to HCTZ use HCTZ discontinued calcium normal BPs have been normal w/o the HCTZ would avoid given lack of oral intake and risk for further dehydration (8) Anemia: Plan: 2nd to Fe deficiency. Iron 34, TIBC 348, Transferrin 273, trans % sat 9, ferritin 12.9. Venofer 300mg x3 doses while here. B12/folate wnl poor candidate for endoscopic eval given advanced age and advanced dementia; would not pursue repeat ferritin level 323 (had been 12) no further venofer for now fu CBC improved H/H. ?element of ACD (9) Hypercholesterolemia: Plan: continued upfront but with progressing dementia and associated failure to thrive along with advanced age-- unlikely to provide any benefit--> subsequently discontinued (10) Benign essential hypertension: Plan: BPs adequate. Metoprolol resumed. Stopped HCTZ and torsemide (11) Acute kidney injury superimposed on CKD: Plan: Cr 1.6 on admit Cr normalized with IVF -- CHRISTINA resolved (likely to reoccur with decreased oral intake on account of advanced dementia) started on nutritional supplement spot checks but again, progressive decline while in house. Would be appropriate for hospice. (12) Afib: Plan: noted on 1 EKG Metoprolol resumed very poor candidate for anticoagulation (given fall and bleeding risk) (13) Hypokalemia: Plan: replaced and resolved. No need for chronic supplementation given discontinuation of HCTZ/triamterene (14) DVT prophylaxis: Plan: lovenox 30mg daily Plan: The patient is clinically stable today. needs 24-hour care, thus SNF post-discharge. placement pending. Social work has spoken to family and Cynthia Gonzalez also spoke with family. Consent obtained from family for Covid vaccination, as documented. Covid vaccination J&J given Previous provider contacted family to discuss possible home with hospice, spoke with granddaughter Patricia. She is going to communicate with her parents.She claims that her parents cannot take her home with hospice as her mother is going to be having surgery and her father travels frequently for work. As well, patient is noted to wander and was evaluated in ED previously due to this and without 24/7 monitoring she could likely do that again Possible d/c to [facility]. [facility] reviewing at this time. Hopeful to have an answer of determination next week. Patient very attached to the baby doll. The current doll is for her and to be taken with her upon discharge Admission and Anticipated Discharge Date Admission Date: February 05, 2021 Subjective Patient sleeping with her baby doll during my exam today. Largely incontinent per RN. Patient continues to take PO per RN as well. Review of Systems Review of Systems: Unobtainable due to cognitive status Physical Exam Constitutional: + thin; no acute distress Patient sleeping during exam today. Neck: normal visual inspection Respiratory: normal respiratory effort, lungs clear to auscultation Cardiovascular: RRR, no murmur, no edema Gastrointestinal (Abdomen): Inspection/Auscultation: normal bowel sounds Percussion/Palpation: abdomen soft Musculoskeletal: Head/Neck/Chest: normocephalic and head atraumatic Psychiatric: Patient sleeping. Results & Data Results & Data ([facility]) Vital Signs (Past 12 Hours) Vital Signs Temp Pulse Resp BP Pulse Ox 03/29/21 07:33 36.8 C 59 L 16 93/46 L 96 PG Care Time/CCT Total # of Minutes Spent Total Time Spent with Patient: Total time spent is greater than 50% in coordination of care (as documented) at patient's floor/unit and/or counseling patient: Coding Level of Care Code 26051 Subseq Hosp Care Lvl 1 Diagnoses UTI (urinary tract infection) N39.0 Urinary retention R33.9 Failure to thrive Dementia with behavioral disturbance F03.91 Hypernatremia E87.0 Thiamine deficiency E51.9 Serum calcium elevated E83.52 Anemia D64.9 Hypercholesterolemia E78.00 Benign essential hypertension I10 Acute kidney injury superimposed on CKD N17.9; N18.9 Afib I48.91 Hypokalemia E87.6 DVT prophylaxis Z29.9
[2021-03-29] MEDS: DONEPEZIL HCL 5 MG TAB PO SCH ×2 (21:30→21:36)
[2021-03-29] MEDS: traZODone HCL 50 MG TAB PO SCH ×2 (21:30→21:36)
[2021-03-29] MEDS: TAMSULOSIN HCL 0.4 MG CAP PO SCH ×2 (21:30→21:36)
[2021-03-30] MEDS: METOPROLOL TARTRATE 25 MG TAB PO SCH ×2 (08:45→21:04)
[2021-03-30] MEDS: POLYETHYLENE (MIRALAX) 17 GM PACK PO SCH (08:45)
[2021-03-30] MEDS: ENOXAPARIN INJ 30 MG/0.3 ML SYR SQ SCH (08:45)
[2021-03-30] MEDS: DOCUSATE SODIUM/SENNA 50/8.6MG TAB PO SCH (08:45)
--- NOTE | 2021-03-30 12:13 | Hospitalist Progress Note ---
Date of Service March 30, 2021 Assessment & Plan (1) UTI (urinary tract infection): Plan: RESOLVED UA grossly positive for infection on 03/14 Rocephin 1g IV daily for proteus UTI (pansensitive) x 7 days and completed on 03/20 (2) Urinary retention: Plan: IMPROVED Jean Baptiste inserted on 03/14 however she self removed on 03/21 with balloon intact - she has since urinated however overall minimal urine output likely due to poor oral intake but is having some retention. Was requiring straight cath on 03/24 and having some retention however over the past few days has been spontaneously voiding and oral intact has improved some. May need to consider re-inserting Jean Baptiste, however would be at risk for self-removal again. - Continue to bladder scan - advise to place Jean Baptiste should she get > 500 mL on b ladder scan and without voiding - Can leave jean baptiste out for now and monitor - no acute abdomen or distress to suggest any perforation with self-removal of cath Added Flomax - Largely incontinent (3) Failure to thrive: Plan: Patient has remained in house >50 days and is awaiting placement Her oral intake has been slowly declining (does have good/bad days) We will hold off on IV fluids at this time as this would only be a temporary fix and assist with feeds Can continue Boost supplementation Patient would be appropriate for hospice for end-stage dementia. Her failure to thrive is likely a result of her end-stage and progressive dementia -- However, patient was noted to wander and even on hospice this would not provide around the clock care so inpatient setting still warranted. Awaiting to hear if she has been accepted to [facility]. (4) Dementia with behavioral disturbance: Plan: Continue trazodone Continue Aricept Was having increased behaviors prior to this hospitalization but no increased behaviors noted per staff -- Did trial Seroquel earlier on but caused heavy sedation; had Risperdal PRN but wasn't needed could consider low dose should behavior worsen (not on MAR currently) (5) Hypernatremia: Plan: Intermittent, resolves with improved oral intake. Suspect 2/2 volume contraction Encourage p.o. as tolerated Added Boost supplement Doesn't easily cooperate with labs but last draw WNL (6) Thiamine deficiency: Plan: Thiamine previously undetectable thiamine 200 mg p.o. twice daily x30 days (started 02/22 - now complete) B12 normal (7) Serum calcium elevated: Plan: likely due to HCTZ use HCTZ discontinued calcium normal BPs have been normal w/o the HCTZ would avoid given lack of oral intake and risk for further dehydration (8) Anemia: Plan: 2nd to Fe deficiency. Iron 34, TIBC 348, Transferrin 273, trans % sat 9, ferritin 12.9. Venofer 300mg x3 doses while here. B12/folate wnl poor candidate for endoscopic eval given advanced age and advanced dementia; would not pursue repeat ferritin level 323 (had been 12) no further venofer for now fu CBC improved H/H. ? element of ACD (9) Hypercholesterolemia: Plan: continued upfront but with progressing dementia and associated failure to thrive along with advanced age-- unlikely to provide any benefit--> subsequently discontinued (10) Benign essential hypertension: Plan: BPs adequate. Metoprolol resumed. Stopped HCTZ and torsemide (11) Acute kidney injury superimposed on CKD: Plan: Cr 1.6 on admit Cr normalized with IVF -- CHRISTINA resolved (likely to reoccur with decreased oral intake on account of advanced dementia) started on nutritional supplement spot checks but again, progressive decline while in house. Would be appropriate for hospice. (12) Afib: Plan: noted on 1 EKG Metoprolol resumed very poor candidate for anticoagulation (given fall and bleeding risk) (13) Hypokalemia: Plan: replaced and resolved. No need for chronic supplementation given discontinuation of HCTZ/triamterene (14) DVT prophylaxis: Plan: lovenox 30mg daily Plan: The patient is clinically stable today. needs 24-hour care, thus SNF post-discharge. placement pending. Social work has spoken to family and Cynthia Gonzalez also spoke with family. Consent obtained from family for Covid vaccination, as documented. Covid vaccination J&J given Previous provider contacted family to discuss possible home with hospice, spoke with granddaughter Patricia. She is going to communicate with her parents. She claims that her parents cannot take her home with hospice as her mother is going to be having surgery and her father travels frequently for work. As well, patient is noted to wander and was evaluated in ED previously due to this and without 24/7 monitoring she could likely do that again Possible d/c to [facility]. [facility] reviewing at this time. Hopeful to have an answer of determination later this week. Patient very attached to the baby doll. The current doll is for her and to be taken with her upon discharge. Admission and Anticipated Discharge Date Admission Date: February 05, 2021 Subjective Patient sleeping today during our visit. Review of Systems Review of Systems: Unobtainable due to cognitive status Physical Exam Physical Exam: Temp Pulse Resp BP Pulse Ox 36.5 C 64 16 109/72 92 03/30/21 07:22 03/30/21 07:22 03/30/21 07:22 03/30/21 07:22 03/30/21 07:22 Patient is afebrile. Vital signs stable. Constitutional: + thin; no acute distress Patient is sleeping. Neck: normal visual inspection Respiratory: normal respiratory effort, lungs clear to auscultation Cardiovascular: Rate/Rhythm: regular rate and regular rhythm Gastrointestinal (Abdomen): Inspection/Auscultation: + hypoactive bowel sounds Percussion/Palpation: abdomen soft; abdomen nontender Musculoskeletal: Head/Neck/Chest: normocephalic Skin: no rashes, warm and dry Psychiatric: Patient is sleeping. Results & Data Results & Data ([facility]) Vital Signs (Past 12 Hours) Vital Signs Temp Pulse Resp BP Pulse Ox 03/30/21 07:22 36.5 C 64 16 109/72 92 PG Care Time/CCT Total # of Minutes Spent Total Time Spent with Patient: Total time spent is greater than 50% in coordination of care (as documented) at patient's floor/unit and/or counseling patient: Coding Level of Care Code 88818 Subseq Hosp Care Lvl 1 Diagnoses UTI (urinary tract infection) N39.0 Urinary retention R33.9 Failure to thrive Dementia with behavioral disturbance F03.91 Hypernatremia E87.0 Thiamine deficiency E51.9 Serum calcium elevated E83.52 Anemia D64.9 Hypercholesterolemia E78.00 Benign essential hypertension I10 Acute kidney injury superimposed on CKD N17.9; N18.9 Afib I48.91 Hypokalemia E87.6 DVT prophylaxis Z29.9
[2021-03-30] MEDS: DONEPEZIL HCL 5 MG TAB PO SCH (21:07)
[2021-03-30] MEDS: TAMSULOSIN HCL 0.4 MG CAP PO SCH (21:07)
[2021-03-30] MEDS: traZODone HCL 50 MG TAB PO SCH (21:07)
--- NOTE | 2021-03-31 08:12 | Hospitalist Progress Note ---
Date of Service March 31, 2021 Assessment & Plan (1) UTI (urinary tract infection): Plan: resolved, s/p 7 days of Rocephine. (2) Urinary retention: Plan: IMPROVED Jean Baptiste inserted on 03/14 however she self removed on 03/21 with balloon intact - she has since urinated however overall minimal urine output likely due to poor oral intake but is having some retention. Was requiring straight cath on 03/24 and having some retention however over the past few days has been spontaneously voiding and oral intact has improved some. May need to consider re-inserting Jean Baptiste, however would be at risk for self-removal again. - Continue to bladder scan - advise to place Jean Baptiste should she get > 500 mL on bladder scan and without voiding - Can leave jean baptiste out for now and monitor - no acute abdomen or distress to suggest any perforation with self-removal of cath continue on Flomax - Largely incontinent Continue with current management and monitoring. (3) Failure to thrive: Plan: Patient has remained in house >50 days and is awaiting placement Her oral intake has been slowly declining (does have good/bad days) We will hold off on IV fluids at this time as this would only be a temporary fix and assist with feeds continue Boost supplementation Patient would be appropriate for hospice for end-stage dementia. Her failure to thrive is likely a result of her end-stage and progressive dementia -- However, patient was noted to wander and even on hospice this would not provide around the clock care so inpatient setting still warranted. Awaiting to hear if she has been accepted to [facility]. (4) Dementia with behavioral disturbance: Plan: -Stable. Continue trazodone Continue Aricept -they did try a trial of seroquel but it caused excessive somnolence. -pt also had Riperdal PRN on meds list but has not been needed. (consider low dose if behavioral issues arise). Continue with current management and monitoring. (5) Hypernatremia: Plan: Intermittent, resolves with improved oral intake. Encourage p.o. as tolerated continue with Boost supplement pt not a big fan of BW, but last was WNL. will try to obtain more recent. (6) Thiamine deficiency: Plan: stable. s/p thiamine supplementation X 30 days. B12 normal. Continue with current management and monitoring. (7) Serum calcium elevated: Plan: was due to HCTZ which has since been D/C'd. BPs have been holding up well without it. Continue with current management and monitoring. (8) Anemia: Plan: Fe deficiency. s/p venofer 300mg X 3 doses. B12 WNL. not a candidate for endoscopic evaluation due to age and advanced dementia. Continue with current management and monitoring. (9) Hypercholesterolemia: Plan: stable. no longer on statin, as they didn't feel that with her dementia, failure to thrive and advanced age, it would provide any benefit. (10) Benign essential hypertension: Plan: stable/controlled. Continue with current management and monitoring. (11) Chronic renal failure, stage 3b: Plan: with CHRISTINA on admission but resolved/normalized. Continue with current management and monitoring. (12) Afib: Plan: rate controlled. continue with metoprolol. Pt on lovenox 30mg daily. (13) DVT prophylaxis: Plan: continue with lovenox 30mg daily. 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 placement pending. Social work has spoken to family and Cynthia Gonzalez also spoke with family. Consent obtained from family for Covid vaccination, as documented. Covid vaccination J&J given Previous provider contacted family to discuss possible home with hospice, spoke with granddaughter Patricia. She is going to communicate with her parents. She claims that her parents cannot take her home with hospice as her mother is going to be having surgery and her father travels frequently for work. As well, patient is noted to wander and was evaluated in ED previously due to this and without 24/7 monitoring she could likely do that again Possible d/c to [facility]. [facility] reviewing at this time. Hopeful to have an answer of determination later this week. Patient very attached to a baby doll that's in her bed. The doll needs to be taken with her upon discharge. Admission and Anticipated Discharge Date Admission Date: February 05, 2021 Subjective This is my first meeting with this pt (temporarily rounding for the hospital). Pt is awake and alert but doesn't speak khmer. per nurse, who was present at the time of the visit, pt is Czech speaking but is unable to use the grease and tallow pumper. they do communicate with the pt's daughter. pt seems comfortable and offers no complaints (?). Review of Systems Review of Systems: Unobtainable due to cognitive status Physical Exam Physical Exam: General: NAD. HEENT: eyes non icteric, sclera and conjunctiva WNL, EOMI, PERRLA. Neck: Supple, no lymphadenopathy. NO JVD or carotid bruits. CVS: S1S2 present. rate and rhythm WNL. No murmur. Respiratory: normal respiratory effort. No respiratory distress. Breath sounds present B/L but diminished in the bases. No wheezing, rhonchi, or rales. Abdomen: Soft, non tender, non distended. BS WNL. No rebound, guarding, or rigidity. Extremities: No edema. No calf tenderness or cords. moving all extremities. Skin: No rash, warm, and dry. No cyanosis, diaphoresis or pallor. Neuro: alert and awake. No focal neurological deficits. Psych: a bit tearful at times. likes human contact. Results & Data Results & Data ([facility]) Vital Signs (Past 12 Hours) Vital Signs Temp Pulse Resp BP Pulse Ox 03/31/21 07:25 36.8 C 66 16 132/74 95 03/30/21 22:13 36.8 C 74 16 149/84 H 92 PG Care Time/CCT Total # of Minutes Spent Total Time Spent with Patient: Total time spent is greater than 50% in coordination of care (as documented) at patient's floor/unit and/or counseling patient: Coding Level of Care Code 39367 Subseq Hosp Care Lvl 3 Diagnoses UTI (urinary tract infection) N39.0 Urinary retention R33.9 Failure to thrive Dementia with behavioral disturbance F03.91 Hypernatremia E87.0 Thiamine deficiency E51.9 Serum calcium elevated E83.52 Anemia D64.9 Hypercholesterolemia E78.00 Benign essential hypertension I10 Chronic renal failure, stage 3b N18.32 Afib I48.91 DVT prophylaxis Z29.9 supervisor park workers involved in patient's care
[2021-03-31] MEDS: DOCUSATE SODIUM/SENNA 50/8.6MG TAB PO SCH (12:50)
[2021-03-31] MEDS: METOPROLOL TARTRATE 25 MG TAB PO SCH ×3 (12:50→21:17)
[2021-03-31] MEDS: POLYETHYLENE (MIRALAX) 17 GM PACK PO SCH (12:50)
[2021-03-31] MEDS: ENOXAPARIN INJ 30 MG/0.3 ML SYR SQ SCH (12:50)
[2021-03-31] MEDS: traZODone HCL 50 MG TAB PO SCH ×2 (21:12→21:17)
[2021-03-31] MEDS: TAMSULOSIN HCL 0.4 MG CAP PO SCH ×2 (21:13→21:17)
[2021-03-31] MEDS: DONEPEZIL HCL 5 MG TAB PO SCH ×2 (21:13→21:18)
--- NOTE | 2021-04-01 07:35 | Hospitalist Progress Note ---
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 placement pending. Social work has spoken to family and Cynthia Gonzalez also spoke with family. Consent obtained from family for Covid vaccination, as documented. Covid vaccination J&J given Previous provider contacted family to discuss possible home with hospice, spoke with granddaughter Patricia. She is going to communicate with her parents. She claims that her parents cannot take her home with hospice as her mother is going to be having surgery and her father travels frequently for work. As well, patient is noted to wander and was evaluated in ED previously due to this and without / monitoring she could likely do that again Possible d/c to [facility]. [facility] reviewing at this time. Hopeful to have an answer of determination later this week. Patient very attached to a baby doll that's in her bed. The doll needs to be taken with her upon discharge. (2) UTI (urinary tract infection): Plan: resolved, s/p 7 days of Rocephine. (3) Urinary retention: Plan: IMPROVED Jean Baptiste inserted on 03/14 however she self removed on 03/21 with balloon intact - she has since urinated however overall minimal urine output likely due to poor oral intake but is having some retention. Was requiring straight cath on 03/24 and having some retention however over the past few days has been spontaneously voiding and oral intact has improved some. May need to consider re-inserting Jean Baptiste, however would be at risk for self-removal again. - Continue to bladder scan - advise to place Jean Baptiste should she get > 500 mL on bladder scan and without voiding - Can leave jean baptiste out for now and monitor - no acute abdomen or distress to suggest any perforation with self-removal of cath continue on Flomax - Largely incontinent Continue with current management and monitoring. (4) Failure to thrive: Plan: Patient has remained in house >50 days and is awaiting placement Her oral intake has been slowly declining (does have good/bad days) We will hold off on IV fluids at this time as this would only be a temporary fix and assist with feeds continue Boost supplementation Patient would be appropriate for hospice for end-stage dementia. Her failure to thrive is likely a result of her end-stage and progressive dementia -- However, patient was noted to wander and even on hospice this would not provide around the clock care so inpatient setting still warranted. Awaiting to hear if she has been accepted to [facility]. (5) Dementia with behavioral disturbance: Plan: -Stable. Continue trazodone Continue Aricept -they did try a trial of seroquel but it caused excessive somnolence. -pt also had Riperdal PRN on meds list but has not been needed. (consider low dose if behavioral issues arise). Continue with current management and monitoring. (6) Hypernatremia: Plan: Intermittent, resolves with improved oral intake. Encourage p.o. as tolerated continue with Boost supplement pt not a big fan of BW, but last was WNL. will try to obtain more recent. (7) Thiamine deficiency: Plan: stable. s/p thiamine supplementation X 30 days. B12 normal. Continue with current management and monitoring. (8) Serum calcium elevated: Plan: was due to HCTZ which has since been D/C'd. BPs have been holding up well without it. Continue with current management and monitoring. (9) Anemia: Plan: Fe deficiency. s/p venofer 300mg X 3 doses. B12 WNL. not a candidate for endoscopic evaluation due to age and advanced dementia. Continue with current management and monitoring. (10) Hypercholesterolemia: Plan: stable. no longer on statin, as they didn't feel that with her dementia, failure to thrive and advanced age, it would provide any benefit. (11) Benign essential hypertension: Plan: stable/controlled. Continue with current management and monitoring. (12) Chronic renal failure, stage 3b: Plan: with CHRISTINA on admission but resolved/normalized. Continue with current management and monitoring. (13) Afib: Plan: rate controlled. continue with metoprolol. Pt on lovenox 30mg daily. (14) DVT prophylaxis: Plan: continue with lovenox 30mg daily. Admission and Anticipated Discharge Date Admission Date: February 05, 2021 Subjective Pt is asleep this morning. she appears comfortable. Review of Systems 2 Review of Systems: Unobtainable due to cognitive status Physical Exam Physical Exam: General: NAD. HEENT: eyes non icteric, sclera and conjunctiva WNL, EOMI, PERRLA. Neck: Supple, no lymphadenopathy. NO JVD or carotid bruits. CVS: S1S2 present. rate and rhythm WNL. No murmur. Respiratory: normal respiratory effort. No respiratory distress. Breath sounds present B/L but diminished in the bases. No wheezing, rhonchi, or rales. Abdomen: Soft, non tender, non distended. BS WNL. No rebound, guarding, or rigidity. Extremities: No edema. No calf tenderness or cords. moving all extremities. Skin: No rash, warm, and dry. No cyanosis, diaphoresis or pallor. Neuro: alert and awake. No focal neurological deficits. Psych: likes human contact. 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
[2021-04-01] MEDS: POLYETHYLENE (MIRALAX) 17 GM PACK PO SCH (15:52)
[2021-04-01] MEDS: DOCUSATE SODIUM/SENNA 50/8.6MG TAB PO SCH (15:52)
[2021-04-01] MEDS: METOPROLOL TARTRATE 25 MG TAB PO SCH ×2 (15:52→21:25)
[2021-04-01] MEDS: ENOXAPARIN INJ 30 MG/0.3 ML SYR SQ SCH (15:52)
[2021-04-01] MEDS: TAMSULOSIN HCL 0.4 MG CAP PO SCH (21:24)
[2021-04-01] MEDS: DONEPEZIL HCL 5 MG TAB PO SCH (21:28)
[2021-04-01] MEDS: traZODone HCL 50 MG TAB PO SCH (21:29)
[2021-04-02] MEDS: POLYETHYLENE (MIRALAX) 17 GM PACK PO SCH (07:37)
[2021-04-02] MEDS: METOPROLOL TARTRATE 25 MG TAB PO SCH ×2 (07:37→20:55)
[2021-04-02] MEDS: ENOXAPARIN INJ 30 MG/0.3 ML SYR SQ SCH (07:38)
[2021-04-02] MEDS: DOCUSATE SODIUM/SENNA 50/8.6MG TAB PO SCH (07:38)
--- NOTE | 2021-04-02 07:40 | Hospitalist Progress Note ---
Date of Service April 02, 2021 Assessment & Plan (1) workers compensation administrator involved in patient's care: Plan: pt needs 24-hour care, thus SNF post-discharge. placement pending. 04/01/21: case management awaiting [facility] decision regarding whether they will accept the pt. Social work has spoken to family and Cynthia Gonzalez also spoke with family. Consent obtained from family for Covid vaccination, as documented. Covid vaccination J&J given Previous provider contacted family to discuss possible home with hospice, spoke with granddaughter Patricia. She is going to communicate with her parents. She claims that her parents cannot take her home with hospice as her mother is going to be having surgery and her father travels frequently for work. As well, patient is noted to wander and was evaluated in ED previously due to this and without 24/7 monitoring she could likely do that again Possible d/c to [facility]. [facility] reviewing at this time. Hopeful to have an answer of determination later this week. Patient very attached to a baby doll that's in her bed. The doll needs to be taken with her upon discharge. (2) UTI (urinary tract infection): Plan: resolved, s/p 7 days of Rocephine. (3) Urinary retention: Plan: IMPROVED Jean Baptiste inserted on 03/14 however she self removed on 03/21 with balloon intact - she has since urinated however overall minimal urine output likely due to poor oral intake but is having some retention. Was requiring straight cath on 03/24 and having some retention however over the past few days has been spontaneously voiding and oral intact has improved some. May need to consider re-inserting Jean Baptiste, however would be at risk for self-removal again. - Continue to bladder scan - advise to place Jean Baptiste should she get > 500 mL on bladder scan and without voiding - Can leave jean baptiste out for now and monitor - no acute abdomen or distress to suggest any perforation with self-removal of cath continue on Flomax - Largely incontinent Continue with current management and monitoring. (4) Failure to thrive: Plan: Patient has remained in house >50 days and is awaiting placement Her oral intake has been slowly declining (does have good/bad days) We will hold off on IV fluids at this time as this would only be a temporary fix and assist with feeds continue Boost supplementation Patient would be appropriate for hospice for end-stage dementia. Her failure to thrive is likely a result of her end-stage and progressive dementia -- However, patient was noted to wander and even on hospice this would not provide around the clock care so inpatient setting still warranted. Awaiting to hear if she has been accepted to [facility]. (5) Dementia with behavioral disturbance: Plan: -Stable. Continue trazodone Continue Aricept -they did try a trial of seroquel but it caused excessive somnolence. -pt also had Riperdal PRN on meds list but has not been needed. (consider low dose if behavioral issues arise). Continue with current management and monitoring. (6) Hypernatremia: Plan: Intermittent, resolves with improved oral intake. Encourage p.o. as tolerated continue with Boost supplement pt not a big fan of BW, but last was WNL. will try to obtain more recent. (7) Thiamine deficiency: Plan: stable. s/p thiamine supplementation X 30 days. B12 normal. Continue with current management and monitoring. (8) Serum calcium elevated: Plan: was due to HCTZ which has since been D/C'd. BPs have been holding up well without it. Continue with current management and monitoring. (9) Anemia: Plan: Fe deficiency. s/p venofer 300mg X 3 doses. B12 WNL. not a candidate for endoscopic evaluation due to age and advanced dementia. Continue with current management and monitoring. (10) Hypercholesterolemia: Plan: stable. no longer on statin, as they didn't feel that with her dementia, failure to thrive and advanced age, it would provide any benefit. (11) Benign essential hypertension: Plan: stable/controlled. Continue with current management and monitoring. (12) Chronic renal failure, stage 3b: Plan: with CHRISTINA on admission but resolved/normalized. Continue with current management and monitoring. (13) Afib: Plan: rate controlled. continue with metoprolol. Pt on lovenox 30mg daily. (14) DVT prophylaxis: Plan: continue with lovenox 30mg daily. Admission and Anticipated Discharge Date Admission Date: February 05, 2021 Subjective Pt is asleep this morning. she appears comfortable. Review of Systems Review of Systems: Unobtainable due to cognitive status (and language ba rrier.) Physical Exam Physical Exam: General: NAD. HEENT: eyes non icteric, sclera and conjunctiva WNL, EOMI, PERRLA. Neck: Supple, no lymphadenopathy. NO JVD or carotid bruits. CVS: S1S2 present. rate and rhythm WNL. No murmur. Respiratory: normal respiratory effort. No respiratory distress. Breath sound s present B/L but diminished in the bases. No wheezing, rhonchi, or rales. Abdomen: Soft, non tender, non distended. BS WNL. No rebound, guarding, or rigidity. Extremities: No edema. No calf tenderness or cords. moving all extremities. Skin: No rash, warm, and dry. No cyanosis, diaphoresis or pallor. Neuro: alert and awake. No focal neurological deficits. Psych: likes human contact. Results & Data Results & Data ([facility]) Vital Signs (Past 12 Hours) Vital Signs vitals from this morning reviewed. Temp Pulse Resp BP Pulse Ox 04/01/21 21:18 36.6 C 64 16 111/56 L 94 PG Care Time/CCT Total # of Minutes Spent Total Time Spent with Patient: Total time spent is greater than 50% in coordination of care (as documented) at patient's floor/unit and/or counseling patient: Coding Level of Care Code 33248 Subseq Hosp Care Lvl 3 Diagnoses workers compensation administrator involved in patient's care UTI (urinary tract infection) N39.0 Urinary retention R33.9 Failure to thrive Dementia with behavioral disturbance F03.91 Hypernatremia E87.0 Thiamine deficiency E51.9 Serum calcium elevated E83.52 Anemia D64.9 Hypercholesterolemia E78.00 Benign essential hypertension I10 Chronic renal failure, stage 3b N18.32 Afib I48.91 DVT prophylaxis Z29.9
[2021-04-02] MEDS: TAMSULOSIN HCL 0.4 MG CAP PO SCH (20:55)
[2021-04-02] MEDS: DONEPEZIL HCL 5 MG TAB PO SCH (20:55)
[2021-04-02] MEDS: traZODone HCL 50 MG TAB PO SCH (20:55)
--- NOTE | 2021-04-03 07:45 | Hospitalist Progress Note ---
Date of Service April 03, 2021 Assessment & Plan (1) billet worker involved in patient's care: Plan: pt needs 24-hour care, thus SNF post-discharge. placement pending. 04/01/21: case management awaiting [facility] decision regarding whether they will accept the pt. Social work has spoken to family and Cynthia Gonzalez also spoke with family. Consent obtained from family for Covid vaccination, as documented. Covid vaccination J&J given Previous provider contacted family to discuss possible home with hospice, spoke with granddaughter Patricia. She is going to communicate with her parents. She claims that her parents cannot take her home with hospice as her mother is going to be having surgery and her father travels frequently for work. As well, patient is noted to wander and was evaluated in ED previously due to this and without 24/7 monitoring she could likely do that again Possible d/c to [facility]. [facility] reviewing at this time. Hopeful to have an answer of determination later this week. Patient very attached to a baby doll that's in her bed. The doll needs to be taken with her upon discharge. (2) UTI (urinary tract infection): Plan: resolved, s/p 7 days of Rocephine. (3) Urinary retention: Plan: IMPROVED Jean Baptiste inserted on 03/14 however she self removed on 03/21 with balloon intact - she has since urinated however overall minimal urine output likely due to poor oral intake but is having some retention. Was requiring straight cath on 03/24 and having some retention however over the past few days has been spontaneously voiding and oral intact has improved some. May need to consider re-inserting Jean Baptiste, however would be at risk for self-removal again. - Continue to bladder scan - advise to place Jean Baptiste should she get > 500 mL on bladder scan and without voiding - Can leave jean baptiste out for now and monitor - no acute abdomen or distress to suggest any perforation with self-removal of cath continue on Flomax - Largely incontinent Continue with current management and monitoring. (4) Failure to thrive: Plan: Patient has remained in house >50 days and is awaiting placement Her oral intake has been slowly declining (does have good/bad days) We will hold off on IV fluids at this time as this would only be a temporary fix and assist with feeds continue Boost supplementation Patient would be appropriate for hospice for end-stage dementia. Her failure to thrive is likely a result of her end-stage and progressive dementia -- However, patient was noted to wander and even on hospice this would not provide around the clock care so inpatient setting still warranted. Awaiting to hear if she has been accepted to [facility]. (5) Dementia with behavioral disturbance: Plan: -Stable. Continue trazodone Continue Aricept -they did try a trial of seroquel but it caused excessive somnolence. -pt also had Riperdal PRN on meds list but has not been needed. (consider low dose if behavioral issues arise). Continue with current management and monitoring. (6) Hypernatremia: Plan: Intermittent, resolves with improved oral intake. Encourage p.o. as tolerated continue with Boost supplement pt not a big fan of BW, but last was WNL. will try to obtain more recent. (7) Thiamine deficiency: Plan: stable. s/p thiamine supplementation X 30 days. B12 normal. Continue with current management and monitoring. (8) Serum calcium elevated: Plan: was due to HCTZ which has since been D/C'd. BPs have been holding up well without it. Continue with current management and monitoring. (9) Anemia: Plan: Fe deficiency. s/p venofer 300mg X 3 doses. B12 WNL. not a candidate for endoscopic evaluation due to age and advanced dementia. Continue with current management and monitoring. (10) Hypercholesterolemia: Plan: stable. no longer on statin, as they didn't feel that with her dementia, failure to thrive and advanced age, it would provide any benefit. (11) Benign essential hypertension: Plan: stable/controlled. Continue with current management and monitoring. (12) Chronic renal failure, stage 3b: Plan: with CHRISTINA on admission but resolved/normalized. Continue with current management and monitoring. (13) Afib: Plan: rate controlled. continue with metoprolol. Pt on lovenox 30mg daily. (14) DVT prophylaxis: Plan: continue with lovenox 30mg daily. Admission and Anticipated Discharge Date Admission Date: February 05, 2021 Subjective Pt is asleep, but arousable this morning. she appears comfortable. Review of Systems Review of Systems: Unobtainable due to cognitive status (and language barrier.) Physical Exam Physical Exam: General: NAD. HEENT: eyes non icteric, sclera and conjunctiva WNL, EOMI, PERRLA. Neck: Supple, no lymphadenopathy. NO JVD or carotid bruits. CVS: S1S2 present. rate and rhythm WNL. No murmur. Respiratory: normal respiratory effort. No respiratory distress. Breath sounds present B/L but diminished in the bases. No wheezing, rhonchi, or rales. Abdomen: Soft, non tender, non distended. BS WNL. No rebound, guarding, or rigidity. Extremities: No edema. No calf tenderness or cords. moving all extremities. Skin: No rash, warm, and dry. No cyanosis, diaphoresis or pallor. Neuro: alert and awake. No focal neurological deficits. Psych: likes human contact. Results & Data Results & Data ([facility]) Vital Signs (Past 12 Hours) Vital Signs Temp Pulse Resp BP Pulse Ox 04/02/21 20:48 36.8 C 70 18 132/79 94 reviewed. PG Care Time/CCT Total # of Minutes Spent Total Time Spent with Patient: Total time spent is greater than 50% in coordination of care (as documented) at patient's floor/unit and/or counseling patient: Coding Level of Care Code 84488 Subseq Hosp Care Lvl 3 Diagnoses billet worker involved in patient's care UTI (urinary tract infection) N39.0 Urinary retention R33.9 Failure to thrive Dementia with behavioral disturbance F03.91 Hypernatremia E87.0 Thiamine deficiency E51.9 Serum calcium elevated E83.52 Anemia D64.9 Hypercholesterolemia E78.00 Benign essential hypertension I10 Chronic renal failure, stage 3b N18.32 Afib I48.91 DVT prophylaxis Z29.9
[2021-04-03] MEDS: METOPROLOL TARTRATE 25 MG TAB PO SCH ×2 (08:28→22:22)
[2021-04-03] MEDS: DOCUSATE SODIUM/SENNA 50/8.6MG TAB PO SCH (08:29)
[2021-04-03] MEDS: ENOXAPARIN INJ 30 MG/0.3 ML SYR SQ SCH (08:29)
[2021-04-03] MEDS: POLYETHYLENE (MIRALAX) 17 GM PACK PO SCH (08:29)
[2021-04-03] MEDS: TAMSULOSIN HCL 0.4 MG CAP PO SCH (22:22)
[2021-04-03] MEDS: DONEPEZIL HCL 5 MG TAB PO SCH (22:22)
[2021-04-03] MEDS: traZODone HCL 50 MG TAB PO SCH (22:22)
[2021-04-04] MEDS: POLYETHYLENE (MIRALAX) 17 GM PACK PO SCH (07:36)
[2021-04-04] MEDS: METOPROLOL TARTRATE 25 MG TAB PO SCH ×2 (07:36→20:26)
[2021-04-04] MEDS: DOCUSATE SODIUM/SENNA 50/8.6MG TAB PO SCH (07:37)
[2021-04-04] MEDS: ENOXAPARIN INJ 30 MG/0.3 ML SYR SQ SCH (07:37)
--- NOTE | 2021-04-04 07:39 | Hospitalist Progress Note ---
Date of Service April 04, 2021 Assessment & Plan (1) table worker packager involved in patient's care: Plan: pt needs 24-hour care, thus SNF post-discharge. placement pending. 04/01/21: case management awaiting [facility] decision regarding whether they will accept the pt. Social work has spoken to family and Cynthia Gonzalez also spoke with family. Consent obtained from family for Covid vaccination, as documented. Covid vaccination J&J given Previous provider contacted family to discuss possible home with hospice, spoke with granddaughter Patricia. She is going to communicate with her parents. She claims that her parents cannot take her home with hospice as her mother is going to be having surgery and her father travels frequently for work. As well, patient is noted to wander and was evaluated in ED previously due to this and without 24/7 monitoring she could likely do that again Possible d/c to [facility]. [facility] reviewing at this time. Hopeful to have an answer of determination later this week. Patient very attached to a baby doll that's in her bed. The doll needs to be taken with her upon discharge. (2) UTI (urinary tract infection): Plan: resolved, s/p 7 days of Rocephine. (3) Urinary retention: Plan: IMPROVED Jean Baptiste inserted on 03/14 however she self removed on 03/21 with balloon intact - she has since urinated however overall minimal urine output likely due to poor oral intake but is having some retention. Was requiring straight cath on 03/24 and having some retention however over the past few days has been spontaneously voiding and oral intact has improved some. May need to consider re-inserting Jean Baptiste, however would be at risk for self-removal again. - Continue to bladder scan - advise to place Jean Baptiste should she get > 500 mL on bladder scan and without voiding - Can leave jean baptiste out for now and monitor - no acute abdomen or distress to suggest any perforation with self-removal of cath continue on Flomax - Largely incontinent Continue with current management and monitoring. (4) Failure to thrive: Plan: Patient has remained in house >50 days and is awaiting placement Her oral intake has been slowly declining (does have good/bad days) We will hold off on IV fluids at this time as this would only be a temporary fix and assist with feeds continue Boost supplementation Patient would be appropriate for hospice for end-stage dementia. Her failure to thrive is likely a result of her end-stage and progressive dementia -- However, patient was noted to wander and even on hospice this would not provide around the clock care so inpatient setting still warranted. Awaiting to hear if she has been accepted to [facility]. (5) Dementia with behavioral disturbance: Plan: -Stable. Continue trazodone Continue Aricept -they did try a trial of seroquel but it caused excessive somnolence. -pt also had Riperdal PRN on meds list but has not been needed. (consider low dose if behavioral issues arise). Continue with current management and monitoring. (6) Hypernatremia: Plan: Intermittent, resolves with improved oral intake. Encourage p.o. as tolerated continue with Boost supplement pt not a big fan of BW, but last was WNL. will try to obtain more recent. (7) Thiamine deficiency: Plan: stable. s/p thiamine supplementation X 30 days. B12 normal. Continue with current management and monitoring. (8) Serum calcium elevated: Plan: was due to HCTZ which has since been D/C'd. BPs have been holding up well without it. Continue with current management and monitoring. (9) Anemia: Plan: Fe deficiency. s/p venofer 300mg X 3 doses. B12 WNL. not a candidate for endoscopic evaluation due to age and advanced dementia. Continue with current management and monitoring. (10) Hypercholesterolemia: Plan: stable. no longer on statin, as they didn't feel that with her dementia, failure to thrive and advanced age, it would provide any benefit. (11) Benign essential hypertension: Plan: stable/controlled. Continue with current management and monitoring. (12) Chronic renal failure, stage 3b: Plan: with CHRISTINA on admission but resolved/normalized. Continue with current management and monitoring. (13) Afib: Plan: rate controlled. continue with metoprolol. Pt on lovenox 30mg daily. (14) DVT prophylaxis: Plan: continue with lovenox 30mg daily. Admission and Anticipated Discharge Date Admission Date: February 05, 2021 Subjective Pt is asleep, but arousable this morning. she appears comfortable. Review of Systems Review of Systems: Unobtainable due to cognitive status (and language barrier.) Physical Exam Physical Exam: General: NAD. HEENT: eyes non icteric, sclera and conjunctiva WNL, EOMI, PERRLA. Neck: Supple, no lymphadenopathy. NO JVD or carotid bruits. CVS: S1S2 present. rate and rhythm WNL. No murmur. Respiratory: normal respiratory effort. No respiratory distress. Breath sounds present B/L but diminished in the bases. No wheezing, rhonchi, or rales. Abdomen: Soft, non tender, non distended. BS WNL. No rebound, guarding, or rigidity. Extremities: No edema. No calf tenderness or cords. moving all extremities. Skin: No rash, warm, and dry. No cyanosis, diaphoresis or pallor. Neuro: alert and awake. No focal neurological deficits. Psych: likes human contact. PG Care Time/CCT Total # of Minutes Spent Total Time Spent with Patient: Total time spent is greater than 50% in coordination of care (as documented) at patient's floor/unit and/or counseling patient: Coding Level of Care Code 45874 Subseq Hosp Care Lvl 3 Diagnoses table worker packager involved in patient's care UTI (urinary tract infection) N39.0 Urinary retention R33.9 Failure to thrive Dementia with behavioral disturbance F03.91 Hypernatremia E87.0 Thiamine deficiency E51.9 Serum calcium elevated E83.52 Anemia D64.9 Hypercholesterolemia E78.00 Benign essential hypertension I10 Chronic renal failure, stage 3b N18.32 Afib I48.91 DVT prophylaxis Z29.9
[2021-04-04] MEDS: DONEPEZIL HCL 5 MG TAB PO SCH (20:26)
[2021-04-04] MEDS: TAMSULOSIN HCL 0.4 MG CAP PO SCH (20:26)
[2021-04-04] MEDS: traZODone HCL 50 MG TAB PO SCH (20:27)
[2021-04-05] MEDS: ENOXAPARIN INJ 30 MG/0.3 ML SYR SQ SCH (08:16)
[2021-04-05] MEDS: DOCUSATE SODIUM/SENNA 50/8.6MG TAB PO SCH (08:16)
[2021-04-05] MEDS: METOPROLOL TARTRATE 25 MG TAB PO SCH ×2 (08:17→20:51)
[2021-04-05] MEDS: POLYETHYLENE (MIRALAX) 17 GM PACK PO SCH (08:17)
--- NOTE | 2021-04-05 16:06 | Hospitalist Progress Note ---
Date of Service April 05, 2021 Assessment & Plan (1) stock house worker involved in patient's care: Plan: pt needs 24-hour care, thus SNF post-discharge. placement pending. 04/01/21: case management awaiting [facility] decision regarding whether they will accept the pt. Social work has spoken to family and Cynthia Gonzalez also spoke with family. Consent obtained from family for Covid vaccination, as documented. Covid vaccination J&J given Previous provider contacted family to discuss possible home with hospice, spoke with granddaughter Patricia. She is going to communicate with her parents. She claims that her parents cannot take her home with hospice as her mother is going to be having surgery and her father travels frequently for work. As well, patient is noted to wander and was evaluated in ED previously due to this and without 24/7 monitoring she could likely do that again Possible d/c to [facility]. [facility] reviewing at this time. Hopeful to have an answer of determination later this week. Patient very attached to a baby doll that's in her bed. The doll needs to be taken with her upon discharge. (2) UTI (urinary tract infection): Plan: resolved, s/p 7 days of Rocephine. (3) Urinary retention: Plan: IMPROVED Jean Baptiste inserted on 03/14 however she self removed on 03/21 with balloon intact - she has since urinated however overall minimal urine output likely due to poor oral intake but is having some retention. Was requiring straight cath on 03/24 and having some retention however over the past few days has been spontaneously voiding and oral intact has improved some. started on Flomax but still with retention and PVR >500 (for which jean baptiste catheter reinserted). Keep for now. (4) Failure to thrive: Plan: Patient has remained in house >50 days and is awaiting placement Her oral intake has been slowly declining (does have good/bad days) We will hold off on IV fluids at this time as this would only be a temporary fix and assist with feeds continue Boost supplementation Patient would be appropriate for hospice for end-stage dementia. Her failure to thrive is likely a result of her end-stage and progressive dementia -- However, patient was noted to wander and even on hospice this would not provide around the clock care so inpatient setting still warranted. Awaiting to hear if she has been accepted to [facility]. (5) Dementia with behavioral disturbance: Plan: -Stable. Continue trazodone Continue Aricept -they did try a trial of seroquel but it caused excessive somnolence. -pt also had Riperdal PRN on meds list but has not been needed. (consider low dose if behavioral issues arise). Continue with current management and monitoring. (6) Hypernatremia: Plan: Intermittent, resolves with improved oral intake. Encourage p.o. as tolerated continue with Boost supplement pt not a big fan of BW, but last was WNL. Hold off on Lab drawn unless really warranted (7) Thiamine deficiency: Plan: stable. s/p thiamine supplementation X 30 days. B12 normal. Continue with current management and monitoring. (8) Serum calcium elevated: Plan: was due to HCTZ which has since been D/C'd. BPs have been holding up well without it. Continue with current management and monitoring. (9) Anemia: Plan: Fe deficiency. s/p venofer 300mg X 3 doses. B12 WNL. not a candidate for endoscopic evaluation due to age and advanced dementia. Continue with current management and monitoring. (10) Hypercholesterolemia: Plan: stable. no longer on statin, as with her dementia, failure to thrive and advanced age, it would provide any benefit. (11) Benign essential hypertension: Plan: stable/controlled. Continue with current management and monitoring. (12) Chronic renal failure, stage 3b: Plan: with CHRISTINA on admission but resolved/normalized. Continue with current management and monitoring. (13) Afib: Plan: rate controlled. continue with metoprolol. Pt on lovenox 30mg daily. (14) DVT prophylaxis: Plan: continue with lovenox 30mg daily. Plan: Medically stable X days. Awaiting placement. Case management on board Admission and Anticipated Discharge Date Admission Date: February 05, 2021 Subjective Patient seen on daily rounds today. Awake. Talkative but nonsensical. Nursing voices no complaints or concerns. Review of Systems Review of Systems: Unobtainable Physical Exam Physical Exam: limited General: Resting comfortably in her hospital bed. Does not appear ill or toxic. In no acute distress. sleeping when occasionally opens eyes HEENT: Head is AT/NC buccal mucosa dry Neck: No JVD. Negative hepatojugular reflex Cardiac: RRR with 1/6 to 2/6 LINDA Lungs: CTA without W/R/R Abdomen: Normoactive X4. Soft and nontender in all quadrants. Extremities: No peripheral clubbing cyanosis or edema Neuro:mumbling in foreign language. Skin: No obvious skin lesions or rashes Psych:limited cooperation Results & Data Results & Data ([facility]) Vital Signs (Past 12 Hours) Vital Signs Temp Pulse Resp BP Pulse Ox 04/05/21 07:50 36.4 C L 63 18 101/58 L 94 PG Care Time/CCT Total # of Minutes Spent Total Time Spent with Patient: Total time spent is greater than 50% in coordination of care (as documented) at patient's floor/unit and/or counseling patient: Coding Level of Care Code 40958 Subseq Hosp Care Lvl 1 Diagnoses stock house worker involved in patient's care UTI (urinary tract infection) N39.0 Urinary retention R33.9 Failure to thrive Dementia with behavioral disturbance F03.91 Hypernatremia E87.0 Thiamine deficiency E51.9 Serum calcium elevated E83.52 Anemia D64.9 Hypercholesterolemia E78.00 Benign essential hypertension I10 Chronic renal failure, stage 3b N18.32 Afib I48.91 DVT prophylaxis Z29.9
[2021-04-05] MEDS: TAMSULOSIN HCL 0.4 MG CAP PO SCH (20:51)
[2021-04-05] MEDS: DONEPEZIL HCL 5 MG TAB PO SCH (20:51)
[2021-04-05] MEDS: traZODone HCL 50 MG TAB PO SCH (20:51)
--- NOTE | 2021-04-06 09:08 | Hospitalist Progress Note ---
Date of Service April 06, 2021 Assessment & Plan (1) laundry worker involved in patient's care: Plan: pt needs 24-hour care, thus SNF post-discharge. placement pending. 04/01/21: case management awaiting [facility] decision regarding whether they will accept the pt. Social work has spoken to family and Cynthia Gonzalez also spoke with family. Consent obtained from family for Covid vaccination, as documented. Covid vaccination J&J given Previous provider contacted family to discuss possible home with hospice, spoke with granddaughter Patricia. She is going to communicate with her parents. She claims that her parents cannot take her home with hospice as her mother is going to be having surgery and her father travels frequently for work. As well, patient is noted to wander and was evaluated in ED previously due to this and without 24/7 monitoring she could likely do that again. Despite family not being able to help at home, patient still appropriate for hospice and this may make placement easier? Possible d/c to [facility]. [facility] reviewing at this time. Hopeful to have an answer of determination later this week. Patient very attached to a baby doll that's in her bed. The doll needs to be taken with her upon discharge. (2) UTI (urinary tract infection): Plan: resolved, s/p 7 days of Rocephine. (3) Urinary retention: Plan: IMPROVED Jean Baptiste inserted on 03/14 however she self removed on 03/21 with balloon intact - she has since urinated however overall minimal urine output likely due to poor oral intake but is having some retention. Was requiring straight cath on 03/24 and having some retention however over the past few days has been spontaneously voiding and oral intact has improved some. started on Flomax but still with retention and PVR >500 (for which jean baptiste catheter reinserted). Keep for now. If patient removes, would not be aggressive to put back in place. Ultimately, there has been ongoing decline since her initial hospitalization and her prognosis is poor (4) Failure to thrive: Plan: Patient has remained in house >50 days and is awaiting placement Her oral intake has been slowly declining (does have good/bad days) Has shown overall decline since initial hospitalization We will hold off on IV fluids at this time as this would only be a temporary fix. Staff continued to assist with feeds continue Boost supplementation Patient would be appropriate for hospice for end-stage dementia. Her failure to thrive is likely a result of her end-stage and progressive dementia -- However, patient was noted to wander and even on hospice this would not provide around the clock care so inpatient setting still warranted. Awaiting to hear if she has been accepted to [facility]. Can consider hospice at SNF (5) Dementia with behavioral disturbance: Plan: -Stable. Continue trazodone Continue Aricept -they did try a trial of seroquel but it caused excessive somnolence. -pt also had Riperdal PRN on meds list but has not been needed. (consider low dose if behavioral issues arise). - again, overall decline since hospitalization (over the past 50 days). No agitation or behaviors Continue with current management and monitoring. (6) Hypernatremia: Plan: Intermittent, resolves with improved oral intake. Encourage p.o. as tolerated continue with Boost supplement pt not a big fan of BW, but last was WNL. Hold off on Lab drawn unless really warranted (7) Thiamine deficiency: Plan: stable. s/p thiamine supplementation X 30 days. B12 normal. (8) Serum calcium elevated: Plan: was due to HCTZ which has since been D/C'd. BPs have been holding up well without it (actually starting to become more hypotensive--see below) Continue with current management and monitoring. (9) Anemia: Plan: Fe deficiency. s/p venofer 300mg X 3 doses. B12 WNL. not a candidate for endoscopic evaluation due to age and advanced dementia. spot labs prn, given advanced dementia and progressive decline, avoid routine labs unless there is an acute change in status (10) Hypercholesterolemia: Plan: stable. no longer on statin, as with her dementia, failure to thrive and advanced age, it would provide any benefit. (11) Benign essential hypertension: Plan: was on HCTZ prior to this hospitalization which was stopped given dehydration. BP was stable without HCTZ but now running low again with continued decline 04/06: 90/55 with HR of 62. Hold Metoprolol at this time and continue to monitor (with potential plan to stop this medication all together) (12) Chronic renal failure, stage 3b: Plan: with CHRISTINA on admission but resolved/normalized. again, avoid routine labs to monitor given advanced dementia with progressive decline (13) Afib: Plan: rate controlled/ in NSR at this time on exam (likely paroxysmal) no ACT given advanced age and dementia with fall risk and risk of bleeding has been on metoprolol 12.5mg up until this point but holding on 04/06 given low BP of 90/55 and HR of 62. (14) DVT prophylaxis: Plan: continue with lovenox 30mg daily. Plan: Medically stable X days. Awaiting placement. Case management on board Admission and Anticipated Discharge Date Admission Date: February 05, 2021 Subjective Patient seen on daily rounds today. Sleeping. Arouses but returns right back to sleep. Appears comfortable. Nursing voices no issues overnight Review of Systems Review of Systems: Unobtainable Physical Exam Physical Exam: limited General: Resting comfortably in her hospital bed. Does not appear ill or toxic. In no acute distress. sleeping when occasionally opens eyes HEENT: Head is AT/NC buccal mucosa dry Neck: No JVD. Negative hepatojugular reflex Cardiac: RRR with 1/6 to 2/6 LINDA Lungs: CTA without W/R/R Abdomen: Normoactive X4. Soft and nontender in all quadrants. Extremities: No peripheral clubbing cyanosis or edema Neuro:mumbling in foreign language. Skin: No obvious skin lesions or rashes Psych:limited cooperation Results & Data Results & Data ([facility]) Vital Signs (Past 12 Hours) Vital Signs Temp Pulse Resp BP Pulse Ox 04/06/21 07:31 36.6 C 62 16 90/55 L 94 04/05/21 22:37 36.4 C L 53 L 17 114/86 95 Laboratory Results no lab data PG Care Time/CCT Total # of Minutes Spent Total Time Spent with Patient: Total time spent is greater than 50% in coordination of care (as documented) at patient's floor/unit and/or counseling patient: Coding Level of Care Code 87854 Subseq Hosp Care Lvl 2 Diagnoses laundry worker involved in patient's care UTI (urinary tract infection) N39.0 Urinary retention R33.9 Failure to thrive Dementia with behavioral disturbance F03.91 Hypernatremia E87.0 Thiamine deficiency E51.9 Serum calcium elevated E83.52 Anemia D64.9 Hypercholesterolemia E78.00 Benign essential hypertension I10 Chronic renal failure, stage 3b N18.32 Afib I48.91 DVT prophylaxis Z29.9
[2021-04-06] MEDS: DOCUSATE SODIUM/SENNA 50/8.6MG TAB PO SCH (09:28)
[2021-04-06] MEDS: ENOXAPARIN INJ 30 MG/0.3 ML SYR SQ SCH (09:28)
[2021-04-06] MEDS: POLYETHYLENE (MIRALAX) 17 GM PACK PO SCH (09:28)
[2021-04-06] MEDS: traZODone HCL 50 MG TAB PO SCH (21:27)
[2021-04-06] MEDS: DONEPEZIL HCL 5 MG TAB PO SCH (21:27)
[2021-04-06] MEDS: TAMSULOSIN HCL 0.4 MG CAP PO SCH (21:28)
[2021-04-07] MEDS: POLYETHYLENE (MIRALAX) 17 GM PACK PO SCH (08:27)
[2021-04-07] MEDS: DOCUSATE SODIUM/SENNA 50/8.6MG TAB PO SCH (08:27)
[2021-04-07] MEDS: ENOXAPARIN INJ 30 MG/0.3 ML SYR SQ SCH (08:29)
--- NOTE | 2021-04-07 10:27 | Hospitalist Progress Note ---
Date of Service April 07, 2021 Assessment & Plan (1) carry in worker involved in patient's care: Plan: pt needs 24-hour care, thus SNF post-discharge. placement pending. 04/01/21: case management awaiting [facility] decision regarding whether they will accept the pt. Social work has spoken to family and Cynthia Gonzalez also spoke with family. Consent obtained from family for Covid vaccination, as documented. Covid vaccination J&J given Previous provider contacted family to discuss possible home with hospice, spoke with granddaughter Patricia. She is going to communicate with her parents. She claims that her parents cannot take her home with hospice as her mother is going to be having surgery and her father travels frequently for work. As well, patient is noted to wander and was evaluated in ED previously due to this and without 24/7 monitoring she could likely do that again. Despite family not being able to help at home, patient still appropriate for hospice and this may make placement easier? Possible d/c to [facility]. [facility] reviewing at this time. Hopeful to have an answer of determination later this week. Patient very attached to a baby doll that's in her bed. The doll needs to be taken with her upon discharge. (2) UTI (urinary tract infection): Plan: resolved, s/p 7 days of Rocephine. (3) Urinary retention: Plan: IMPROVED Jean Baptiste inserted on 03/14 however she self removed on 03/21 with balloon intact - she has since urinated however overall minimal urine output likely due to poor oral intake but is having some retention. Was requiring straight cath on 03/24 and having some retention however over the past few days has been spontaneously voiding and oral intact has improved some. started on Flomax but still with retention and PVR >500 (for which jean baptiste catheter reinserted). Keep for now. If patient removes, would not be aggressive to put back in place. Ultimately, there has been ongoing decline since her initial hospitalization and her prognosis is poor (4) Failure to thrive: Plan: Patient has remained in house >50 days and is awaiting placement Her oral intake has been slowly declining (does have good/bad days) Has shown overall decline since initial hospitalization We will hold off on IV fluids at this time as this would only be a temporary fix. Staff continued to assist with feeds continue Boost supplementation Patient would be appropriate for hospice for end-stage dementia. Her failure to thrive is likely a result of her end-stage and progressive dementia -- However, patient was noted to wander and even on hospice this would not provide around the clock care so inpatient setting still warranted. Awaiting to hear if she has been accepted to [facility]. Can consider hospice at SNF (5) Dementia with behavioral disturbance: Plan: -Stable. Continue trazodone Continue Aricept -they did try a trial of seroquel but it caused excessive somnolence. -pt also had Riperdal PRN on meds list but has not been needed. (consider low dose if behavioral issues arise). - again, overall decline since hospitalization (over the past 50 days). No agitation or behaviors Continue with current management and monitoring. (6) Hypernatremia: Plan: Intermittent, resolves with improved oral intake. Encourage p.o. as tolerated continue with Boost supplement pt not a big fan of BW, but last was WNL. Hold off on Lab drawn unless really warranted (7) Thiamine deficiency: Plan: stable. s/p thiamine supplementation X 30 days. B12 normal. (8) Serum calcium elevated: Plan: was due to HCTZ which has since been D/C'd. BPs have been holding up well without it (actually starting to become more hypotensive--see below) Continue with current management and monitoring. (9) Anemia: Plan: Fe deficiency. s/p venofer 300mg X 3 doses. B12 WNL. not a candidate for endoscopic evaluation due to age and advanced dementia. spot labs prn, given advanced dementia and progressive decline, avoid routine labs unless there is an acute change in status (10) Hypercholesterolemia: Plan: stable. no longer on statin, as with her dementia, failure to thrive and advanced age, it would provide any benefit. (11) Benign essential hypertension: Plan: - was on HCTZ prior to this hospitalization which was stopped given dehydration. - BP was stable without HCTZ with progressive and overall declines while in house, BP started dropping again (BP was 90s/'50's with HR in the 60's) - now off of metoprolol as well- current BP 114/79 and HR 68. continue to monitor (12) Chronic renal failure, stage 3b: Plan: with CHRISTINA on admission but resolved/normalized. again, avoid routine labs to monitor given advanced dementia with progressive decline (13) Afib: Plan: rate controlled/ in NSR at this time on exam (likely paroxysmal) no ACT given advanced age and dementia with fall risk and risk of bleeding had been on metoprolol 12.5mg up until this point but stopped on 04/06 given low BP of 90/55 and HR of 62. VS improved. continue to monitor (14) DVT prophylaxis: Plan: was on lovenox but staff reports getting very agitated with these. stop for now. Plan: Medically stable X days. Awaiting placement. Case management on board Admission and Anticipated Discharge Date Admission Date: February 05, 2021 Subjective Patient seen on daily rounds today. Talkative but nonsensical. Nursing reports increased agitation with lovenox injections but otherwise stable Review of Systems Review of Systems: Unobtainable Physical Exam Physical Exam: limited General: Resting comfortably in her hospital bed. Does not appear ill or toxic. In no acute distress. sleeping but opens eyes during my exams. Talking but nonsensical HEENT: Head is AT/NC buccal mucosa dry Neck: No JVD. Negative hepatojugular reflex Cardiac: RRR with 1/6 to 2/6 LINDA Lungs: CTA without W/R/R Abdomen: Normoactive X4. Soft and nontender in all quadrants. Extremities: No peripheral clubbing cyanosis or edema Neuro:mumbling in foreign language. Skin: No obvious skin lesions or rashes Psych:limited cooperation Results & Data Results & Data ([facility]) Vital Signs (Past 12 Hours) Vital Signs Temp Pulse Resp BP Pulse Ox 04/07/21 08:49 36.4 C L 68 16 114/79 94 Laboratory Results no lab data today PG Care Time/CCT Total # of Minutes Spent Total Time Spent with Patient: Total time spent is greater than 50% in coordination of care (as documented) at patient's floor/unit and/or counseling patient: Coding Level of Care Code 43645 Subseq Hosp Care Lvl 1 Diagnoses carry in worker involved in patient's care UTI (urinary tract infection) N39.0 Urinary retention R33.9 Failure to thrive Dementia with behavioral disturbance F03.91 Hypernatremia E87.0 Thiamine deficiency E51.9 Serum calcium elevated E83.52 Anemia D64.9 Hypercholesterolemia E78.00 Benign essential hypertension I10 Chronic renal failure, stage 3b N18.32 Afib I48.91 DVT prophylaxis Z29.9
[2021-04-07] MEDS: DONEPEZIL HCL 5 MG TAB PO SCH (21:06)
[2021-04-07] MEDS: traZODone HCL 50 MG TAB PO SCH (21:06)
[2021-04-07] MEDS: TAMSULOSIN HCL 0.4 MG CAP PO SCH (21:07)
[2021-04-08] MEDS: DOCUSATE SODIUM/SENNA 50/8.6MG TAB PO SCH (08:40)
[2021-04-08] MEDS: POLYETHYLENE (MIRALAX) 17 GM PACK PO SCH (08:40)
--- NOTE | 2021-04-08 15:45 | Hospitalist Progress Note ---
Date of Service April 08, 2021 Assessment & Plan (1) service worker helper involved in patient's care: Plan: pt needs 24-hour care, thus SNF post-discharge. placement pending. 04/01/21: case management awaiting [facility] decision regarding whether they will accept the pt. Social work has spoken to family and Cynthia Gonzalez also spoke with family. Consent obtained from family for Covid vaccination, as documented. Covid vaccination J&J given Previous provider contacted family to discuss possible home with hospice, spoke with granddaughter Patricia. She is going to communicate with her parents. She claims that her parents cannot take her home with hospice as her mother is going to be having surgery and her father travels frequently for work. As well, patient is noted to wander and was evaluated in ED previously due to this and without 24/7 monitoring she could likely do that again. Despite family not being able to help at home, patient still appropriate for hospice and this may make placement easier? Possible d/c to [facility]. [facility] reviewing at this time. Hopeful to have an answer of determination later this week. Patient very attached to a baby doll that's in her bed. The doll needs to be taken with her upon discharge. (2) UTI (urinary tract infection): Plan: resolved, s/p 7 days of Rocephine. (3) Urinary retention: Plan: IMPROVED Jean Baptiste inserted on 03/14 however she self removed on 03/21 with balloon intact - she has since urinated however overall minimal urine output likely due to poor oral intake but is having some retention. Was requiring straight cath on 03/24 and having some retention however over the past few days has been spontaneously voiding and oral intact has improved some. started on Flomax but still with retention and PVR >500 (for which jean baptiste catheter reinserted). Keep for now. If patient removes, would not be aggressive to put back in place. Ultimately, there has been ongoing decline since her initial hospitalization and her prognosis is poor (4) Failure to thrive: Plan: Patient has remained in house >50 days and is awaiting placement Her oral intake has been slowly declining (does have good/bad days) Has shown overall decline since initial hospitalization We will hold off on IV fluids at this time as this would only be a temporary fix. Staff continued to assist with feeds continue Boost supplementation Patient would be appropriate for hospice for end-stage dementia. Her failure to thrive is likely a result of her end-stage and progressive dementia -- Family reluctant to take her home given her tendencies to wander. At this point, she has declined where she is mostly bedbound. She has not even tried to get out of bed. She would require ejddxj-jmo-mkhid care however which I am being told this cannot be provided by family thus need to pursue placement (5) Dementia with behavioral disturbance: Plan: -Stable. Continue trazodone no benefit from Aricept at this time. Stop this medication -they did try a trial of seroquel but it caused excessive somnolence. -pt also had Riperdal PRN on meds list but has not been needed. (consider low dose if behavioral issues arise). - again, overall decline since hospitalization (over the past 50 days). No agitation or behaviors Continue with current management and monitoring. (6) Hypernatremia: Plan: Intermittent, resolves with improved oral intake. Encourage p.o. as tolerated continue with Boost supplement pt not a big fan of BW, but last was WNL. Hold off on Lab drawn unless really warranted (7) Thiamine deficiency: Plan: stable. s/p thiamine supplementation X 30 days. B12 normal. (8) Serum calcium elevated: Plan: was due to HCTZ which has since been D/C'd. BPs have been holding up well without it (actually starting to become more hypotensive--see below) Continue with current management and monitoring. (9) Anemia: Plan: Fe deficiency. s/p venofer 300mg X 3 doses. B12 WNL. not a candidate for endoscopic evaluation due to age and advanced dementia. spot labs prn, given advanced dementia and progressive decline, avoid routine labs unless there is an acute change in status (10) Hypercholesterolemia: Plan: stable. no longer on statin, as with her dementia, failure to thrive and advanced age, it would provide any benefit. (11) Benign essential hypertension: Plan: - Has been running hypotensive - Initially HCTZ stopped and BP stabilized - Patient has been here for a prolonged period of time and has overall declined further. BP continued to drop for which beta-blockade had to be stopped - Current BP is 106/59 and heart rate is 78 (12) Chronic renal failure, stage 3b: Plan: with CHRISTINA on admission but resolved/normalized. again, avoid routine labs to monitor given advanced dementia with progressive decline (13) Afib: Plan: rate controlled/ in NSR at this time on exam (likely paroxysmal) no ACT given advanced age and dementia with fall risk and risk of bleeding had been on metoprolol 12.5mg up until this point but stopped on 04/06 given low BP of 90/55 and HR of 62. VS improved. continue to monitor (HR currently 78) (14) DVT prophylaxis: Plan: was on lovenox but staff reports getting very agitated with these. has since been stopped Plan: Medically stable X days. Awaiting placement. Case management on board Is appropriate for hospice given end-stage dementia but previous providers have been in touch with family members who are against hospice at this point. They are aware that she has been progressively declining but is not in the active stages of dying. May be a language/culture barrier Admission and Anticipated Discharge Date Admission Date: February 05, 2021 Subjective Patient seen on daily rounds today. Somnolent but arousable. Talking but nonsensical and in foreign language. Nursing voices no complaints or concerns Review of Systems Review of Systems: Unobtainable Physical Exam Physical Exam: limited General: Resting comfortably in her hospital bed. Does not appear ill or toxic. In no acute distress. sleeping but opens eyes during my exams. Talking but nonsensical HEENT: Head is AT/NC buccal mucosa dry Neck: No JVD. Negative hepatojugular reflex Cardiac: RRR with 1/6 to 2/6 LINDA Lungs: CTA without W/R/R Abdomen: Normoactive X4. Soft and nontender in all quadrants. Extremities: No peripheral clubbing cyanosis or edema Neuro:mumbling in foreign language. Skin: No obvious skin lesions or rashes Psych:limited cooperation Results & Data Results & Data ([facility]) Vital Signs (Past 12 Hours) Vital Signs Temp Pulse Resp BP Pulse Ox 04/08/21 15:12 78 16 106/59 L 97 04/08/21 07:42 36.3 C L 64 16 126/71 97 Laboratory Results No lab data PG Care Time/CCT Total # of Minutes Spent Total Time Spent with Patient: Total time spent is greater than 50% in coordination of care (as documented) at patient's floor/unit and/or counseling patient: Coding Level of Care Code 71737 Subseq Hosp Care Lvl 1 Diagnoses service worker helper involved in patient's care UTI (urinary tract infection) N39.0 Urinary retention R33.9 Failure to thrive Dementia with behavioral disturbance F03.91 Hypernatremia E87.0 Thiamine deficiency E51.9 Serum calcium elevated E83.52 Anemia D64.9 Hypercholesterolemia E78.00 Benign essential hypertension I10 Chronic renal failure, stage 3b N18.32 Afib I48.91 DVT prophylaxis Z29.9
[2021-04-08] MEDS: DONEPEZIL HCL 5 MG TAB PO SCH (21:39)
[2021-04-08] MEDS: traZODone HCL 50 MG TAB PO SCH (21:39)
[2021-04-08] MEDS: TAMSULOSIN HCL 0.4 MG CAP PO SCH (21:39)
[2021-04-09] MEDS: POLYETHYLENE (MIRALAX) 17 GM PACK PO SCH (09:06)
[2021-04-09] MEDS: DOCUSATE SODIUM/SENNA 50/8.6MG TAB PO SCH (09:06)
--- NOTE | 2021-04-09 16:15 | Hospitalist Progress Note ---
Date of Service April 09, 2021 Assessment & Plan (1) feed in worker involved in patient's care: Plan: pt needs 24-hour care, thus SNF post-discharge. placement pending. 04/01/21: case management awaiting [facility] decision regarding whether they will accept the pt. Social work has spoken to family and Cynthia Gonzalez also spoke with family. Consent obtained from family for Covid vaccination, as documented. Covid vaccination J&J given Previous provider contacted family to discuss possible home with hospice, spoke with granddaughter Patricia. She is going to communicate with her parents. She claims that her parents cannot take her home with hospice as her mother is going to be having surgery and her father travels frequently for work. As well, patient is noted to wander and was evaluated in ED previously due to this and without 24/7 monitoring she could likely do that again. Despite family not being able to help at home, patient still appropriate for hospice and this may make placement easier? Center care coming to assess patient tomorrow to determine if they will accept Patient very attached to a baby doll that's in her bed. The doll needs to be taken with her upon discharge. (2) UTI (urinary tract infection): Plan: resolved, s/p 7 days of Rocephine. (3) Urinary retention: Plan: IMPROVED Jean Baptiste inserted on 03/14 however she self removed on 03/21 with balloon intact - she has since urinated however overall minimal urine output likely due to poor oral intake but is having some retention. Was requiring straight cath on 03/24 and having some retention however over the past few days has been spontaneously voiding and oral intact has improved some. started on Flomax but still with retention and PVR >500 (for which jean baptiste catheter reinserted). Keep for now. If patient removes, would not be aggressive to put back in place. Ultimately, there has been ongoing decline since her initial hospitalization and her [facility] prognosis is poor (4) Failure to thrive: Plan: Patient has remained in house >50 days and is awaiting placement Her oral intake has been slowly declining (does have good/bad days) Has shown overall decline since initial hospitalization We will hold off on IV fluids at this time as this would only be a temporary fix. Staff continued to assist with feeds continue Boost supplementation Patient would be appropriate for hospice for end-stage dementia. Her failure to thrive is likely a result of her end-stage and progressive dementia -- Family reluctant to take her home given her tendencies to wander. At this point, she has declined where she is mostly bedbound. She has not even tried to get out of bed. She would require itllvk-epz-gbopz care however which I am being told this cannot be provided by family thus need to pursue placement -- patient has been pleasantly confused and is really no trouble. no combative behavior. no agitation. Need to be fed. (5) Dementia with behavioral disturbance: Plan: -Stable. Continue trazodone no benefit from Aricept at this time. Med stopped -they did try a trial of seroquel but it caused excessive somnolence. -pt also had Riperdal PRN on meds list but has not been needed. (consider low dose if behavioral issues arise). - again, overall decline since hospitalization (over the past 50 days). No agitation or behaviors (6) Hypernatremia: Plan: Intermittent, resolves with improved oral intake. Encourage p.o. as tolerated continue with Boost supplement pt not a big fan of BW, but last was WNL. Hold off on Lab drawn unless really warranted (7) Thiamine deficiency: Plan: stable. s/p thiamine supplementation X 30 days. B12 normal. (8) Serum calcium elevated: Plan: was due to HCTZ which has since been D/C'd. BPs have been holding up well without it (actually starting to become more hypotensive--see below) Continue with current management and monitoring. (9) Anemia: Plan: Fe deficiency. s/p venofer 300mg X 3 doses. B12 WNL. not a candidate for endoscopic evaluation due to age and advanced dementia. spot labs prn, given advanced dementia and progressive decline, avoid routine labs unless there is an acute change in status (10) Hypercholesterolemia: Plan: stable. no longer on statin, as with her dementia, failure to thrive and advanced age, it would provide any benefit. (11) Benign essential hypertension: Plan: - Has been running hypotensive - Initially HCTZ stopped and BP stabilized - Patient has been here for a prolonged period of time and has overall declined further. BP continued to drop for which beta-blockade had to be stopped - Current BP is 112/77 and heart rate is 67 (12) Chronic renal failure, stage 3b: Plan: with CHRISTINA on admission but resolved/normalized. again, avoid routine labs to monitor given advanced dementia with progressive decline (13) Afib: Plan: rate controlled/ in NSR at this time on exam (likely paroxysmal) no ACT given advanced age and dementia with fall risk and risk of bleeding had been on metoprolol 12.5mg up until this point but stopped on 04/06 given low BP of 90/55 and HR of 62. VS improved. continue to monitor (HR currently 67) (14) DVT prophylaxis: Plan: was on lovenox but staff reports getting very agitated with these. has since been stopped Plan: Medically stable X days. Awaiting placement. Case management on board Is appropriate for hospice given end-stage dementia but previous providers have been in touch with family members who are against hospice at this point. They are aware that she has been progressively declining but is not in the active stages of dying. May be a language/culture barrier Admission and Anticipated Discharge Date Admission Date: February 05, 2021 Subjective Patient seen on daily rounds today. Pleasantly confused. Sitting upright in eating breakfast with nursing staff. Nursing reports "this is the most that she has eaten in days". Nursing vocalizes no complaints or concerns. Review of Systems Review of Systems: Unobtainable Physical Exam Physical Exam: limited General: Resting comfortably in her hospital bed. Does not appear ill or toxic. In no acute distress. sleeping but opens eyes during my exams. Talking but nonsensical HEENT: Head is AT/NC buccal mucosa dry Neck: No JVD. Negative hepatojugular reflex Cardiac: RRR with 1/6 to 2/6 LINDA Lungs: CTA without W/R/R Abdomen: Normoactive X4. Soft and nontender in all quadrants. Extremities: No peripheral clubbing cyanosis or edema Neuro:mumbling in foreign language. Skin: No obvious skin lesions or rashes Psych:limited cooperation Results & Data Results & [facility] ([facility]) Vital Signs (Past 12 Hours) Vital Signs Temp Pulse Resp BP Pulse Ox 04/09/21 14:47 36.7 C 67 16 112/77 99 04/09/21 07:45 36.6 C 52 L 16 113/70 93 PG Care Time/CCT Total # of Minutes Spent Total Time Spent with Patient: Total time spent is greater than 50% in coordination of care (as documented) at patient's floor/unit and/or counseling patient: Coding Level of Care Code 45174 Subseq Hosp Care Lvl 1 Diagnoses feed in worker involved in patient's care UTI (urinary tract infection) N39.0 Urinary retention R33.9 Failure to thrive Dementia with behavioral disturbance F03.91 Hypernatremia E87.0 Thiamine deficiency E51.9 Serum calcium elevated E83.52 Anemia D64.9 Hypercholesterolemia E78.00 Benign essential hypertension I10 Chronic renal failure, stage 3b N18.32 Afib I48.91 DVT prophylaxis Z29.9
[2021-04-09] MEDS: TAMSULOSIN HCL 0.4 MG CAP PO SCH (21:37)
[2021-04-09] MEDS: DONEPEZIL HCL 5 MG TAB PO SCH (21:37)
[2021-04-09] MEDS: traZODone HCL 50 MG TAB PO SCH (21:37)
[2021-04-10] MEDS: POLYETHYLENE (MIRALAX) 17 GM PACK PO SCH (08:58)
[2021-04-10] MEDS: DOCUSATE SODIUM/SENNA 50/8.6MG TAB PO SCH (08:58)
--- NOTE | 2021-04-10 15:00 | Hospitalist Progress Note ---
Date of Service April 10, 2021 Assessment & Plan (1) community center worker involved in patient's care: Plan: pt needs 24-hour care, thus SNF post-discharge. placement pending. 04/01/21: case management awaiting [facility] decision regarding whether they will accept the pt. Social work has spoken to family and Cynthia Gonzalez also spoke with family. Consent obtained from family for Covid vaccination, as documented. Covid vaccination J&J given Previous provider contacted family to discuss possible home with hospice, spoke with granddaughter Patricia. She is going to communicate with her parents. She claims that her parents cannot take her home with hospice as her mother is going to be having surgery and her father travels frequently for work. As well, patient is noted to wander and was evaluated in ED previously due to this and without 24/7 monitoring she could likely do that again. Despite family not being able to help at home, patient still appropriate for hospice and this may make placement easier? [facility] coming to assess patient Wednesday to determine if they will accept Patient very attached to a baby doll that's in her bed. The doll needs to be taken with her upon discharge. (2) UTI (urinary tract infection): Plan: resolved, s/p 7 days of Rocephine. (3) Urinary retention: Plan: IMPROVED * Jean Baptiste inserted on 03/14 however she self removed on 03/21 with balloon intact - she has since urinated however overall minimal urine output likely due to poor oral intake but is having some retention. Was requiring straight cath on 03/24 and having some retention however over the past few days has been spontaneously voiding and oral intact has improved some. * started on Flomax but still with retention and PVR >500 (for which jean baptiste catheter reinserted). Keep for now. If patient removes, would not be aggressive to put back in place. Ultimately, there has been ongoing decline since her initial hospitalization and her senior living prognosis is poor (4) Failure to thrive: Plan: * Patient has remained in house >50 days and is awaiting placement * Her oral intake has been slowly declining (does have good/bad days) * Has shown overall decline since initial hospitalization * We will hold off on IV fluids at this time as this would only be a temporary fix. Staff continues to assist with feeds * continue Boost supplementation * Patient would be appropriate for hospice for end-stage dementia. Her failure to thrive is likely a result of her end-stage and progressive dementia -- Family reluctant to take her home given her tendencies to wander. --At this point, she has declined where she is mostly bedbound. She has not even tried to get out of bed. She would require frzfrg-ima-[id number] care however which I am being told this cannot be provided by family thus need to pursue placement -- patient has been pleasantly confused and is really no trouble. no combative behavior. no agitation. Needs to be fed. (5) Dementia with behavioral disturbance: Plan: Stable. * Continue trazodone * no benefit from Aricept at this time. Med stopped * seroquel trialed upfront as patient brought to the ED with reports of increased agitation but it was stopped as it caused excessive somnolence. NO AGITATION OR BEHAVIORS this entire stay * pt also had Riperdal PRN on meds list but has not been needed. (consider low dose if behavioral issues arise). * again, overall decline since hospitalization (over the past 50 days). No agitation or behaviors (6) Hypernatremia: Plan: * Intermittent, resolves with improved oral intake. * Encourage p.o. as tolerated * continue with Boost supplement * pt not a big fan of blood work, but last was WNL. Hold off on Lab drawn unl ess really warranted (7) Thiamine deficiency: Plan: stable. s/p thiamine supplementation X 30 days. B12 normal. (8) Serum calcium elevated: Plan: was due to HCTZ which has since been D/C'd. BPs have been holding up well without it (actually starting to become more hypotensive--see below) Continue with current management and monitoring. (9) Anemia: Plan: Fe deficiency. s/p venofer 300mg X 3 doses. B12 WNL. not a candidate for endoscopic evaluation due to age and advanced dementia. spot labs prn, given advanced dementia and progressive decline, avoid routine labs unless there is an acute change in status (10) Hypercholesterolemia: Plan: stable. no longer on statin, as with her dementia, failure to thrive and advanced age, it would provide any benefit. (11) Benign essential hypertension: Plan: - was running hypotensive - Initially HCTZ stopped and BP stabilized - Patient has been here for a prolonged period of time and has overall declined further. BP continued to drop for which beta-blockade had to be stopped - Current BP today is 135/61 and heart rate is 71 (12) Chronic renal failure, stage 3b: Plan: with CHRISTINA on admission but resolved/normalized. again, avoid routine labs to monitor given advanced dementia with progressive decline (13) Afib: Plan: * rate controlled/ in NSR at this time on exam (likely paroxysmal) * no ACT given advanced age and dementia with fall risk and risk of bleeding * had been on metoprolol 12.5mg up until this point but stopped on 04/06 given low BP of 90/55 and HR of 62. VS improved. continue to monitor (HR currently 71) (14) DVT prophylaxis: Plan: was on lovenox but staff reports getting very agitated with these. has since been stopped Plan: Medically stable X days. Awaiting placement. Case management on board Is appropriate for hospice given end-stage dementia but previous providers have been in touch with family members who are against hospice at this point. They are aware that she has been progressively declining but is not in the active stages of dying. May be a language/culture barrier Admission and Anticipated Discharge Date Admission Date: February 05, 2021 Subjective Patient seen on daily rounds today. Eating breakfast with nursing staff. Tolerating it well. Nursing voices no complaints or concerns. Was supposed to be evaluated by [facility] today; however, this has been pushed back until Wednesday. Review of Systems Review of Systems: Unobtainable Physical Exam Physical Exam: limited General: Resting comfortably in her hospital bed. Does not appear ill or toxic. In no acute distress. sleeping but opens eyes during my exams. Talking but nonsensical HEENT: Head is AT/NC buccal mucosa dry Neck: No JVD. Negative hepatojugular reflex Cardiac: RRR with 1/6 to 2/6 LINDA Lungs: CTA without W/R/R Abdomen: Normoactive X4. Soft and nontender in all quadrants. Extremities: No peripheral clubbing cyanosis or edema Neuro:mumbling in foreign language. Skin: No obvious skin lesions or rashes Psych:limited cooperation Results & Data Results & Data ([facility]) Vital Signs (Past 12 Hours) Vital Signs Temp Pulse Resp BP Pulse Ox 04/10/21 14:15 36.6 C 71 16 135/61 96 04/10/21 07:11 36.6 C 62 16 118/72 96 PG Care Time/CCT Total # of Minutes Spent Total Time Spent with Patient: Total time spent is greater than 50% in coordination of care (as documented) at patient's floor/unit and/or counseling patient: Coding Level of Care Code 89002 Subseq Hosp Care Lvl 1 Diagnoses community center worker involved in patient's care UTI (urinary tract infection) N39.0 Urinary retention R33.9 Failure to thrive Dementia with behavioral disturbance F03.91 Hypernatremia E87.0 Thiamine deficiency E51.9 Serum calcium elevated E83.52 Anemia D64.9 Hypercholesterolemia E78.00 Benign essential hypertension I10 Chronic renal failure, stage 3b N18.32 Afib I48.91 DVT prophylaxis Z29.9
[2021-04-10] MEDS: traZODone HCL 50 MG TAB PO SCH (20:35)
[2021-04-10] MEDS: TAMSULOSIN HCL 0.4 MG CAP PO SCH (20:35)
[2021-04-10] MEDS: DONEPEZIL HCL 5 MG TAB PO SCH (20:35)
[2021-04-11] MEDS: POLYETHYLENE (MIRALAX) 17 GM PACK PO SCH (09:43)
[2021-04-11] MEDS: DOCUSATE SODIUM/SENNA 50/8.6MG TAB PO SCH (09:43)
--- NOTE | 2021-04-11 18:12 | Hospitalist Progress Note ---
Date of Service April 11, 2021 Assessment & Plan (1) box worker involved in patient's care: Plan: pt needs 24-hour care, thus SNF post-discharge. placement pending. 04/01/21: case management awaiting [facility] decision regarding whether they will accept the pt. Social work has spoken to family and Cynthia Gonzalez also spoke with family. Consent obtained from family for Covid vaccination, as documented. Covid vaccination J&J given Previous provider contacted family to discuss possible home with hospice, spoke with granddaughter Patricia. She is going to communicate with her parents. She claims that her parents cannot take her home with hospice as her mother is going to be having surgery and her father travels frequently for work. As well, patient is noted to wander and was evaluated in ED previously due to this and without 24/7 monitoring she could likely do that again. Despite family not being able to help at home, patient still appropriate for hospice and this may make placement easier? [facility] care coming to assess patient Wednesday to determine if they will accept Patient very attached to a baby doll that's in her bed. The doll needs to be taken with her upon discharge. (2) UTI (urinary tract infection): Plan: resolved, s/p 7 days of Rocephine. (3) Urinary retention: Plan: IMPROVED * Jean Baptiste inserted on 03/14 however she self removed on 03/21 with balloon intact - she has since urinated however overall minimal urine output likely due to poor oral intake but is having some retention. Was requiring straight cath on 03/24 and having some retention however over the past few days has been spontaneously voiding and oral intact has improved some. * started on Flomax but still with retention and PVR >500 (for which jean baptiste catheter reinserted). Keep for now. If patient removes, would not be aggressive to put back in place. Ultimately, there has been ongoing decline since her initial hospitalization and her chcf prognosis is poor (4) Failure to thrive: Plan: * Patient has remained in house >50 days and is awaiting placement * Her oral intake has been slowly declining (does have good/bad days) * Has shown overall decline since initial hospitalization * We will hold off on IV fluids at this time as this would only be a temporary fix. Staff continues to assist with feeds * continue Boost supplementation * Patient would be appropriate for hospice for end-stage dementia. Her failure to thrive is likely a result of her end-stage and progressive dementia -- Family reluctant to take her home given her tendencies to wander. --At this point, she has declined where she is mostly bedbound. She has not even tried to get out of bed. She would require [id number] care however which I am being told this cannot be provided by family thus need to pursue placement -- patient has been pleasantly confused and is really no trouble. no combative behavior. no agitation. Needs to be fed. (5) Dementia with behavioral disturbance: Plan: Stable. * Continue trazodone * no benefit from Aricept at this time. Med stopped * seroquel trialed upfront as patient brought to the ED with reports of increased agitation but it was stopped as it caused excessive somnolence. NO AGITATION OR BEHAVIORS this entire stay * pt also had Riperdal PRN on meds list but has not been needed. (consider low dose if behavioral issues arise). * again, overall decline since hospitalization (over the past 50 days). No agitation or behaviors (6) Hypernatremia: Plan: * Intermittent, resolves with improved oral intake. * Encourage p.o. as tolerated * continue with Boost supplement * pt not a big fan of blood work, but last was WNL. Hold off on Lab drawn unl ess really warranted (7) Thiamine deficiency: Plan: stable. s/p thiamine supplementation X 30 days. B12 normal. (8) Serum calcium elevated: Plan: was due to HCTZ which has since been D/C'd. BPs have been holding up well without it (actually starting to become more hypotensive--see below) Continue with current management and monitoring. (9) Anemia: Plan: Fe deficiency. s/p venofer 300mg X 3 doses. B12 WNL. not a candidate for endoscopic evaluation due to age and advanced dementia. spot labs prn, given advanced dementia and progressive decline, avoid routine labs unless there is an acute change in status (10) Hypercholesterolemia: Plan: stable. no longer on statin, as with her dementia, failure to thrive and advanced age, it would provide any benefit. (11) Benign essential hypertension: Plan: - was running hypotensive - Initially HCTZ stopped and BP stabilized - Patient has been here for a prolonged period of time and has overall declined further. BP continued to drop for which beta-blockade had to be stopped - Current BP today is 135/61 and heart rate is 71 (12) Chronic renal failure, stage 3b: Plan: with CHRISTINA on admission but resolved/normalized. again, avoid routine labs to monitor given advanced dementia with progressive decline (13) Afib: Plan: * rate controlled/ in NSR at this time on exam (likely paroxysmal) * no ACT given advanced age and dementia with fall risk and risk of bleeding * had been on metoprolol 12.5mg up until this point but stopped on 04/06 given low BP of 90/55 and HR of 62. VS improved. continue to monitor (HR currently 71) (14) DVT prophylaxis: Plan: was on lovenox but staff reports getting very agitated with these. has since been stopped Plan: Medically stable Xweeks. Awaiting placement. Case management on board Is appropriate for hospice given end-stage dementia but previous providers have been in touch with family members who are against hospice at this point. They are aware that she has been progressively declining but is not in the active stages of dying. May be a language/culture barrier Admission and Anticipated Discharge Date Admission Date: February 05, 2021 Subjective Patient seen on daily rounds today. Somnolent. Opens her eyes when assessed but quickly falls back to sleep. Nursing voices no complaints or concerns. Review of Systems Review of Systems: Unobtainable Physical Exam Physical Exam: limited General: Resting comfortably in her hospital bed. Does not appear ill or toxic. In no acute distress. sleeping but opens eyes during my exams. Talking but nonsensical HEENT: Head is AT/NC buccal mucosa dry Neck: No JVD. Negative hepatojugular reflex Cardiac: RRR with 1/6 to 2/6 LINDA Lungs: CTA without W/R/R Abdomen: Normoactive X4. Soft and nontender in all quadrants. Extremities: No peripheral clubbing cyanosis or edema Neuro:mumbling in foreign language. Skin: No obvious skin lesions or rashes Psych:limited cooperation Results & Data Results & Data ([facility]) Vital Signs (Past 12 Hours) Vital Signs Temp Pulse Resp BP BP Pulse Ox 04/11/21 08:09 36.9 C 125/60 04/11/21 07:56 36.9 C 66 14 125/59 L 95 Laboratory Results no lab data PG Care Time/CCT Total # of Minutes Spent Total Time Spent with Patient: Total time spent is greater than 50% in coordination of care (as documented) at patient's floor/unit and/or counseling patient: Coding Level of Care Code 52696 Subseq Hosp Care Lvl 1 Diagnoses box worker involved in patient's care UTI (urinary tract infection) N39.0 Urinary retention R33.9 Failure to thrive Dementia with behavioral disturbance F03.91 Hypernatremia E87.0 Thiamine deficiency E51.9 Serum calcium elevated E83.52 Anemia D64.9 Hypercholesterolemia E78.00 Benign essential hypertension I10 Chronic renal failure, stage 3b N18.32 Afib I48.91 DVT prophylaxis Z29.9
[2021-04-11] MEDS: DONEPEZIL HCL 5 MG TAB PO SCH (20:05)
[2021-04-11] MEDS: TAMSULOSIN HCL 0.4 MG CAP PO SCH (20:05)
[2021-04-11] MEDS: traZODone HCL 50 MG TAB PO SCH (20:05)
[2021-04-12] MEDS ORDERED: ACETAMINOPHEN 325 MG TAB PO PRN (01:32)
[2021-04-12] MEDS ORDERED: MAGNESIUM HYDROXIDE SUSP 30 ML UDC PO PRN (01:32)
[2021-04-12] MEDS ORDERED: ONDANSETRON INJ 2 MG/ML 2 ML VIAL IV PRN (01:33)
[2021-04-12] MEDS: POLYETHYLENE (MIRALAX) 17 GM PACK PO SCH (08:29)
[2021-04-12] MEDS: METOPROLOL TARTRATE 25 MG TAB PO SCH ×2 (08:29→21:44)
[2021-04-12] MEDS: DOCUSATE SODIUM/SENNA 50/8.6MG TAB PO SCH (08:30)
--- NOTE | 2021-04-12 10:13 | Hospitalist Progress Note ---
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 placement pending. 04/01/21: case management awaiting [facility] decision regarding whether they will accept the pt. Social work has spoken to family and Cynthia Gonzalez also spoke with family. Consent obtained from family for Covid vaccination, as documented. Covid vaccination J&J given Previous provider contacted family to discuss possible home with hospice, spoke with granddaughter Patricia. She is going to communicate with her parents. She claims that her parents cannot take her home with hospice as her mother is going to be having surgery and her father travels frequently for work. As well, patient is noted to wander and was evaluated in ED previously due to this and without 24/ monitoring she could likely do that again. Despite family not being able to help at home, patient still appropriate for hospice and this may make placement easier? [facility] care coming to assess patient Wednesday to determine if they will accept Patient very attached to a baby doll that's in her bed. The doll needs to be taken with her upon discharge. (2) Urinary retention: Plan: IMPROVED * Jean Baptiste inserted on 03/14 however she self removed on 03/21 with balloon intact - she has since urinated however overall minimal urine output likely due to poor oral intake but is having some retention. Was requiring straight cath on 03/24 and having some retention however over the past few days has been spontaneously voiding and oral intact has improved some. * started on Flomax but still with retention and PVR >500 (for which jean baptiste catheter reinserted). Keep for now. If patient removes, would not be aggressive to put back in place. Ultimately, there has been ongoing decline since her initial hospitalization and her terminal clerk prognosis is poor (3) Failure to thrive: Plan: * Patient has remained in house >50 days and is awaiting placement * Her oral intake has been slowly declining (does have good/bad days) * Has shown overall decline since initial hospitalization * We will hold off on IV fluids at this time as this would only be a temporary fix. Staff continues to assist with feeds * continue Boost supplementation * Patient would be appropriate for hospice for end-stage dementia. Her failure to thrive is likely a result of her end-stage and progressive dementia -- Family reluctant to take her home given her tendencies to wander. --At this point, she has declined where she is mostly bedbound. -- patient has been pleasantly confused and is really no trouble. no combative behavior. no agitation. Needs to be fed. (4) Dementia with behavioral disturbance: Plan: Stable. * Continue trazodone * no benefit from Aricept at this time. Med stopped * seroquel trialed upfront as patient brought to the ED with reports of increased agitation but it was stopped as it caused excessive somnolence. NO AGITATION OR BEHAVIORS this entire stay * pt also had Risperdal PRN on meds list but has not been needed. (consider low dose if behavioral issues arise). * again, overall decline since hospitalization (over the past 50 days). No significant behavioral disturbance issues. (5) Hypernatremia: Plan: * Intermittent, resolves with improved oral intake. * Encourage p.o. as tolerated * continue with Boost supplement * pt not a big fan of blood work, but last was WNL. Hold off on Lab drawn unless really warranted (6) Thiamine deficiency: Plan: * stable--s/p thiamine supplementation X 30 days. * B12 normal. (7) Serum calcium elevated: Plan: * was due to HCTZ which has since been D/C'd. * BPs have been holding up well without it (actually starting to become more hypotensive--see below) * Continue with current management and monitoring. (8) Anemia: Plan: * Fe deficiency s/p venofer 300mg X 3 doses. * B12 WNL. * not a candidate for endoscopic evaluation due to age and advanced dementia. * spot labs prn, given advanced dementia and progressive decline, avoid routine labs unless there is an acute change in status (9) Hypercholesterolemia: Plan: * stable. * no longer on statin, as with her dementia, failure to thrive and advanced age, it would provide any benefit. (10) Benign essential hypertension: Plan: - was running hypotensive - Initially HCTZ stopped and BP stabilized - Patient has been here for a prolonged period of time and has overall declined further. BP continued to drop for which beta-blockade had to be stopped - Current BP today is 135/61 and heart rate is 71 (11) Chronic renal failure, stage 3b: Plan: * stable-- avoid routine labs to monitor given advanced dementia with progressive decline (12) Afib: Plan: * rate controlled/ in NSR at this time on exam (likely paroxysmal) * no ACT given advanced age and dementia with fall risk and risk of bleeding * had been on metoprolol 12.5mg up until this point but stopped on 04/06 given low BP of 90/55 and HR of 62. VS improved. continue to monitor (HR currently 71) (13) DVT prophylaxis: Plan: * was on lovenox but staff reports getting very agitated with these. has since been stopped Plan: Medically stable for weeks. Awaiting placement. Case management on board Is appropriate for hospice given end-stage dementia but previous providers have been in touch with family members who are against hospice at this point. They are aware that she has been progressively declining but is not in the active stages of dying. May be a language/culture barrier Admission and Anticipated Discharge Date Admission Date: February 05, 2021 Subjective Patient seen on daily rounds today. Remains hospitalized awaiting placement. Seems slightly agitated this morning. Nursing voices no complaints or concerns. Review of Systems Review of Systems: Unobtainable due to cognitive status Physical Exam Physical Exam: GENERAL: 89 elderly frail WF, NAD. LUNGS: Clear to auscultation bilaterally. No accessory muscle use. No W/R/R. CARDIOVASCULAR: Regular rate and rhythm. No M/G/R. No JVD. ABDOMEN: Soft, non-tender and non-distended. No palpable masses. BS normal x 4 quad. : jean baptiste EXTREMITIES: No edema. Non-tender. Peripheral pulses +2/4. NEUROLOGIC: awake, pleasantly confused. SKIN: No rashes or lesions. Results & Data Results & Data ([facility]) Vital Signs (Past 12 Hours) Vital Signs Temp Pulse Pulse Resp BP BP Pulse Ox 04/12/21 07:21 37.0 C 63 16 125/64 97 04/11/21 23:00 36.3 C L 84 16 137/87 94 Laboratory Results No labs PG Care Time/CCT Total # of Minutes Spent Total Time Spent with Patient: Total time spent is greater than 50% in coordination of care (as documented) at patient's floor/unit and/or counseling patient: Coding Level of Care Code 90928 Subseq Hosp Care Lvl 1 Diagnoses retail salesworker involved in patient's care Urinary retention R33.9 Failure to thrive Dementia with behavioral disturbance F03.91 Hypernatremia E87.0 Thiamine deficiency E51.9 Serum calcium elevated E83.52 Anemia D64.9 Hypercholesterolemia E78.00 Benign essential hypertension I10 Chronic renal failure, stage 3b N18.32 Afib I48.91 DVT prophylaxis Z29.9
[2021-04-12] MEDS: DONEPEZIL HCL 5 MG TAB PO SCH (21:44)
[2021-04-12] MEDS: traZODone HCL 50 MG TAB PO SCH (21:44)
[2021-04-12] MEDS: TAMSULOSIN HCL 0.4 MG CAP PO SCH (21:44)
[2021-04-13] MEDS: METOPROLOL TARTRATE 25 MG TAB PO SCH ×2 (08:43→21:27)
[2021-04-13] MEDS: DOCUSATE SODIUM/SENNA 50/8.6MG TAB PO SCH (08:44)
[2021-04-13] MEDS: POLYETHYLENE (MIRALAX) 17 GM PACK PO SCH (08:47)
--- NOTE | 2021-04-13 13:07 | Hospitalist Progress Note ---
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 placement pending. 04/01/21: case management awaiting [facility] decision regarding whether they will accept the pt. Social work has spoken to family and Cynthia Gonzalez also spoke with family. Consent obtained from family for Covid vaccination, as documented. Covid vaccination J&J given Previous provider contacted family to discuss possible home with hospice, spoke with granddaughter Patricia who communicated w/ her parents. She claims that her parents cannot take her home with hospice as her mother is going to be having surgery and her father travels frequently for work. As well, patient is noted to wander and was evaluated in ED previously due to this and without 12/10 monitoring she could likely do that again. Despite family not being able to help at home, patient still appropriate for hospice and this may make placement easier? [facility] coming to assess patient Wednesday (04/14) to determine if they will accept Patient very attached to a baby doll that's in her bed. The doll needs to be taken with her upon discharge. (2) Urinary retention: Plan: IMPROVED Jean Baptiste inserted on 03/14 however she self removed on 03/21 with balloon intact - she has since urinated however overall minimal urine output likely due to poor oral intake but is having some retention. Was requiring straight cath on 03/24 and having some retention however over the past few days has been spontaneously voiding and oral intact has improved some. Started on Flomax but still with retention and PVR >500 (for which jean baptiste catheter reinserted). Keep for now. If patient removes, would not be aggressive to put back in place. Ultimately, there has been ongoing decline since her initial hospitalization and her oil heaterman prognosis is poor (3) Failure to thrive: Plan: Patient has remained in house >50 days and is awaiting placement Her oral intake has been slowly declining (does have good/bad days) Has shown overall decline since initial hospitalization We will hold off on IV fluids at this time as this would only be a temporary fix. Staff continues to assist with feeds Continue Boost supplementation Patient would be appropriate for hospice for end-stage dementia. Her failure to thrive is likely a result of her end-stage and progressive dementia -- Family reluctant to take her home given her tendencies to wander. -- At this point, she has declined where she is mostly bedbound. -- Patient has been pleasantly confused and is really no trouble. no combative behavior. no agitation. Needs to be fed. (4) Dementia with behavioral disturbance: Plan: Stable. Continue trazodone no benefit from Aricept at this time. Med stopped seroquel trialed upfront as patient brought to the ED with reports of increased agitation but it was stopped as it caused excessive somnolence. NO AGITATION OR BEHAVIORS this entire stay pt also had Risperdal PRN on meds list but has not been needed. (consider low dose if behavioral issues arise). again, overall decline since hospitalization (over the past 50 days). No significant behavioral disturbance issues. (5) Hypernatremia: Plan: Intermittent, resolves with improved oral intake. Encourage p.o. as tolerated continue with Boost supplement pt not a big fan of blood work, but last was WNL. Hold off on Lab drawn unless really warranted (6) Thiamine deficiency: Plan: stable--s/p thiamine supplementation X 30 days. B12 normal. (7) Serum calcium elevated: Plan: was due to HCTZ which has since been D/C'd. BPs have been holding up well without it (actually starting to become more hypotensive--see below) Continue with current management and monitoring. (8) Anemia: Plan: Fe deficiency s/p venofer 300mg X 3 doses. B12 WNL. not a candidate for endoscopic evaluation due to age and advanced dementia. spot labs prn, given advanced dementia and progressive decline, avoid routine labs unless there is an acute change in status (9) Hypercholesterolemia: Plan: stable. no longer on statin, as with her dementia, failure to thrive and advanced age, it would not provide any benefit. (10) Benign essential hypertension: Plan: was running hypotensive Initially HCTZ stopped and BP stabilized Patient has been here for a prolonged period of time and has overall declined further. BP continued to drop for which beta-blockade had to be stopped (11) Chronic renal failure, stage 3b: Plan: stable-- avoid routine labs to monitor given advanced dementia with progressive decline (12) Afib: Plan: rate controlled/ in NSR at this time on exam (likely paroxysmal) no ACT given advanced age and dementia with fall risk and risk of bleeding had been on metoprolol 12.5mg up until this point but stopped on 04/06 given low BP of 90/55 and HR of 62. VS improved. continue to monitor (HR currently 71) (13) DVT prophylaxis: Plan: was on lovenox but staff reports getting very agitated with these. has since been stopped Plan: Medically stable for weeks. Awaiting placement. Case management on board Is appropriate for hospice given end-stage dementia but previous providers have been in touch with family members who are against hospice at this point. They are aware that she has been progressively declining but is not in the active stages of dying. May be a language/culture barrier Admission and Anticipated Discharge Date Admission Date: February 05, 2021 Subjective Patient seen on daily rounds today. Remains hospitalized awaiting placement due to family's inability to care for her at home. Pt asleep on my visit this morning. Review of Systems Review of Systems: Unobtainable due to cognitive status Physical Exam Physical Exam: GENERAL: 89 elderly frail WF, NAD. LUNGS: Clear to auscultation bilaterally. No W/R/R. CARDIOVASCULAR: Regular rate and rhythm. No M/G/R. No JVD. ABDOMEN: Soft and non-distended. No palpable masses. BS normal x 4 quad. : jean baptiste EXTREMITIES: No edema. Non-tender. Peripheral pulses +2/4. NEUROLOGIC: currently sleeping SKIN: No rashes or lesions. Results & Data Results & Data ([facility]) Vital Signs (Past 12 Hours) Vital Signs Temp Pulse Resp BP Pulse Ox 04/13/21 07:19 36.8 C 61 14 114/65 95 PG Care Time/CCT Total # of Minutes Spent Total Time Spent with Patient: Total time spent is greater than 50% in coordination of care (as documented) at patient's floor/unit and/or counseling patient: Coding Level of Care Code 17298 Subseq Hosp Care Lvl 1 Diagnoses tobacco farmworker involved in patient's care Urinary retention R33.9 Failure to thrive Dementia with behavioral disturbance F03.91 Hypernatremia E87.0 Thiamine deficiency E51.9 Serum calcium elevated E83.52 Anemia D64.9 Hypercholesterolemia E78.00 Benign essential hypertension I10 Chronic renal failure, stage 3b N18.32 Afib I48.91 DVT prophylaxis Z29.9
[2021-04-13] MEDS: DONEPEZIL HCL 5 MG TAB PO SCH (21:27)
[2021-04-13] MEDS: TAMSULOSIN HCL 0.4 MG CAP PO SCH (21:27)
[2021-04-13] MEDS: traZODone HCL 50 MG TAB PO SCH (21:27)
[2021-04-14] MEDS: DOCUSATE SODIUM/SENNA 50/8.6MG TAB PO SCH (08:02)
[2021-04-14] MEDS: METOPROLOL TARTRATE 25 MG TAB PO SCH ×2 (08:02→19:38)
[2021-04-14] MEDS: POLYETHYLENE (MIRALAX) 17 GM PACK PO SCH (08:03)
--- NOTE | 2021-04-14 13:31 | Hospitalist Progress Note ---
Date of Service April 14, 2021 Assessment & Plan (1) medical social worker involved in patient's care: Plan: pt needs 24-hour care, thus SNF post-discharge. placement pending. 04/01/21: case management awaiting [facility] decision regarding whether they will accept the pt. Social work has spoken to family and Cynthia Gonzalez also spoke with family. Consent obtained from family for Covid vaccination, as documented. Covid vaccination J&J given Previous provider contacted family to discuss possible home with hospice, spoke with granddaughter Patricia who communicated w/ her parents. She claims that her parents cannot take her home with hospice as her mother is going to be having surgery and her father travels frequently for work. As well, patient is noted to wander and was evaluated in ED previously due to this and without 12/10 monitoring she could likely do that again. Despite family not being able to help at home, patient still appropriate for hospice and this may make placement easier? [facility] coming to assess patient Wednesday (04/14) to determine if they will accept Patient very attached to the baby dolls that are in her bed. The dolls need to be taken with her upon discharge. (2) Urinary retention: Plan: IMPROVED Jean Baptiste inserted on 03/14 however she self removed on 03/21 with balloon intact - she has since urinated however overall minimal urine output likely due to poor oral intake but is having some retention. Was requiring straight cath on 03/24 and having some retention however over the past few days has been spontaneously voiding and oral intact has improved some. Started on Flomax but still with retention and PVR >500 (for which jean baptsite catheter reinserted). Keep for now. If patient removes, would not be aggressive to put back in place. Ultimately, there has been ongoing decline since her initial hospitalization and her alf prognosis is poor (3) Failure to thrive: Plan: Patient has remained in house >50 days and is awaiting placement Her oral intake has been slowly declining (does have good/bad days) Has shown overall decline since initial hospitalization We will hold off on IV fluids at this time as this would only be a temporary fix. Staff continues to assist with feeds Continue Boost supplementation Patient would be appropriate for hospice for end-stage dementia. Her failure to thrive is likely a result of her end-stage and progressive dementia -- Family reluctant to take her home given her tendencies to wander. -- At this point, she has declined where she is mostly bedbound. -- Patient has been pleasantly confused and is really no trouble. no combative behavior. no agitation. Needs to be fed. (4) Dementia with behavioral disturbance: Plan: Stable. Continue trazodone no benefit from Aricept at this time. Med stopped seroquel trialed upfront as patient brought to the ED with reports of increased agitation but it was stopped as it caused excessive somnolence. NO AGITATION OR BEHAVIORS this entire stay pt also had Risperdal PRN on meds list but has not been needed. (consider low dose if behavioral issues arise). again, overall decline since hospitalization (over the past 50 days). No significant behavioral disturbance issues. (5) Hypernatremia: Plan: Intermittent, resolves with improved oral intake. Encourage p.o. as tolerated continue with Boost supplement pt not a big fan of blood work, but last was WNL. Hold off on Lab draws unless really warranted (6) Thiamine deficiency: Plan: stable--s/p thiamine supplementation X 30 days. B12 normal. (7) Serum calcium elevated: Plan: was due to HCTZ which has since been D/C'd. BPs have been holding up well without it (actually starting to become more hypotensive--see below) Continue with current management and monitoring. (8) Anemia: Plan: Fe deficiency s/p venofer 300mg X 3 doses. B12 WNL. not a candidate for endoscopic evaluation due to age and advanced dementia. spot labs prn, given advanced dementia and progressive decline, avoid routine labs unless there is an acute change in status (9) Hypercholesterolemia: Plan: stable. no longer on statin, as with her dementia, failure to thrive and advanced age, it would not provide any benefit. (10) Benign essential hypertension: Plan: was running hypotensive Initially HCTZ stopped and BP stabilized Patient has been here for a prolonged period of time and has overall declined further. BP continued to drop for which beta-blockade had to be stopped (11) Chronic renal failure, stage 3b: Plan: stable--avoid routine labs to monitor given advanced dementia with progressive decline (12) Afib: Plan: rate controlled/ in NSR at this time on exam (likely paroxysmal) no ACT given advanced age and dementia with fall risk and risk of bleeding had been on metoprolol 12.5mg up until this point but stopped on 04/06 given low BP of 90/55 and HR of 62. VS improved. continue to monitor (HR currently 71) (13) DVT prophylaxis: Plan: was on lovenox but staff reports getting very agitated with these. has since been stopped Plan: Medically stable for weeks. Awaiting placement. Case management on board Is appropriate for hospice given end-stage dementia but previous providers have been in touch with family members who are against hospice at this point. They are aware that she has been progressively declining but is not in the active stages of dying. May be a language/culture barrier. Admission and Anticipated Discharge Date Admission Date: February 05, 2021 Subjective Patient seen on daily rounds today. Remains hospitalized awaiting placement due to family's inability to care for her at home. Review of Systems Review of Systems: Unobtainable due to cognitive status Physical Exam Physical Exam: GENERAL: 89 elderly frail WF, NAD. LUNGS: Clear to auscultation bilaterally. No W/R/R. CARDIOVASCULAR: Regular rate and rhythm. No M/G/R. No JVD. ABDOMEN: Soft and non-distended. No palpable masses. BS normal x 4 quad. : jean baptiste EXTREMITIES: No edema. Peripheral pulses +2/4. NEUROLOGIC: pleasantly confused. SKIN: No rashes or lesions. Results & Data Results & Data ([facility]) Vital Signs (Past 12 Hours) Vital Signs Temp Pulse Resp BP Pulse Ox 04/14/21 07:58 36.9 C 69 14 99/62 L 95 PG Care Time/CCT Total # of Minutes Spent Total Time Spent with Patient: Total time spent is greater than 50% in coordination of care (as documented) at patient's floor/unit and/or counseling patient: Coding Level of Care Code 13298 Subseq Hosp Care Lvl 1 Diagnoses medical social worker involved in patient's care Urinary retention R33.9 Failure to thrive Dementia with behavioral disturbance F03.91 Hypernatremia E87.0 Thiamine deficiency E51.9 Serum calcium elevated E83.52 Anemia D64.9 Hypercholesterolemia E78.00 Benign essential hypertension I10 Chronic renal failure, stage 3b N18.32 Afib I48.91 DVT prophylaxis Z29.9
[2021-04-14] MEDS: traZODone HCL 50 MG TAB PO SCH (19:37)
[2021-04-14] MEDS: TAMSULOSIN HCL 0.4 MG CAP PO SCH (19:37)
[2021-04-14] MEDS: DONEPEZIL HCL 5 MG TAB PO SCH (19:38)
[2021-04-15] MEDS: METOPROLOL TARTRATE 25 MG TAB PO SCH ×2 (08:20→20:48)
[2021-04-15] MEDS: DOCUSATE SODIUM/SENNA 50/8.6MG TAB PO SCH (08:20)
[2021-04-15] MEDS: POLYETHYLENE (MIRALAX) 17 GM PACK PO SCH (08:21)
--- NOTE | 2021-04-15 11:13 | Hospitalist Progress Note ---
Date of Service April 15, 2021 Assessment & Plan (1) hatchery worker involved in patient's care: Plan: pt needs 24-hour care, thus SNF post-discharge. placement pending. 04/01/21: case management awaiting [facility] decision regarding whether they will accept the pt. Social work has spoken to family and Cynthia Gonzalez also spoke with family. Consent obtained from family for Covid vaccination, as documented. Covid vaccination J&J given Previous provider contacted family to discuss possible home with hospice, spoke with granddaughter Patricia who communicated w/ her parents. She claims that her parents cannot take her home with hospice as her mother is going to be having surgery and her father travels frequently for work. As well, patient is noted to wander and was evaluated in ED previously due to this and without 24/ monitoring she could likely do that again. Despite family not being able to help at home, patient still appropriate for hospice and this may make placement easier? [facility] coming to assess patient supposedly today (04/15) -- was unable to do so as planned yesterday Patient very attached to the baby dolls that are in her bed. The dolls need to be taken with her upon discharge. (2) Urinary retention: Plan: IMPROVED Jean Baptiste inserted on 03/14 however she self removed on 03/21 with balloon intact - she has since urinated however overall minimal urine output likely due to poor oral intake but is having some retention. Was requiring straight cath on 03/24 and having some retention however over the past few days has been spontaneously voiding and oral intact has improved some. Started on Flomax but still with retention and PVR >500 (for which jean baptiste catheter reinserted). Keep for now. If patient removes, would not be aggressive to put back in place. Ultimately, there has been ongoing decline since her initial hospitalization and her watermelon inspector prognosis is poor (3) Failure to thrive: Plan: Patient has remained in house >50 days and is awaiting placement Her oral intake has been slowly declining (does have good/bad days) Has shown overall decline since initial hospitalization We will hold off on IV fluids at this time as this would only be a temporary fix. Staff continues to assist with feeds Continue Boost supplementation Patient would be appropriate for hospice for end-stage dementia. Her failure to thrive is likely a result of her end-stage and progressive dementia -- Family reluctant to take her home given her tendencies to wander. -- At this point, she has declined where she is mostly bedbound. -- Patient has been pleasantly confused and is really no trouble. no combative behavior. no agitation. Needs to be fed. (4) Dementia with behavioral disturbance: Plan: Stable. Continue trazodone no benefit from Aricept at this time. Med stopped seroquel trialed upfront as patient brought to the ED with reports of increased agitation but it was stopped as it caused excessive somnolence. NO AGITATION OR BEHAVIORS this entire stay pt also had Risperdal PRN on meds list but has not been needed. (consider low dose if behavioral issues arise). again, overall decline since hospitalization (over the past 50 days). No significant behavioral disturbance issues. (5) Hypernatremia: Plan: Intermittent, resolves with improved oral intake. Encourage p.o. as tolerated continue with Boost supplement pt not a big fan of blood work, but last was WNL. Hold off on Lab draws unless really warranted (6) Thiamine deficiency: Plan: stable--s/p thiamine supplementation X 30 days. B12 normal. (7) Serum calcium elevated: Plan: was due to HCTZ which has since been D/C'd. BPs have been holding up well without it (actually starting to become more hypotensive--see below) Continue with current management and monitoring. (8) Anemia: Plan: Fe deficiency s/p venofer 300mg X 3 doses. B12 WNL. not a candidate for endoscopic evaluation due to age and advanced dementia. spot labs prn, given advanced dementia and progressive decline, avoid routine labs unless there is an acute change in status (9) Hypercholesterolemia: Plan: stable. no longer on statin, as with her dementia, failure to thrive and advanced age, it would not provide any benefit. (10) Benign essential hypertension: Plan: was running hypotensive Initially HCTZ stopped and BP stabilized Patient has been here for a prolonged period of time and has overall declined further. BP continued to drop for which beta-blockade had to be stopped (11) Chronic renal failure, stage 3b: Plan: stable--avoid routine labs to monitor given advanced dementia with progressive decline (12) Afib: Plan: rate controlled/ in NSR at this time on exam (likely paroxysmal) no ACT given advanced age and dementia with fall risk and risk of bleeding had been on metoprolol 12.5mg up until this point but stopped on 04/06 given low BP of 90/55 and HR of 62. VS improved. continue to monitor (HR currently 71) (13) DVT prophylaxis: Plan: was on lovenox but staff reports getting very agitated with these. has since been stopped Plan: Medically stable for weeks. Awaiting placement. Case management on board Is appropriate for hospice given end-stage dementia but previous providers have been in touch with family members who are against hospice at this point. They are aware that she has been progressively declining but is not in the active stages of dying. May be a language/culture barrier. Admission and Anticipated Discharge Date Admission Date: February 05, 2021 Subjective Patient seen on daily rounds today. Remains hospitalized awaiting placement due to family's inability to care for her at home. No issues verbalized by nursing staff. Review of Systems Review of Systems: Unobtainable due to cognitive status Physical Exam Physical Exam: GENERAL: 89 elderly frail WF, NAD. LUNGS: Clear to auscultation bilaterally. No W/R/R. CARDIOVASCULAR: Regular rate and rhythm. No M/G/R. No JVD. ABDOMEN: Soft and non-distended. No palpable masses. BS normal x 4 quad. : jean baptiste EXTREMITIES: No edema. Peripheral pulses +2/4. NEUROLOGIC: pleasantly confused. SKIN: No rashes or lesions. Results & Data Results & Data ([facility]) Vital Signs (Past 12 Hours) Vital Signs Temp Pulse Resp BP Pulse Ox 04/14/21 23:48 36.9 C 75 16 113/67 92 Laboratory Results None PG Care Time/CCT Total # of Minutes Spent Total Time Spent with Patient: Total time spent is greater than 50% in coordination of care (as documented) at patient's floor/unit and/or counseling patient: Coding Level of Care Code 29062 Subseq Hosp Care Lvl 1 Diagnoses hatchery worker involved in patient's care Urinary retention R33.9 Failure to thrive Dementia with behavioral disturbance F03.91 Hypernatremia E87.0 Thiamine deficiency E51.9 Serum calcium elevated E83.52 Anemia D64.9 Hypercholesterolemia E78.00 Benign essential hypertension I10 Chronic renal failure, stage 3b N18.32 Afib I48.91 DVT prophylaxis Z29.9
[2021-04-15] MEDS: DONEPEZIL HCL 5 MG TAB PO SCH (20:47)
[2021-04-15] MEDS: TAMSULOSIN HCL 0.4 MG CAP PO SCH (20:48)
[2021-04-15] MEDS: traZODone HCL 50 MG TAB PO SCH (20:48)
[2021-04-16] MEDS: METOPROLOL TARTRATE 25 MG TAB PO SCH ×4 (08:58→20:24)
[2021-04-16] MEDS: DOCUSATE SODIUM/SENNA 50/8.6MG TAB PO SCH ×2 (08:58→09:04)
[2021-04-16] MEDS: POLYETHYLENE (MIRALAX) 17 GM PACK PO SCH (09:04)
--- NOTE | 2021-04-16 10:23 | Hospitalist Progress Note ---
Date of Service April 16, 2021 Assessment & Plan (1) fat pressroom worker involved in patient's care: Plan: pt needs 24-hour care, thus SNF post-discharge. placement pending. 04/01/21: case management awaiting [facility] decision regarding whether they will accept the pt. Social work has spoken to family and Cynthia Gonzalez also spoke with family. Consent obtained from family for Covid vaccination, as documented. Covid vaccination J&J given Previous provider contacted family to discuss possible home with hospice, spoke with granddaughter Patricia who communicated w/ her parents. She claims that her parents cannot take her home with hospice as her mother is going to be having surgery and her father travels frequently for work. As well, patient is noted to wander and was evaluated in ED previously due to this and without 24/ monitoring she could likely do that again. Despite family not being able to help at home, patient still appropriate for hospice and this may make placement easier? [facility] coming to assess patient supposedly today (04/15) -- was unable to do so as planned yesterday Patient very attached to the baby dolls that are in her bed. The dolls need to be taken with her upon discharge. (2) Urinary retention: Plan: IMPROVED Jean Baptiste inserted on 03/14 however she self removed on 03/21 with balloon intact - she has since urinated however overall minimal urine output likely due to poor oral intake but is having some retention. Was requiring straight cath on 03/24 and having some retention however over the past few days has been spontaneously voiding and oral intact has improved some. Started on Flomax but still with retention and PVR >500 (for which jean baptiste catheter reinserted). Keep for now. If patient removes, would not be aggressive to put back in place. Ultimately, there has been ongoing decline since her initial hospitalization and her termite renewal inspector prognosis is poor (3) Failure to thrive: Plan: Patient has remained in house >50 days and is awaiting placement Her oral intake has been slowly declining (does have good/bad days) Has shown overall decline since initial hospitalization We will hold off on IV fluids at this time as this would only be a temporary fix. Staff continues to assist with feeds Continue Boost supplementation Patient would be appropriate for hospice for end-stage dementia. Her failure to thrive is likely a result of her end-stage and progressive dementia -- Family reluctant to take her home given her tendencies to wander. -- At this point, she has declined where she is mostly bedbound. -- Patient has been pleasantly confused and is really no trouble. no combative behavior. no agitation. Needs to be fed. (4) Dementia with behavioral disturbance: Plan: Stable. Continue trazodone no benefit from Aricept at this time. Med stopped seroquel trialed upfront as patient brought to the ED with reports of increased agitation but it was stopped as it caused excessive somnolence. NO AGITATION OR BEHAVIORS this entire stay pt also had Risperdal PRN on meds list but has not been needed. (consider low dose if behavioral issues arise). again, overall decline since hospitalization (over the past 50 days). No significant behavioral disturbance issues. (5) Hypernatremia: Plan: Intermittent, resolves with improved oral intake. Encourage p.o. as tolerated continue with Boost supplement pt not a big fan of blood work, but last was WNL. Hold off on Lab draws unless really warranted (6) Thiamine deficiency: Plan: stable--s/p thiamine supplementation X 30 days. B12 normal. (7) Serum calcium elevated: Plan: was due to HCTZ which has since been D/C'd. BPs have been holding up well without it (actually starting to become more hypotensive--see below) Continue with current management and monitoring. (8) Anemia: Plan: Fe deficiency s/p venofer 300mg X 3 doses. B12 WNL. not a candidate for endoscopic evaluation due to age and advanced dementia. spot labs prn, given advanced dementia and progressive decline, avoid routine labs unless there is an acute change in status (9) Hypercholesterolemia: Plan: stable. no longer on statin, as with her dementia, failure to thrive and advanced age, it would not provide any benefit. (10) Benign essential hypertension: Plan: was running hypotensive Initially HCTZ stopped and BP stabilized Patient has been here for a prolonged period of time and has overall declined further. BP continued to drop for which beta-blockade had to be stopped (11) Chronic renal failure, stage 3b: Plan: stable--avoid routine labs to monitor given advanced dementia with progressive decline (12) Afib: Plan: rate controlled/ in NSR at this time on exam (likely paroxysmal) no ACT given advanced age and dementia with fall risk and risk of bleeding had been on metoprolol 12.5mg up until this point but stopped on 04/06 given low BP of 90/55 and HR of 62. VS improved. continue to monitor (HR currently 71) (13) DVT prophylaxis: Plan: was on lovenox but staff reports getting very agitated with these. has since been stopped Plan: Medically stable for weeks. Awaiting placement as her family cannot provide care for her at home and subsequently does not have a safe discharge plan. Case management on board Is appropriate for hospice given end-stage dementia but previous providers have been in touch with family members who are against hospice at this point. They are aware that she has been progressively declining but is not in the active stages of dying. May be a language/culture barrier. Admission and Anticipated Discharge Date Admission Date: February 05, 2021 Subjective Patient seen on daily rounds today. Remains hospitalized awaiting placement due to family's inability to care for her at home. No issues verbalized by nursing staff. Review of Systems Review of Systems: Unobtainable due to cognitive status Physical Exam Physical Exam: GENERAL: 89 elderly frail WF, NAD. LUNGS: Clear to auscultation bilaterally. No W/R/R. CARDIOVASCULAR: Regular rate and rhythm. No M/G/R. ABDOMEN: Soft and non-distended. No palpable masses. BS normal x 4 quad. : jean baptiste EXTREMITIES: No edema. Peripheral pulses +2/4. NEUROLOGIC: pleasantly confused. SKIN: No rashes or lesions. Results & Data Results & Data ([facility]) Vital Signs (Past 12 Hours) Vital Signs Temp Pulse Resp BP Pulse Ox 04/16/21 07:56 36.6 C 60 18 119/65 95 Laboratory Results none PG Care Time/CCT Total # of Minutes Spent Total Time Spent with Patient: Total time spent is greater than 50% in coordination of care (as documented) at patient's floor/unit and/or counseling patient: Coding Level of Care Code 50577 Subseq Hosp Care Lvl 1 Diagnoses fat pressroom worker involved in patient's care Urinary retention R33.9 Failure to thrive Dementia with behavioral disturbance F03.91 Hypernatremia E87.0 Thiamine deficiency E51.9 Serum calcium elevated E83.52 Anemia D64.9 Hypercholesterolemia E78.00 Benign essential hypertension I10 Chronic renal failure, stage 3b N18.32 Afib I48.91 DVT prophylaxis Z29.9
[2021-04-16] MEDS: traZODone HCL 50 MG TAB PO SCH ×2 (20:19→20:24)
[2021-04-16] MEDS: TAMSULOSIN HCL 0.4 MG CAP PO SCH ×2 (20:20→20:24)
[2021-04-16] MEDS: DONEPEZIL HCL 5 MG TAB PO SCH ×2 (20:21→20:24)
[2021-04-17] MEDS: METOPROLOL TARTRATE 25 MG TAB PO SCH ×2 (08:59→20:39)
[2021-04-17] MEDS: DOCUSATE SODIUM/SENNA 50/8.6MG TAB PO SCH (09:00)
[2021-04-17] MEDS: POLYETHYLENE (MIRALAX) 17 GM PACK PO SCH (09:04)
--- NOTE | 2021-04-17 11:54 | Hospitalist Progress Note ---
Date of Service April 17, 2021 Assessment & Plan (1) steel layout worker involved in patient's care: Plan: pt needs 24-hour care, thus SNF post-discharge. placement pending. 04/01/21: case management awaiting [facility] decision regarding whether they will accept the pt. Social work has spoken to family and Cynthia Gonzalez also spoke with family. Consent obtained from family for Covid vaccination, as documented. Covid vaccination J&J given Previous provider contacted family to discuss possible home with hospice, spoke with granddaughter Patricia who communicated w/ her parents. She claims that her parents cannot take her home with hospice as her mother is going to be having surgery and her father travels frequently for work. As well, patient is noted to wander and was evaluated in ED previously due to this and without 24/7 monitoring she could likely do that again. Despite family not being able to help at home, patient still appropriate for hospice [facility] assessed patient 04/16, requested updated PT/OT notes * Patient very attached to the baby dolls that are in her bed. The dolls need to be taken with her upon discharge. (2) Urinary retention: Plan: IMPROVED Jean Baptiste inserted on 03/14 however she self removed on 03/21 with balloon intact - she has since urinated however overall minimal urine output likely due to poor oral intake but is having some retention. Was requiring straight cath on 03/24 and having some retention however over the past few days has been spontaneously voiding and oral intact has improved some. Started on Flomax but still with retention and PVR >500 (for which jean baptiste catheter reinserted). Keep for now. If patient removes, would not be aggressive to put back in place. Ultimately, there has been ongoing decline since her initi al hospitalization and her halfway prognosis is poor (3) Failure to thrive: Plan: Patient has remained in house >50 days and is awaiting placement Her oral intake has been slowly declining (does have good/bad days) Has shown overall decline since initial hospitalization We will hold off on IV fluids at this time as this would only be a temporary fix. Staff continues to assist with feeds Continue Boost supplementation Patient would be appropriate for hospice for end-stage dementia. Her failure to thrive is likely a result of her end-stage and progressive dementia -- Family reluctant to take her home given her tendencies to wander. -- At this point, she has declined where she is mostly bedbound. -- Patient has been pleasantly confused and is really no trouble. no combative behavior. no agitation. Needs to be fed. (4) Dementia with behavioral disturbance: Plan: Stable. Continue trazodone no benefit from Aricept at this time. Med stopped seroquel trialed upfront as patient brought to the ED with reports of increased agitation but it was stopped as it caused excessive somnolence. NO AGITATION OR BEHAVIORS this entire stay pt also had Risperdal PRN on meds list but has not been needed. (consider low dose if behavioral issues arise). again, overall decline since hospitalization (over the past 50 days). No significant behavioral disturbance issues. (5) Hypernatremia: Plan: Intermittent, resolves with improved oral intake. Encourage p.o. as tolerated continue with Boost supplement pt not a big fan of blood work, but last was WNL. Hold off on Lab draws unless really warranted (6) Thiamine deficiency: Plan: stable--s/p thiamine supplementation X 30 days. B12 normal. (7) Serum calcium elevated: Plan: was due to HCTZ which has since been D/C'd. BPs have been holding up well without it (actually starting to become more hypotensive--see below) Continue with current management and monitoring. (8) Anemia: Plan: Fe deficiency s/p venofer 300mg X 3 doses. B12 WNL. not a candidate for endoscopic evaluation due to age and advanced dementia. spot labs prn, given advanced dementia and progressive decline, avoid routine labs unless there is an acute change in status (9) Hypercholesterolemia: Plan: stable. no longer on statin, as with her dementia, failure to thrive and advanced age, it would not provide any benefit. (10) Benign essential hypertension: Plan: was running hypotensive Initially HCTZ stopped and BP stabilized Patient has been here for a prolonged period of time and has overall declined further. BP continued to drop for which beta-blockade had to be stopped (11) Chronic renal failure, stage 3b: Plan: stable--avoid routine labs to monitor given advanced dementia with progressive decline (12) Afib: Plan: rate controlled/ in NSR at this time on exam (likely paroxysmal) no ACT given advanced age and dementia with fall risk and risk of bleeding had been on metoprolol 12.5mg up until this point but stopped on 1/16 given low BP of 90/55 and HR of 62. VS improved. continue to monitor (HR currently 71) (13) DVT prophylaxis: Plan: was on lovenox but staff reports getting very agitated with these. has since been stopped Plan: Medically stable for weeks. Awaiting placement as her family cannot provide care for her at home and subsequently does not have a safe discharge plan. Case management on board Is appropriate for hospice given end-stage dementia but previous providers have been in touch with family members who are against hospice at this point. They are aware that she has been progressively declining but is not in the active stages of dying. May be a language/culture barrier. [facility] requested updated therapy notes to determine if they will accept her. Admission and Anticipated Discharge Date Admission Date: February 05, 2021 Subjective Patient seen on daily rounds today. Remains hospitalized awaiting placement due to family's inability to care for her at home. No issues verbalized by nursing staff. This morning, OT was working with patient, got her up to edge of bed and was able to assist her to the bedside chair. Review of Systems Review of Systems: Unobtainable due to cognitive status Physical Exam Physical Exam: GENERAL: 89 elderly frail WF, NAD. LUNGS: Clear to auscultation bilaterally. No W/R/R. CARDIOVASCULAR: Regular rate and rhythm. No M/G/R. ABDOMEN: Soft and non-distended. No palpable masses. BS normal x 4 quad. : jean baptiste EXTREMITIES: No edema. Peripheral pulses +2/4. NEUROLOGIC: pleasantly confused. SKIN: No rashes or lesions. Results & Data Results & Data ([facility] [place]) Vital Signs (Past 12 Hours) Vital Signs Temp Pulse Resp BP BP Pulse Ox 04/17/21 08:13 36.4 C L 62 16 126/72 94 04/17/21 00:30 62 20 150/87 H 97 Laboratory Results None PG Care Time/CCT Total # of Minutes Spent Total Time Spent with Patient: Total time spent is greater than 50% in coordination of care (as documented) at patient's floor/unit and/or counseling patient: Coding Level of Care Code 99778 Subseq Hosp Care Lvl 1 Diagnoses steel layout worker involved in patient's care Urinary retention R33.9 Failure to thrive Dementia with behavioral disturbance F03.91 Hypernatremia E87.0 Thiamine deficiency E51.9 Serum calcium elevated E83.52 Anemia D64.9 Hypercholesterolemia E78.00 Benign essential hypertension I10 Chronic renal failure, stage 3b N18.32 Afib I48.91 DVT prophylaxis Z29.9
[2021-04-17] MEDS: traZODone HCL 50 MG TAB PO SCH (20:38)
[2021-04-17] MEDS: TAMSULOSIN HCL 0.4 MG CAP PO SCH (20:38)
[2021-04-17] MEDS: DONEPEZIL HCL 5 MG TAB PO SCH (20:39)
[2021-04-18] MEDS: METOPROLOL TARTRATE 25 MG TAB PO SCH ×2 (08:42→22:30)
[2021-04-18] MEDS: DOCUSATE SODIUM/SENNA 50/8.6MG TAB PO SCH (08:42)
[2021-04-18] MEDS: POLYETHYLENE (MIRALAX) 17 GM PACK PO SCH (08:42)
--- NOTE | 2021-04-18 10:41 | Hospitalist Progress Note ---
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 placement pending. 04/01/21: case management awaiting [facility] decision regarding whether they will accept the pt. Social work has spoken to family and Cynthia Gonzalez also spoke with family. Consent obtained from family for Covid vaccination, as documented. Covid vaccination J&J given Previous provider contacted family to discuss possible home with hospice, spoke with granddaughter Patricia who communicated w/ her parents. She claims that her parents cannot take her home with hospice as her mother is going to be having surgery and her father travels frequently for work. As well, patient is noted to wander and was evaluated in ED previously due to this and without 24/7 monitoring she could likely do that again. Despite family not being able to help at home, patient still appropriate for hospice [facility] assessed patient 04/16, requested updated PT/OT notes * Patient very attached to the baby dolls that are in her bed. The dolls need to be taken with her upon discharge. (2) Urinary retention: Plan: IMPROVED Jean Baptiste inserted on 03/14 however she self removed on 03/21 with balloon intact - she has since urinated however overall minimal urine output likely due to poor oral intake but is having some retention. Was requiring straight cath on 03/24 and having some retention however over the past few days has been spontaneously voiding and oral intact has improved some. Started on Flomax but still with retention and PVR >500 (for which jean baptiste catheter reinserted). Keep for now. If patient removes, would not be aggressive to put back in place. Ultimately, there has been ongoing decline since her initi al hospitalization and her penitentiary prognosis is poor (3) Failure to thrive: Plan: Patient has remained in house >50 days and is awaiting placement Her oral intake has been slowly declining (does have good/bad days) Has shown overall decline since initial hospitalization We will hold off on IV fluids at this time as this would only be a temporary fix. Staff continues to assist with feeds Continue Boost supplementation Patient would be appropriate for hospice for end-stage dementia. Her failure to thrive is likely a result of her end-stage and progressive dementia -- Family reluctant to take her home given her tendencies to wander. -- At this point, she has declined where she is mostly bedbound. -- Patient has been pleasantly confused and is really no trouble. no combative behavior. no agitation. Needs to be fed. (4) Dementia with behavioral disturbance: Plan: Stable. Continue trazodone no benefit from Aricept at this time. Med stopped seroquel trialed upfront as patient brought to the ED with reports of increased agitation but it was stopped as it caused excessive somnolence. NO AGITATION OR BEHAVIORS this entire stay pt also had Risperdal PRN on meds list but has not been needed. (consider low dose if behavioral issues arise). again, overall decline since hospitalization (over the past 50 days). No significant behavioral disturbance issues. (5) Hypernatremia: Plan: Intermittent, resolves with improved oral intake. Encourage p.o. as tolerated continue with Boost supplement pt not a big fan of blood work, but last was WNL. Hold off on Lab draws unless really warranted (6) Thiamine deficiency: Plan: stable--s/p thiamine supplementation X 30 days. B12 normal. (7) Serum calcium elevated: Plan: was due to HCTZ which has since been D/C'd. BPs have been holding up well without it (actually starting to become more hypotensive--see below) Continue with current management and monitoring. (8) Anemia: Plan: Fe deficiency s/p venofer 300mg X 3 doses. B12 WNL. not a candidate for endoscopic evaluation due to age and advanced dementia. spot labs prn, given advanced dementia and progressive decline, avoid routine labs unless there is an acute change in status (9) Hypercholesterolemia: Plan: stable. no longer on statin, as with her dementia, failure to thrive and advanced age, it would not provide any benefit. (10) Benign essential hypertension: Plan: was running hypotensive Initially HCTZ stopped and BP stabilized Patient has been here for a prolonged period of time and has overall declined further. BP continued to drop for which beta-blockade had to be stopped (11) Chronic renal failure, stage 3b: Plan: stable--avoid routine labs to monitor given advanced dementia with progressive decline (12) Afib: Plan: rate controlled/ in NSR at this time on exam (likely paroxysmal) no ACT given advanced age and dementia with fall risk and risk of bleeding had been on metoprolol 12.5mg up until this point but stopped on 1/16 given low BP of 90/55 and HR of 62. VS improved. continue to monitor (HR currently 71) (13) DVT prophylaxis: Plan: was on lovenox but staff reports getting very agitated with these. has since been stopped Plan: Medically stable for weeks. Awaiting placement as her family cannot provide care for her at home and subsequently does not have a safe discharge plan. Case management on board Is appropriate for hospice given end-stage dementia but previous providers have been in touch with family members who are against hospice at this point. They are aware that she has been progressively declining but is not in the active stages of dying. May be a language/culture barrier. [facility] requested updated therapy notes to determine if they will accept her. Admission and Anticipated Discharge Date Admission Date: February 05, 2021 Subjective Patient seen on daily rounds today. Remains hospitalized awaiting placement due to family's inability to care for her at home. No issues verbalized by nursing staff. Review of Systems Review of Systems: Unobtainable due to cognitive status Physical Exam Physical Exam: GENERAL: 89 elderly frail WF, NAD. LUNGS: Clear to auscultation bilaterally. No W/R/R. CARDIOVASCULAR: Regular rate and rhythm. No M/G/R. ABDOMEN: Soft and non-distended. No palpable masses. BS normal x 4 quad. : jean baptiste EXTREMITIES: No edema. Peripheral pulses +2/4. NEUROLOGIC: sleeping SKIN: No rashes or lesions. Results & Data Results & Data ([facility]) Vital Signs (Past 12 Hours) Vital Signs Temp Pulse Resp BP Pulse Ox 04/18/21 07:31 36.7 C 56 L 16 108/60 95 PG Care Time/CCT Total # of Minutes Spent Total Time Spent with Patient: Total time spent is greater than 50% in coordination of care (as documented) at patient's floor/unit and/or counseling patient: Coding Level of Care Code 36536 Subseq Hosp Care Lvl 1 Diagnoses collar worker involved in patient's care Urinary retention R33.9 Failure to thrive Dementia with behavioral disturbance F03.91 Hypernatremia E87.0 Thiamine deficiency E51.9 Serum calcium elevated E83.52 Anemia D64.9 Hypercholesterolemia E78.00 Benign essential hypertension I10 Chronic renal failure, stage 3b N18.32 Afib I48.91 DVT prophylaxis Z29.9
[2021-04-18] MEDS: traZODone HCL 50 MG TAB PO SCH (22:32)
[2021-04-18] MEDS: DONEPEZIL HCL 5 MG TAB PO SCH (22:32)
[2021-04-18] MEDS: TAMSULOSIN HCL 0.4 MG CAP PO SCH (22:32)
[2021-04-19] MEDS: METOPROLOL TARTRATE 25 MG TAB PO SCH ×2 (08:55→21:06)
[2021-04-19] MEDS: POLYETHYLENE (MIRALAX) 17 GM PACK PO SCH (09:30)
[2021-04-19] MEDS: DOCUSATE SODIUM/SENNA 50/8.6MG TAB PO SCH (09:30)
--- NOTE | 2021-04-19 13:10 | Hospitalist Progress Note ---
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 placement pending. 04/01/21: case management awaiting [facility] decision regarding whether they will accept the pt. Social work has spoken to family and Cynthia Gonzalez also spoke with family. Consent obtained from family for Covid vaccination, as documented. Covid vaccination J&J given Previous provider contacted family to discuss possible home with hospice, spoke with granddaughter Patricia who communicated w/ her parents. She claims that her parents cannot take her home with hospice as her mother is going to be having surgery and her father travels frequently for work. As well, patient is noted to wander and was evaluated in ED previously due to this and without 24/7 monitoring she could likely do that again. Despite family not being able to help at home, patient still appropriate for hospice [facility] assessed patient 04/16, requested updated PT/OT notes Evidently, CC has to meet with family to review finances. Still no clear indication has to when/if she has been accepted and can go. * Patient very attached to the baby dolls that are in her bed. The dolls need to be taken with her upon discharge. (2) Urinary retention: Plan: IMPROVED Jean Baptiste inserted on 03/14 however she self removed on 03/21 with balloon intact - she has since urinated however overall minimal urine output likely due to poor oral intake but is having some retention. Was requiring straight cath on 03/24 and having some retention however over the past few days has been spontaneously voiding and oral intact has improved some. Started on Flomax but still with retention and PVR >500 (for which jean baptiste catheter reinserted). Keep for now. If patient removes, would not be aggressive to put back in place. Ultimately, there has been ongoing decline since her initial hospitalization and her long-term prognosis is poor Obtain updated UA today as she seems more agitated and less alert and she is prone to UTIs Appears jean baptiste was re-inserted a few weeks ago so doesn't need changed at this point, if continues to remain in place and still here at 30 day nikko, change catheter (3) Failure to thrive: Plan: Patient has remained in house >50 days and is awaiting placement Her oral intake has been slowly declining (does have good/bad days) Has shown overall decline since initial hospitalization We will hold off on IV fluids at this time as this would only be a temporary fix. Staff continues to assist with feeds Continue Boost supplementation Patient would be appropriate for hospice for end-stage dementia. Her failure to thrive is likely a result of her end-stage and progressive dementia -- Family reluctant to take her home given her tendencies to wander. -- At this point, she has declined where she is mostly bedbound; therapy was able to work w/ her this week and get her into the bedside chair -- Patient has been for the most part pleasantly confused and is really no trouble. At times w/ minimal agitation but not combative. Needs to be fed. (4) Dementia with behavioral disturbance: Plan: Stable. Continue trazodone no benefit from Aricept at this time. Med stopped seroquel trialed upfront as patient brought to the ED with reports of increased agitation but it was stopped as it caused excessive somnolence. NO AGITATION OR BEHAVIORS this entire stay pt also had Risperdal PRN on meds list but has not been needed. (consider low dose if behavioral issues arise). again, overall decline since hospitalization (over the past 50 days). No significant behavioral disturbance issues. (5) Hypernatremia: Plan: Intermittent, resolves with improved oral intake. Encourage p.o. as tolerated continue with Boost supplement pt not a big fan of blood work, but last was WNL. Hold off on Lab draws unless really warranted (6) Thiamine deficiency: Plan: stable--s/p thiamine supplementation X 30 days. B12 normal. (7) Serum calcium elevated: Plan: was due to HCTZ which has since been D/C'd. BPs have been holding up well without it (actually starting to become more hypotensive--see below) Continue with current management and monitoring. (8) Anemia: Plan: Fe deficiency s/p venofer 300mg X 3 doses. B12 WNL. not a candidate for endoscopic evaluation due to age and advanced dementia. spot labs prn, given advanced dementia and progressive decline, avoid routine labs unless there is an acute change in status (9) Hypercholesterolemia: Plan: stable. no longer on statin, as with her dementia, failure to thrive and advanced age, it would not provide any benefit. (10) Benign essential hypertension: Plan: was running hypotensive Initially HCTZ stopped and BP stabilized Patient has been here for a prolonged period of time and has overall declined further. BP continued to drop for which beta-blockade had to be stopped (11) Chronic renal failure, stage 3b: Plan: stable--avoid routine labs to monitor given advanced dementia with progressive decline (12) Afib: Plan: rate controlled/ in NSR at this time on exam (likely paroxysmal) no ACT given advanced age and dementia with fall risk and risk of bleeding had been on metoprolol 12.5mg up until this point but stopped on 04/06 given low BP of 90/55 and HR of 62. VS improved. continue to monitor (HR currently 71) (13) DVT prophylaxis: Plan: was on lovenox but staff reports getting very agitated with these. has since been stopped Plan: Medically stable for weeks. Awaiting placement as her family cannot provide care for her at home and subsequently does not have a safe discharge plan. Case management on board. Is appropriate for hospice given end-stage dementia but previous providers have been in touch with family members who are against hospice at this point. They are aware that she has been progressively declining but is not in the active sta ges of dying. May be a language/culture barrier. [facility] requested updated therapy notes to determine if they will accept her. Admission and Anticipated Discharge Date Admission Date: February 05, 2021 Subjective Patient seen on daily rounds today. Remains hospitalized awaiting placement due to family's inability to care for her at home. Per nursing, didn't eat any breakfast this morning. Review of Systems Review of Systems: Unobtainable due to cognitive status Physical Exam Physical Exam: GENERAL: 89 elderly thin/frail WF, NAD. LUNGS: Clear to auscultation bilaterally. No W/R/R. CARDIOVASCULAR: Regular rate and rhythm. No M/G/R. ABDOMEN: Soft and non-distended. No palpable masses. BS normal x 4 quad. : jean baptiste remains in place EXTREMITIES: No edema. Peripheral pulses +2/4. NEUROLOGIC: awake but seems more agitated today but not combative SKIN: No rashes or lesions. Results & Data Results & Data ([facility]) Vital Signs (Past 12 Hours) Vital Signs Temp Pulse Resp BP Pulse Ox 04/19/21 07:47 36.5 C 60 16 114/73 93 PG Care Time/CCT Total # of Minutes Spent Total Time Spent with Patient: Total time spent is greater than 50% in coordination of care (as documented) at patient's floor/unit and/or counseling patient: Coding Level of Care Code 78553 Subseq Hosp Care Lvl 1 Diagnoses torpedo worker involved in patient's care Urinary retention R33.9 Failure to thrive Dementia with behavioral disturbance F03.91 Hypernatremia E87.0 Thiamine deficiency E51.9 Serum calcium elevated E83.52 Anemia D64.9 Hypercholesterolemia E78.00 Benign essential hypertension I10 Chronic renal failure, stage 3b N18.32 Afib I48.91 DVT prophylaxis Z29.9
[2021-04-19 16:35] LABS: Appearance Urine Cloudy (Clear); Bilirubin Urine Negative (Negative); Blood Urine 3+ (Negative); Color Urine Yellow; Glucose Urine UA Negative (Negative); Ketones Urine Negative (Negative); Leukocyte Esterase Urine 1+ (Negative); Nitrite Urine Negative (Negative); Protein Urine 2+ (Negative); Specific Gravity Urine >= 1.030 (1.000-1.030); Urobilinogen Urine Negative (Negative)
[2021-04-19 16:42] LABS: Bacteria Urine 2+ (Negative); WBC Urine >30 /hpf (0-5)
[2021-04-19] MEDS: DONEPEZIL HCL 5 MG TAB PO SCH (21:05)
[2021-04-19] MEDS: TAMSULOSIN HCL 0.4 MG CAP PO SCH (21:05)
[2021-04-19] MEDS: traZODone HCL 50 MG TAB PO SCH (21:06)
[2021-04-20] MEDS: METOPROLOL TARTRATE 25 MG TAB PO SCH ×2 (08:23→21:49)
[2021-04-20] MEDS: DOCUSATE SODIUM/SENNA 50/8.6MG TAB PO SCH (08:23)
[2021-04-20] MEDS: POLYETHYLENE (MIRALAX) 17 GM PACK PO SCH (08:23)
[2021-04-20 16:38] LABS: Appearance Urine Clear (Clear); Bacteria Urine Automated 1+ (Negative); Bilirubin Urine Negative (Negative); Blood Urine Negative (Negative); Color Urine Yellow; Glucose Urine UA Negative (Negative); Ketones Urine Negative (Negative); Leukocyte Esterase Urine 2+ (Negative); Nitrite Urine Positive (Negative); Protein Urine Negative (Negative); RBC Urine Automated 0-4 /hpf (0-4); Specific Gravity Urine 1.009 (1.000-1.030); Urobilinogen Urine Negative (Negative)
--- NOTE | 2021-04-20 19:00 | Hospitalist Progress Note ---
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 placement pending. 04/01/21: case management awaiting [facility] decision regarding whether they will accept the pt. Social work has spoken to family and Cynthia Gonzalez also spoke with family. Consent obtained from family for Covid vaccination, as documented. Covid vaccination J&J given Previous provider contacted family to discuss possible home with hospice, spoke with granddaughter Patricia who communicated w/ her parents. She claims that her parents cannot take her home with hospice as her mother is going to be having surgery and her father travels frequently for work. As well, patient is noted to wander and was evaluated in ED previously due to this and without 24/7 monitoring she could likely do that again. Despite family not being able to help at home, patient still appropriate for hospice [facility] assessed patient 04/16, requested updated PT/OT notes-- have not heard back Evidently, CC has to meet with family to review finances. Still no clear indication has to when/if she has been accepted and can go. * Patient very attached to the baby dolls that are in her bed. The dolls need to be taken with her upon discharge. (2) Urinary retention: Plan: IMPROVED Jean Baptiste inserted on 03/14 however she self removed on 03/21 with balloon intact - she has since urinated however overall minimal urine output likely due to poor oral intake but is having some retention. Was requiring straight cath on 03/24 and having some retention however over the past few days has been spontaneously voiding and oral intact has improved some. Started on Flomax but still with retention and PVR >500 (for which jean baptiste cat heter reinserted). Keep for now. If patient removes, would not be aggressive to put back in place. Ultimately, there has been ongoing decline since her initial hospitalization and her long term care pharmacist prognosis is poor UAobtained 04/19 as she seems more agitated and less alert and she is prone to UTIs. She was afebrile. Urinalysis did show high counts of 3 colonies. Requested nursing staff changed out her Jean Baptiste catheter (as due to be changed) and repeat urinalysis with culture (3) Failure to thrive: Plan: Patient has remained in house >50 days and is awaiting placement Her oral intake has been slowly declining (does have good/bad days) Has shown overall decline since initial hospitalization We will hold off on IV fluids at this time as this would only be a temporary fix. Staff continues to assist with feeds Continue Boost supplementation Patient would be appropriate for hospice for end-stage dementia. Her failure to thrive is likely a result of her end-stage and progressive dementia -- Family reluctant to take her home given her tendencies to wander. -- At this point, she has declined where she is mostly bedbound; therapy was able to work w/ her this week and get her into the bedside chair -- Patient has been for the most part pleasantly confused and is really no trouble. At times w/ minimal agitation but not combative. Needs to be fed. (4) Dementia with behavioral disturbance: Plan: Stable. Continue trazodone no benefit from Aricept at this time. Med stopped seroquel trialed upfront as patient brought to the ED with reports of increased agitation but it was stopped as it caused excessive somnolence. NO AGITATION OR BEHAVIORS this entire stay pt also had Risperdal PRN on meds list but has not been needed. (consider low dose if behavioral issues arise). again, overall decline since hospitalization (over the past 50 days). No significant behavioral disturbance issues. (5) Hypernatremia: Plan: Intermittent, resolves with improved oral intake. Encourage p.o. as tolerated continue with Boost supplement pt not a big fan of blood work, but last was WNL. Hold off on Lab draws unless really warranted (6) Thiamine deficiency: Plan: stable--s/p thiamine supplementation X 30 days. B12 normal. (7) Serum calcium elevated: Plan: was due to HCTZ which has since been D/C'd. BPs have been holding up well without it (actually starting to become more hypotensive--see below) Continue with current management and monitoring. (8) Anemia: Plan: Fe deficiency s/p venofer 300mg X 3 doses. B12 WNL. not a candidate for endoscopic evaluation due to age and advanced dementia. spot labs prn, given advanced dementia and progressive decline, avoid routine labs unless there is an acute change in status (9) Hypercholesterolemia: Plan: stable. no longer on statin, as with her dementia, failure to thrive and advanced age, it would not provide any benefit. (10) Benign essential hypertension: Plan: was running hypotensive Initially HCTZ stopped and BP stabilized Patient has been here for a prolonged period of time and has overall declined further. BP continued to drop for which beta-blockade had to be stopped (11) Chronic renal failure, stage 3b: Plan: stable--avoid routine labs to monitor given advanced dementia with progressive decline (12) Afib: Plan: rate controlled/ in NSR at this time on exam (likely paroxysmal) no ACT given advanced age and dementia with fall risk and risk of bleeding had been on metoprolol 12.5mg up until this point but stopped on 04/06 given low BP of 90/55 and HR of 62. VS improved. continue to monitor (HR currently 71) (13) DVT prophylaxis: Plan: was on lovenox but staff reports getting very agitated with these. has since been stopped Plan: Medically stable for weeks. Awaiting placement as her family cannot provide care for her at home and subsequently does not have a safe discharge plan. Case management on board. Is appropriate for hospice given end-stage dementia but previous providers have been in touch with family members who are against hospice at this point. They are aware that she has been progressively declining but is not in the active stages of dying. May be a language/culture barrier. [facility] requested updated therapy notes to determine if they will accept her. Admission and Anticipated Discharge Date Admission Date: February 05, 2021 Subjective Patient seen on daily rounds today. Nonconversant. Nursing voices no complaints or concerns. Review of Systems Review of Systems: Unobtainable Physical Exam Physical Exam: limited General: Resting comfortably in her hospital bed. Does not appear ill or toxic. In no acute distress. sleeping but opens eyes during my exams. Talking but nonsensical HEENT: Head is AT/NC buccal mucosa dry Neck: No JVD. Negative hepatojugular reflex Cardiac: RRR with 1/6 to 2/6 LINDA Lungs: CTA without W/R/R Abdomen: Normoactive X4. Soft and nontender in all quadrants. Extremities: No peripheral clubbing cyanosis or edema Neuro:mumbling in foreign language. Skin: No obvious skin lesions or rashes Psych:limited cooperation Results & Data Results & Data ([facility]) Vital Signs (Past 12 Hours) Vital Signs Temp Pulse Resp BP Pulse Ox 04/20/21 15:56 62 16 114/64 96 04/20/21 08:14 36.5 C 77 16 103/67 97 PG Care Time/CCT Total # of Minutes Spent Total Time Spent with Patient: Total time spent is greater than 50% in coordination of care (as documented) at patient's floor/unit and/or counseling patient: Coding Level of Care Code 57502 Subseq Hosp Care Lvl 1 Diagnoses trail maintenance worker involved in patient's care Urinary retention R33.9 Failure to thrive Dementia with behavioral disturbance F03.91 Hypernatremia E87.0 Thiamine deficiency E51.9 Serum calcium elevated E83.52 Anemia D64.9 Hypercholesterolemia E78.00 Benign essential hypertension I10 Chronic renal failure, stage 3b N18.32 Afib I48.91 DVT prophylaxis Z29.9
[2021-04-20] MEDS: TAMSULOSIN HCL 0.4 MG CAP PO SCH (21:46)
[2021-04-20] MEDS: DONEPEZIL HCL 5 MG TAB PO SCH (21:47)
[2021-04-20] MEDS: traZODone HCL 50 MG TAB PO SCH (21:47)
[2021-04-21] MEDS: DOCUSATE SODIUM/SENNA 50/8.6MG TAB PO SCH (08:20)
[2021-04-21] MEDS: POLYETHYLENE (MIRALAX) 17 GM PACK PO SCH (08:20)
[2021-04-21] MEDS: METOPROLOL TARTRATE 25 MG TAB PO SCH ×2 (08:20→20:50)
[2021-04-21] MEDS: cefTRIAXone SODIUM 1,000 MG in DEXTROSE 5% 50 ML IV SCH (09:36)
--- NOTE | 2021-04-21 18:11 | Hospitalist Progress Note ---
Date of Service April 21, 2021 Assessment & Plan (1) rotary shear worker helper involved in patient's care: Plan: pt needs 24-hour care, thus SNF post-discharge. placement pending. 04/01/21: case management awaiting [facility] decision regarding whether they will accept the pt. Social work has spoken to family and Cynthia Gonzalez also spoke with family. Consent obtained from family for Covid vaccination, as documented. Covid vaccination J&J given Previous provider contacted family to discuss possible home with hospice, spoke with granddaughter Patricia who communicated w/ her parents. She claims that her parents cannot take her home with hospice as her mother is going to be having surgery and her father travels frequently for work. As well, patient is noted to wander and was evaluated in ED previously due to this and without 24/7 monitoring she could likely do that again. Despite family not being able to help at home, patient still appropriate for hospice [facility] assessed patient 04/16, requested updated PT/OT notes-- have not heard back Evidently, CC has to meet with family to review finances. Still no clear indication has to when/if she has been accepted and can go. * Patient very attached to the baby dolls that are in her bed. The dolls need to be taken with her upon discharge. (2) Urinary retention: Plan: IMPROVED Jean Baptiste inserted on 03/14 however she self removed on 03/21 with balloon intact - she has since urinated however overall minimal urine output likely due to poor oral intake but is having some retention. Was requiring straight cath on 03/24 and having some retention however over the past few days has been spontaneously voiding and oral intact has improved some. Started on Flomax but still with retention and PVR >500 (for which jean baptiste cat heter reinserted). Keep for now. If patient removes, would not be aggressive to put back in place. Ultimately, there has been ongoing decline since her initial hospitalization and her intermediate designer prognosis is poor Urinalysis obtained on 04/19 given increased somnolence. This does appear to be grossly infected as it is nitrite and leukocyte esterase positive. Will empirically start Rocephin and await final culture data (3) Failure to thrive: Plan: Patient has remained in house >50 days and is awaiting placement Her oral intake has been slowly declining (does have good/bad days) Has shown overall decline since initial hospitalization We will hold off on IV fluids at this time as this would only be a temporary fix. Staff continues to assist with feeds Continue Boost supplementation Patient would be appropriate for hospice for end-stage dementia. Her failure to thrive is likely a result of her end-stage and progressive dementia -- Family reluctant to take her home given her tendencies to wander. -- At this point, she has declined where she is mostly bedbound; therapy was able to work w/ her this week and get her into the bedside chair -- Patient has been for the most part pleasantly confused and is really no trouble. At times w/ minimal agitation but not combative. Needs to be fed. (4) Dementia with behavioral disturbance: Plan: Stable. Continue trazodone no benefit from Aricept at this time. Med stopped seroquel trialed upfront as patient brought to the ED with reports of increased agitation but it was stopped as it caused excessive somnolence. NO AGITATION OR BEHAVIORS this entire stay pt also had Risperdal PRN on meds list but has not been needed. (consider low dose if behavioral issues arise). again, overall decline since hospitalization (over the past 50 days). No significant behavioral disturbance issues. (5) Hypernatremia: Plan: Intermittent, resolves with improved oral intake. Encourage p.o. as tolerated continue with Boost supplement pt not a big fan of blood work, but last was WNL. Hold off on Lab draws unless really warranted (6) Thiamine deficiency: Plan: stable--s/p thiamine supplementation X 30 days. B12 normal. (7) Serum calcium elevated: Plan: was due to HCTZ which has since been D/C'd. BPs have been holding up well without it (actually starting to become more hypotensive--see below) Continue with current management and monitoring. (8) Anemia: Plan: Fe deficiency s/p venofer 300mg X 3 doses. B12 WNL. not a candidate for endoscopic evaluation due to age and advanced dementia. spot labs prn, given advanced dementia and progressive decline, avoid routine labs unless there is an acute change in status (9) Hypercholesterolemia: Plan: stable. no longer on statin, as with her dementia, failure to thrive and advanced age, it would not provide any benefit. (10) Benign essential hypertension: Plan: was running hypotensive Initially HCTZ stopped and BP stabilized Patient has been here for a prolonged period of time and has overall declined further. BP continued to drop for which beta-blockade had to be stopped (11) Chronic renal failure, stage 3b: Plan: stable--avoid routine labs to monitor given advanced dementia with progressive decline (12) Afib: Plan: rate controlled/ in NSR at this time on exam (likely paroxysmal) no ACT given advanced age and dementia with fall risk and risk of bleeding had been on metoprolol 12.5mg up until this point but stopped on 04/06 given low BP of 90/55 and HR of 62. VS improved. continue to monitor (HR currently 71) (13) DVT prophylaxis: Plan: was on lovenox but staff reports getting very agitated with these. has since been stopped Plan: Medically stable for weeks. Awaiting placement as her family cannot provide care for her at home and subsequently does not have a safe discharge plan. Case management on board. Is appropriate for hospice given end-stage dementia but previous providers have been in touch with family members who are against hospice at this point. They are aware that she has been progressively declining but is not in the active stages of dying. May be a language/culture barrier. [facility] requested updated therapy notes to determine if they will accept her. Admission and Anticipated Discharge Date Admission Date: February 05, 2021 Subjective Patient seen on daily rounds today. Nonconversant. Nursing voices no complaints or concerns. Review of Systems Review of Systems: Unobtainable Physical Exam Physical Exam: limited General: Resting comfortably in her hospital bed. Does not appear ill or toxic. In no acute distress. sleeping but opens eyes during my exams. Talking but nonsensical HEENT: Head is AT/NC buccal mucosa dry Neck: No JVD. Negative hepatojugular reflex Cardiac: RRR with 1/6 to 2/6 LINDA Lungs: CTA without W/R/R Abdomen: Normoactive X4. Soft and nontender in all quadrants. Extremities: No peripheral clubbing cyanosis or edema Neuro:mumbling in foreign language. Skin: No obvious skin lesions or rashes Psych:limited cooperation Results & Data Results & Data ([facility]) Vital Signs (Past 12 Hours) Vital Signs Temp Pulse Pulse Resp BP BP Pulse Ox 04/21/21 15:56 36.9 C 73 16 117/70 93 04/21/21 07:37 36.7 C 58 L 17 107/66 95 PG Care Time/CCT Total # of Minutes Spent Total Time Spent with Patient: Total time spent is greater than 50% in coordination of care (as documented) at patient's floor/unit and/or counseling patient: Coding Level of Care Code 71068 Subseq Hosp Care Lvl 1 Diagnoses rotary shear worker helper involved in patient's care Urinary retention R33.9 Failure to thrive Dementia with behavioral disturbance F03.91 Hypernatremia E87.0 Thiamine deficiency E51.9 Serum calcium elevated E83.52 Anemia D64.9 Hypercholesterolemia E78.00 Benign essential hypertension I10 Chronic renal failure, stage 3b N18.32 Afib I48.91 DVT prophylaxis Z29.9
[2021-04-21] MEDS: DONEPEZIL HCL 5 MG TAB PO SCH (20:49)
[2021-04-21] MEDS: traZODone HCL 50 MG TAB PO SCH (20:49)
[2021-04-21] MEDS: TAMSULOSIN HCL 0.4 MG CAP PO SCH (20:49)
[2021-04-22] MEDS ORDERED: SODIUM CHLORIDE 0.9% 1000ML 1,000 ML IV ONE (00:39)
--- NOTE | 2021-04-22 06:19 | Communication Note ---
Date of Service: April 22, 2021 RN notified me that patient had multiple BP readings that ranged between SBP(high 70 - mid 90s) / DBP(40-60) beginning around [id number]. Her pulses arou nd this time ranged from high 40s - low 60s. She did take her metoprolol earlier in the evening and apparently she had refused previous doses. I went up to assess her. She was responsive and appeared well-perfusing. I proceeded with a 1x bolus of NSS (1L), to which she responded well. BPs and HRs returned back to normal thereafter. I held her metoprolol - can consider resuming when BPs, HRs demonstrate persistent normalcy
--- NOTE | 2021-04-22 08:16 | Hospitalist Progress Note ---
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 placement pending. 04/01/21: case management awaiting [facility] decision regarding whether they will accept the pt. Social work has spoken to family and Cynthia Gonzalez also spoke with family. Consent obtained from family for Covid vaccination, as documented. Covid vaccination J&J given Previous provider contacted family to discuss possible home with hospice, spoke with granddaughter Patricia who communicated w/ her parents. She claims that her parents cannot take her home with hospice as her mother is going to be having surgery and her father travels frequently for work. As well, patient is noted to wander and was evaluated in ED previously due to this and without 24/7 monitoring she could likely do that again. Despite family not being able to help at home, patient still appropriate for hospice [facility] assessed patient 04/16, requested updated PT/OT notes-- have not heard back Evidently, CC has to meet with family to review finances. Still no clear indication has to when/if she has been accepted and can go. * Patient very attached to the baby dolls that are in her bed. The dolls need to be taken with her upon discharge. (2) Urinary retention: Plan: IMPROVED Jean Baptiste inserted on 03/14 however she self removed on 03/21 with balloon intact - she has since urinated however overall minimal urine output likely due to poor oral intake but is having some retention. Was requiring straight cath on 03/24 and having some retention however over the past few days has been spontaneously voiding and oral intact has improved some. Started on Flomax but still with retention and PVR >500 (for which jean baptiste ca theter reinserted). Keep for now. If patient removes, would not be aggressive to put back in place. Ultimately, there has been ongoing decline since her initial hospitalization and her roasterman prognosis is poor Urinalysis obtained on 04/19 given increased somnolence. This does appear to be grossly infected as it is nitrite and leukocyte esterase positive. Will empirically start Rocephin and await final culture data (3) Failure to thrive: Plan: Patient has remained in house >50 days and is awaiting placement Her oral intake has been slowly declining (does have good/bad days) Has shown overall decline since initial hospitalization We will hold off on IV fluids at this time as this would only be a temporary fix. Staff continues to assist with feeds Continue Boost supplementation Patient would be appropriate for hospice for end-stage dementia. Her failure to thrive is likely a result of her end-stage and progressive dementia -- Family reluctant to take her home given her tendencies to wander. -- At this point, she has declined where she is mostly bedbound; therapy was able to work w/ her this week and get her into the bedside chair -- Patient has been for the most part pleasantly confused and is really no trouble. At times w/ minimal agitation but not combative. Needs to be fed. (4) Dementia with behavioral disturbance: Plan: Stable. Continue trazodone no benefit from Aricept at this time. Med stopped seroquel trialed upfront as patient brought to the ED with reports of increased agitation but it was stopped as it caused excessive somnolence. NO AGITATION OR BEHAVIORS this entire stay pt also had Risperdal PRN on meds list but has not been needed. (consider low dose if behavioral issues arise). again, overall decline since hospitalization (over the past 50 days). No significant behavioral disturbance issues. (5) Hypernatremia: Plan: Intermittent, resolves with improved oral intake. Encourage p.o. as tolerated continue with Boost supplement pt not a big fan of blood work, but last was WNL. Hold off on Lab draws unless really warranted (6) Thiamine deficiency: Plan: stable--s/p thiamine supplementation X 30 days. B12 normal. (7) Serum calcium elevated: Plan: was due to HCTZ which has since been D/C'd. BPs have been holding up well without it (actually starting to become more hypotensive--see below) Continue with current management and monitoring. (8) Anemia: Plan: Fe deficiency s/p venofer 300mg X 3 doses. B12 WNL. not a candidate for endoscopic evaluation due to age and advanced dementia. spot labs prn, given advanced dementia and progressive decline, avoid routine labs unless there is an acute change in status (9) Hypercholesterolemia: Plan: stable. no longer on statin, as with her dementia, failure to thrive and advanced age, it would not provide any benefit. (10) Benign essential hypertension: Plan: was running hypotensive Initially HCTZ stopped and BP stabilized Patient has been here for a prolonged period of time and has overall declined further. BP continued to drop for which beta-blockade had to be stopped on 04/06 Inadvertently her beta-jagruti was resumed on 04/12 by the overnight provider when all of her medications fell off of her EMR (due to her prolonged length of stay). She had been getting metoprolol and subsequently developed Hypotension and bradycardia overnight that responded with a fluid bolus. Patient should not be on her beta-jagruti or any antihypertensive agents at this point (11) Chronic renal failure, stage 3b: Plan: stable--avoid routine labs to monitor given advanced dementia with progressive decline (12) Afib: Plan: rate controlled/ in NSR at this time on exam (likely paroxysmal) no ACT given advanced age and dementia with fall risk and risk of bleeding had been on metoprolol 12.5mg up until this point but stopped on 04/06 given low BP of 90/55 and HR of 62. VS improved. continue to monitor (HR currently 74) (13) DVT prophylaxis: Plan: was on lovenox but staff reports getting very agitated with these. has since been stopped Plan: Medically stable for weeks. Awaiting placement as her family cannot provide care for her at home and subsequently does not have a safe discharge plan. Case management on board. Is appropriate for hospice given end-stage dementia but previous providers have been in touch with family members who are against hospice at this point. They are aware that she has been progressively declining but is not in the active stages of dying. May be a language/culture barrier. [facility] requested updated therapy notes to determine if they will accept her. Admission and Anticipated Discharge Date Admission Date: February 05, 2021 Subjective Patient seen on daily rounds today. When I had taken care of the patient my last work cycle, her BB was stopped (d/t some marginal hypotension. HR was in the 60's at that time). Inadvertently, it was subsequently resumed on 04/12 as all of her meds fell of of the EMAR given her prolonged length of stay and that one was restarted routinely with the rest of her meds (as the nighttime provider was unaware that this has been stopped). Patient has been receiving it since 04/12. In the overnight hours lastnight, pt had a BP of 78/33 and a HR of 44. She did not seem symptomatic with this (although hard to determine given her end stage dementia). At any rate, was given IVF bolus and her HR/BP improved (currently 105/49 and 61) Review of Systems Review of Systems: Unobtainable Physical Exam Physical Exam: limited General: Resting comfortably in her hospital bed. Does not appear ill or toxic. In no acute distress. sleeping but opens eyes during my exams. Talking but nonsensical HEENT: Head is AT/NC buccal mucosa dry Neck: No JVD. Negative hepatojugular reflex Cardiac: RRR with 1/6 to 2/6 LINDA Lungs: CTA without W/R/R Abdomen: Normoactive X4. Soft and nontender in all quadrants. Extremities: No peripheral clubbing cyanosis or edema Neuro:mumbling in foreign language. Skin: No obvious skin lesions or rashes Psych:limited cooperation Results & Data Results & Data ([facility]) Vital Signs (Past 12 Hours) Vital Signs Temp Pulse Pulse Resp BP BP Pulse Ox 04/22/21 07:42 36.5 C 61 16 105/49 L 94 04/22/21 05:52 110/62 04/22/21 04:09 67 124/64 04/22/21 03:19 66 17 85/47 L 127/52 L 93 04/22/21 03:11 84 86/40 L 04/22/21 01:53 74 95/53 L 04/22/21 01:25 82 94/47 L 04/22/21 00:59 79 90/50 L 04/22/21 00:24 44 L 78/33 L 04/21/21 22:58 36.5 C 54 L 16 91/48 L 95 PG Care Time/CCT Total # of Minutes Spent Total Time Spent with Patient: Total time spent is greater than 50% in coordination of care (as documented) at patient's floor/unit and/or counseling patient: Coding Level of Care Code 61702 Subseq Hosp Care Lvl 2 Diagnoses drug department worker involved in patient's care Urinary retention R33.9 Failure to thrive Dementia with behavioral disturbance F03.91 Hypernatremia E87.0 Thiamine deficiency E51.9 Serum calcium elevated E83.52 Anemia D64.9 Hypercholesterolemia E78.00 Benign essential hypertension I10 Chronic renal failure, stage 3b N18.32 Afib I48.91 DVT prophylaxis Z29.9
[2021-04-22] MEDS: POLYETHYLENE (MIRALAX) 17 GM PACK PO SCH (08:21)
[2021-04-22] MEDS: cefTRIAXone SODIUM 1,000 MG in DEXTROSE 5% 50 ML IV SCH (08:21)
[2021-04-22] MEDS: DOCUSATE SODIUM/SENNA 50/8.6MG TAB PO SCH (08:21)
[2021-04-22] MEDS: TAMSULOSIN HCL 0.4 MG CAP PO SCH (20:56)
[2021-04-22] MEDS: traZODone HCL 50 MG TAB PO SCH (20:56)
[2021-04-23] MEDS: cefTRIAXone SODIUM 1,000 MG in DEXTROSE 5% 50 ML IV SCH (07:50)
[2021-04-23] MEDS: DOCUSATE SODIUM/SENNA 50/8.6MG TAB PO SCH (08:02)
[2021-04-23] MEDS: POLYETHYLENE (MIRALAX) 17 GM PACK PO SCH (08:02)
--- NOTE | 2021-04-23 19:13 | Hospitalist Progress Note ---
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 placement pending. 04/01/21: case management awaiting [facility] decision regarding whether they will accept the pt. Social work has spoken to family and Cynthia Gonzalez also spoke with family. Consent obtained from family for Covid vaccination, as documented. Covid vaccination J&J given Previous provider contacted family to discuss possible home with hospice, spoke with granddaughter Patricia who communicated w/ her parents. She claims that her parents cannot take her home with hospice as her mother is going to be having surgery and her father travels frequently for work. As well, patient is noted to wander and was evaluated in ED previously due to this and without 24/7 monitoring she could likely do that again. Despite family not being able to help at home, patient still appropriate for hospice [facility] assessed patient 04/16, requested updated PT/OT notes-- have not heard back Evidently, CC has to meet with family to review finances. Still no clear indication has to when/if she has been accepted and can go. * Patient very attached to the baby dolls that are in her bed. The dolls need to be taken with her upon discharge. (2) Urinary retention: Plan: IMPROVED Jean Baptiste inserted on 03/14 however she self removed on 03/21 with balloon intact - she has since urinated however overall minimal urine output likely due to poor oral intake but is having some retention. Was requiring straight cath on 03/24 and having some retention however over the past few days has been spontaneously voiding and oral intact has improved some. Started on Flomax but still with retention and PVR >500 (for which jean baptiste ca theter reinserted). Keep for now. If patient removes, would not be aggressive to put back in place. 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 Started on Rocephin which will continue through 04/27 for catheter associated UTI Catheter changed 04/20--we will need changed monthly (3) Failure to thrive: Plan: Patient has remained in house >50 days and is awaiting placement Her oral intake has been slowly declining (does have good/bad days) Has shown overall decline since initial hospitalization We will hold off on IV fluids at this time as this would only be a temporary fix. Staff continues to assist with feeds Continue Boost supplementation Patient would be appropriate for hospice for end-stage dementia. Her failure to thrive is likely a result of her end-stage and progressive dementia -- Family reluctant to take her home given her tendencies to wander. -- At this point, she has declined where she is mostly bedbound; therapy was able to work w/ her this week and get her into the bedside chair -- Patient has been for the most part pleasantly confused and is really no trouble. At times w/ minimal agitation but not combative. Needs to be fed. (4) Dementia with behavioral disturbance: Plan: Stable. Continue trazodone no benefit from Aricept at this time. Med stopped seroquel trialed upfront as patient brought to the ED with reports of increased agitation but it was stopped as it caused excessive somnolence. NO AGITATION OR BEHAVIORS this entire stay pt also had Risperdal PRN on meds list but has not been needed. (consider low dose if behavioral issues arise). again, overall decline since hospitalization (over the past 50 days). No significant behavioral disturbance issues. (5) Hypernatremia: Plan: Intermittent, resolves with improved oral intake. Encourage p.o. as tolerated continue with Boost supplement pt not a big fan of blood work, but last was WNL. Hold off on Lab draws unless really warranted (6) Thiamine deficiency: Plan: stable--s/p thiamine supplementation X 30 days. B12 normal. (7) Serum calcium elevated: Plan: was due to HCTZ which has since been D/C'd. BPs have been holding up well without it (actually starting to become more hypotensive--see below) Continue with current management and monitoring. (8) Anemia: Plan: Fe deficiency s/p venofer 300mg X 3 doses. B12 WNL. not a candidate for endoscopic evaluation due to age and advanced dementia. spot labs prn, given advanced dementia and progressive decline, avoid routine labs unless there is an acute change in status (9) Hypercholesterolemia: Plan: stable. no longer on statin, as with her dementia, failure to thrive and advanced age, it would not provide any benefit. (10) Benign essential hypertension: Plan: Throughout this hospital course, has had marginal hypotension leading to discontinuation of her antihypertensive medications including her beta-blockade Patient should not be on her beta-jagruti or any antihypertensive agents at this point (11) Chronic renal failure, stage 3b: Plan: stable--avoid routine labs to monitor given advanced dementia with progressive decline (12) Afib: Plan: rate controlled/ in NSR at this time on exam (likely paroxysmal) no ACT given advanced age and dementia with fall risk and risk of bleeding had been on metoprolol 12.5mg up until this point but stopped on 04/06 given low BP of 90/55 and HR of 62. VS improved. continue to monitor (HR currently 74) (13) DVT prophylaxis: Plan: was on lovenox but staff reports getting very agitated with these. has since been stopped Plan: Medically stable for weeks. Awaiting placement as her family cannot provide care for her at home and subsequently does not have a safe discharge plan. Case management on board. Is appropriate for hospice given end-stage dementia but previous providers have been in touch with family members who are against hospice at this point. They are aware that she has been progressively declining but is not in the active stages of dying. May be a language/culture barrier. [facility] requested updated therapy notes to determine if they will accept her. Admission and Anticipated Discharge Date Admission Date: February 05, 2021 Subjective Patient seen on daily rounds today. She is awake. Talking but nonsensical. Nursing voices no complaints or concerns. Review of Systems Review of Systems: Unobtainable Physical Exam Physical Exam: limited General: Resting comfortably in her hospital bed. Does not appear ill or toxic. In no acute distress. sleeping but opens eyes during my exams. Talking but nonsensical HEENT: Head is AT/NC buccal mucosa dry Neck: No JVD. Negative hepatojugular reflex Cardiac: RRR with 1/6 to 2/6 LINDA Lungs: CTA without W/R/R Abdomen: Normoactive X4. Soft and nontender in all quadrants. Extremities: No peripheral clubbing cyanosis or edema Neuro:mumbling in foreign language. Skin: No obvious skin lesions or rashes Psych:limited cooperation Results & Data Results & Data ([facility]) Vital Signs (Past 12 Hours) Vital Signs Temp Pulse Pulse Resp BP Pulse Ox 04/23/21 14:02 36.6 C 68 16 127/76 96 04/23/21 07:21 36.8 C 61 18 114/62 93 Laboratory Results No lab data PG Care Time/CCT Total # of Minutes Spent Total Time Spent with Patient: Total time spent is greater than 50% in coordination of care (as documented) at patient's floor/unit and/or counseling patient: Coding Level of Care Code 04736 Subseq Hosp Care Lvl 1 Diagnoses jewelry bench worker involved in patient's care Urinary retention R33.9 Failure to thrive Dementia with behavioral disturbance F03.91 Hypernatremia E87.0 Thiamine deficiency E51.9 Serum calcium elevated E83.52 Anemia D64.9 Hypercholesterolemia E78.00 Benign essential hypertension I10 Chronic renal failure, stage 3b N18.32 Afib I48.91 DVT prophylaxis Z29.9
[2021-04-23] MEDS: traZODone HCL 50 MG TAB PO SCH (20:25)
[2021-04-23] MEDS: TAMSULOSIN HCL 0.4 MG CAP PO SCH (20:25)
[2021-04-24] MEDS: cefTRIAXone SODIUM 1,000 MG in DEXTROSE 5% 50 ML IV SCH (07:34)
[2021-04-24] MEDS: POLYETHYLENE (MIRALAX) 17 GM PACK PO SCH (08:31)
[2021-04-24] MEDS: DOCUSATE SODIUM/SENNA 50/8.6MG TAB PO SCH (08:32)
--- NOTE | 2021-04-24 13:27 | Hospitalist Progress Note ---
Date of Service April 24, 2021 Assessment & Plan (1) die set up worker involved in patient's care: Plan: * pt needs 24-hour care, thus SNF post-discharge. * placement pending. * 04/01/21: case management awaiting [facility] decision regarding whether they will accept the pt. * Social work has spoken to family and Cynthia Gonzalez also spoke with family. Consent obtained from family for Covid vaccination, as documented. Covid vaccination J&J given * Previous provider contacted family to discuss possible home with hospice, spoke with granddaughter Patricia who communicated w/ her parents. She claims that her parents cannot take her home with hospice as her mother is going to be having surgery and her father travels frequently for work. As well, patient is noted to wander and was evaluated in ED previously due to this and without 24/7 monitoring she could likely do that again. Despite family not being able to help at home, patient still appropriate for hospice * [facility] assessed patient 04/16, requested updated PT/OT notes-- have not heard back * Evidently, CC has to meet with family to review finances. Still no clear indication has to when/if she has been accepted and can go. * Patient very attached to the baby dolls that are in her bed. The dolls need to be taken with her upon discharge. (2) Urinary retention: Plan: IMPROVED * Jean Baptiste inserted on 03/14 however she self removed on 03/21 with balloon intact - she has since urinated however overall minimal urine output likely due to poor oral intake but is having some retention. Was requiring straight cath on 03/24 and having some retention however over the past few days has been spontaneously voiding and oral intact has improved some. * Started on Flomax but still with retention and PVR >500 (for which jean baptiste catheter reinserted). Keep for now. If patient removes, would not be aggressive to put back in place. Ultimately, there has been ongoing decline since her initial hospitalization and her senior living prognosis is poor Urinalysis obtained on 04/19 given increased somnolence. Started on Rocephin which will continue through 04/27 for catheter associated UTI * Catheter changed 04/20--we will need changed monthly (3) Failure to thrive: Plan: Patient has remained in house >50 days and is awaiting placement Her oral intake has been slowly declining (does have good/bad days) Has shown overall decline since initial hospitalization We will hold off on IV fluids at this time as this would only be a temporary fix. Staff continues to assist with feeds Continue Boost supplementation Patient would be appropriate for hospice for end-stage dementia. Her failure to thrive is likely a result of her end-stage and progressive dementia -- Family reluctant to take her home given her tendencies to wander. -- At this point, she has declined where she is mostly bedbound; therapy was able to work w/ her this week and get her into the bedside chair -- Patient has been for the most part pleasantly confused and is really no trouble. At times w/ minimal agitation but not combative. Needs to be fed. (4) Dementia with behavioral disturbance: Plan: Stable. Continue trazodone no benefit from Aricept at this time. Med stopped Seroquel trialed upfront as patient brought to the ED with reports of increased agitation but it was stopped as it caused excessive somnolence. NO AGITATION OR BEHAVIORS this entire stay pt also had Risperdal PRN on meds list but has not been needed. (consider low dose if behavioral issues arise). again, overall decline since hospitalization (over the past 50 days). No behavioral disturbance issue. She has been very pleasantly confused. (5) Hypernatremia: Plan: Intermittent, resolves with improved oral intake. Encourage p.o. as tolerated continue with Boost supplement pt not a big fan of blood work, but last was WNL. Hold off on Lab draws unless really warranted (6) Thiamine deficiency: Plan: stable--s/p thiamine supplementation X 30 days. B12 normal. (7) Serum calcium elevated: Plan: was due to HCTZ which has since been D/C'd. (8) Anemia: Plan: Fe deficiency s/p venofer 300mg X 3 doses. B12 WNL. not a candidate for endoscopic evaluation due to age and advanced dementia. spot labs prn, given advanced dementia and progressive decline, avoid routine labs unless there is an acute change in status (9) Hypercholesterolemia: Plan: stable. no longer on statin, as with her dementia, failure to thrive and advanced age, it would not provide any benefit. (10) Benign essential hypertension: Plan: Throughout this hospital course, has had hypotension leading to discontinuation of her antihypertensive medications including her HCTZ and beta-blockade Patient should not be on her beta-jagruti or any antihypertensive agents at thi s point (11) Chronic renal failure, stage 3b: Plan: stable--avoid routine labs to monitor given advanced dementia with progressive decline (12) Afib: Plan: rate controlled/ in NSR at this time on exam (likely paroxysmal) no ACT given advanced age and dementia with fall risk and risk of bleeding had been on metoprolol 12.5mg up until this point but stopped on 04/06 given low BP of 90/55 and HR of 62. VS improved. continue to monitor (HR currently 58) (13) DVT prophylaxis: Plan: was on lovenox but staff reports getting very agitated with these. has since been stopped Plan: Medically stable for weeks. Awaiting placement as her family cannot provide care for her at home and subsequently does not have a safe discharge plan. Case management on board. Is appropriate for hospice given end-stage dementia but previous providers have been in touch with family members who are against hospice at this point. They are aware that she has been progressively declining but is not in the active stages of dying. May be a language/culture barrier. [facility] requested updated therapy notes to determine if they will accept her. Admission and Anticipated Discharge Date Admission Date: February 05, 2021 Subjective Patient seen on daily rounds today. She is awake. Talking but nonsensical. Nursing voices no complaints or concerns. Review of Systems Review of Systems: Unobtainable Physical Exam Physical Exam: limited General: Resting comfortably in her hospital bed. Does not appear ill or toxic. In no acute distress. awake today. pleasantly confused. tried to kiss me HEENT: Head is AT/NC buccal mucosa dry Neck: No JVD. Negative hepatojugular reflex Cardiac: RRR with 1/6 to 2/6 LINDA Lungs: CTA without W/R/R Abdomen: Normoactive X4. Soft and nontender in all quadrants. Extremities: No peripheral clubbing cyanosis or edema Neuro:mumbling in foreign language. Skin: No obvious skin lesions or rashes Psych:limited cooperation Results & Data Results & Data ([facility]) Vital Signs (Past 12 Hours) Vital Signs Temp Pulse Resp BP Pulse Ox 04/24/21 07:00 36.4 C L 58 L 16 122/70 95 PG Care Time/CCT Total # of Minutes Spent Total Time Spent with Patient: Total time spent is greater than 50% in coordination of care (as documented) at patient's floor/unit and/or counseling patient: Coding Level of Care Code 67418 Subseq Hosp Care Lvl 1 Diagnoses die set up worker involved in patient's care Urinary retention R33.9 Failure to thrive Dementia with behavioral disturbance F03.91 Hypernatremia E87.0 Thiamine deficiency E51.9 Serum calcium elevated E83.52 Anemia D64.9 Hypercholesterolemia E78.00 Benign essential hypertension I10 Chronic renal failure, stage 3b N18.32 Afib I48.91 DVT prophylaxis Z29.9
[2021-04-24] MEDS: TAMSULOSIN HCL 0.4 MG CAP PO SCH (20:22)
[2021-04-24] MEDS: traZODone HCL 50 MG TAB PO SCH (20:22)
[2021-04-25] MEDS: cefTRIAXone SODIUM 1,000 MG in DEXTROSE 5% 50 ML IV SCH (08:27)
[2021-04-25] MEDS: DOCUSATE SODIUM/SENNA 50/8.6MG TAB PO SCH (08:28)
[2021-04-25] MEDS: POLYETHYLENE (MIRALAX) 17 GM PACK PO SCH (08:28)
--- NOTE | 2021-04-25 13:02 | Hospitalist Progress Note ---
Date of Service April 25, 2021 Assessment & Plan (1) chute worker involved in patient's care: Plan: * pt needs 24-hour care, thus SNF post-discharge. * placement pending. * Social work has spoken to family and Cynthia Gonzalez also spoke with family. Consent obtained from family for Covid vaccination, as documented. Covid vaccination J&J given * Previous provider contacted family to discuss possible home with hospice, spoke with granddaughter Patricia who communicated w/ her parents. She claims that her parents cannot take her home with hospice as her mother is going to be having surgery and her father travels frequently for work. Patient does require total care (being feed and changing her brief when incontinent of stool). Despite family not being able to help at home, patient still appropriate for hospice * [facility] assessed patient 04/16, requested updated PT/OT notes-- have not heard back * Evidently, CC has to meet with family to review finances. Meeting has been set and per [facility], likely can take patient next week * Patient very attached to the baby dolls that are in her bed. The dolls need to be taken with her upon discharge. (2) Urinary retention: Plan: IMPROVED * Jean Baptiste inserted on 03/14 however she self removed on 03/21 with balloon intact - she has since urinated however overall minimal urine output likely due to poor oral intake but is having some retention. Was requiring straight cath on 03/24 and having some retention however over the past few days has been spontaneously voiding and oral intact has improved some. * Started on Flomax but still with retention and PVR >500 (for which jean baptiste catheter reinserted). Keep for now. If patient removes, would not be aggressive to put back in place. Ultimately, there has been ongoing decline since her initial hospitalization and her technician terminal and repeater prognosis is poor Urinalysis obtained on 04/19 given increased somnolence. Started on Rocephin which will continue through 04/27 for catheter associated UTI * Catheter changed 04/20--we will need changed monthly (3) Failure to thrive: Plan: Patient has remained in house >50 days and is awaiting placement Her oral intake has been slowly declining (does have good/bad days) Has shown overall decline since initial hospitalization We will hold off on IV fluids at this time as this would only be a temporary fix. Staff continues to assist with feeds Continue Boost supplementation Patient would be appropriate for hospice for end-stage dementia. Her failure to thrive is likely a result of her end-stage and progressive dementia -- Family reluctant to take her home given her tendencies to wander. -- At this point, she has declined where she is mostly bedbound; therapy was able to work w/ her this week and get her into the bedside chair -- Patient has been for the most part pleasantly confused and is really no trouble. At times w/ minimal agitation but not combative. Needs to be fed. (4) Dementia with behavioral disturbance: Plan: Stable. Continue trazodone no benefit from Aricept at this time. Med stopped Seroquel trialed upfront as patient brought to the ED with reports of increased agitation but it was stopped as it caused excessive somnolence. NO AGITATION OR BEHAVIORS this entire stay pt also had Risperdal PRN on meds list but has not been needed. (consider low dose if behavioral issues arise). again, overall decline since hospitalization (over the past 50 days). No behavioral disturbance issue. She has been very pleasantly confused. (5) Hypernatremia: Plan: Intermittent, resolves with improved oral intake. Encourage p.o. as tolerated continue with Boost supplement pt not a big fan of blood work, but last was WNL. Hold off on Lab draws unless really warranted (6) Thiamine deficiency: Plan: stable--s/p thiamine supplementation X 30 days. B12 normal. (7) Serum calcium elevated: Plan: was due to HCTZ which has since been D/C'd. (8) Anemia: Plan: Fe deficiency s/p venofer 300mg X 3 doses. B12 WNL. not a candidate for endoscopic evaluation due to age and advanced dementia. spot labs prn, given advanced dementia and progressive decline, avoid routine labs unless there is an acute change in status (9) Hypercholesterolemia: Plan: stable. no longer on statin, as with her dementia, failure to thrive and advanced age, it would not provide any benefit. (10) Benign essential hypertension: Plan: Throughout this hospital course, has had hypotension leading to discontinuation of her antihypertensive medications including her HCTZ and beta-blockade Patient should not be on her beta-jagruti or any antihypertensive agents at this point (11) Chronic renal failure, stage 3b: Plan: stable--avoid routine labs to monitor given advanced dementia with progressive decline (12) Afib: Plan: rate controlled/ in NSR at this time on exam (likely paroxysmal) no ACT given advanced age and dementia with fall risk and risk of bleeding had been on metoprolol 12.5mg up until this point but stopped on 04/06 given low BP of 90/55 and HR of 62. VS improved. continue to monitor (HR currently 58) (13) DVT prophylaxis: Plan: was on lovenox but staff reports getting very agitated with these. has since been stopped Plan: Medically stable for weeks. Awaiting placement as her family cannot provide care for her at home and subsequently does not have a safe discharge plan. Case management on board. Is appropriate for hospice given end-stage dementia but previous providers have been in touch with family members who are against hospice at this point. They are aware that she has been progressively declining but is not in the active stages of dying. May be a language/culture barrier. [facility] will accept and likely will have a bed for her but pending this financial meeting with family Admission and Anticipated Discharge Date Admission Date: February 05, 2021 Subjective Patient seen on daily rounds today. Nonverbal today. Nursing voices no c/c. CM reports [facility] has Financial meeting with the family with potential bed available next week at [facility]. Review of Systems Review of Systems: Unobtainable Physical Exam Physical Exam: limited General: Resting comfortably in her hospital bed. Does not appear ill or toxic. In no acute distress. awake today. pleasantly confused. tried to kiss me HEENT: Head is AT/NC buccal mucosa dry Neck: No JVD. Negative hepatojugular reflex Cardiac: RRR with 1/6 to 2/6 LNIDA Lungs: CTA without W/R/R Abdomen: Normoactive X4. Soft and nontender in all quadrants. Extremities: No peripheral clubbing cyanosis or edema Neuro:mumbling in foreign language. Skin: No obvious skin lesions or rashes Psych:limited cooperation Results & Data Results & Data ([facility]) Vital Signs (Past 12 Hours) Vital Signs Temp Pulse Resp BP Pulse Ox 04/25/21 07:50 36.4 C L 58 L 16 116/69 96 PG Care Time/CCT Total # of Minutes Spent Total Time Spent with Patient: Total time spent is greater than 50% in coordination of care (as documented) at patient's floor/unit and/or counseling patient: Coding Level of Care Code 84774 Subseq Hosp Care Lvl 1 Diagnoses chute worker involved in patient's care Urinary retention R33.9 Failure to thrive Dementia with behavioral disturbance F03.91 Hypernatremia E87.0 Thiamine deficiency E51.9 Serum calcium elevated E83.52 Anemia D64.9 Hypercholesterolemia E78.00 Benign essential hypertension I10 Chronic renal failure, stage 3b N18.32 Afib I48.91 DVT prophylaxis Z29.9
[2021-04-25] MEDS: TAMSULOSIN HCL 0.4 MG CAP PO SCH (20:39)
[2021-04-25] MEDS: traZODone HCL 50 MG TAB PO SCH (20:39)
[2021-04-26] MEDS: POLYETHYLENE (MIRALAX) 17 GM PACK PO SCH (09:27)
[2021-04-26] MEDS: DOCUSATE SODIUM/SENNA 50/8.6MG TAB PO SCH (09:27)
--- NOTE | 2021-04-26 11:20 | Hospitalist Progress Note ---
Date of Service April 26, 2021 Assessment & Plan (1) general worker involved in patient's care: Plan: * pt needs 24-hour care, family unable to provide this level of care, thus SNF post-discharge. * placement pending--> [facility] * Social work has spoken to family and Cynthia Gonzalez also spoke with family. Consent obtained from family for Covid vaccination, as documented. Covid vaccination J&J given * Previous provider contacted family to discuss possible home with hospice, spoke with granddaughter Patricia who communicated w/ her parents. She claims that her parents cannot take her home with hospice as her mother is going to be having surgery and her father travels frequently for work. Patient does require total care (being feed and changing her brief when incontinent of stool). Despite family not being able to help at home, patient still appropriate for hospice * [facility] assessed patient 04/16, requested updated PT/OT notes * Evidently, CC has to meet with family to review finances. Meeting has been set and per [facility], likely can take patient next week * Patient very attached to the baby dolls that are in her bed. The dolls need to be taken with her upon discharge. (2) Urinary retention: Plan: IMPROVED * Jean Baptiste inserted on 03/14 however she self removed on 03/21 with balloon intact - she has since urinated however overall minimal urine output likely due to poor oral intake but is having some retention. Was requiring straight cath on 03/24 and having some retention however over the past few days has been spontaneously voiding and oral intact has improved some. * Started on Flomax but still with retention and PVR >500 (for which jean baptiste catheter reinserted). Keep for now. If patient removes, would not be aggressive to put back in place. Ultimately, there has been ongoing decline since her initial hospitalization and her residential prognosis is poor Urinalysis obtained on 04/19 given increased somnolence, appeared grossly infected (Nitrite +, 2+ leukocyte esterase, and 10-30 wbc). Started on Rocephin empirically which will continue through 04/27 for catheter associated UTI. Urine cx demonstrated 3 different organisms, all high counts, recommended repeat collection which was done on 04/20 with same culture results. Thus, no further repeat collections done and pt has just been treated. * Catheter changed 04/20--we will need changed monthly (3) Failure to thrive: Plan: Patient has remained in house >50 days and is awaiting placement Her oral intake has been slowly declining (does have good/bad days) Has shown overall decline since initial hospitalization We will hold off on IV fluids at this time as this would only be a temporary fix. Staff continues to assist with feeds Continue Boost supplementation Patient would be appropriate for hospice for end-stage dementia. Her failure to thrive is likely a result of her end-stage and progressive dementia -- Family reluctant to take her home given her tendencies to wander. -- At this point, she has declined where she is mostly bedbound; therapy was able to work w/ her this week and get her into the bedside chair -- Patient has been for the most part pleasantly confused and is really no trouble. At times w/ minimal agitation but not combative. Needs to be fed. (4) Dementia with behavioral disturbance: Plan: Stable. Continue trazodone no benefit from Aricept at this time. Med stopped Seroquel trialed upfront as patient brought to the ED with reports of increased agitation but it was stopped as it caused excessive somnolence. NO AGITATION OR BEHAVIORS this entire stay pt also had Risperdal PRN on meds list but has not been needed. (consider low dose if behavioral issues arise). again, overall decline since hospitalization (over the past 50 days). No behavioral disturbance issue. She has been very pleasantly confused. (5) Hypernatremia: Plan: Intermittent, resolves with improved oral intake. Encourage p.o. as tolerated continue with Boost supplement pt not a big fan of blood work, but last was WNL. Hold off on Lab draws unless really warranted (6) Thiamine deficiency: Plan: stable--s/p thiamine supplementation X 30 days. B12 normal. (7) Serum calcium elevated: Plan: was due to HCTZ which has since been D/C'd. (8) Anemia: Plan: Fe deficiency s/p venofer 300mg X 3 doses. B12 WNL. not a candidate for endoscopic evaluation due to age and advanced dementia. spot labs prn, given advanced dementia and progressive decline, avoid routine labs unless there is an acute change in status (9) Hypercholesterolemia: Plan: stable. no longer on statin, as with her dementia, failure to thrive and advanced age, it would not provide any benefit. (10) Benign essential hypertension: Plan: Throughout this hospital course, has had hypotension leading to discontinuation of her antihypertensive medications including her HCTZ and beta-blockade Patient should not be on her beta-jagruti or any antihypertensive agents at this point (11) Chronic renal failure, stage 3b: Plan: stable--avoid routine labs to monitor given advanced dementia with progressive decline (12) Afib: Plan: rate controlled/ in NSR at this time on exam (likely paroxysmal) no ACT given advanced age and dementia with fall risk and risk of bleeding had been on metoprolol 12.5mg up until this point but stopped on 04/06 given low BP of 90/55 and HR of 62. VS improved. continue to monitor (HR currently 58) (13) DVT prophylaxis: Plan: was on lovenox but staff reports getting very agitated with these. has since been stopped Plan: Medically stable for weeks. Awaiting placement as her family cannot provide care for her at home and subsequently does not have a safe discharge plan. Case management on board. Is appropriate for hospice given end-stage dementia but previous providers have been in touch with family members who are against hospice at this point. They are aware that she has been progressively declining but is not in the active stages of dying. May be a language/culture barrier. [facility] will accept and likely will have a bed for her but pending this financial meeting with family Admission and Anticipated Discharge Date Admission Date: February 05, 2021 Subjective Patient seen on daily rounds today. Nonverbal today. Nursing voices no c/c. Per prior documentation on 04/25: reports [facility] has Financial meeting with the family with potential bed available next week at [facility]. Review of Systems Review of Systems: Unobtainable Physical Exam Physical Exam: GENERAL: 89 elderly thin/frail WF, NAD. LUNGS: Clear to auscultation bilaterally. No W/R/R. CARDIOVASCULAR: Regular rate and rhythm. No M/G/R. ABDOMEN: Soft and non-distended. No palpable masses. BS normal x 4 quad. : jean baptiste remains in place (changed 04/20) EXTREMITIES: No edema. Peripheral pulses +2/4. NEUROLOGIC: awake but seems more agitated today but not combative SKIN: No rashes or lesions. Results & Data Results & Data ([facility]) Vital Signs (Past 12 Hours) Vital Signs Temp Pulse Resp BP Pulse Ox 04/26/21 07:52 36.4 C L 60 16 128/79 92 PG Care Time/CCT Total # of Minutes Spent Total Time Spent with Patient: Total time spent is greater than 50% in coordination of care (as documented) at patient's floor/unit and/or counseling patient: Coding Level of Care Code 38602 Subseq Hosp Care Lvl 1 Diagnoses general worker involved in patient's care Urinary retention R33.9 Failure to thrive Dementia with behavioral disturbance F03.91 Hypernatremia E87.0 Thiamine deficiency E51.9 Serum calcium elevated E83.52 Anemia D64.9 Hypercholesterolemia E78.00 Benign essential hypertension I10 Chronic renal failure, stage 3b N18.32 Afib I48.91 DVT prophylaxis Z29.9
[2021-04-26] MEDS: traZODone HCL 50 MG TAB PO SCH (21:00)
[2021-04-26] MEDS: TAMSULOSIN HCL 0.4 MG CAP PO SCH (21:00)
[2021-04-27] MEDS: DOCUSATE SODIUM/SENNA 50/8.6MG TAB PO SCH (08:50)
[2021-04-27] MEDS: POLYETHYLENE (MIRALAX) 17 GM PACK PO SCH (08:50)
[2021-04-27] MEDS ORDERED: cefTRIAXone SODIUM 1,000 MG in DEXTROSE 5% 50 ML IV ONE (09:00)
--- NOTE | 2021-04-27 14:15 | Hospitalist Progress Note ---
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 * placement pending--> [facility] * Social work has spoken to family and Cynthia Gonzalez also spoke with family. Consent obtained from family for Covid vaccination, as documented. Covid vaccination J&J given * Previous provider contacted family to discuss possible home with hospice, spoke with granddaughter Patricia who communicated w/ her parents. She claims that her parents cannot take her home with hospice as her mother is going to be having surgery and her father travels frequently for work. Patient does require total care (being feed and changing her brief when incontinent of stool). Despite family not being able to help at home, patient still appropriate for hospice * [facility] assessed patient 04/16, requested updated PT/OT notes * Evidently, CC has to meet with family to review finances. Meeting has been set and per [facility], likely can take patient next week * Patient very attached to the baby dolls that are in her bed. The dolls need to be taken with her upon discharge. (2) Urinary retention: Plan: IMPROVED * Jean Baptiste inserted on 03/14 however she self removed on 03/21 with balloon intact - she has since urinated however overall minimal urine output likely due to poor oral intake but is having some retention. Was requiring straight cath on 03/24 and having some retention however over the past few days has been spontaneously voiding and oral intact has improved some. * Started on Flomax but still with retention and PVR >500 (for which jean baptiste catheter reinserted). Keep for now. If patient removes, would not be aggressive to put back in place. Ultimately, there has been ongoing decline since her initial hospitalization and her assisted prognosis is poor Urinalysis obtained on 04/19 given increased somnolence, appeared grossly infected (Nitrite +, 2+ leukocyte esterase, and 10-30 wbc). Started on Rocephin empirically which will continue through 04/27 for catheter associated UTI. Urine cx demonstrated 3 different organisms, all high counts, recommended repeat collection which was done on 04/20 with same culture results. Thus, no further repeat collections done and pt has just been treated. * Catheter changed 04/20--we will need changed monthly (3) Failure to thrive: Plan: Patient has remained in house >50 days and is awaiting placement Her oral intake has been slowly declining (does have good/bad days) Has shown overall decline since initial hospitalization We will hold off on IV fluids at this time as this would only be a temporary fix. Staff continues to assist with feeds Continue Boost supplementation Patient would be appropriate for hospice for end-stage dementia. Her failure to thrive is likely a result of her end-stage and progressive dementia -- Family reluctant to take her home given her tendencies to wander. -- At this point, she has declined where she is mostly bedbound; therapy was able to work w/ her this week and get her into the bedside chair -- Patient has been for the most part pleasantly confused and is really no trouble. At times w/ minimal agitation but not combative. Needs to be fed. (4) Dementia with behavioral disturbance: Plan: Stable. Continue trazodone no benefit from Aricept at this time. Med stopped Seroquel trialed upfront as patient brought to the ED with reports of increased agitation but it was stopped as it caused excessive somnolence. NO AGITATION OR BEHAVIORS this entire stay pt also had Risperdal PRN on meds list but has not been needed. (consider low dose if behavioral issues arise). again, overall decline since hospitalization (over the past 50 days). No behavioral disturbance issue. She has been very pleasantly confused. (5) Hypernatremia: Plan: Intermittent, resolves with improved oral intake. Encourage p.o. as tolerated continue with Boost supplement pt not a big fan of blood work, but last was WNL. Hold off on Lab draws unless really warranted (6) Thiamine deficiency: Plan: stable--s/p thiamine supplementation X 30 days. B12 normal. (7) Serum calcium elevated: Plan: was due to HCTZ which has since been D/C'd. (8) Anemia: Plan: Fe deficiency s/p venofer 300mg X 3 doses. B12 WNL. not a candidate for endoscopic evaluation due to age and advanced dementia. spot labs prn, given advanced dementia and progressive decline, avoid routine labs unless there is an acute change in status (9) Hypercholesterolemia: Plan: stable. no longer on statin, as with her dementia, failure to thrive and advanced age, it would not provide any benefit. (10) Benign essential hypertension: Plan: Throughout this hospital course, has had hypotension leading to discontinuation of her antihypertensive medications including her HCTZ and beta-blockade Patient should not be on her beta-jagruti or any antihypertensive agents at this point (11) Chronic renal failure, stage 3b: Plan: stable--avoid routine labs to monitor given advanced dementia with progressive decline (12) Afib: Plan: rate controlled/ in NSR at this time on exam (likely paroxysmal) no ACT given advanced age and dementia with fall risk and risk of bleeding had been on metoprolol 12.5mg up until this point but stopped on 04/06 given low BP of 90/55 and HR of 62. VS improved. continue to monitor (HR currently 58) (13) DVT prophylaxis: Plan: was on lovenox but staff reports getting very agitated with these. has since been stopped Plan: Medically stable for weeks. Awaiting placement as her family cannot provide care for her at home and subsequently does not have a safe discharge plan. Case management on board. Is appropriate for hospice given end-stage dementia but previous providers have been in touch with family members who are against hospice at this point. They are aware that she has been progressively declining but is not in the active stages of dying. May be a language/culture barrier. [facility] will accept and likely will have a bed for her but pending this financial meeting with family Admission and Anticipated Discharge Date Admission Date: February 05, 2021 Subjective Patient seen on daily rounds today. Pleasantly confused. Nursing voices no c/c. Per prior documentation on 04/25: reports [facility] has Financial meeting with the family with potential bed available next week at [facility]. Review of Systems Review of Systems: Unobtainable Physical Exam Physical Exam: GENERAL: 89 elderly thin/frail WF, NAD. LUNGS: Clear to auscultation bilaterally. No W/R/R. CARDIOVASCULAR: Regular rate and rhythm. No M/G/R. ABDOMEN: Soft and non-distended. No palpable masses. BS normal x 4 quad. : jean baptiste remains in place (changed 04/20) EXTREMITIES: No edema. Peripheral pulses +2/4. NEUROLOGIC: awake but seems more agitated today but not combative SKIN: No rashes or lesions. Results & Data Results & Data ([facility]) Vital Signs (Past 12 Hours) Vital Signs Temp Pulse Resp BP Pulse Ox 04/27/21 07:39 36.4 C L 67 16 111/58 L 92 PG Care Time/CCT Total # of Minutes Spent Total Time Spent with Patient: Total time spent is greater than 50% in coordination of care (as documented) at patient's floor/unit and/or counseling patient: Coding Level of Care Code 23487 Subseq Hosp Care Lvl 1 Diagnoses baby formula worker involved in patient's care Urinary retention R33.9 Failure to thrive Dementia with behavioral disturbance F03.91 Hypernatremia E87.0 Thiamine deficiency E51.9 Serum calcium elevated E83.52 Anemia D64.9 Hypercholesterolemia E78.00 Benign essential hypertension I10 Chronic renal failure, stage 3b N18.32 Afib I48.91 DVT prophylaxis Z29.9
[2021-04-27] MEDS: traZODone HCL 50 MG TAB PO SCH (20:44)
[2021-04-27] MEDS: TAMSULOSIN HCL 0.4 MG CAP PO SCH (20:44)
[2021-04-28] MEDS: POLYETHYLENE (MIRALAX) 17 GM PACK PO SCH (07:55)
[2021-04-28] MEDS: DOCUSATE SODIUM/SENNA 50/8.6MG TAB PO SCH (07:55)
--- NOTE | 2021-04-28 10:11 | Hospitalist Progress Note ---
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 * placement pending--> [facility] * Social work has spoken to family and Cynthia Gonzalez also spoke with family. Consent obtained from family for Covid vaccination, as documented. Covid vaccination J&J given * Previous provider contacted family to discuss possible home with hospice, spoke with granddaughter Patricia who communicated w/ her parents. She claims that her parents cannot take her home with hospice as her mother is going to be having surgery and her father travels frequently for work. Patient does require total care (being feed and changing her brief when incontinent of stool). Despite family not being able to help at home, patient still appropriate for hospice * [facility] assessed patient 04/16, requested updated PT/OT notes * Evidently, CC has to meet with family to review finances. Meeting has been set and per [facility], likely can take patient next week * Patient very attached to the baby dolls that are in her bed. The dolls need to be taken with her upon discharge. (2) Urinary retention: Plan: IMPROVED * Jean Baptiste inserted on 03/14 however she self removed on 03/21 with balloon intact - she has since urinated however overall minimal urine output likely due to poor oral intake but is having some retention. Was requiring straight cath on 03/24 and having some retention however over the past few days has been spontaneously voiding and oral intact has improved some. * Started on Flomax but still with retention and PVR >500 (for which jean baptiste catheter reinserted). Keep for now. If patient removes, would not be aggressive to put back in place. Ultimately, there has been ongoing decline since her initial hospitalization and her longterm prognosis is poor * Catheter changed 04/20--we will need changed monthly * Treated for recent UTI 04/19 thru 04/27 w/ empiric Rocephin. No specific bacteria isolated on culture results x2. (3) Failure to thrive: Plan: Patient has remained in house >50 days and is awaiting placement Her oral intake has been slowly declining (does have good/bad days) Has shown overall decline since initial hospitalization We will hold off on IV fluids at this time as this would only be a temporary fix. Staff continues to assist with feeds Continue Boost supplementation Patient would be appropriate for hospice for end-stage dementia. Her failure to thrive is likely a result of her end-stage and progressive dementia -- Family reluctant to take her home given her tendencies to wander. -- At this point, she has declined where she is mostly bedbound; therapy was able to work w/ her this week and get her into the bedside chair -- Patient has been for the most part pleasantly confused and is really no trouble. At times w/ minimal agitation but not combative. Needs to be fed. (4) Dementia with behavioral disturbance: Plan: Stable. Continue trazodone no benefit from Aricept at this time. Med stopped Seroquel trialed upfront as patient brought to the ED with reports of increased agitation but it was stopped as it caused excessive somnolence. NO AG ITATION OR BEHAVIORS this entire stay pt also had Risperdal PRN on meds list but has not been needed. (consider low dose if behavioral issues arise). again, overall decline since hospitalization (over the past 50 days). No behavioral disturbance issue. She has been very pleasantly confused. (5) Hypernatremia: Plan: Intermittent, resolves with improved oral intake. Encourage p.o. as tolerated continue with Boost supplement pt not a big fan of blood work, but last was WNL. Hold off on Lab draws unless really warranted (6) Thiamine deficiency: Plan: stable--s/p thiamine supplementation X 30 days. B12 normal. (7) Serum calcium elevated: Plan: was due to HCTZ which has since been D/C'd. (8) Anemia: Plan: Fe deficiency s/p venofer 300mg X 3 doses. B12 WNL. not a candidate for endoscopic evaluation due to age and advanced dementia. spot labs prn, given advanced dementia and progressive decline, avoid routine labs unless there is an acute change in status (9) Hypercholesterolemia: Plan: stable. no longer on statin, as with her dementia, failure to thrive and advanced age, it would not provide any benefit. (10) Benign essential hypertension: Plan: Throughout this hospital course, has had hypotension leading to discontinuation of her antihypertensive medications including her HCTZ and beta-blockade Patient should not be on her beta-jagruti or any antihypertensive agents at this point (11) Chronic renal failure, stage 3b: Plan: stable--avoid routine labs to monitor given advanced dementia with progressive decline (12) Afib: Plan: rate controlled/ in NSR at this time on exam (likely paroxysmal) no ACT given advanced age and dementia with fall risk and risk of bleeding had been on metoprolol 12.5mg up until this point but stopped on 04/06 given low BP of 90/55 and HR of 62. VS improved. continue to monitor (HR currently 58) (13) DVT prophylaxis: Plan: was on lovenox but staff reports getting very agitated with these. has since been stopped Plan: Medically stable for weeks. Awaiting placement as her family cannot provide care for her at home and subsequently does not have a safe discharge plan. Case management on board. Is appropriate for hospice given end-stage dementia but previous providers have been in touch with family members who are against hospice at this point. They are aware that she has been progressively declining but is not in the active stages of dying. May be a language/culture barrier. [facility] will accept and likely will have a bed for her but pending this financial meeting with family Admission and Anticipated Discharge Date Admission Date: February 05, 2021 Subjective Patient seen on daily rounds today. Pleasantly confused. Nursing voices no c/c. Per prior documentation on 04/25: reports [facility] has Financial meeting with the family with potential bed available next week at [facility]. Review of Systems Review of Systems: Unobtainable Physical Exam Physical Exam: GENERAL: 89 elderly thin/frail WF, NAD. LUNGS: Clear to auscultation bilaterally. No W/R/R. CARDIOVASCULAR: Regular rate and rhythm. No M/G/R. ABDOMEN: Soft and non-distended. No palpable masses. BS normal x 4 quad. : jean baptiste remains in place (changed 04/20) EXTREMITIES: No edema. Peripheral pulses +2/4. NEUROLOGIC: awake but seems more agitated today but not combative SKIN: No rashes or lesions. Results & Data Results & Data ([facility]) Vital Signs (Past 12 Hours) Vital Signs Temp Pulse Pulse Resp BP BP Pulse Ox 04/28/21 07:29 37 C 86 16 126/54 L 92 04/28/21 05:25 85 123/50 L PG Care Time/CCT Total # of Minutes Spent Total Time Spent with Patient: Total time spent is greater than 50% in coordination of care (as documented) at patient's floor/unit and/or counseling patient: Coding Level of Care Code 92021 Subseq Hosp Care Lvl 1 Diagnoses egg factory worker involved in patient's care Urinary retention R33.9 Failure to thrive Dementia with behavioral disturbance F03.91 Hypernatremia E87.0 Thiamine deficiency E51.9 Serum calcium elevated E83.52 Anemia D64.9 Hypercholesterolemia E78.00 Benign essential hypertension I10 Chronic renal failure, stage 3b N18.32 Afib I48.91 DVT prophylaxis Z29.9
[2021-04-28] MEDS: TAMSULOSIN HCL 0.4 MG CAP PO SCH (20:33)
[2021-04-28] MEDS: traZODone HCL 50 MG TAB PO SCH (20:33)
[2021-04-29] MEDS: POLYETHYLENE (MIRALAX) 17 GM PACK PO SCH (07:42)
[2021-04-29] MEDS: DOCUSATE SODIUM/SENNA 50/8.6MG TAB PO SCH (07:42)
--- NOTE | 2021-04-29 12:58 | Hospitalist Progress Note ---
Date of Service April 29, 2021 Assessment & Plan (1) collision worker involved in patient's care: Plan: * pt needs 24-hour care, family unable to provide this level of care, thus SNF post-discharge. * placement pending--> [facility] * Social work has spoken to family and Cynthia Gonzalez also spoke with family. Consent obtained from family for Covid vaccination, as documented. Covid vaccination J&J given * Previous provider contacted family to discuss possible home with hospice, spoke with granddaughter Patricia who communicated w/ her parents. She claims that her parents cannot take her home with hospice as her mother is going to be having surgery and her father travels frequently for work. Patient does require total care (being feed and changing her brief when incontinent of stool). Despite family not being able to help at home, patient still appropriate for hospice * [facility] assessed patient 04/16, requested updated PT/OT notes * Evidently, CC has to meet with family to review finances which is today 04/29. * [facility] may be able to take later this week if meeting goes as planned. * Patient very attached to the baby dolls that are in her bed. The dolls need to be taken with her upon discharge. (2) Urinary retention: Plan: IMPROVED * Jean Baptiste inserted on 03/14 however she self removed on 03/21 with balloon intact - she has since urinated however overall minimal urine output likely due to poor oral intake but is having some retention. Was requiring straight cath on 03/24 and having some retention however over the past few days has been spontane ously voiding and oral intact has improved some. * Started on Flomax but still with retention and PVR >500 (for which jean baptiste catheter reinserted). Keep for now. If patient removes, would not be aggressi ve to put back in place. Ultimately, there has been ongoing decline since her initial hospitalization and her prison prognosis is poor * Catheter changed 04/20--we will need changed monthly * Treated for recent UTI 04/19 thru 04/27 w/ empiric Rocephin. No specific bacteria isolated on culture results x2. (3) Failure to thrive: Plan: Patient has remained in house >50 days and is awaiting placement Her oral intake has been slowly declining (does have good/bad days) Has shown overall decline since initial hospitalization We will hold off on IV fluids at this time as this would only be a temporary fix. Staff continues to assist with feeds Continue Boost supplementation Patient would be appropriate for hospice for end-stage dementia. Her failure to thrive is likely a result of her end-stage and progressive dementia -- Family reluctant to take her home given her tendencies to wander. -- At this point, she has declined where she is mostly bedbound; therapy was able to work w/ her this week and get her into the bedside chair -- Patient has been for the most part pleasantly confused and is really no trouble. At times w/ minimal agitation but not combative. Needs to be fed. (4) Dementia with behavioral disturbance: Plan: Stable. Continue trazodone no benefit from Aricept at this time. Med stopped Seroquel trialed upfront as patient brought to the ED with reports of increased agitation but it was stopped as it caused excessive somnolence. NO AGITATION OR BEHAVIORS this entire stay pt also had Risperdal PRN on meds list but has not been needed. (consider low dose if behavioral issues arise). again, overall decline since hospitalization (over the past 50 days). No behavioral disturbance issue. She has been very pleasantly confused. (5) Hypernatremia: Plan: Intermittent, resolves with improved oral intake. Encourage p.o. as tolerated continue with Boost supplement pt not a big fan of blood work, but last was WNL. Hold off on Lab draws unless really warranted (6) Thiamine deficiency: Plan: stable--s/p thiamine supplementation X 30 days. B12 normal. (7) Serum calcium elevated: Plan: was due to HCTZ which has since been D/C'd. (8) Anemia: Plan: Fe deficiency s/p venofer 300mg X 3 doses. B12 WNL. not a candidate for endoscopic evaluation due to age and advanced dementia. spot labs prn, given advanced dementia and progressive decline, avoid routine labs unless there is an acute change in status (9) Hypercholesterolemia: Plan: stable. no longer on statin, as with her dementia, failure to thrive and advanced age, it would not provide any benefit. (10) Benign essential hypertension: Plan: Throughout this hospital course, has had hypotension leading to discontinuation of her antihypertensive medications including her HCTZ and beta-blockade Patient should not be on her beta-jagruti or any antihypertensive agents at this point (11) Chronic renal failure, stage 3b: Plan: stable--avoid routine labs to monitor given advanced dementia with progressive decline (12) Afib: Plan: rate controlled/ in NSR at this time on exam (likely paroxysmal) no ACT given advanced age and dementia with fall risk and risk of bleeding had been on metoprolol 12.5mg up until this point but stopped on 04/06 given low BP of 90/55 and HR of 62. VS improved. continue to monitor (HR currently 58) (13) DVT prophylaxis: Plan: was on lovenox but staff reports getting very agitated with these. has since been stopped Plan: Medically stable for weeks. Awaiting placement as her family cannot provide care for her at home and subsequently does not have a safe discharge plan. Case management on board. Is appropriate for hospice given end-stage dementia but previous providers have been in touch with family members who are against hospice at this point. They are aware that she has been progressively declining but is not in the active stages of dying. May be a language/culture barrier. [facility] will accept and likely will have a bed for her but pending this financial meeting with family today 04/29. Admission and Anticipated Discharge Date Admission Date: February 05, 2021 Subjective Patient seen on daily rounds today. This morning seems drowsy, sleeping when I came in to see her and was yawning during my exam. Per prior documentation on 04/25: CM reports [facility] has Financial meeting with the family with potential bed available next week at [facility]. Review of Systems Review of Systems: Unobtainable Physical Exam Physical Exam: GENERAL: 89 elderly thin/frail WF, NAD. LUNGS: Clear to auscultation bilaterally. No W/R/R. CARDIOVASCULAR: Regular rate and rhythm. No M/G/R. ABDOMEN: Soft and non-distended. No palpable masses. BS normal x 4 quad. : jean baptiste remains in place (changed 04/20) EXTREMITIES: No edema. Peripheral pulses +2/4. NEUROLOGIC: awake but seems more agitated today but not combative SKIN: No rashes or lesions. Results & Data Results & Data ([facility]) Vital Signs (Past 12 Hours) Vital Signs Temp Pulse Resp BP Pulse Ox 04/29/21 07:27 36.5 C 61 16 108/60 94 PG Care Time/CCT Total # of Minutes Spent Total Time Spent with Patient: Total time spent is greater than 50% in coordination of care (as documented) at patient's floor/unit and/or counseling patient: Coding Level of Care Code 64715 Subseq Hosp Care Lvl 1 Diagnoses collision worker involved in patient's care Urinary retention R33.9 Failure to thrive Dementia with behavioral disturbance F03.91 Hypernatremia E87.0 Thiamine deficiency E51.9 Serum calcium elevated E83.52 Anemia D64.9 Hypercholesterolemia E78.00 Benign essential hypertension I10 Chronic renal failure, stage 3b N18.32 Afib I48.91 DVT prophylaxis Z29.9
[2021-04-29] MEDS: traZODone HCL 50 MG TAB PO SCH (20:06)
[2021-04-29] MEDS: TAMSULOSIN HCL 0.4 MG CAP PO SCH (20:06)
[2021-04-30] MEDS: DOCUSATE SODIUM/SENNA 50/8.6MG TAB PO SCH (08:10)
[2021-04-30] MEDS: POLYETHYLENE (MIRALAX) 17 GM PACK PO SCH (08:10)
--- NOTE | 2021-04-30 11:08 | Discharge Summary ---
Date of Service April 30, 2021 Admission HPI Per Admitting Provider Halley Soliz is an 89yo [place] female with history of Dementia, HTN, HLP presenting with her granddaughter with report of aggression. Patient currently lives with her daughter who cares for her. At baseline she is incontinent, needs assistance with dressing and meals. She has also has difficulty with communication - she is Angolan speaking but has been having progressive inability to understand Angolan. Over the last 2 weeks patient has become increasingly aggressive at home. She has been hitting and pushing her daughter. She has also been defecating throughout the house. Also some question of hallucinations as she has been heard having conversations with people that aren't in the room. Patient's granddaughter visited today from [place]. Patient became very aggressive and was pushing her daughter, granddaughter and great-grandchildren around. She was also yelling and cursing. Granddaughter called EMS and patient was brought to the ER. Afebrile, HD stable while in the ER. Granddaughter states that patient has been looking around the room confused and having conversations with people that aren't here. Patient is [place]olan speaking but is having difficulty understanding her grandd edith. She follows some commands. Of note, patient was seen in the ER on 01/14/21 after being found wandering around outside. She was ultimately discharged home to family. She was seen by her PCP on 01/20/21 for followup. Note mentions that patient has been more aggressive, not allowing for self-care. It was recommended that the family begin to consider placement options. ER Course: NSS x 1L Principal Diagnosis 1. Progressive dementia w/ behavioral disturbance 2. Urinary retention 3. Failure to thrive Discharge Exam GENERAL: 89 elderly thin/frail WF, NAD. LUNGS: Clear to auscultation bilaterally. No W/R/R. CARDIOVASCULAR: Regular rate and rhythm. No M/G/R. ABDOMEN: Soft and non-distended. No palpable masses. BS normal x 4 quad. : jean baptiste remains in place (changed 04/20) EXTREMITIES: No edema. Peripheral pulses +2/4. NEUROLOGIC: awake but seems more agitated today but not combative SKIN: No rashes or lesions. Discharge Data Allergies Allergy/AdvReac Type Severity Reaction Status Date / Time No Known Allergies Allergy Verified 02/05/21 21:09 Ordered Studies Chest X-Ray 02/05/21 20:31 XR chest 1V portable CLINICAL HISTORY: ams TECHNIQUE: Single frontal radiograph of the chest was obtained. Comparison: Comparison is made to chest one view 01/14/2021 FINDINGS: No lines and tubes are seen. The aorta is tortuous. The remainder of the cardiomediastinal silhouette is unremarkable. The lungs are clear. No evidence of pleural effusion or pneumothorax. IMPRESSION: No acute chest disease. ACT 112: Negative or not required by law. Electronically signed by: Jourdan Germain M.D. 02/05/2021 8:[address] 02/05/21 20:[address] DOSE: 614.27 mGy.cm HISTORY: Altered mental status. TECHNIQUE: Multiaxial CT images of the head were performed without the use of intravenous contrast. Automated exposure control was utilized for this study. A dose lowering technique was utilized adhering to the principles of ALARA. Comparison: Head CT 01/14/2021. Findings: Small retention cyst within the maxillary sinuses. The mastoid air karri ls are clear. The calvarium and skull base are intact. There is no mass, hematoma, midline shift, acute infarct. White matter hypodensity is nonspecific but suggestive of microvascular ischemic change. The ventricles and sulci demonstrate mild age-related involutional changes. Impression: No acute intracranial abnormality. ACT 112: Negative or not required by law. Electronically signed by: Iker Alcazar M.D. 02/06/2021 7:22 AM Shoulder X-Ray 02/09/21 13:06 XR shoulder RT min 2V routine HISTORY: 89 years-old Female pain with movement acute right shoulder pain COMPARISON: Chest radiograph 02/05/2021 TECHNIQUE: 3 views of the right shoulder FINDINGS: Moderate AC joint with severe glenohumeral osteoarthritis. No acute fracture, dislocation or opaque foreign body. Demineralized appearance of the bones. The imaged lung sanon appear clear. Atherosclerosis of the aorta. IMPRESSION: Severe glenohumeral osteoarthritis without acute fracture or dislocation. ACT 112: Negative or not required by law. The above report was generated using voice recognition software. It may contain grammatical, syntax or spelling errors. Electronically signed by: Jett Jensen M.D. 02/09/2021 2:57 PM Hand X-Ray 02/17/21 14:03 XR hand RT min 3V routine CLINICAL HISTORY: multiple PIPs with swelling; eval erosions, etc COMPARISON: None FINDINGS: Ulnar positive variance is noted. There is erosion of the ulnar styloid and adjacent distal radioulnar joint. However, this has sclerotic margins and is therefore not acute. No acute fracture within the right hand is noted. Sclerosis of the right first metacarpal suggests old fracture. Note is made of moderate joint space narrowing and osteophytosis within multiple interphalangeal joints of the right hand. No additional erosive changes are identified. IMPRESSION: 1. No acute fracture or dislocation within the right hand. 2. 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 This finding is chronic and could be due to ulnar positive variance. An inflammatory process such as rheumatoid arthritis cannot be completely excluded although is considered less likely. 3. Moderate osteophytosis within multiple interphalangeal joints of the right hand. ACT 112: Negative or not required by law. Electronically signed by: Nestor Mello M.D. 02/17/2021 3:02 PM Hospital Course (1) feed in worker involved in patient's care: * pt needs 24-hour care, family unable to provide this level of care, thus SNF post-discharge. * placement pending--> [facility] * Social work has spoken to family and Cynthia Gonzalez also spoke with family. Consent obtained from family for Covid vaccination, as documented. Covid vaccination J&J given * Previous provider contacted family to discuss possible home with hospice, spoke with granddaughter Patricia who communicated w/ her parents. She claims that her parents cannot take her home with hospice as her mother is going to be having surgery and her father travels frequently for work. Patient does require total care (being feed and changing her brief when incontinent of stool). Despite family not being able to help at home, patient still appropriate for hospice * [facility] assessed patient 04/16, requested updated therapy notes, met w/ family to discuss financials on 04/29--able to take pt today on 04/30 * Patient very attached to the baby dolls that are in her bed. The dolls need to be taken with her upon discharge. (2) Urinary retention: IMPROVED * Jean Baptiste inserted on 03/14 however she self removed on 03/21 with balloon intact - she has since urinated however overall minimal urine output likely due to poor oral intake but is having some retention. Was requiring straight cath on 03/24 and having some retention however over the past few days has been spontaneously voiding and oral intact has improved some. * Started on Flomax but still with retention and PVR >500 (for which jean baptiste catheter reinserted). Keep for now. If patient removes, would not be aggressive to put back in place. Ultimately, there has been ongoing decline since her initial hospitalization and her intermediate prognosis is poor * Catheter changed 04/20--will need changed monthly * Was treated for at least 2 urinary tract infections during her hospitalization (3) Failure to thrive: Patient has remained in house >50 days and is awaiting placement Her oral intake has been slowly declining (does have good/bad days) Has shown overall decline since initial hospitalization We will hold off on IV fluids at this time as this would only be a temporary fix. Staff continues to assist with feeds Continue Boost supplementation Patient would be appropriate for hospice for end-stage dementia. Her failure to thrive is likely a result of her end-stage and progressive dementia -- Family reluctant to take her home given her tendencies to wander. -- At this point, she has declined where she is mostly bedbound; therapy was able to work w/ her this week and get her into the bedside chair -- Patient has been for the most part pleasantly confused and is really no trouble. At times w/ minimal agitation but not combative. Needs to be fed. (4) Dementia with behavioral disturbance: Stable. Continue trazodone no benefit from Aricept at this time. Med stopped Seroquel trialed upfront as patient brought to the ED with reports of increased agitation but it was stopped as it caused excessive somnolence. NO AGITATION OR BEHAVIORS this entire stay pt also had Risperdal PRN on meds list but has not been needed. (consider low dose if behavioral issues arise). again, overall decline since hospitalization (over the past 80+ days). No behavioral disturbance issue. She has been very pleasantly confused. (5) Hypernatremia: Intermittent, resolves with improved oral intake. Encourage p.o. as tolerated continue with Boost supplement pt not a big fan of blood work, but last was WNL (6) Thiamine deficiency: stable--s/p thiamine supplementation X 30 days. B12 normal. (7) Serum calcium elevated: was due to HCTZ which normalized after stopping this med (8) Anemia: Fe deficiency s/p venofer 300mg X 3 doses. B12 WNL. not a candidate for endoscopic evaluation due to age and advanced dementia. (9) Hypercholesterolemia: stable. no longer on statin, as with her dementia, failure to thrive and advanced age, it would not provide any benefit. (10) Benign essential hypertension: Throughout this hospital course, has had hypotension leading to discontinuation of her antihypertensive medications including her HCTZ and beta- blockade Patient should not be on her beta-jagruti or any antihypertensive agents at this point (11) Chronic renal failure, stage 3b: stable (12) Afib: rate controlled/ in NSR at this time on exam (likely paroxysmal) no ACT given advanced age and dementia with fall risk and risk of bleeding had been on metoprolol 12.5mg up until this point but stopped on 04/06 given low BP of 90/55 and HR of 62. VS improved. continue to monitor (HR usually 60s) (13) DVT prophylaxis: was on lovenox but staff reports getting very agitated with these. has since been stopped Patient is appropriate for hospice given end-stage dementia but previous providers have been in touch with family members who are against hospice at this point. They are aware that she has been progressively declining but is not in the active stages of dying. May be a language/culture barrier. She is medically and hemodynamically stable for discharge to SNF today, [facility]. Case management has arranged transport. Above plan of care has been d/w Dr. Banuelos. Total Time Total Time Spent Total Time Spent (In Minutes): >30 minutes Discharge Plan Discharge Items Patient Disposition: Transfer Snf Fac Reason For Visit: CONFUSION, AGITATION Discharge Diagnosis: Agitation, metabolic encephalopathy 2/2 UTI Chronic dementia Activity: Resume your previous activity Non-emergency contact: Primary Care Provider Call non-emergency contact if: you have any medication questions, your symptoms worsen and your pain is not controlled Follow-up/Referrals: PCP,NO [Physician] - Diet: Regular Addtl Attending Provider Instructions: Halley was seen in the hospital for acute confusion exacerbated by urinary tract infection. She also has underlying progressive severe dementia which places her at increased risk for delirium and confusion. Her urinary tract infection was treated with a course of antibiotics during hospital admission, no additional antibiotics were indicated at time of discharge. Pending Studies at Discharge: No Stand-Alone Forms: My [facility] [employer] Skilled Items Patient informed of condition?: Yes DNR: Yes Discharge Level of Care: Skilled Communicable Disease: No Discharge Prognosis: Stable Lines: None Urinary Catheter: Yes Medications and DC Order Prescriptions: Continued (DME) Underpad-Extra Large Pad See Rx Instructions .ROUTE .MEDSUPPLY Qty: 60 RF: 5 (DME) Briefs Medium Misc See Rx Instructions .ROUTE .MEDSUPPLY Qty: 160 RF: 5 donepezil 5 mg tablet 5 mg PO HS Qty: 30 RF: 5 potassium chloride 20 mEq tablet extended release 20 meq PO DAILY Qty: 30 RF: 5 torsemide 10 mg tablet 10 mg PO DAILY Qty: 30 RF: 5 estradiol 0.01 % (0.1 mg/gram) cream 0.5 appful vaginal 2XWK Qty: 42.5 RF: 4 trazodone 50 mg tablet 50 mg PO HS Qty: 30 RF: 5 Discontinued triamterene-hydrochlorothiazid 37.5-25 mg capsule 1 cap PO DAILY Qty: 30 RF: 5 simvastatin 20 mg tablet 20 mg PO DAILY Qty: 90 RF: 1 hydroxyzine HCl 10 mg tablet See Rx Instructions PO TID PRN (Reason: itching) Qty: 180 RF: 1 Discharge Orders: Discharge Order (Routine); Ordered 04/30/21 Ordered By: Sandra Calderon Admission Data Admit Date/Time: 02/05/21 23:26 Attending Provider: Gaston Banuelos Admit Provider: Nguyen Serrano Primary Care Provider: Jacoby Hill III Other Providers: [facility] ; [facility] ; [facility] Coding Level of Care Code D/C DAY MANAGEMENT >30 MINS Diagnoses feed in worker involved in patient's care Urinary retention R33.9 Failure to thrive Dementia with behavioral disturbance F03.91 Hypernatremia E87.0 Thiamine deficiency E51.9 Serum calcium elevated E83.52 Anemia D64.9 Hypercholesterolemia E78.00 Benign essential hypertension I10 Chronic renal failure, stage 3b N18.32 Afib I48.91 DVT prophylaxis Z29.9
== END 2021-04-30 13:05 | DRG 884 ==
LOC: ED 19:32 → SUATTDRO 23:26 → 3E 23:26 → 2N 02-06 16:52 → 3N 02-19 05:12